=== PATIENT | female | born 1945 | race Caucasian/White ===

== ENCOUNTER 2023-02-14 09:31 | Emergency (ER) | payer MEDICARE, SELFPAY ==
[2023-02-14] VITALS (7 sets, daily range): BP systolic 123–165; BP diastolic 72–79; PULSE 49–69; RESP 14–20; TEMP 36.8; O2SAT 98–99; BMI 27.3
--- NOTE | 2023-02-14 09:53 | ECG_ITS ---
The [facility] Test Date: 2023-02-14 Pat Name: ELLIE BISHOP Department: Room: - Gender: Female Electrophysiology Scientist: : 1945 Requested By: [id number] Order Number: [id number] Reading MD: LOLIS HUGHES Measurements Intervals [place] Rate: 49 P: 0 OK: 154 QRS: -32 QRSD: 86 T: -13 QT: 402 QTc: 372 Interpretive Statements 1130 Sinus bradycardia 7200 Abnormal left axis deviation 8003 Consistent with pulmonary disease 8102 Low QRS voltage in chest leads ST changes, can't exclude inferior ischemia 9150 abnormal ECG No previous ECG available for comparison Electronically Signed On 02-15-2023 10:52:58 EST by LOLIS HUGHES
--- NOTE | 2023-02-14 09:53 | XR_ITS ---
The [address] [address] Patient Name: ELLIE BISHOP MRN: [id number] date: 1945 Sex: F Assigned Patient Location: ER Current Patient Location: ER Accession/Order Number: [id number] Exam Date: 02/14/2023 10:18 Report Date: 02/14/2023 10:57 At the request of: JERMAN REED Procedure: XR chest 1V EXAM: XR chest 1V HISTORY: dizziness COMPARISON: Chest radiograph report only from 09/15/2008 images are unavailable for review TECHNIQUE: AP radiograph of the chest. FINDINGS: Atherosclerotic vascular calcification of aorta. The cardiac size is normal. The lungs are without focal consolidation, pneumothorax, or pleural effusion. No acute osseous abnormality. Postsurgical changes at the epigastric region. XR/XR chest 1V IMPRESSION: 1. No acute pulmonary abnormality. Electronically authenticated by: YEE LUU Date: 02/14/2023 10:57
--- NOTE | 2023-02-14 09:53 | ED_ITS ---
HPI - Dizziness General Chief Complaint: Syncope Stated Complaint: SYNCOPE Time Seen by Provider: 02/14/23 09:40 Source: patient Mode of arrival: walk-in Limitations: no limitations History of Present Illness HPI Narrative: 77-year-old female presents for episodes of dizziness. This has been happening for about the past two months and she had a heart attack and had two stents placed and was put on Plavix. She has these episodes nearly every day and it happens about three times a day. She feels like she's fading away and might pass out but never does. She talked to her fence gate assembler about it who told her that he didn't think there were any medication issues. Related Data Home Medications Medication Instructions Recorded Confirmed alprazolam 1 mg tablet 2.5 mg PO BEDTIME 02/14/23 02/14/23 aspirin 81 mg tablet,delayed 81 mg PO DAILY 02/14/23 02/14/23 release atorvastatin 80 mg tablet 80 mg PO DAILY 02/14/23 02/14/23 clopidogrel 75 mg tablet 75 mg PO DAILY 02/14/23 02/14/23 levothyroxine 100 mcg tablet 100 mcg PO DAILY 02/14/23 02/14/23 losartan 100 1 tab PO DAILY 02/14/23 02/14/23 mg-hydrochlorothiazide 25 mg tablet metoprolol tartrate 25 mg tablet 25 mg PO BID 02/14/23 02/14/23 omeprazole 20 mg capsule,delayed 20 mg PO BID 02/14/23 02/14/23 release Allergies Allergy/AdvReac Type Severity Reaction Status Date / Time No Known Drug Allergies Allergy Verified 02/14/23 09:40 Review of Systems ROS0 Narrative A ten point review of systems is negative except as noted above. PFSH PFSH Social History Smoking status: Never smoker Exam Narrative Exam Narrative: Nurses note and vital signs reviewed and patient is not hypoxic. General: The patient appears well and in no apparent distress. Patient is resting comfortably on cart. Skin: Warm, dry, no pallor noted. There is no rash noted. Head: Normocephalic, atraumatic Eye: Normal conjunctiva, no drainage Ears, Nose, Mouth, and Throat: oral mucosa is moist. Nares patent. Cardiovascular: Regular Rate and Rhythm Respiratory: Patient is in no distress, no accessory muscle use, lungs are clear to auscultation, no wheezing, rales or rhonchi Back: non-tender GI: soft and nontender Musculoskeletal: The patient has no evidence of calf tenderness, no pitting edema, symmetrical pulses noted bilaterally Neurological: A&O, normal speech Psychiatric: Cooperative Constitutional Vital Signs, click to edit/add: Last Vital Signs Temp 98.2 F 02/14/23 09:35 Pulse 50 L 02/14/23 10:30 Resp 14 02/14/23 10:30 BP 123/72 02/14/23 10:47 Pulse Ox 98 02/14/23 10:30 O2 Del Method Room Air 02/14/23 09:35 Course Vital Signs Vital signs: Vital Signs Temperature 98.2 F 02/14/23 09:35 Pulse Rate 60 02/14/23 09:35 Respiratory Rate 20 02/14/23 09:35 Blood Pressure 165/79 H 02/14/23 09:35 Pulse Oximetry 99 02/14/23 09:35 Oxygen Delivery Method Room Air 02/14/23 09:35 Temperature 98.2 F 02/14/23 09:35 Pulse Rate 50 L 02/14/23 10:30 Respiratory Rate 14 02/14/23 10:30 Blood Pressure 123/72 02/14/23 10:47 Pulse Oximetry 98 02/14/23 10:30 Oxygen Delivery Method Room Air 02/14/23 09:35 MDM - Dizziness MDM Narrative Medical decision making narrative: her workup including two troponins is negative. She's had no dysrhythmias here. Vital signs are appropriate. Heart rate is in the low 50s. She'll be discharged home and follow-up with her fence gate assembler and family doctor. Treatment diagnosis and follow-up were discussed with the patient. Differential Diagnosis Differential diagnosis: Likely adverse reaction to drug, orthostatic hypotension and other (dehydration) Lab Data Attestation: I reviewed the patient's lab results. Labs: Lab Results 02/14/23 02/14/23 Range/Units 09:53 10:51 WBC 6.9 (4.0-11.0) 10^3/uL RBC 3.78 L (4.20-5.40) 10^6/uL Hgb 11.8 L (12.0-16.0) g/dL Hct 37.4 (36.0-48.0) % MCV 98.9 (81.0-99.0) fL MCH 31.2 (26.7-34.0) pg MCHC 31.6 (29.9-35.2) g/dL RDW 11.2 (11.0-15.0) % Plt Count 183 (150-450) 10^3/uL MPV 10.4 (9.5-13.5) fL Neut % (Auto) 65.7 (43.0-75.0) % Lymph % (Auto) 23.8 (20.5-60.0) % [place] % (Auto) 7.6 (1.7-12.0) % Eos % (Auto) 1.9 (0.9-7.0) % Baso % (Auto) 0.7 (0.2-2.0) % Neut # (Auto) 4.6 (1.4-6.5) 10^3/uL Lymph # (Auto) 1.7 (1.2-3.8) 10^3/uL [place] # (Auto) 0.5 (0.3-0.8) 10^3/uL Eos # (Auto) 0.1 (0.0-0.7) 10^3/uL Baso # (Auto) 0.1 (0.0-0.1) 10^3/uL Abs Immat Gran (auto) 0.02 (0.00-0.03) 10^3/uL Imm/Tot Granulo (auto) 0.3 (0.0-0.5) % Sodium 141 (136-145) mmol/L Potassium 3.5 (3.5-5.1) mmol/L Chloride 104 (98-107) mmol/L Carbon Dioxide 26.5 (21.0-32.0) mmol/L Anion Gap 14.0 BUN 31.0 H (7.0-18.0) mg/dL Creatinine 0.91 (0.55-1.02) mg/dL Est GFR ( Amer) >60 (>=60) Est GFR (Non-Af Amer) >60 (>=60) BUN/Creatinine Ratio 34.1 Glucose 169 H (74-106) mg/dL Calcium 9.7 (8.5-10.1) mg/dL Troponin I High Sens 49.4 46.6 (4.0-51.3) pg/mL Imaging Data Chest x-ray: Radiologist's impression: Procedure: XR chest 1V EXAM: XR chest 1V HISTORY: dizziness COMPARISON: Chest radiograph report only from 09/15/2008 images are unavailable for review TECHNIQUE: AP radiograph of the chest. FINDINGS: Atherosclerotic vascular calcification of aorta. The cardiac size is normal. The lungs are without focal consolidation, pneumothorax, or pleural effusion. No acute osseous abnormality. Postsurgical changes at the epigastric region. IMPRESSION: 1. No acute pulmonary abnormality. Electronically authenticated by: YEE LUU Date: 02/14/2023 10:57 ECG Data Attestation: I personally reviewed and interpreted this ECG as follows: (EKG on my interpretation shows normal sinus rhythm with a rate of 49.) Discharge Plan Discharge Chief Complaint: Syncope Clinical Impression: Dizziness Patient Disposition: Home, Self-Care Time of Disposition Decision: 11:35 Condition: Good Mode of Transportation: Private Vehicle Prescriptions / Home Meds: No Action alprazolam 1 mg tablet 2.5 mg PO BEDTIME aspirin 81 mg tablet,delayed release (DR/EC) 81 mg PO DAILY atorvastatin 80 mg tablet 80 mg PO DAILY clopidogrel 75 mg tablet 75 mg PO DAILY levothyroxine 100 mcg tablet 100 mcg PO DAILY losartan-hydrochlorothiazide 100-25 mg tablet 1 tab PO DAILY metoprolol tartrate 25 mg tablet 25 mg PO BID omeprazole 20 mg capsule,delayed release(DR/EC) 20 mg PO BID Instructions: Near Syncope (ED), Dizziness (ED) Stand Alone Forms: Portal Instructions Referrals: Physician,Non-Staff, MD [Physician] - 1 week
[2023-02-14 10:04] LABS: Basophils Absolute Auto 0.1 10^3/uL (0.0-0.1); Basophils Percent Auto 0.7 % (0.2-2.0); Eosinophils Absolute Auto 0.1 10^3/uL (0.0-0.7); Eosinophils Percent Auto 1.9 % (0.9-7.0); Hematocrit 37.4 % (36.0-48.0); Hemoglobin 11.8 g/dL (12.0-16.0); Immature Granulocytes Abs Auto 0.02 10^3/uL (0.00-0.03); Immature Granulocytes Pct Auto 0.3 % (0.0-0.5); Lymphocytes Absolute Auto 1.7 10^3/uL (1.2-3.8); Lymphocytes Percent Auto 23.8 % (20.5-60.0); Mean Corpuscular HGB Conc 31.6 g/dL (29.9-35.2); Mean Corpuscular Hemoglobin 31.2 pg (26.7-34.0); Mean Corpuscular Volume 98.9 fL (81.0-99.0); Mean Platelet Volume 10.4 fL (9.5-13.5); Monocytes Absolute Auto 0.5 10^3/uL (0.3-0.8); Monocytes Percent Auto 7.6 % (1.7-12.0); Neutrophils Absolute Auto 4.6 10^3/uL (1.4-6.5); Neutrophils Percent Auto 65.7 % (43.0-75.0); Platelet Count 183 10^3/uL (150-450); Red Blood Count 3.78 10^6/uL (4.20-5.40); Red Cell Distribution Width 11.2 % (11.0-15.0); White Blood Count 6.9 10^3/uL (4.0-11.0)
[2023-02-14 10:26] LABS: BUN Creatinine Ratio 34.1; Calcium 9.7 mg/dL (8.5-10.1); Carbon Dioxide 26.5 mmol/L (21.0-32.0); Chloride 104 mmol/L (98-107); Estimated GFR (African America >60 (>=60); Estimated GFR (Non-African Ame >60 (>=60); Glucose 169 mg/dL (74-106); Potassium 3.5 mmol/L (3.5-5.1); Sodium 141 mmol/L (136-145); Troponin I High Sensitivity 49.4 pg/mL (4.0-51.3)
[2023-02-14 11:12] LABS: Troponin I High Sensitivity 46.6 pg/mL (4.0-51.3)
== END 2023-02-14 11:44 | disposition home or self-care (01) ==
PROVIDERS: Emergency Provider Emergency Medicine; PCP Family Medicine
DX: R42 Dizziness and giddiness (principal); I25.2 Old myocardial infarction; Z95.5 Presence of coronary angioplasty implant and graft; Z79.02 Long term (current) use of antithrombotics/antiplatelets; Z79.82 Long term (current) use of aspirin; Z79.899 Other long term (current) drug therapy; Z79.890 Hormone replacement therapy
CPT/HCPCS: 36415; 71045; 80048; 84484; 85025; 93005; 99285

== ENCOUNTER 2024-09-23 08:11 | Outpatient (OUT) | payer MEDICARE, SELFPAY ==
--- OUTSIDE RECORDS SUMMARY | 2024-09-23 08:14 | XMS_ITS | Encounter Summary ---
Author Organization [facility] Address [id number] [address] [place] [address] Care Team Providers Care Aquatic Facility Manager Name Role Phone Andry Allan MD Primary Care Provider [phone] Reason for Visit * Reason Onset Date Comments Med Refill 09/05/2021 Encounter Details Date Type Department Care Team (Late st Contact Info) Description 09/05/2021 Refill [facility] [address] [place] [id number] Liza Salinas CMA Anxiety Social History Tobacco Use Types Packs/Day Years Used Date Smoking Tobacco: Never Smokeless Tobacco: Never Alcohol Use Standard Drinks/Week Comments Not Currently 0 (1 standard drink = 0.6 oz pur e alcohol) rarely AUDIT-C Answer Date Recorded Frequency of Alcohol Consumption Monthly or less 12/30/2017 Average Number of Drinks 1 or 2 018 Frequency of Binge Drinking Never 08/2017 PHQ-2 Answer Date Recorded Total Score 0 08/12/2021 Childcare Answer Date Recorded Childcare Unknown 08/04/2018 Employment Answer Date Recorded Employment Unknown 08/04/2018 Purpose - Life Answer Date Recorded Purpose and direction in life Unknown Comments No Sex and Gender Information Value Date Recorded Sex Assigned at Female 09/09/2018 11:41 AM EDT Legal Sex Female 1:37 PM EST Gender Identity Female 09/09/2018 11:41 AM EDT Sexual Orientation Don't know 09/09/2018 11 :41 AM EDT COVID-19 Exposure Response Date Recorded In the last month, have you been in contact with someone who was confirmed or suspected to have Coronavirus / COVID-19? No / Unsure 08/12/2021 9:04 AM EDT documented as of this encounter Miscellaneous Notes * Telephone Encounter - Liza Salinas CMA - 09/05/2021 10:08 AM EDT Patient requesting refill of [facility]anax [facility] Appointments and contract UTD documented in this encounter Plan of Treatment Upcoming Encounters Date Type Department Care Team (Late st Contact Info) Description 12/05/2024 1:30 PM EDT Office Visit [facility] [address] [place] [address] ED 1 [place] [address] Nilson Ibrahim MD [address] [facility], [address] [place] [address] documented as of this encounter Visit Diagnoses Diagnosis Anxiety Anxiety state, unspecified documented in this encounter Additional Health Concerns Infection Onset Date Last Indicated Resolved Time COVID-19 Positive 09/18/2023 09/18/2023 10/09/2023 11:12 PM EDT Assessment Noted Time PHQ-9 Depression Total Score: 0 08/13/19 9:00 AM EDT A Body Mass Index follow-up plan has been documented for the patient 11/08/2019 5:23 PM EDT documented as of this encounter Care Teams Aquatic Facility Manager Relationship Specialty Start Date End Date Andry Allan MD [facility] [place], [place] [id number] PCP - General Internal Medicine 06/09/24 documented as of this encounter
--- OUTSIDE RECORDS SUMMARY | 2024-09-23 08:14 | XMS_ITS | Encounter Summary ---
Author Organization [facility] Address [id number] [address] [place] [address] Care Team Providers Care Studio Model Name Role Phone Andry Allan MD Primary Care Provider [phone] Reason for Visit * Reason Onset Date Comments Med Refill 08/06/2021 Encounter Details Date Type Department Care Team (Late st Contact Info) Description 08/06/2021 Refill [facility] [address] [place] [phone] Chantel Simeon LPN Anxiety Social History Tobacco Use Types Packs/Day [...] PHQ-2 Answer Date Recorded Total Score 0 02/04/2021 Childcare Answer Date Recorded Childcare Unknown 08/04/2018 [...] Don't know 09/09/2018 11 :41 AM EDT documented as of this encounter Miscellaneous Notes * Telephone Encounter - Chantel Simeon LPN - 08/06/2021 1:42 PM EDT Patient requesting refill of Alprazolam to [facility] documented in this encounter Plan of Treatment Upcoming Encounters Date Type Department Care Team (Late st Contact Info) Description 12/05/2024 1:30 PM EDT Office Visit [facility] [address] [facility] [address] [place] [address] Nilson Ibrahim MD [address] [facility], [address] [place] [address] documented as of this encounter Visit Diagnoses Diagnosis Anxiety Anxiety state, unspecified documented in this encounter Additional Health Concerns Infection Onset Date Last Indicated Resolved Time COVID-19 Positive 09/18/2023 09/18/2023 10/09/2023 11:12 PM EDT Assessment Noted Time PHQ-9 Depression Total Score: 0 02/05/20 21 2:00 PM EST A Body Mass Index follow-up plan has been documented for the patient 11/08/2019 5:23 PM EDT documented as of this encounter Care Teams Studio Model Relationship Specialty Start Date End Date Andry Allan MD [facility] [place] [address] PCP - General Internal Medicine 06/09/24 documented as of this encounter
--- OUTSIDE RECORDS SUMMARY | 2024-09-23 08:14 | XMS_ITS | Encounter Summary ---
Author Organization [employer] Address [id number] [address] [place] [address] Care Team Providers Care Rn Manager Name Role Phone Andry Allan MD Primary Care Provider [phone] Encounter Details Date Type Department Care Team (Late st Contact Info) Description 08/13/2021 Orders Only [facility] [address] [facility] [place] [phone] External, Scanning Provider Social History Tobacco Use Types Packs/Day Years [...] AM EDT documented as of this encounter Plan of Treatment Upcoming Encounters Date Type Department Care Team (Late st Contact Info) Description 12/05/2024 1:30 PM EDT Office Visit [facility] [address] [place] [address] ED 1 [place] [phone] Nilson Ibrahim MD [address] [place] [address], [address] [place] [address] documented as of this encounter Procedures Procedure Name Priority Date/Time Associated Diagnosis Comments MULTIPLE LABS Routine 07/09/2021 HEMOGLOBIN A1C Routine 07/09/2021 LIPID PROFILE Routine 07/09/2021 documented in this encounter Results * (ABNORMAL) Hemoglobin A1c (07/09/2021) External Hemoglobin A1C 6.9(A) 4.5 - 6.2 % MANUALLY TRANSCRIBED RESULTS 07/09/2021 us Scanning Provider External LAB BLOOD ORDERABLES Final Result Performing Organization Address [facility] de Phone Number MANUALLY TRANSCRIBED RESULTS * Lipid profile (07/09/2021) External Cholesterol 154 <=200 MANUALLY TRANSCRIBED RESULTS External Hdl Cholesterol 47 40 - 60 MANUALLY TRANSCRIBED RESULTS External Ldl (Calc) 88.0 <=100 MANUALLY TRANSCRIBED RESULTS External Triglycerides 95 <=150 MANUALLY TRANSCRIBED RESULTS External Very Low Lipoprotein 19.0 MANUALLY TRANSCRIBED RESULTS 07/09/2021 us Scanning Provider External LAB BLOOD ORDERABLES Final Result Performing Organization Address [facility] Co de Phone Number MANUALLY TRANSCRIBED RESULTS * Multiple labs (07/09/2021) 07/09/2021 us Scanning Provider External DE IMAGING Final Result MANUALLY TRANSCRIBED RESULTS documented in this encounter Visit Diagnoses Not on filedocumented in this encounter Additional Health Concerns Infection Onset Date Last Indicated Resolved Time COVID-19 Positive 09/18/2023 09/18/2023 10/09/2023 11:12 PM EDT Assessment Noted Time PHQ-9 Depression Total Score: 0 08/13/19 9:00 AM EDT A Body Mass Index follow-up plan has been documented for the patient 11/08/2019 5:23 PM EDT documented as of this encounter Care Teams Rn Manager Relationship Specialty Start Date End Date Andry Allan MD [address] [place] [address] PCP - General Internal Medicine 06/09/24 documented as of this encounter
--- OUTSIDE RECORDS SUMMARY | 2024-09-23 08:14 | XMS_ITS | Encounter Summary ---
Author Organization [facility] Address [id number] [address] [place] [address] Care Team Providers Care Leasing Director Name Role Phone Andry Allan MD Primary Care Provider [phone] Reason for Visit * Reason Onset Date Comments Med Refill 10/07/2021 Encounter Details Date Type Department Care Team (Late st Contact Info) Description 10/07/2021 Refill [facility] [address] [place] [phone] Chantel Simeon LPN Anxiety Social History Tobacco [...] Telephone Encounter - Chantel Simeon LPN - 10/07/2021 9:02 AM EDT Patient requesting refill of Alprazolam to [facility] documented in this encounter Plan of Treatment Upcoming Encounters Date Type Department Care Team (Late st Contact Info) Description 12/05/2024 1:30 PM EDT Office Visit [facility] [address] [facility] [address] [place] [address] Nilson Ibrahim MD [address] [facility], [address] [place] [address] documented as of this encounter Visit Diagnoses Diagnosis Anxiety Anxiety state, unspecified documented in this encounter Additional Health Concerns Infection Onset Date Last Indicated Resolved Time COVID-19 Positive 09/18/2023 09/18/2023 10/09/2023 11:12 PM EDT Assessment Noted Time PHQ-9 Depression Total Score: 0 08/13/19 22 9:00 AM EDT A Body Mass Index follow-up plan has been documented for the patient 11/08/2019 5:23 PM EDT documented as of this encounter Care Teams Leasing Director Relationship Specialty Start Date End Date Andry Allan MD [address] [place] [address] PCP - General Internal Medicine 06/09/24 documented as of this encounter
--- OUTSIDE RECORDS SUMMARY | 2024-09-23 08:15 | XMS_ITS | Encounter Summary ---
Author Organization [facility] Address [address] [place] [address] Phone Care Team Providers Care Wet Cotton Feeder Name Role Phone Nilson Ibrahim MD Primary Care Provider + Reason for Visit * Reason Onset Date Comments Med Refill 09/09/2024 Encounter Details Date Type Department Care Team (Late st Contact Info) Description 09/09/2024 Refill [facility] [address] [facility] [address] [place] [address] Corie Zamudio LPN Inferior MO (Multi) Social History Tobacco Use Types Packs/Day Years Used Date Smoking Tobacco: Never Smokeless Tobacco: Never Alcohol Use Standard Drinks/Week Comments Never 0 (1 standard drink = 0.6 oz pur e alcohol) Comments Unknown Sex and Gender Information Value Date Recorded Sex Assigned at Female 09/22/2024 1:34 PM EDT Legal Sex Female 9:36 PM EDT Gender Identity Female 09/22/2024 1:34 PM EDT Sexual Orientation Straight 09/22/2024 1: 34 PM EDT documented as of this encounter Plan of Treatment Upcoming Encounters Date Type Department Care Team (Late st Contact Info) Description 06/27/2025 10:20 AM EDT Office Visit [facility] [address] [facility] [address] [place] [address] Boom Jacobson DO [address] [facility], [address] [place], [place] [phone] documented as of this encounter Visit Diagnoses Diagnosis Inferior MO (Multi) Acute myocardial infarction of other inferior wall, episode of care unspecified documented in this encounter Additional Health Concerns Assessment Noted Time A fall risk assessment has been complete d for the patient 08/30/2024 10:21 AM EDT documented as of this encounter Care Teams Wet Cotton Feeder Relationship Specialty Start Date End Date Nilson Ibrahim MD [address] [place] [address], [address] [place] [address] PCP - General Internal Medicine 08/30/24 documented as of this encounter
--- OUTSIDE RECORDS SUMMARY | 2024-09-23 08:15 | XMS_ITS | Encounter Summary ---
Author Organization [facility] Address [facility] [id number] [address] [place] [address] Care Team Providers Care Service Learning Coordinator Name Role Phone Andry Allan MD Primary Care Provider [phone] Reason for Visit * Reason Onset Date Comments Med Refill 07/05/2021 Encounter Details Date Type Department Care Team (Late st Contact Info) Description 07/05/2021 Refill [facility] [address] [place] [address] Chantel Simeon LPN Anxiety Social History Tobacco [...] Telephone Encounter - Chantel Simeon LPN - 07/05/2021 8:32 AM EDT Patient requesting refill of Alprazolam to [facility] documented in this encounter Plan of Treatment Upcoming Encounters Date Type Department Care Team (Late st Contact Info) Description 12/05/2024 1:30 PM EDT Office Visit [facility] [address] [facility] [address] [place] [address] Nilson Ibrahim MD [address] [facility], [address] [place] [address] documented as of this encounter [...] documented as of this encounter Care Teams Service Learning Coordinator Relationship Specialty Start Date End Date Andry Allan MD [address] [place] [address] PCP - General Internal Medicine 06/09/24 documented as of this encounter
--- OUTSIDE RECORDS SUMMARY | 2024-09-23 08:15 | XMS_ITS | Encounter Summary ---
Author Organization [facility] Address [facility] [id number] [address] [place] [address] Care Team Providers Care Molder Operator Name Role Phone Andry Allan MD Primary Care Provider [phone] Reason for Visit * Reason Onset Date Comments Med Refill 04/07/2022 Encounter Details Date Type Department Care Team (Late st Contact Info) Description 04/07/2022 Refill [facility] [address] [place] [phone] Chantel Simeon LPN Anxiety Social History Tobacco [...] PHQ-2 Answer Date Recorded Total Score 0 02/07/2022 Childcare Answer Date Recorded Childcare Unknown 08/04/2018 [...] Telephone Encounter - Chantel Simeon LPN - 04/07/2022 10:43 AM EST Patient requesting refill of Alprazolam to [facility] documented in this encounter Plan of Treatment Upcoming Encounters Date Type Department Care Team (Late st Contact Info) Description 12/05/2024 1:30 PM EDT Office Visit [facility] [address] [facility] [address] [place] [address] Nilson Ibrahim MD [address] [facility], [address] [place] [address] documented as of this encounter Visit Diagnoses Diagnosis Anxiety Anxiety state, unspecified documented in this encounter Additional Health Concerns Infection Onset Date Last Indicated Resolved Time COVID-19 Positive 09/18/2023 09/18/2023 10/09/2023 11:12 PM EDT Assessment Noted Time PHQ-9 Depression Total Score: 0 02/08/20 7:00 AM EST A Body Mass Index follow-up plan has been documented for the patient 11/08/2019 5:23 PM EDT documented as of this encounter Care Teams Molder Operator Relationship Specialty Start Date End Date Andry Allan MD [address] [place] [address] PCP - General Internal Medicine 06/09/24 documented as of this encounter
--- OUTSIDE RECORDS SUMMARY | 2024-09-23 08:15 | XMS_ITS | Encounter Summary ---
Author Organization [facility] Address [id number] [address] [place] [address] Care Team Providers Care Electric Organ Assembler And Checker Name Role Phone Andry Allan MD Primary Care Provider [phone] Reason for Visit * Reason Onset Date Comments Med Refill 12/06/2021 Encounter Details Date Type Department Care Team (Late st Contact Info) Description 12/06/2021 Refill [facility] [address] [place] [address] Chantel Simeon LPN Anxiety Social History Tobacco [...] Telephone Encounter - Chantel Simeon LPN - 12/06/2021 8:33 AM EDT Patient requesting refill of Alprazolam to [facility] documented in this encounter Plan of Treatment Upcoming Encounters Date Type Department Care Team (Late st Contact Info) Description 12/05/2024 1:30 PM EDT Office Visit [facility] [address] [facility] [address] [place] [address] Nilson Ibrahim MD [address] [facility], [address] [place] [address] documented as of this encounter [...] documented as of this encounter Care Teams Electric Organ Assembler And Checker Relationship Specialty Start Date End Date Andry Allan MD [address] [place] [address] PCP - General Internal Medicine 06/09/24 documented as of this encounter
--- OUTSIDE RECORDS SUMMARY | 2024-09-23 08:15 | XMS_ITS | Encounter Summary ---
Author Organization [facility] [employer] [facility] Address [id number] [address] [place] [address] Care Team Providers Care Feather Duster Winder Name Role Phone Andry Allan MD Primary Care Provider [phone] Reason for Visit * Reason Onset Date Comments Med Refill 06/11/2018 Encounter Details Date Type Department Care Team (Late st Contact Info) Description 06/11/2018 Refill [facility] [address] [place] [address] Chantel Simeon LPN Social History Tobacco Use Types Packs/Day Years Used Date Smoking Tobacco: Never Smokeless Tobacco: Never Alcohol Use Standard Drinks/Week Comments Yes 0 (1 standard drink = 0.6 oz pur e alcohol) rarely AUDIT-C Answer Date Recorded Frequency of Alcohol Consumption Monthly or less 12/30/2017 Average Number of Drinks 1 or 2 018 Frequency of Binge Drinking Never 08/2017 PHQ-2 Answer Date Recorded PHQ-2 Score 7 03/06/2018 Childcare Answer Date Recorded Childcare Unknown 05/14/2018 Employment Answer Date Recorded Employment Unknown 05/14/2018 Comments No Sex and Gender Information Value [...] Visit [facility] [address] [facility] [address] [place] [address] Nilson Ibrahim MD [address] [facility], [address] [place], [place] [address] documented as of this encounter Visit Diagnoses Not on filedocumented in this encounter Additional Health Concerns Infection Onset Date Last Indicated Resolved Time COVID-19 Rule-Out 08/26/2019 08/26/2019 08/27/2019 11:25 AM EDT COVID-19 Rule-Out 01/12/2020 01/06/2020 01/12/2020 9:58 AM EST COVID-19 Positive 09/18/2023 09/18/2023 10/09/2023 11:12 PM EDT Assessment Noted Time PHQ-9 Depression Total Score: 7 06/25/19 18 10:00 AM EDT A Body Mass Index follow-up plan has been documented for the patient 12/10/2016 11:50 AM EDT documented as of this encounter Care Teams Feather Duster Winder Relationship Specialty Start Date End Date Andry Allan MD [address] [place] [address] PCP - General Internal Medicine 06/09/24 documented as of this encounter
--- OUTSIDE RECORDS SUMMARY | 2024-09-23 08:15 | XMS_ITS | Encounter Summary ---
Author Organization [facility] Address [id number] [address] [place] [address] Care Team Providers Care Family Service Center Director Name Role Phone Andry Allan MD Primary Care Provider [phone] Reason for Visit * Reason Onset Date Comments Med Refill 06/07/2021 Encounter Details Date Type Department Care Team (Late st Contact Info) Description 06/07/2021 Refill [facility] [address] [place] [address] Chantel Simeon LPN Anxiety Social History Tobacco [...] Telephone Encounter - Chantel Simeon LPN - 06/07/2021 8:48 AM EDT Patient requesting refill of Alprazolam to [facility] documented in this encounter Plan of Treatment Upcoming Encounters Date Type Department Care Team (Late st Contact Info) Description 12/05/2024 1:30 PM EDT Office Visit [facility] [address] [facility] [address] [place] [address] Nilson Ibrahim MD [address] [facility], [address] [place] [address] documented as of this encounter [...] documented as of this encounter Care Teams Family Service Center Director Relationship Specialty Start Date End Date Andry Allan MD [address] [place] [address] PCP - General Internal Medicine 06/09/24 documented as of this encounter
--- OUTSIDE RECORDS SUMMARY | 2024-09-23 08:16 | XMS_ITS | Encounter Summary ---
Author Organization [facility] Address [address] [place] [address] Phone Care Team Providers Care Local Company Tanker Driver Name Role Phone Noe Moran MD Primary Care Provider Linda Reilly RN Unavailable Unavailable Noe Moran MD Primary Care Provider Nilson Ibrahim MD Primary Care Provider + Encounter Details Date Type Department Care Team (Late st Contact Info) Description 12/03/2022 Scanned Document [facility] [address] [place] [phone] Scanning, Generic Provider Social History Tobacco Use Types Packs/Day Years Used Date Smoking Tobacco: Never Assessed Comments Unknown Sex and Gender Information Value [...] Description 06/27/2025 10:20 AM EDT Office Visit [facility] [address] [facility] [address] [place] [address] Boom Jacobson DO [address] [place] [address] documented as of this encounter Visit Diagnoses Not on filedocumented in this encounter Care Teams Local Company Tanker Driver Relationship Specialty Start Date End Date Noe Moran MD PCP - General Family Medicine 02/23/99 11/30/23 Noe Moran MD [address] [place] [address] PCP - General Family Medicine 12/01/23 08/29/24 Nilson Ibrahim MD [address] [place] [address], [address] [place] [address] PCP - General Internal Medicine 08/30/24 Linda Reilly, marine geologistPolice Radio Dispatcher 12/04/22 03/04/23 documented as of this encounter
--- OUTSIDE RECORDS SUMMARY | 2024-09-23 08:16 | XMS_ITS | Encounter Summary ---
Author Organization [employer] Sys [employer] Address [id number] [address] [place] [address] Care Team Providers Care Slitter Scorer Name Role Phone Andry Allan MD Primary Care Provider [phone] Reason for Visit * Reason Comments Med Refill Encounter Details Date Type Department Care Team (Late st Contact Info) Description 08/04/2023 Refill [facility] [address] [place] [address] Noe Moran MD [address]. Provider retired 05/24/24 [place], [place] [phone] Anxiety Social History Tobacco Use Types Packs/Day [...] PHQ-2 Answer Date Recorded Total Score 0 05/29/2023 Childcare Answer Date Recorded Childcare Unknown 08/04/2018 Employment Answer Date Recorded Employment Unknown 08/04/2018 Hunger Screening Answer Date Recorded Within the past 12 months we worried whether our food would run out before we got money to buy more. Never True 05/29/2023 Within the past 12 months th e food we bought just didn't last and we didn't have money to get more. Never True 05/29/2023 Purpose - Life Answer Date Recorded Purpose [...] Telephone Encounter - Chantel Simeon LPN - 08/04/2023 5:15 PM EDT [facility] requesting refill of Alprazolam documented in this encounter Plan of Treatment Upcoming Encounters Date Type Department Care Team (Late st Contact Info) Description 12/05/2024 1:30 PM EDT Office Visit [facility] [address] [place] [address] [address] [place] [address] Nilson Ibrahim MD [address] [facility], [address] [place], [place] [address] documented as of this encounter Visit Diagnoses Diagnosis Anxiety Anxiety state, unspecified documented in this encounter Additional Health Concerns Infection Onset Date Last Indicated Resolved Time COVID-19 Positive 09/18/2023 09/18/2023 10/09/2023 11:12 PM EDT Assessment Noted Time PHQ-9 Depression Total Score: 0 05/29/19 24 7:00 AM EDT A Body Mass Index follow-up plan has been documented for the patient 11/08/2019 5:23 PM EDT documented as of this encounter Care Teams Slitter Scorer Relationship Specialty Start Date End Date Andry Allan MD [facility] [place] [address] PCP - General Internal Medicine 06/09/24 documented as of this encounter
--- OUTSIDE RECORDS SUMMARY | 2024-09-23 08:16 | XMS_ITS | Encounter Summary ---
Author Organization [employer] Address [facility] [place]-[id number] [address] [place] [address] Care Team Providers Care Provider Relations Specialist Name Role Phone Andry Allan MD Primary Care Provider [phone] Reason for Visit * Reason Comments Med Refill Encounter Details Date Type Department Care Team (Late st Contact Info) Description 04/09/2023 Refill [facility] [address] [address] oNe Moran MD [address]. Provider retired 05/24/24 [place], [place] [phone] Anxiety Social History Tobacco Use Types Packs/Day [...] 08/2017 PHQ-2 Answer Date Recorded Total Score 1 10/10/2022 Childcare Answer Date Recorded Childcare Unknown 08/04/2018 Employment Answer Date Recorded Employment Unknown 08/04/2018 Hunger Screening Answer Date Recorded Within the past 12 months we worried whether our food would run out before we got money to buy more. Never True 10/10/2022 Within the past 12 months th e food we bought just didn't last and we didn't have money to get more. Never True 10/10/2022 Purpose - Life Answer Date Recorded Purpose [...] Telephone Encounter - Chantel Simeon LPN - 04/09/2023 10:13 AM EST [facility] requesting refill of Alprazolam documented in this encounter Plan of Treatment Upcoming Encounters Date Type Department Care Team (Late st Contact Info) Description 12/05/2024 1:30 PM EDT Office Visit [facility] [address] [place] [address] [address] [place] [address] Nilson Ibrahim MD [facility], [address] [place], [place] [address] documented as of this encounter Visit Diagnoses Diagnosis Anxiety Anxiety state, unspecified documented in this encounter Additional Health Concerns Infection Onset Date Last Indicated Resolved Time COVID-19 Positive 09/18/2023 09/18/2023 10/09/2023 11:12 PM EDT Assessment Noted Time PHQ-9 Depression Total Score: 1 10/11/19 23 11:00 AM EDT A Body Mass Index follow-up plan has been documented for the patient 11/08/2019 5:23 PM EDT documented as of this encounter Care Teams Provider Relations Specialist Relationship Specialty Start Date End Date Andry Allan MD [facility] [place] [address] PCP - General Internal Medicine 06/09/24 documented as of this encounter
--- OUTSIDE RECORDS SUMMARY | 2024-09-23 08:16 | XMS_ITS | Encounter Summary ---
Author Organization [facility] Address [address] [place] [address] Phone Care Team Providers Care Quality Systems Technician Name Role Phone Noe Moran MD Primary Care Provider Linda Reilly RN Unavailable Unavailable Noe Moran MD Primary Care Provider Nilson Ibrahim MD Primary Care Provider + Encounter Details Date Type Department Care Team (Late st Contact Info) Description 12/01/2022 Scanned Document [facility] [address] [place] [address] Scanning, Generic Provider Social History Tobacco Use [...] Description 06/27/2025 10:20 AM EDT Office Visit [facility] [address] [facility] [address] [place] [address] Boom Jacobson DO [address] [place] [address] documented as of this encounter Procedures Procedure Name Priority Date/Time Associated Diagnosis Comments ECHOCARDIOGRAM 12/01/2022 documented in this encounter Results * ECHOCARDIOGRAM (12/01/2022) Narrative 12/01/2022 Ordered by an unspecified provider. us Generic Provider Scanning CV ECHO PROCEDURES Fin al Result documented in this encounter Visit Diagnoses Not on filedocumented in this encounter Care Teams Quality Systems Technician Relationship Specialty Start Date End Date Noe Moran MD PCP - General Family Medicine 02/23/99 11/30/23 Noe Moran MD [address] [place] [address]. [place] [id number] PCP - General Family Medicine 12/01/23 08/29/24 Nilson Ibrahim MD [address] [place] [address], [address] [place] [id number] PCP - General Internal Medicine 08/30/24 Linda Reilly, baker apprenticeRehab Department Manager 12/04/22 03/04/23 documented as of this encounter
--- OUTSIDE RECORDS SUMMARY | 2024-09-23 08:16 | XMS_ITS | Encounter Summary ---
Author Organization [employer] Sys [employer] Address [facility] [id number] [address] [place] [address] Care Team Providers Care Oil Pipeline Dispatcher Name Role Phone Andry Allan MD Primary Care Provider [phone] Encounter Details Date Type Department Care Team (Late st Contact Info) Description 02/18/2023 Orders Only [facility] [address] [place] [address] Noe Moran MD [address]. Provider retired 05/24/24 [place] [address] Social History Tobacco Use Types Packs/Day Years [...] Office Visit [facility] [address] [facility] [address] [place] [address] Nilson Ibrahim MD [facility]5 [facility], [address] [place] [address] documented as of this encounter [...] documented as of this encounter Care Teams Oil Pipeline Dispatcher Relationship Specialty Start Date End Date Andry Allan MD [address] [place] [address] PCP - General Internal Medicine 06/09/24 documented as of this encounter
--- OUTSIDE RECORDS SUMMARY | 2024-09-23 08:16 | XMS_ITS | Encounter Summary ---
Author Organization [facility] Address [facility] [id number] [address] [place] [address] Care Team Providers Care Emergency Response Technician Name Role Phone Andry Allan MD Primary Care Provider [phone] Reason for Visit * Reason Onset Date Comments Med Refill 01/07/2021 Encounter Details Date Type Department Care Team (Late st Contact Info) Description 01/07/2021 Refill [facility] [address] [place] [address] Francisco Alas CNA Anxiety Social History Tobacco Use Types Packs/Day [...] PHQ-2 Answer Date Recorded Total Score 1 08/08/2020 Childcare Answer Date Recorded Childcare Unknown 08/04/2018 [...] encounter Miscellaneous Notes * Telephone Encounter - Francisco Alas CMA - 01/07/2021 4:10 PM EST Patient requesting refill of alprazolam to RA garcia documented in this encounter Plan of Treatment Upcoming Encounters Date Type Department Care Team (Late st Contact Info) Description 12/05/2024 1:30 PM EDT Office Visit [facility] [address] [place] [address] [address] [place] [address] Nilson Ibrahim MD [facility], [address] [place] [address] documented as of this encounter Visit Diagnoses Diagnosis Anxiety Anxiety state, unspecified documented in this encounter Additional Health Concerns Infection Onset Date Last Indicated Resolved Time COVID-19 Positive 09/18/2023 09/18/2023 10/09/2023 11:12 PM EDT Assessment Noted Time PHQ-9 Depression Total Score: 1 08/09/19 21 9:00 AM EDT A Body Mass Index follow-up plan has been documented for the patient 11/08/2019 5:23 PM EDT documented as of this encounter Care Teams Emergency Response Technician Relationship Specialty Start Date End Date Andry Allan MD [facility]5 [place], [place] [phone] PCP - General Internal Medicine 06/09/24 documented as of this encounter
--- OUTSIDE RECORDS SUMMARY | 2024-09-23 08:16 | XMS_ITS | Encounter Summary ---
Author Organization [employer] Sys [employer] Address [facility]-[id number] [address] [place] [address] Care Team Providers Care Guide Cruise Name Role Phone Andry Allan MD Primary Care Provider [phone] Reason for Visit * Reason Comments Med Refill Encounter Details Date Type Department Care Team (Late st Contact Info) Description 07/06/2023 Refill [facility] [address] [facility] [address] Noe Moran MD [address]. Provider retired 05/24/24 [place], [place] [address] Anxiety Social History Tobacco Use Types Packs/Day [...] Telephone Encounter - Chantel Simeon LPN - 07/06/2023 9:42 AM EDT [facility] requesting refill of Alprazolam documented in this encounter Plan of Treatment Upcoming Encounters Date Type Department Care Team (Late st Contact Info) Description 12/05/2024 1:30 PM EDT Office Visit [facility] [address] [place] [address] ED 1 [place] [address] Nilson Ibrahim MD [address] [facility], [address] [place], [place] [address] documented as of this encounter Visit Diagnoses [...] documented as of this encounter Care Teams Guide Cruise Relationship Specialty Start Date End Date Andry Allan MD [facility]5 [place] [address] PCP - General Internal Medicine 06/09/24 documented as of this encounter
--- OUTSIDE RECORDS SUMMARY | 2024-09-23 08:16 | XMS_ITS | Encounter Summary ---
Author Organization [facility] Address [facility][id number] [address] [place] [address] Care Team Providers Care Hydraulic Plumber Helper Name Role Phone Andry Allan MD Primary Care Provider [phone] Reason for Visit * Reason Onset Date Comments Med Refill 12/06/2020 Encounter Details Date Type Department Care Team (Late st Contact Info) Description 12/06/2020 Refill [facility] [address] [place] [address] Chantel Simeon LPN Anxiety Social History Tobacco [...] Telephone Encounter - Chantel Simeon LPN - 12/06/2020 4:21 PM EDT Requesting refill of Alprazolam to Jose [facility] documented in this encounter Plan of Treatment Upcoming Encounters Date Type Department Care Team (Late st Contact Info) Description 12/05/2024 1:30 PM EDT Office Visit [facility] [address] [facility] ED 1 [place] [address] Nilson Ibrahim MD [address] [facility], [address] [place] [address] documented as of this encounter [...] documented as of this encounter Care Teams Hydraulic Plumber Helper Relationship Specialty Start Date End Date Andry Allan MD [address] [place] [address] PCP - General Internal Medicine 06/09/24 documented as of this encounter
--- OUTSIDE RECORDS SUMMARY | 2024-09-23 08:16 | XMS_ITS | Encounter Summary ---
Author Organization [employer] Address [facility]-[id number] [address] [place] [address] Care Team Providers Care Cabin Outfitter Name Role Phone Andry Allan MD Primary Care Provider [phone] Reason for Visit * Reason Onset Date Comments Med Refill 11/06/2023 Encounter Details Date Type Department Care Team (Late st Contact Info) Description 11/06/2023 Refill [facility] [address] [place] [address] Liza Salinas CMA Anxiety Social History Tobacco [...] EDT Office Visit [facility] [address] [place] [address] ED 1 [place] [address] Nilson Ibrahim MD [facility]5 [facility], [address] [place], [place] [address] documented as of this encounter Visit Diagnoses Diagnosis Anxiety Anxiety state, unspecified documented in this encounter Additional Health Concerns Assessment Noted Time PHQ-9 Depression Total Score: 0 05/29/19 24 7:00 AM EDT A Body Mass Index follow-up plan has been documented for the patient 11/08/2019 5:23 PM EDT documented as of this encounter Care Teams Cabin Outfitter Relationship Specialty Start Date End Date Andry Allan MD [facility]5 [place] [address] PCP - General Internal Medicine 06/09/24 documented as of this encounter
--- OUTSIDE RECORDS SUMMARY | 2024-09-23 08:16 | XMS_ITS | Encounter Summary ---
Author Organization [employer] Sys tem Address [id number] [address] [place] [address] Care Team Providers Care Back Joiner Name Role Phone Andry Allan MD Primary Care Provider [phone] Encounter Details Date Type Department Care Team (Late st Contact Info) Description 09/18/2023 Orders Only [facility] [address] [facility] [place] [address] External, Scanning Provider Social History Tobacco Use [...] EDT Office Visit [facility] [address] [place] [address] ED 1 [place] [address] Nilson Ibrahim MD [address]75 [facility], [address] [place], [place] [phone] documented as of this encounter Procedures Procedure Name Priority Date/Time Associated Diagnosis Comments SARS COV 2 (COVID-19) STAT 09/18/2023 11:52 AM EDT documented in this encounter Results * (ABNORMAL) SARS COV 2 (COVID-19) (09/18/2023 11:52 AM EDT) EXTERNAL SARS COV 2 Positive( A) Negative MANUALLY TRANSCRIBED RESULTS Nasopharyngeal structure / Unknown us Scanning Provider External MICROBIOLOGY - GENERA L ORDERABLES Edited Result - Final MANUALLY TRANSCRIBED RESULTS documented in this encounter [...] documented as of this encounter Care Teams Back Joiner Relationship Specialty Start Date End Date Andry Allan MD [address] [place], [place] [phone] PCP - General Internal Medicine 06/09/24 documented as of this encounter
--- OUTSIDE RECORDS SUMMARY | 2024-09-23 08:16 | XMS_ITS | Encounter Summary ---
Author Organization [employer] Sys tem Address [facility]-[id number] [address] [place] [address] Care Team Providers Care Cream Gatherer Name Role Phone Andry Allan MD Primary Care Provider [phone] Encounter Details Date Type Department Care Team (Late st Contact Info) Description 03/08/2021 Refill [facility] [address] [facility] [address] Francisco Alas CNA Anxiety Social History Tobacco [...] Telephone Encounter - Francisco Alas CMA - 03/08/2021 4:07 PM EST Patient requesting refill of xanax to RA garcia documented in this encounter Plan of Treatment Upcoming Encounters Date Type Department Care Team (Late st Contact Info) Description 12/05/2024 1:30 PM EDT Office Visit [facility] [address] [place] [address] ED 1 [place] [address] Nilson Ibrahim MD [address] [facility], [address] [place] [address] documented as of this encounter [...] documented as of this encounter Care Teams Cream Gatherer Relationship Specialty Start Date End Date Andry Allan MD [facility]5 [place] [address] PCP - General Internal Medicine 06/09/24 documented as of this encounter
--- OUTSIDE RECORDS SUMMARY | 2024-09-23 08:16 | XMS_ITS | Encounter Summary ---
Author Organization [employer] Address [facility][id number] [address] [place] [address] Care Team Providers Care Personnel Administrator Name Role Phone Andry Allan MD Primary Care Provider [phone] Encounter Details Date Type Department Care Team (Late st Contact Info) Description 08/09/2019 Telephone [facility] [address] [facility] [place] [address] Noe Moran MD [address]. Provider retired 05/24/24 [place], [place] [phone] Social History Tobacco Use Types Packs/Day Years [...] 08/2017 PHQ-2 Answer Date Recorded PHQ-2 Score 0 11/10/2018 Childcare Answer Date Recorded Childcare Unknown 08/04/2018 Employment Answer Date Recorded Employment Unknown 08/04/2018 Comments No Sex and Gender Information Value [...] have Coronavirus / COVID-19? No / Unsure 08/08/2019 4:14 PM EDT documented as of this encounter Plan of Treatment Upcoming Encounters Date Type Department Care Team (Late st Contact Info) Description 12/05/2024 1:30 PM EDT Office Visit [facility] [address] [place] [address] ED 1 [place] [address] Nilson Ibrahim MD 2575 [facility], [address] [place], [place] [address] documented as of this encounter Visit Diagnoses Not on filedocumented in this encounter Additional Health Concerns Infection Onset Date Last Indicated Resolved Time COVID-19 Rule-Out 08/26/2019 08/26/2019 08/27/2019 11:25 AM EDT COVID-19 Rule-Out 01/12/2020 01/06/2020 01/12/2020 9:58 AM EST COVID-19 Positive 09/18/2023 09/18/2023 10/09/2023 11:12 PM EDT Assessment Noted Time PHQ-9 Depression Total Score: 0 08/02/19 20 7:52 PM EDT A Body Mass Index follow-up plan has been documented for the patient 12/10/2016 11:50 AM EDT documented as of this encounter Care Teams Personnel Administrator Relationship Specialty Start Date End Date Andry Allan MD [address] [place] [id number] PCP - General Internal Medicine 06/09/24 documented as of this encounter
--- OUTSIDE RECORDS SUMMARY | 2024-09-23 08:16 | XMS_ITS | Encounter Summary ---
Author Organization [employer] Sys tem Address [facility]-[id number] [address] [place] [address] Care Team Providers Care Pipe Caulker Name Role Phone Andry Allan MD Primary Care Provider [phone] Reason for Visit * Reason Comments Med Refill Encounter Details Date Type Department Care Team (Late st Contact Info) Description 05/08/2023 Refill [facility] [address] [place] [address] Noe Moran MD [address]. Provider retired 05/24/24 [place], [place] [phone] Anxiety Social History Tobacco Use Types Packs/Day [...] Telephone Encounter - Chantel Simeon LPN - 05/08/2023 9:59 AM EDT Jose Manning [facility] requesting refill of Alprazolam documented in this encounter Plan of Treatment Upcoming Encounters Date Type Department Care Team (Late st Contact Info) Description 12/05/2024 1:30 PM EDT Office Visit [facility] [address] [place] [address] ED 1 [place] [address] Nilson Ibrahim MD 2575 [facility], [address] [place], [place] [address] documented as of this encounter Visit Diagnoses [...] documented as of this encounter Care Teams Pipe Caulker Relationship Specialty Start Date End Date Andry Allan MD [facility]5 [place] [address] PCP - General Internal Medicine 06/09/24 documented as of this encounter
--- OUTSIDE RECORDS SUMMARY | 2024-09-23 08:16 | XMS_ITS | Encounter Summary ---
Author Organization [employer] s tem Address [facility][id number] [address] [place] [address] Care Team Providers Care Textile Colorist Dyer Name Role Phone Andry Allan MD Primary Care Provider [phone] Encounter Details Date Type Department Care Team (Late st Contact Info) Description 02/04/2021 [facility] [address] [place] [address] Chantel Simeon LPN Social History Tobacco Use [...] have Coronavirus / COVID-19? No / Unsure 02/04/2021 1:39 PM EST documented as of this encounter Plan of Treatment Upcoming Encounters Date Type Department Care Team (Late st Contact Info) Description 12/05/2024 1:30 PM EDT Office Visit [facility] [address] [place] [address] ED 1 [place] [address] Nilson Ibrahim MD 2575 [facility], [address] [place], [place] [address] documented as of this encounter Visit Diagnoses [...] documented as of this encounter Care Teams Textile Colorist Dyer Relationship Specialty Start Date End Date Andry Allan MD [address] [place] [address] PCP - General Internal Medicine 06/09/24 documented as of this encounter
--- OUTSIDE RECORDS SUMMARY | 2024-09-23 08:17 | XMS_ITS | Encounter Summary ---
Author Organization [facility] Address [id number] [address] [place] [address] Care Team Providers Care Machine Design Checker Name Role Phone Andry Allan MD Primary Care Provider [phone] Reason for Visit * Reason Onset Date Comments Med Refill 08/06/2022 Encounter Details Date Type Department Care Team (Late st Contact Info) Description 08/06/2022 Refill [facility] [address] [place] [address] Chantel Simeon LPN Anxiety Social History Tobacco [...] Telephone Encounter - Chantel Simeon LPN - 08/06/2022 12:22 PM EDT Patient requesting refill of Alprazolam to [facility] documented in this encounter Plan of Treatment Upcoming Encounters Date Type Department Care Team (Late st Contact Info) Description 12/05/2024 1:30 PM EDT Office Visit [facility] [address] [facility] ED [address] [place] [address] Nilson Ibrahim MD [address] [facility], [address] [place] [address] documented as of this encounter Visit Diagnoses Diagnosis Anxiety Anxiety state, unspecified documented in this encounter Additional Health Concerns Infection Onset Date Last Indicated Resolved Time COVID-19 Positive 09/18/2023 09/18/2023 10/09/2023 11:12 PM EDT Assessment Noted Time PHQ-9 Depression Total Score: 0 02/08/20 22 7:00 AM EST A Body Mass Index follow-up plan has been documented for the patient 11/08/2019 5:23 PM EDT documented as of this encounter Care Teams Machine Design Checker Relationship Specialty Start Date End Date Andry Allan MD [address] [place] [address] PCP - General Internal Medicine 06/09/24 documented as of this encounter
--- OUTSIDE RECORDS SUMMARY | 2024-09-23 08:17 | XMS_ITS | Encounter Summary ---
Author Organization [facility] [employer] Sys tem Address [facility]-[id number] [address] [place] [address] Care Team Providers Care Sprinkler Fitter Apprentice Name Role Phone Andry Allan MD Primary Care Provider [phone] Reason for Visit * Reason Onset Date Comments Med Refill 01/14/2019 Encounter Details Date Type Department Care Team (Late st Contact Info) Description 01/14/2019 Refill [facility] [address] [place] [address] Jimenez Balderas LPN Anxiety Social History Tobacco Use Types [...] Office Visit [facility] [address] [facility] ED 1 [place] [address] Nilson Ibrahim MD 2575 [facility], [address] [place] [address] documented as of this encounter Visit Diagnoses Diagnosis Anxiety Anxiety state, unspecified documented in this encounter Additional Health Concerns Infection Onset Date Last Indicated Resolved Time COVID-19 Rule-Out 08/26/2019 08/26/2019 08/27/2019 11:25 AM EDT COVID-19 Rule-Out 01/12/2020 01/06/2020 01/12/2020 9:58 AM EST COVID-19 Positive 09/18/2023 09/18/2023 10/09/2023 11:12 PM EDT Assessment Noted Time PHQ-9 Depression Total Score: 0 11/11/19 10:00 AM EDT A Body Mass Index follow-up plan has been documented for the patient 12/10/2016 11:50 AM EDT documented as of this encounter Care Teams Sprinkler Fitter Apprentice Relationship Specialty Start Date End Date Andry Allan MD [address] [place], [place] [address] PCP - General Internal Medicine 06/09/24 documented as of this encounter
--- OUTSIDE RECORDS SUMMARY | 2024-09-23 08:17 | XMS_ITS | Encounter Summary ---
Author Organization [facility] Address [address] [place] [address] Phone Care Team Providers Care Public Welfare Worker Name Role Phone Noe Moran MD Primary Care Provider Linda Reilly RN Unavailable Unavailable Noe Moran MD Primary Care Provider Nilson Ibrahim MD Primary Care Provider + Encounter Details Date Type Department Care Team (Late st Contact Info) Description 11/30/2022 Scanned Document [facility] [address] [place] [phone] Scanning, Generic Provider Social History Tobacco Use [...] Description 06/27/2025 10:20 AM EDT Office Visit [facility] [address] [facility] [address] [place] [address] Boom Jacobson DO [address] [place] [address] documented as of this encounter Procedures Procedure Name Priority Date/Time Associated Diagnosis Comments OUTSIDE CARDIOLOGY SCAN 11/30/2022 OUTSIDE CARDIOLOGY SCAN 11/30/2022 OUTSIDE IMAGING SCAN 11/30/2022 ADULT CATH 11/30/2022 documented in this encounter Results * OUTSIDE CARDIOLOGY SCAN (11/30/2022) Narrative 11/30/2022 Ordered by an unspecified provider. us Generic Provider Scanning OUTSIDE SCAN Final Result * OUTSIDE CARDIOLOGY SCAN (11/30/2022) Narrative 11/30/2022 Ordered by an unspecified provider. us Generic Provider Scanning OUTSIDE SCAN Final Result * ADULT CATH (11/30/2022) Narrative 11/30/2022 Ordered by an unspecified provider. us Generic Provider Scanning CV CARDIAC CATH PROCED URES Final Result * OUTSIDE IMAGING SCAN (11/30/2022) Anatomical Region Laterality Modality Other Narrative 11/30/2022 Ordered by an unspecified provider. us Generic Provider Scanning OUTSIDE SCAN Final Result documented in this encounter Visit Diagnoses Not on filedocumented in this encounter Care Teams Public Welfare Worker Relationship Specialty Start Date End Date Noe Moran MD PCP - General Family Medicine 02/23/99 11/30/23 Noe Moran MD [address] [place] [address] PCP - General Family Medicine 12/01/23 08/29/24 Nilson Ibrahim MD [address] [place] [address], [address] [place], [place] [address] PCP - General Internal Medicine 08/30/24 Linda Reilly, reed or wind instrument repairerDivision Sergeant 12/04/22 03/04/23 documented as of this encounter
--- OUTSIDE RECORDS SUMMARY | 2024-09-23 08:18 | XMS_ITS | Encounter Summary ---
Author Organization [employer] Address [id number] [address] [place] [address] Care Team Providers Care Steel Barrel Reamer Name Role Phone Andry Allan MD Primary Care Provider [phone] Encounter Details Date Type Department Care Team (Late st Contact Info) Description 07/04/2022 Refill [facility] [address] [facility] [place] [address] Tone Flores, SABINA Anxiety Social History Tobacco Use Types Packs/Day [...] Office Visit [facility] [address] [facility] ED 1 [place] [address] Nilson Ibrahim MD 2575 [facility], [address] [place] [address] documented as of this encounter [...] documented as of this encounter Care Teams Steel Barrel Reamer Relationship Specialty Start Date End Date Andry Allan MD [address] [place] [address] PCP - General Internal Medicine 06/09/24 documented as of this encounter
--- OUTSIDE RECORDS SUMMARY | 2024-09-23 08:18 | XMS_ITS | Encounter Summary ---
Author Organization [facility] Address [facility]-[id number] [address] [place] [address] Care Team Providers Care Corporate Sales Manager Name Role Phone Andry Allan MD Primary Care Provider [phone] Reason for Visit * Reason Onset Date Comments Med Refill 09/04/2022 Encounter Details Date Type Department Care Team (Late st Contact Info) Description 09/04/2022 Refill [facility] [address] [place] [address] Chantel Simeon LPN Anxiety Social History Tobacco [...] Telephone Encounter - Chantel Simeon LPN - 09/04/2022 9:03 AM EDT Patient requesting refill of Alprazolam to [facility] [place] documented in this encounter Plan of Treatment Upcoming Encounters Date Type Department Care Team (Late st Contact Info) Description 12/05/2024 1:30 PM EDT Office Visit [facility] [address] [facility] ED [address] [place] [address] Nilson Ibrahim MD 2575 [facility], [address] [place] [address] documented as of this encounter [...] documented as of this encounter Care Teams Corporate Sales Manager Relationship Specialty Start Date End Date Andry Allan MD [address] [place] [address] PCP - General Internal Medicine 06/09/24 documented as of this encounter
--- OUTSIDE RECORDS SUMMARY | 2024-09-23 08:18 | XMS_ITS | Encounter Summary ---
Author Organization [employer] Sys [employer] Address [facility]-[id number] [address] [place] [address] Care Team Providers Care Aviation Ordnance Officer Name Role Phone Andry Allan MD Primary Care Provider [phone] Encounter Details Date Type Department Care Team (Late st Contact Info) Description 08/29/2022 Orders Only [facility] [address] [facility] [address] External, Scanning Provider Social History Tobacco Use [...] EDT Office Visit [facility]5 [facility] ED 1 [place] [address] Nilson Ibrahim MD 2575 [facility], [address] [place], [place] [address] documented as of this encounter Procedures Procedure Name Priority Date/Time Associated Diagnosis Comments HEMOGLOBIN A1C Routine 08/27/2022 GLUCOSE RANDOM OR FASTING Routine 08/27/2022 documented in this encounter Results * Glucose random or fasting (08/27/2022) External Glucose Fasting Or Random (Fbs) 143 MANUALLY TRANSCRIBED RESULTS 08/27/2022 us Scanning Provider External LAB BLOOD ORDERABLES Final Result Performing Organization Address City/[facility] Co de Phone Number MANUALLY TRANSCRIBED RESULTS * (ABNORMAL) Hemoglobin A1c (08/27/2022) External Hemoglobin A1C 6.6(A) 4.5 - 6.2 % MANUALLY TRANSCRIBED RESULTS 08/27/2022 us Scanning Provider External LAB BLOOD ORDERABLES Final Result Performing Organization Address [facility] Co de Phone Number MANUALLY TRANSCRIBED RESULTS documented in this encounter [...] documented as of this encounter Care Teams Aviation Ordnance Officer Relationship Specialty Start Date End Date Andry Allan MD [address] [place] [address] PCP - General Internal Medicine 06/09/24 documented as of this encounter
--- OUTSIDE RECORDS SUMMARY | 2024-09-23 08:18 | XMS_ITS | Encounter Summary ---
Author Organization [employer] Sys tem Address [facility]-[id number] [address] [place] [address] Care Team Providers Care Superintendent Seed Mill Name Role Phone Andry Allan MD Primary Care Provider [phone] Encounter Details Date Type Department Care Team (Late st Contact Info) Description 02/17/2023 Orders Only [facility] [address] [place] [address] External, Scanning Provider Social History Tobacco Use [...] EDT Office Visit [facility] [address] [place] [address] ED 1 [place] [address] Nilson Ibrahim MD [address] [facility], [address] [place], [place] [id number] documented as of this encounter Procedures Procedure Name Priority Date/Time Associated Diagnosis Comments XR CHEST 1 VW Routine 02/14/2023 documented in this encounter Results * X-ray chest 1 view (02/14/2023) Anatomical Region Laterality Modality Body, Chest N/A Computed Radiogr aphy Narrative 02/14/2023 Ordering Provider: [facility] Dr. Froylan Oseguera us Scanning Provider External IMG DIAGNOSTIC IMAGIN G ORDERABLES Final Result documented in this encounter Visit Diagnoses Not on filedocumented in this encounter Additional Health Concerns Infection Onset Date Last Indicated Resolved Time COVID-19 Positive 09/18/2023 09/18/2023 10/09/2023 11:12 PM EDT Assessment Noted Time PHQ-9 Depression Total Score: 1 10/11/19 11:00 AM EDT A Body Mass Index follow-up plan has been documented for the patient 11/08/2019 5:23 PM EDT documented as of this encounter Care Teams Superintendent Seed Mill Relationship Specialty Start Date End Date Andry Allan MD [address] [place] [address] PCP - General Internal Medicine 06/09/24 documented as of this encounter
--- OUTSIDE RECORDS SUMMARY | 2024-09-23 08:18 | XMS_ITS | Clinical Summary ---
Author Organization [facility] Address [address] [place] [address] Phone Care Team Providers Care Assembler Wire Group Name Role Phone Nilson Ibrahim MD Primary Care Provider + Allergies No known active allergies Medications aspirin 81 mg EC tablet Take 1 tablet (81 mg) by mouth once daily. Active omeprazole (PriLOSEC) [address] capsule Take 1 capsule (20 mg) by mouth 2 times a day. 2 Active losartan-hydroc hlorothiazide (Hyzaar) 100-25 mg tablet Take 1 tablet by mouth once daily in the morning. Take before meals. 3 Active levothyroxine (Synthroid, Levoxyl) 100 mcg tablet Take 1 tablet (100 mcg) by mouth once daily in the morning. Take before meals. 3 Active ALPRAZolam (Xanax) 1 mg tablet take 2 & 1/2 tablets by mouth at bedtime 3 Active metFORMIN (Glucophage) 1,000 mg tablet Take 1 tablet (1,000 mg) by mouth 2 times daily (morning and late afternoon). 5 Active atorvastatin (Lipitor) 80 mg tabletIndicatio ns:Coronary artery disease involving samish coronary artery of samish heart without angina pectoris,Mixed hyperlipidemia, 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 (Multi) Take 1 tablet (80 mg) by mouth once daily. 90 tablet 3 5 09/01/19 26 Active metoprolol tartrate (Lopressor) 25 mg tabletIndicatio ns:Inferior OR (Multi) Take 1 tablet (25 mg) by mouth 2 times a day. 180 tablet 3 09/13/2024 10:15 AM EDT 5 Active clopidogrel (Plavix) 75 mg tabletIndicatio ns:Inferior OR (Multi),S/P right coronary artery (RCA) stent placement Take 1 tablet (75 mg) by mouth once daily. 90 tablet 1 4 08/31/19 25 Discontinu ed(Therapy completed) metoprolol tartrate (Lopressor) 25 mg tabletIndicatio ns:Inferior OR (Multi) Take 1 tablet (25 mg) by mouth 2 times a day. 180 tablet 3 4 09/10/19 25 Discontinu ed(Reorder ) atorvastatin (Lipitor) 80 mg tabletIndicatio ns:Coronary artery disease involving samish coronary artery of samish heart without angina pectoris,Mixed hyperlipidemia, 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 (Multi) Take 1 tablet (80 mg) by mouth once daily. 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 S/P right coronary artery (RCA) stent placement 12/11/2022 Encounters Date Type Department Care Team Description 09/09/2024 Refill [facility] [address] [place] [address] Corie Zamudio LPN Inferior OR (Multi) 08/30/2024 10:20 AM EDT Office Visit [facility] [address] [place] [address] Boom Jacobson DO Coronary artery disease involving samish coronary artery of samish heart without angina pectoris; Presence of bare metal stent in LAD coronary artery; Anemia, unspecified type; Inferior OR (Multi); BMI 27.0-27.9,adult; Never smoked tobacco 08/30/2024 Refill [facility] [address] [place] [address] Sejal Stephenson LPN Coronary artery disease involving samish coronary artery of samish heart without angina pectoris; Mixed hyperlipidemia; 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 (Multi) 08/30/2024 Travel 08/02/2024 Refill [facility] [address] [place] [address] Nita Vogt RN Coronary artery disease involving samish coronary artery of samish heart without angina pectoris; Mixed hyperlipidemia; 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 (Multi) from Last 3 Months Immunizations Immunization Administration Dates Next Due Flu vaccine (IIV4), preservative free *Check age /dose* 10/28/2019 Flu vaccine, quadrivalent, h igh-dose, preservative free, age 65y+ (FLUZONE) 12/05/2021 Flu vaccine, trivalent, pres ervative free, HIGH-DOSE, age 65y+ (Fluzone) 12/26/2015 Influenza Whole 12/16/2010,12/11/2008 Influenza, Seasonal, Quadrivalent, Adjuvanted ,11/29/2020 Influenza, seasonal, injectable 11/07/2014 Influenza, trivalent, adjuvanted 11/24/2018 Novel [id number], preservative-free 04/02 Pfizer COVID-19 vaccine, 12 years and older, (30mcg/0.3mL) (Comirnaty) 12/08/2022 Pfizer COVID-19 vaccine, biv alent, age 12 years and older (30 mcg/0.3 mL) 08/01/2022,11/07/2021 Pfizer Collins Cap SARS-CoV-2 05/23/2021 Pneumococcal polysaccharide vaccine, 23-valent, age 2 years and older (PNEUMOVAX 23) 10/28/2019 RSV, 60 Years And Older (AREXVY) 11/07/2022 Zoster vaccine, recombinant, adult (SHINGRIX) ,02/01/2019 Family History Medical History Relation Name Comments Peripheral vascular disease Brother degenerative heart Father Breast cancer Sister Relation Name Status Comments Brother Father Sister Social History Tobacco Use Types Packs/Day Years Used Date Smoking Tobacco: Never Smokeless Tobacco: Never Tobacco Cessation:Counseling Given: Not Answered Alcohol Use Standard Drinks/Week Comments Never 0 (1 standard drink = 0.6 oz pur e alcohol) Comments Unknown Sex and Gender Information Value Date Recorded Sex Assigned at Female 09/22/2024 1:34 PM EDT Legal Sex Female 9:36 PM EDT Gender Identity Female 09/22/2024 1:34 PM EDT Sexual Orientation Straight 09/22/2024 1: 34 PM EDT Last Filed Vital Signs Vital Sign Reading Time Taken Comments Blood Pressure 110/72 08/30/2024 10:25 AM EDT Pulse 62 08/30/2024 10:25 AM EDT Temperature - - Respiratory Rate - - Oxygen Saturation - - Inhaled Oxygen Concentration - - Weight 63.5 kg (140 lb) 08/30/2024 10:25 AM EDT Height 152.4 cm (5') 08/30/2024 10:25 AM EDT Body Mass Index 27.34 08/30/2024 10:25 AM EDT Plan of Treatment Upcoming Encounters Date Type Department Care Team (Late st Contact Info) Description 06/27/2025 10:20 AM EDT Office Visit [facility] [address] [phone] Boom Jacobson DO 703 [facility] 2, [address] [address] Health Maintenance Due Date Last Done Comments Lipid Panel 1945 Medicare Annual Wellness Visit (AWV) 1945 TSH Level 1945 Diabetes Screening 11/04/1965 Hepatitis C Screening 11/04/1965 DTaP/Tdap/Td Vaccines (1 - Tdap) 11/04/1969 Bone Density Scan 11/04/2012 COVID-19 Vaccine ( season) 2023 12/08/2022, 08/01/2022, 11/07/2021, Additional history exists Influenza Vaccine (#1) 2024 , 12/08/2022, 12/05/2021, Additional history exists Zoster Vaccines Completed 04/07/2019, 02/01/2019 Pneumococcal Vaccine Completed 10/28/2019, 12/10/19 17 RSV High Risk: (Elderly (60+) or Population) Completed 08/20/2023, 11/07/2022 HIB Vaccines Aged Out No longer eligi ble based on patient's age to complete this topic HPV Vaccines Aged Out No longer eligi ble based on patient's age to complete this topic Hepatitis A Vaccines Aged Out No long er eligible based on patient's age to complete this topic Hepatitis B Vaccines Aged Out No long er eligible based on patient's age to complete this topic IPV Vaccines Aged Out No longer eligi ble based on patient's age to complete this topic Meningococcal Vaccine Aged Out No [place] eligible based on patient's age to complete this topic Rotavirus Vaccines Aged Out No longer eligible based on patient's age to complete this topic Insurance MEDICARE PART A AND B AETNA SENIOR SUPPLEMENT MEDICARE PART A AND B AETNA SENIOR SUPPLEMENT Care Teams Assembler Wire Group Relationship Specialty Start Date End Date Nilson Ibrahim MD [address] [place] [address], [address] [place] [address] PCP - General Internal Medicine 08/30/24
--- OUTSIDE RECORDS SUMMARY | 2024-09-23 08:18 | XMS_ITS | Encounter Summary ---
Author Organization [facility] Address [id number] [address] [place] [address] Care Team Providers Care Wholesale And Retail Merchant Name Role Phone Andry Allan MD Primary Care Provider [phone] Reason for Visit * Reason Onset Date Comments Med Refill 06/06/2022 Encounter Details Date Type Department Care Team (Late st Contact Info) Description 06/06/2022 Refill [facility] [address] [place] [phone] Chantel Simeon LPN Anxiety Social History Tobacco [...] Telephone Encounter - Chantel Simeon LPN - 06/06/2022 8:08 AM EDT Patient requesting refill of Alprazolam to [facility] documented in this encounter Plan of Treatment Upcoming Encounters Date Type Department Care Team (Late st Contact Info) Description 12/05/2024 1:30 PM EDT Office Visit [facility] [address] [facility] ED 1 [place] [address] Nilson Ibrahim MD [address] [facility], [address] [place] [address] documented as of this encounter [...] documented as of this encounter Care Teams Wholesale And Retail Merchant Relationship Specialty Start Date End Date Andry Allan MD [address] [place] [address] PCP - General Internal Medicine 06/09/24 documented as of this encounter
--- OUTSIDE RECORDS SUMMARY | 2024-09-23 08:19 | XMS_ITS | Encounter Summary ---
Author Organization [employer] Address [facility]-[id number] [address] [place] [address] Care Team Providers Care Commercial Relief Driver Name Role Phone Andry Allan MD Primary Care Provider [phone] Reason for Visit * Reason Onset Date Comments Med Refill 11/07/2022 Encounter Details Date Type Department Care Team (Late st Contact Info) Description 11/07/2022 Refill [facility] [address] [place] [address] Liza Salinas CMA Anxiety Social History Tobacco [...] Telephone Encounter - Liza Salinas CMA - 11/07/2022 8:36 AM EDT Appt/ contract UTD documented in this encounter Plan of Treatment Upcoming Encounters Date Type Department Care Team (Late st Contact Info) Description 12/05/2024 1:30 PM EDT Office Visit [facility] ED [address] [place] [address] Nilson Ibrahim MD [address] [facility], [address] [place], [place] [address] documented as of this encounter Visit Diagnoses [...] documented as of this encounter Care Teams Commercial Relief Driver Relationship Specialty Start Date End Date Andry Allan MD [address] [place], [place] [phone] PCP - General Internal Medicine 06/09/24 documented as of this encounter
--- OUTSIDE RECORDS SUMMARY | 2024-09-23 08:19 | XMS_ITS | Encounter Summary ---
Author Organization [employer] Address [facility]-[id number] [address] [place] [address] Care Team Providers Care Toy Assembler Wood Name Role Phone Andry Allan MD Primary Care Provider [phone] Reason for Visit * Reason Comments Med Refill Encounter Details Date Type Department Care Team (Late st Contact Info) Description 12/22/2022 Refill [facility] [address] [place] [address] Noe Moran MD [address]. Provider retired 05/24/24 [place], [place] [phone] Anxiety Social History Tobacco Use Types Packs/Day [...] EDT Office Visit [facility] [address] [place] [address] ED 1 [place] [address] Nilson Ibrahim MD [address]75 [facility], [address] [place], [place] [address] documented as of this encounter Visit Diagnoses [...] documented as of this encounter Care Teams Toy Assembler Wood Relationship Specialty Start Date End Date Andry Allan MD [address] [place], [place] [phone] PCP - General Internal Medicine 06/09/24 documented as of this encounter
--- OUTSIDE RECORDS SUMMARY | 2024-09-23 08:19 | XMS_ITS | Encounter Summary ---
Author Organization [employer] Address [facility]-[id number] [address] [place] [address] Care Team Providers Care House Sitter Name Role Phone Andry Allan MD Primary Care Provider [phone] Reason for Visit * Reason Onset Date Comments Med Refill 05/08/2019 Encounter Details Date Type Department Care Team (Late st Contact Info) Description 05/08/2019 Refill [facility] [address] [place] [address] Noe Moran MD [address]. Provider retired 05/24/24 [place], [place] [address] Anxiety Social History Tobacco Use Types Packs/Day [...] EDT Office Visit [facility] [address] [place] [address] ED 1 [place] [address] Nilson Ibrahim MD [address] [facility], [address] [place] [address] documented as of this encounter [...] documented as of this encounter Care Teams House Sitter Relationship Specialty Start Date End Date Andry Allan MD [address] [place], [place] [phone] PCP - General Internal Medicine 06/09/24 documented as of this encounter
--- OUTSIDE RECORDS SUMMARY | 2024-09-23 08:19 | XMS_ITS | Encounter Summary ---
Author Organization [employer] Sys tem Address [facility]-[id number] [address] [place] [address] Care Team Providers Care Pheresis Nurse Name Role Phone Andry Allan MD Primary Care Provider [phone] Reason for Visit * Reason Comments Med Refill Encounter Details Date Type Department Care Team (Late st Contact Info) Description 01/01/2023 Refill [facility] [address] [place] [address] Noe Moran MD [address]. Provider retired 05/24/24 [place], [place] [id number] Anxiety Social History Tobacco Use Types Packs/Day [...] Telephone Encounter - Chantel Simeon LPN - 01/01/2023 10:05 AM EST [facility] requesting refill of Alprazolam documented in this encounter Plan of Treatment Upcoming Encounters Date Type Department Care Team (Late st Contact Info) Description 12/05/2024 1:30 PM EDT Office Visit [facility] [address] [place] [address] ED 1 [place] [address] Nilson Ibrahim MD [facility]5 [facility], [address] [place], [place] [address] documented as of this encounter Visit Diagnoses [...] documented as of this encounter Care Teams Pheresis Nurse Relationship Specialty Start Date End Date Andry Allan MD [facility]5 [place] [address] PCP - General Internal Medicine 06/09/24 documented as of this encounter
--- OUTSIDE RECORDS SUMMARY | 2024-09-23 08:19 | XMS_ITS | Encounter Summary ---
Author Organization [employer] Address [id number] [address] [place] [address] Care Team Providers Care Specialized Developer Name Role Phone Andry Allan MD Primary Care Provider [phone] Encounter Details Date Type Department Care Team (Late st Contact Info) Description 10/14/2022 Orders Only [facility] [address] [place] [address] External, Scanning Provider Social History Tobacco Use [...] EDT Office Visit [facility] [address] [place] [address] 1 [place] [address] Nilson Ibrahim MD 2575 [facility], [address] [place], [place] [phone] documented as of this encounter Procedures Procedure Name Priority Date/Time Associated Diagnosis Comments MULTIPLE LABS Routine 10/14/2022 11:17 AM EDT documented in this encounter Results * Multiple labs (10/14/2022 11:17 AM EDT) us Scanning Provider External SD IMAGING Final Result MANUALLY TRANSCRIBED RESULTS documented [...] documented as of this encounter Care Teams Specialized Developer Relationship Specialty Start Date End Date Andry Allan MD [address] [place] [id number] PCP - General Internal Medicine 06/09/24 documented as of this encounter
--- OUTSIDE RECORDS SUMMARY | 2024-09-23 08:19 | XMS_ITS | Encounter Summary ---
Author Organization [employer] Sys [employer] Address [facility][id number] [address] [place] [address] Care Team Providers Care Bottle Washing Machine Operator Name Role Phone Andry Allan MD Primary Care Provider [phone] Reason for Visit * Reason Comments Med Refill Encounter Details Date Type Department Care Team (Late st Contact Info) Description 01/29/2023 Refill [facility] [address] [facility] [address] Noe Moran MD [address]. Provider retired 05/24/24 [place], [place] [id number] Anxiety Social History Tobacco Use Types Packs/Day [...] Telephone Encounter - Chantel Simeon LPN - 01/29/2023 11:27 AM EST [facility] requesting refill of Alprazolam documented in this encounter Plan of Treatment Upcoming Encounters Date Type Department Care Team (Late st Contact Info) Description 12/05/2024 1:30 PM EDT Office Visit [facility] [address] [place] [address] ED 1 [place] [address] Nilson Ibrahim MD [facility]5 [facility], [address] [place], [place] [address] documented as of this encounter Visit Diagnoses [...] documented as of this encounter Care Teams Bottle Washing Machine Operator Relationship Specialty Start Date End Date Andry Allan MD [facility]5 [place] [address] PCP - General Internal Medicine 06/09/24 documented as of this encounter
--- OUTSIDE RECORDS SUMMARY | 2024-09-23 08:19 | XMS_ITS | Encounter Summary ---
Author Organization [facility] [employer] Sys [employer] Address [facility]-[id number] [address] [place] [address] Care Team Providers Care Quality Assurance Analyst Name Role Phone Andry Allan MD Primary Care Provider [phone] Reason for Visit * Reason Onset Date Comments Med Refill 01/10/2020 Encounter Details Date Type Department Care Team (Late st Contact Info) Description 01/10/2020 Refill [facility] [address] [place] [address] Chantel Simeon LPN Anxiety Social History Tobacco [...] PHQ-2 Answer Date Recorded Total Score 0 11/04/2019 Childcare Answer Date Recorded Childcare Unknown 08/04/2018 [...] Telephone Encounter - Chantel Simeon LPN - 01/10/2020 8:13 AM EST Requesting refill of Alprazolam to [facility] Chantel Simeon LPN 01/10/20 0814 documented in this encounter Plan of Treatment Upcoming Encounters Date Type Department Care Team (Late st Contact Info) Description 12/05/2024 1:30 PM EDT Office Visit [facility] [address] [place] [address] ED 1 [place] [address] Nilson Ibrahim MD 25[address] [facility], [address] [place], [place] [phone] documented as of this encounter Visit Diagnoses Diagnosis Anxiety Anxiety state, unspecified documented in this encounter Additional Health Concerns Infection Onset Date Last Indicated Resolved Time COVID-19 Rule-Out 01/12/2020 01/06/2020 01/12/2020 9:58 AM EST COVID-19 Positive 09/18/2023 09/18/2023 10/09/2023 11:12 PM EDT Assessment Noted Time PHQ-9 Depression Total Score: 0 11/04/19 20 1:00 PM EDT A Body Mass Index follow-up plan has been documented for the patient 11/08/2019 5:23 PM EDT documented as of this encounter Care Teams Quality Assurance Analyst Relationship Specialty Start Date End Date Andry Allan MD [address] [place], [place] [phone] PCP - General Internal Medicine 06/09/24 documented as of this encounter
--- OUTSIDE RECORDS SUMMARY | 2024-09-23 08:19 | XMS_ITS | Encounter Summary ---
Author Organization [employer] Address [facility]-[id number] [address] [place] [address] Care Team Providers Care Engineer Exhauster Name Role Phone Andry Allan MD Primary Care Provider [phone] Reason for Visit * Reason Onset Date Comments Med Refill 05/08/2019 Encounter Details Date Type Department Care Team (Late st Contact Info) Description 05/08/2019 Refill [facility] [address] [place] [address] Noe Moran MD [address]. Provider retired 05/24/24 [place], [place] [id number] Social History Tobacco Use Types Packs/Day Years [...] Office Visit [facility] [address] [place] [address] ED 1 [place] [address] Nilson Ibrahim MD [facility]5 [facility], [address] [place] [address] documented as of this encounter Visit Diagnoses Not on filedocumented in this encounter Additional Health Concerns Infection Onset Date Last Indicated Resolved Time COVID-19 Rule-Out 08/26/2019 08/26/2019 08/27/2019 11:25 AM EDT COVID-19 Rule-Out 01/12/2020 01/06/2020 01/12/2020 9:58 AM EST COVID-19 Positive 09/18/2023 09/18/2023 10/09/2023 11:12 PM EDT Assessment Noted Time PHQ-9 Depression Total Score: 0 11/11/19 19 10:00 AM EDT A Body Mass Index follow-up plan has been documented for the patient 12/10/2016 11:50 AM EDT documented as of this encounter Care Teams Engineer Exhauster Relationship Specialty Start Date End Date Andry Allan MD [address] [place] [address] PCP - General Internal Medicine 06/09/24 documented as of this encounter
--- OUTSIDE RECORDS SUMMARY | 2024-09-23 08:19 | XMS_ITS | Encounter Summary ---
Author Organization [facility] tem Address [facility] [id number] [address] [place] [address] Care Team Providers Care Flying Shear Operator Name Role Phone Andry Allan MD Primary Care Provider [phone] Encounter Details Date Type Department Care Team (Late st Contact Info) Description 01/12/2020 Orders Only [facility] [address] [place] [address] Chantel Simeon LPN Close exposure to COVID-19 virus Social History Tobacco Use Types Packs/Day Years [...] EDT Office Visit [facility] [address] [facility] ED 1 [place] [address] Nilson Ibrahim MD [address] [facility], [address] [place], [place] [id number] documented as of this encounter Procedures Procedure Name Priority Date/Time Associated Diagnosis Comments SARS COV 2 (COVID-19) Routine 01/06/2020 Close exposure to COVID-19 virus documented in this encounter Results * SARS COV 2 (COVID-19)[Lab Collect] (01/06/2020) EXTERNAL SARS COV 2 Negative Negative SUNQUEST 01/06/2020 Noe Moran MD MICROBIOLOGY - GENERAL ORDER ABBIE Final Result SUNQUEST documented in this encounter Visit Diagnoses Diagnosis Close exposure to COVID-19 virus documented in this encounter Additional Health Concerns [...] documented as of this encounter Care Teams Flying Shear Operator Relationship Specialty Start Date End Date Andry Allan MD [address] [place] [address] PCP - General Internal Medicine 06/09/24 documented as of this encounter
--- OUTSIDE RECORDS SUMMARY | 2024-09-23 08:19 | XMS_ITS | Encounter Summary ---
Author Organization [employer] [facility] tem Address [facility] [id number] [address] [place] [address] Care Team Providers Care Chief Program Officer Name Role Phone Andry Allan MD Primary Care Provider [phone] Reason for Visit * Reason Onset Date Comments Med Refill 12/05/2022 Encounter Details Date Type Department Care Team (Late st Contact Info) Description 12/05/2022 Refill [facility] [address] [facility] [place] [address] Chantel Simeon LPN Anxiety Social History Tobacco [...] Telephone Encounter - Chantel Simeon LPN - 12/05/2022 1:37 PM EDT Patient requesting refill of Alprazolam to Jose Mckeon documented in this encounter Plan of Treatment Upcoming Encounters Date Type Department Care Team (Late st Contact Info) Description 12/05/2024 1:30 PM EDT Office Visit [facility] [address] [place] [address] ED 1 [place] [address] Nilson Ibrahim MD [address] [facility], [address]1 [place], [place] [phone] documented as of this encounter Visit Diagnoses [...] documented as of this encounter Care Teams Chief Program Officer Relationship Specialty Start Date End Date Andry Allan MD [facility] [place], [place] [phone] PCP - General Internal Medicine 06/09/24 documented as of this encounter
--- OUTSIDE RECORDS SUMMARY | 2024-09-23 08:20 | XMS_ITS | Encounter Summary ---
Author Organization [facility] Address [facility] [place][id number] [address] [place] [address] Care Team Providers Care Hair Dryer Name Role Phone Andry Allan MD Primary Care Provider [phone] Reason for Visit * Reason Onset Date Comments Med Refill 03/09/2020 Encounter Details Date Type Department Care Team (Late st Contact Info) Description 03/09/2020 Refill [facility] [address] [place] [address] Chantel Simeon LPN Anxiety Social History Tobacco [...] Telephone Encounter - Chantel Simeon LPN - 03/09/2020 9:28 AM EST Requesting refill of Alprazolam to [facility] Chantel Simeon LPN 03/09/20 0930 documented in this encounter Plan of Treatment Upcoming Encounters Date Type Department Care Team (Late st Contact Info) Description 12/05/2024 1:30 PM EDT Office Visit [facility] [address] [facility] ED 1 [place] [address] Nilson Ibrahim MD [address] [facility], [address] [place] [address] documented as of this encounter [...] documented as of this encounter Care Teams Hair Dryer Relationship Specialty Start Date End Date Andry Allan MD [address] [place] [address] PCP - General Internal Medicine 06/09/24 documented as of this encounter
--- OUTSIDE RECORDS SUMMARY | 2024-09-23 08:20 | XMS_ITS | Encounter Summary ---
Author Organization [facility] Address [facility] [place] [place]-[id number] [address] [place] [address] Care Team Providers Care Naval Aircrewman Tactical Helicopter Name Role Phone Andry Allan MD Primary Care Provider [phone] Reason for Visit * Reason Onset Date Comments Med Refill 05/08/2020 Encounter Details Date Type Department Care Team (Late st Contact Info) Description 05/08/2020 Refill [facility] [address] [place] [phone] Francisco Alas CNA Anxiety Social History Tobacco [...] Telephone Encounter - Francisco Alas CMA - 05/08/2020 4:23 PM EDT Patient requesting refill of xanax to Nigel Alas CMA 05/08/20 1624 * Telephone Encounter - Francisco Alas CMA - 05/08/2020 4:23 PM EDT Patient informed documented in this encounter Plan of Treatment Upcoming Encounters Date Type Department Care Team (Late st Contact Info) Description 12/05/2024 1:30 PM EDT Office Visit [facility] [address] [place] [address] ED 1 [place] [phone] Nilson Ibrahim MD [address] [facility], [address] [place], [place] [phone] documented as of this encounter Visit Diagnoses [...] documented as of this encounter Care Teams Naval Aircrewman Tactical Helicopter Relationship Specialty Start Date End Date Andry Allan MD [address] [place] [address] PCP - General Internal Medicine 06/09/24 documented as of this encounter
--- OUTSIDE RECORDS SUMMARY | 2024-09-23 08:20 | XMS_ITS | Encounter Summary ---
Author Organization [facility] tem Address [facility] [place]-[id number] [address] [place] [address] Care Team Providers Care Credit Intern Name Role Phone Andry Allan MD Primary Care Provider [phone] Reason for Visit * Reason Onset Date Comments Med Refill 12/12/2019 Encounter Details Date Type Department Care Team (Late st Contact Info) Description 12/12/2019 Refill [facility] [address] [address] Chantel Simeon LPN Anxiety Social History Tobacco [...] Telephone Encounter - Chantel Simeon LPN - 12/12/2019 11:43 AM EDT Requesting refill of Xanax to Jose Manning Linda Simeon LPN 12/12/19 1144 documented in this encounter Plan of Treatment Upcoming Encounters Date Type Department Care Team (Late st Contact Info) Description 12/05/2024 1:30 PM EDT Office Visit [facility] [address] [place] [address] ED 1 [place] [address] Nilson Ibrahim MD [address] [facility], [address] [place] [address] documented as of this encounter [...] documented as of this encounter Care Teams Credit Intern Relationship Specialty Start Date End Date Andry Allan MD [address] [place], [place] [phone] PCP - General Internal Medicine 06/09/24 documented as of this encounter
--- OUTSIDE RECORDS SUMMARY | 2024-09-23 08:20 | XMS_ITS | Encounter Summary ---
Author Organization [employer] tem Address [facility] [id number] [address] [place] [address] Care Team Providers Care Hand Candy Dipper Name Role Phone Andry Allan MD Primary Care Provider [phone] Encounter Details Date Type Department Care Team (Late st Contact Info) Description 11/09/2019 Refill [facility] [address] [facility] [place] [address] Chantel Simeon LPN Anxiety (Primary Dx) Social History Tobacco Use Types Packs/Day Years [...] have Coronavirus / COVID-19? No / Unsure 11/08/2019 3:56 PM EDT documented as of this encounter Miscellaneous Notes * Telephone Encounter - Chantel Simeon LPN - 11/09/2019 2:58 PM EDT Patient wants you to send the Xanax XR to [facility] Chantel Simeon LPN 11/09/19 7019 * Telephone Encounter - Noe Moran MD - 11/09/2019 2:58 PM EDT This not covered by insurance, what pharm? * Telephone Encounter - Chantel Simeon LPN - 11/09/2019 2:58 PM EDT She would like you to call in the plain one to [facility] Chantel Simeon LPN 11/09/19 1630 * Telephone Encounter - Noe Moran MD - 11/09/2019 2:58 PM EDT done documented in this encounter Plan of Treatment Upcoming Encounters Date Type Department Care Team (Late st Contact Info) Description 12/05/2024 1:30 PM EDT Office Visit [facility] [address] [place] [address] Nilson Ibrahim MD [address] [place] [address], [address] [place] [phone] documented as of this encounter Visit Diagnoses Diagnosis Anxiety- Primary Anxiety state, unspecified documented in this encounter Additional Health Concerns Infection Onset Date Last Indicated Resolved Time COVID-19 Rule-Out 01/12/2020 01/06/2020 01/12/2020 9:58 AM EST COVID-19 Positive 09/18/2023 09/18/202310/0810/09/2023 11:12 PM EDT Assessment Noted Time PHQ-9 Depression Total Score: 0 11/04/19 20 1:00 PM EDT A Body Mass Index follow-up plan has been documented for the patient 11/08/2019 5:23 PM EDT documented as of this encounter Care Teams Hand Candy Dipper Relationship Specialty Start Date End Date Andry Allan MD [address] [place] [address] PCP - General Internal Medicine 06/09/24 documented as of this encounter
--- OUTSIDE RECORDS SUMMARY | 2024-09-23 08:20 | XMS_ITS | Encounter Summary ---
Author Organization [facility] Address [facility] [place][id number] [address] [place] [address] Care Team Providers Care Robot Operator Name Role Phone Andry Allan MD Primary Care Provider [phone] Reason for Visit * Reason Onset Date Comments Med Refill 04/09/2020 Encounter Details Date Type Department Care Team (Late st Contact Info) Description 04/09/2020 Refill [facility] [address] [place] [phone] Jennifer Puente CMA Anxiety Social History Tobacco Use Types [...] encounter Miscellaneous Notes * Telephone Encounter - Jennifer Puente CMA - 04/09/2020 8:57 AM EST Requesting refill of xanax to RA Jennifer Puente CMA 04/09/20 0857 documented in this encounter Plan of Treatment Upcoming Encounters Date Type Department Care Team (Late st Contact Info) Description 12/05/2024 1:30 PM EDT Office Visit [facility] [address] [facility] ED [address] [place] [address] Nilson Ibrahim MD [address] [facility], [address] [place] [address] documented as of this encounter [...] documented as of this encounter Care Teams Robot Operator Relationship Specialty Start Date End Date Andry Allan MD [address] [place] [address] PCP - General Internal Medicine 06/09/24 documented as of this encounter
--- OUTSIDE RECORDS SUMMARY | 2024-09-23 08:21 | XMS_ITS | Encounter Summary ---
Author Organization [facility] [employer] [facility] tem Address [facility] [place]-[id number] [address] [place] [address] Care Team Providers Care Asset Protection Detective Name Role Phone Andry Allan MD Primary Care Provider [phone] Reason for Visit * Reason Onset Date Comments Med Refill 01/06/2024 Encounter Details Date Type Department Care Team (Late st Contact Info) Description 01/06/2024 Refill [facility] [address] [place] [address] Chantel Simeon LPN Anxiety Social History Tobacco [...] PHQ-2 Answer Date Recorded Total Score 0 12/04/2023 Childcare Answer Date Recorded Childcare Unknown 08/04/2018 Employment Answer Date Recorded Employment Unknown 08/04/2018 Hunger Screening Answer Date Recorded Within the past 12 months we worried whether our food would run out before we got money to buy more. Never True 12/04/2023 Within the past 12 months th e food we bought just didn't last and we didn't have money to get more. Never True 12/04/2023 Purpose - Life Answer Date Recorded Purpose [...] Telephone Encounter - Chantel Simeon LPN - 01/06/2024 9:46 AM EST Patient requesting refill of Alprazolam to [facility] documented in this encounter Plan of Treatment Upcoming Encounters Date Type Department Care Team (Late st Contact Info) Description 12/05/2024 1:30 PM EDT Office Visit [facility] [address] [place] [address] 1 [place] [address] Nilson Ibrahim MD [address] [place] [address], [address] [place], [place] [phone] documented as of this encounter Visit Diagnoses Diagnosis Anxiety Anxiety state, unspecified documented in this encounter Additional Health Concerns Assessment Noted Time PHQ-9 Depression Total Score: 0 12/04/19 24 2:00 PM EDT A Body Mass Index follow-up plan has been documented for the patient 11/08/2019 5:23 PM EDT documented as of this encounter Care Teams Asset Protection Detective Relationship Specialty Start Date End Date Andry Allan MD [address] [place] [id number] PCP - General Internal Medicine 06/09/24 documented as of this encounter
--- OUTSIDE RECORDS SUMMARY | 2024-09-23 08:21 | XMS_ITS | Encounter Summary ---
Author Organization [employer] [facility] tem Address [facility] [place][id number] [address] [place] [address] Care Team Providers Care Supercharge Repair Supervisor Name Role Phone Andry Allan MD Primary Care Provider [phone] Reason for Visit * Reason Onset Date Comments Med Refill 04/18/2024 Encounter Details Date Type Department Care Team (Late st Contact Info) Description 04/18/2024 Refill [facility] [address] [place] [phone] Liza [place] CMA Anxiety Social History Tobacco [...] EDT Office Visit [facility] [address] [place] [address] ED 1 [place] [address] Nilson Ibrahim MD [address] [place] [address], [address] [place], [place] [phone] documented as of this encounter Visit Diagnoses Diagnosis Anxiety Anxiety state, unspecified documented in this encounter Additional Health Concerns Assessment Noted Time PHQ-9 Depression Total Score: 0 12/04/19 24 2:00 PM EDT A Body Mass Index follow-up plan has been documented for the patient 11/08/2019 5:23 PM EDT documented as of this encounter Care Teams Supercharge Repair Supervisor Relationship Specialty Start Date End Date Andry Allan MD [facility] [place] [address] PCP - General Internal Medicine 06/09/24 documented as of this encounter
--- OUTSIDE RECORDS SUMMARY | 2024-09-23 08:21 | XMS_ITS | Encounter Summary ---
Author Organization [employer] Sys tem Address [facility][id number] [address] [place] [address] Care Team Providers Care Plastic Roller Name Role Phone Andry Allan MD Primary Care Provider [phone] Encounter Details Date Type Department Care Team (Late st Contact Info) Description 06/07/2020 Refill [facility] [address] [place] [phone] Jennifre Puente CMA Anxiety Social History Tobacco Use [...] Telephone Encounter - Jennifer Puente CMA - 06/07/2020 8:51 AM EDT Requesting refill of xanax documented in this encounter Plan of Treatment Upcoming Encounters Date Type Department Care Team (Late st Contact Info) Description 12/05/2024 1:30 PM EDT Office Visit [facility] [address] [place] [address] ED 1 [place] [phone] Nilson Ibrahim MD [address] [facility], [address] [place] [address] documented as of this encounter [...] documented as of this encounter Care Teams Plastic Roller Relationship Specialty Start Date End Date Andry Allan MD [facility] [place] [address] PCP - General Internal Medicine 06/09/24 documented as of this encounter
--- OUTSIDE RECORDS SUMMARY | 2024-09-23 08:21 | XMS_ITS | Clinical Summary ---
Author Organization [employer] tem Address [facility] [place][id number] [address] [place] [address] Care Team Providers Care Head Of Digital Name Role Phone Andry Allan MD Primary Care Provider [phone] Allergies No known active allergies Medications metoprolol tartrate (LOPRESSOR) 25 mg tablet Take 1 tablet (25 mg total) by mouth in the morning and 1 tablet (25 mg total) before bedtime. Active clopidogreL (PLAVIX) 75 mg tablet Take 1 tablet (75 mg total) by mouth in the morning. Active aspirin 81 mg Take 1 tablet (81 mg total) by mouth in the morning. Active losartan-hydro CHLOROthiazide (HYZAAR) 100-25 mg per tablet Take 1 tablet by mouth in the morning. 90 tablet 1 5 Active omeprazole (PriLOSEC) 20 mg capsule Take 2 capsules (40 mg total) by mouth in the morning. 180 capsule 3 5 Active levothyroxine (SYNTHROID, LEVOTHROID) 100 MCG tablet Take 1 tablet (100 mcg total) by mouth in the morning. 90 tablet 1 5 Active metFORMIN (GLUCOPHAGE) 1000 mg tablet Take 1 tablet (1,000 mg total) by mouth in the morning and 1 tablet (1,000 mg total) in the evening. Take with meals. 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 4 025 Discontinued Active Problems Problem Noted Date Diagnosed Date Anxiety 12/30/2017 GERD (gastroesophageal reflux disease) 8 Acquired hypothyroidism 12/10/2016 Essential hypertension, benign 12/10/2016 Resolved Problems Problem Noted Date Diagnosed Date Resolved Date Severe obesity (BMI 35.0-39. 9) with comorbidity 02/02/2019 08/08/2019 SBO (small bowel obstruction) 07/22/2016 06/24/2017 Encounters Date Type Department Care Team Description 08/31/2024 Refill [facility] [address] [place] [address] Noe Moran MD Mixed hyperlipidemia; Atherosclerotic heart disease of [place] coronary artery without angina pectoris from Last 3 Months Immunizations Immunization Administration Dates Next Due COVID-19, mRNA, LNP-S, PF, 3 0mcg/0.3mL Dose 11/07/2021,04/11/2020,03/19/2020 Covid-19, Mrna, Lnp-s, Bival ent, Pf, 30mcg/0.3 ml 08/01/2022,11/07/2021 Covid-19, Mrna, Lnp-s, Pf, 3 0 Mcg/0.3 Ml Dose, Oswald-sucrose 05/23/2021 H1N1 All Forms 04/02/2009 H1N1 Inj Preservative Free 04/02/2009 Influenza High Dose Preserva tive Free IM 12/02/2023,12/07/2017,12/26/2015 Influenza Vaccine, Quadrival ent, Adjuvanted 12/08/2022,11/29/2020,10/28/2019 Influenza Whole 12/16/2010,12/11/2008 Influenza, High-dose, Quadrivalent 12/05/2021 Influenza, Im Trivalent Preservative 11/07/2014 Influenza, Injectable, quadr ivalent (PF) 10/28/2019 Influenza, Trivalent, Adjuvanted 11/24/2018 Influenza, Unspecified 11/29/2020,2019,12/09/2016,11/07 Pneumococcal Conjugate 13-Valent 12/09/2016 Pneumococcal Polysaccharide 10/28/2019 RSV, recombinant, protein colon bunit RSVpreF, adjuvant reconstituted, 0.5 mL, PF 08/20/2023,11/07/2022 SARS-COV-2 (COVID-19) Vaccin e, Unspecified 05/23/2021 Zoster Vaccine Recombinant 04/07/2019,02/01/2019 Family History Medical History Relation Name Comments Heart disease Father Boom Hypertension Father Boom Breast cancer Sister Vangie Relation Name Status Comments Daughter Alive Father Boom (Age 60) Maternal Grandfather Maternal Grandmother Mother (Age 82) Sister Vangie (Age 62) Social History Tobacco Use Types Packs/Day Years Used Date Smoking Tobacco: Never Smokeless Tobacco: Never Tobacco Cessation:Counseling Given: Not Answered Alcohol Use Standard Drinks/Week Comments Not Currently 0 (1 standard drink = 0.6 oz pur e alcohol) rarely AUDIT-C Answer Date Recorded Frequency of Alcohol Consumption Monthly or less 12/30/2017 Average Number of Drinks 1 or 2 018 Frequency of Binge Drinking Never 08/2017 PHQ-2 Answer Date Recorded Total Score 0 06/09/2024 Childcare Answer Date Recorded Childcare Unknown 08/04/2018 Employment Answer Date Recorded Employment Unknown 08/04/2018 Hunger Screening Answer Date Recorded Within the past 12 months we worried whether our food would run out before we got money to buy more. Never True 06/09/2024 Within the past 12 months th e food we bought just didn't last and we didn't have money to get more. Never True 06/09/2024 Purpose - Life Answer Date Recorded Purpose and direction in life Unknown Comments No Sex and Gender Information Value Date Recorded Sex Assigned at Female 09/09/2018 11:41 AM EDT Legal Sex Female 1:37 PM EST Gender Identity Female 09/09/2018 11:41 AM EDT Sexual Orientation Don't know 09/09/2018 11 :41 AM EDT Last Filed Vital Signs Vital Sign Reading Time Taken Comments Blood Pressure 142/70 06/09/2024 9:56 AM EDT Pulse 73 06/09/2024 9:56 AM EDT Temperature 36.2 C (97.1 F) 12/04/2023 2:28 PM EDT Respiratory Rate 16 06/09/2024 9:56 AM EDT Oxygen Saturation 97% 06/09/2024 9:56 AM EDT Inhaled Oxygen Concentration - - Weight 64.9 kg (143 lb) 06/09/2024 9:56 AM EDT Height 152.4 cm (5') 12/04/2023 2:28 PM EDT Body Mass Index 27.93 12/04/2023 2:28 PM EDT Plan of Treatment Upcoming Encounters Date Type Department Care Team (Late st Contact Info) Description 12/05/2024 1:30 PM EDT Office Visit [facility]Pediatrics [address] [place] [address] 1 [place] [phone] Nilson Ibrahim MD [address] [place] [address], [address] [place] [address] Health Maintenance Due Date Last Done Comments DTaP,Tdap and Td Vaccines (1 - Tdap) 11/04/1964 COVID-19 Vaccine (2023- season) 2024 12/28/2023, 12/08/2022, 08/01/2022, Additional history exists Influenza Vaccine 10/24/2024 12/02/2023, , 12/05/2021, Additional history exists Fall Risk Screening 12/03/2024 12/04/2023 Medicare Annual Wellness Visit 12/03/2024 1 , 10/10/2022, 08/12/2021, Additional history exists Depression Screening 06/09/2025 06/09/2024 Tobacco Screening 06/09/2025 06/09/2024 Zoster (Shingles) Vaccine Completed 04/07/2019, 11/2018 Medical Devices Implanted Type Area Weight Count Operator Device Identifier Shelf Expiration Date Model / Serial / Lot Nicko Iol 0 D +16.5 D +1.5 Cyl - [id number] - [id number] Implanted:Qty: 1 on 08/30/2019 by Marilu Badillo MD at [facility] Lens Left: Eye [employer] 01/23/2024 [id number] 16.5 / [id number] / NA Lens Iol Ultrasert 16.0d - [id number] - [id number] Implanted:Qty: 1 on 09/13/2019 by Marilu Badillo MD at [facility] Lens Right: Eye [employer] 02/22/2021 [id number] 16.0 / [id number] / [place] [address] MEDICARE AET[employer] Advance Directives Documents on File Type Date Recorded 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
--- OUTSIDE RECORDS SUMMARY | 2024-09-23 08:21 | XMS_ITS | Encounter Summary ---
Author Organization [employer] Sys tem Address [facility]-[id number] [address] [place] [address] Care Team Providers Care Underbaster Name Role Phone Andry Allan MD Primary Care Provider [phone] Reason for Visit * Reason Onset Date Comments Med Refill 03/07/2024 Encounter Details Date Type Department Care Team (Late st Contact Info) Description 03/07/2024 Refill [facility] [address] [place] [phone] Mana Meza CMA Anxiety Social History Tobacco Use Types [...] encounter Miscellaneous Notes * Telephone Encounter - Mana Meza CMA - 03/07/2024 12:17 PM EST Patient requesting refill. Appt/contract up to date. DDM documented in this encounter Plan of Treatment Upcoming Encounters Date Type Department Care Team (Late st Contact Info) Description 12/05/2024 1:30 PM EDT Office Visit [facility] [address] [place] [address] 1 [place] [address] Nilson Ibrahim MD [address] [place] [address], [address] [place], [place] [phone] documented as of this encounter Visit Diagnoses Diagnosis Anxiety Anxiety state, unspecified documented in this encounter Additional Health Concerns Assessment Noted Time PHQ-9 Depression Total Score: 0 12/04/19 24 2:00 PM EDT A Body Mass Index follow-up plan has been documented for the patient 11/08/2019 5:23 PM EDT documented as of this encounter Care Teams Underbaster Relationship Specialty Start Date End Date Andry Allan MD [address] [place] [id number] PCP - General Internal Medicine 06/09/24 documented as of this encounter
--- OUTSIDE RECORDS SUMMARY | 2024-09-23 08:21 | XMS_ITS | Encounter Summary ---
Author Organization [employer] Sys tem Address [facility]-[id number] [address] [place] [address] Care Team Providers Care Musical Engineer Name Role Phone Andry Allan MD Primary Care Provider [phone] Encounter Details Date Type Department Care Team (Late st Contact Info) Description 06/10/2024 Telephone [facility] [address] [place] [address] Ree Arambula, VICE PRESIDENT OF HUMAN RESOURCES-CLOTH SHRINKING TESTER [address] [place], [place] [phone] Social History Tobacco Use Types Packs/Day Years [...] encounter Miscellaneous Notes * Telephone Encounter - Inna Bianchi - 06/10/2024 11:04 AM EDT Patient's called. He has a couple of questions about the appointment with Lor yesterday. He said that you gave them a lot of good information at the appointment yesterday and they had a couple of questions and would like for you to call them back at [phone] * Telephone Encounter - ANA Temple - 06/10/2024 11:04 AM EDT Called and went over questions documented in this encounter Plan of Treatment Upcoming Encounters Date Type Department Care Team (Late st Contact Info) Description 12/05/2024 1:30 PM EDT Office Visit [facility] [address] [place] [address] ED 1 [place] [address] Nilson Ibrahim MD [address] [place] [address], [address] [place] [address] documented as of this encounter Visit Diagnoses Not on filedocumented in this encounter Additional Health Concerns Assessment Noted Time PHQ-9 Depression Total Score: 0 06/10/19 25 9:53 AM EDT A Body Mass Index follow-up plan has been documented for the patient 06/09/2024 10:31 AM EDT documented as of this encounter Care Teams Musical Engineer Relationship Specialty Start Date End Date Andry Allan MD [address] [place] [address] PCP - General Internal Medicine 06/09/24 documented as of this encounter
--- OUTSIDE RECORDS SUMMARY | 2024-09-23 08:21 | XMS_ITS | Encounter Summary ---
Author Organization [facility] Address [facility]-[id number] [address] [place] [address] Care Team Providers Care Labor Relations Supervisor Name Role Phone Andry Allan MD Primary Care Provider [phone] Reason for Visit * Reason Onset Date Comments Med Refill 07/06/2020 Encounter Details Date Type Department Care Team (Late st Contact Info) Description 07/06/2020 Refill [facility] [address] [place] [phone] Francisco Alas CNA Anxiety Social History Tobacco [...] Telephone Encounter - Francisco Alas CMA - 07/06/2020 8:59 AM EDT Patient requesting refill of xanax to babak garcia documented in this encounter Plan of Treatment Upcoming Encounters Date Type Department Care Team (Late st Contact Info) Description 12/05/2024 1:30 PM EDT Office Visit [facility] [address] [facility] ED [address] [place] [address] Nilson Ibrahim MD [address] [facility], [address] [place] [address] documented as of this encounter [...] documented as of this encounter Care Teams Labor Relations Supervisor Relationship Specialty Start Date End Date Andry Allan MD [address] [place] [address] PCP - General Internal Medicine 06/09/24 documented as of this encounter
--- OUTSIDE RECORDS SUMMARY | 2024-09-23 08:21 | XMS_ITS | Encounter Summary ---
Author Organization [facility] Sys tem Address [facility]-[id number] [address] [place] [address] Care Team Providers Care Elementary School Librarian Name Role Phone Andry Allan MD Primary Care Provider [phone] Reason for Visit * Reason Comments Med Refill Encounter Details Date Type Department Care Team (Late st Contact Info) Description 04/09/2024 Refill [facility] [address] [place] [address] Ree Arambula, [facility] [address] [place], [place] [phone] Anxiety Social History Tobacco Use Types Packs/Day [...] Office Visit [facility] [address] [place] [address] 1 [place] [address] Nilson Ibrahim MD [facility]5 [facility], [address] [place], [place] [phone] documented as of this encounter Visit Diagnoses Diagnosis Anxiety Anxiety state, unspecified documented in this encounter Additional Health Concerns Assessment Noted Time PHQ-9 Depression Total Score: 0 12/04/19 24 2:00 PM EDT A Body Mass Index follow-up plan has been documented for the patient 11/08/2019 5:23 PM EDT documented as of this encounter Care Teams Elementary School Librarian Relationship Specialty Start Date End Date Andry Allan MD [address] [place] [address] PCP - General Internal Medicine 06/09/24 documented as of this encounter
--- OUTSIDE RECORDS SUMMARY | 2024-09-23 08:21 | XMS_ITS | Encounter Summary ---
Author Organization [employer] Sys [employer] Address [facility]-[id number] [address] [place] [address] Care Team Providers Care Back Padder Name Role Phone Andry Allan MD Primary Care Provider [phone] Reason for Visit * Reason Onset Date Comments Med Refill 05/18/2024 Encounter Details Date Type Department Care Team (Late st Contact Info) Description 05/18/2024 Refill [facility] [address] [facility] [place] [phone] Azalia Coles LPN Anxiety Social History Tobacco Use Types [...] EDT Office Visit [facility] [address] [place] [address] ED 1 [place] [address] Nilson Ibrahim MD [address] [place] [address], [address] [place], [place] [phone] documented as of this encounter Visit Diagnoses Diagnosis Anxiety Anxiety state, unspecified documented in this encounter Additional Health Concerns Assessment Noted Time PHQ-9 Depression Total Score: 0 12/04/19 24 2:00 PM EDT A Body Mass Index follow-up plan has been documented for the patient 11/08/2019 5:23 PM EDT documented as of this encounter Care Teams Back Padder Relationship Specialty Start Date End Date Andry Allan MD [facility]5 [place] [address] PCP - General Internal Medicine 06/09/24 documented as of this encounter
--- OUTSIDE RECORDS SUMMARY | 2024-09-23 08:21 | XMS_ITS | Encounter Summary ---
Author Organization [employer] Sys tem Address [facility]-[id number] [address] [place] [address] Care Team Providers Care Inclined Railway Operator Name Role Phone Andry Allan MD Primary Care Provider Encounter Details Date Type Department Care Team (Late st Contact Info) Description 02/01/2024 Orders Only [facility] [address] [facility] [place] [address] External, Scanning Provider Social History Tobacco Use [...] Office Visit [facility] [address] [facility] ED [address] [place] [address] Nilson Ibrahim MD [address] [facility], [address] [place], [place] [phone] documented as of this encounter Procedures Procedure Name Priority Date/Time Associated Diagnosis Comments HEMOGLOBIN A1C Routine 01/26/2024 documented in this encounter Results * (ABNORMAL) Hemoglobin A1c (01/26/2024) External Hemoglobin A1C 8.1(A) 4.5 - 6.2 % MANUALLY TRANSCRIBED RESULTS 01/26/2024 us Scanning Provider External LAB BLOOD ORDERABLES Final Result MANUALLY TRANSCRIBED RESULTS documented in this encounter Visit Diagnoses Not on filedocumented in this encounter Additional Health Concerns Assessment Noted Time PHQ-9 Depression Total Score: 0 12/04/19 24 2:00 PM EDT A Body Mass Index follow-up plan has been documented for the patient 11/08/2019 5:23 PM EDT documented as of this encounter Care Teams Inclined Railway Operator Relationship Specialty Start Date End Date Andry Allan MD [address] [place], [place] [phone] PCP - General Internal Medicine 06/09/24 documented as of this encounter
--- OUTSIDE RECORDS SUMMARY | 2024-09-23 08:21 | XMS_ITS | Encounter Summary ---
Author Organization [employer] Sys [employer] Address [facility]-[id number] [address] [place] [address] Care Team Providers Care Stenciler Name Role Phone Andry Allan MD Primary Care Provider [phone] Encounter Details Date Type Department Care Team (Late st Contact Info) Description 06/10/2024 Orders Only [facility] [address] [place] [address] Azalia Coles LPN Diabetes mellitus without complication ([facility]) Social History Tobacco Use Types Packs/Day Years [...] EDT Office Visit [facility] [address] [place] [address] 1 [place] [address] Nilson Ibrahim MD [address] [place] [address], [address] [place] [address] documented as of this encounter Procedures Procedure Name Priority Date/Time Associated Diagnosis Comments CBC WITH AUTO DIFFERENTIAL Routine 05/23/2024 Diabetes mellitus without complication ([facility]) HEMOGLOBIN A1C Routine 05/23/2024 Diabetes mellitus without complication ([facility]) LIPID PROFILE Routine 05/23/2024 Diabetes mellitus without complication ([facility]) COMPREHENSIVE METABOLIC PANEL Routine 05/23/2024 Diabetes mellitus without complication ([facility]) LIPID PROFILE Routine 04/20/2023 documented in this encounter Results * CBC auto differential (05/23/2024) 05/23/2024 Noe Moran MD LAB BLOOD ORDERABLES Final R esult [facility] * (ABNORMAL) Lipid profile (05/23/2024) External Cholesterol 111(A) >=200 [facility] External Cholesterol:Hdl 2.4(A) 3.3 - 11.0 [facility] External Hdl Cholesterol 46 40 - 60 [facility] External Ldl (Calc) 48.6 [facility] External Triglycerides 82(A) >=150 [facility] External Very Low Lipoprotein 16.4 [facility] 05/23/2024 Noe Moran MD LAB BLOOD ORDERABLES Final R esult Performing Organization Address [facility] de Phone Number [facility] * Comprehensive metabolic panel (05/23/2024) 05/23/2024 Noe Moran MD LAB BLOOD ORDERABLES Final R esult Performing Organization Address [facility] de Phone Number [facility] * (ABNORMAL) Hemoglobin A1c (05/23/2024) External Hemoglobin A1C 7.3(A) 4.0 - 7.0 % [facility] 05/23/2024 Noe Moran MD LAB BLOOD ORDERABLES Final R esult Performing Organization Address [facility] de Phone Number [facility] * (ABNORMAL) Lipid profile (04/20/2023) External Cholesterol 126(A) >=200 MANUALLY TRANSCRIBED RESULTS External Cholesterol:Hdl 2.4(A) 3.3 - 11.0 MANUALLY TRANSCRIBED RESULTS External Hdl Cholesterol 52 40 - 60 MANUALLY TRANSCRIBED RESULTS External Ldl (Calc) 58.0(A) 100 - 190 MANUALLY TRANSCRIBED RESULTS External Triglycerides 80(A) >=150 MANUALLY TRANSCRIBED RESULTS External Very Low Lipoprotein 16.0 MANUALLY TRANSCRIBED RESULTS 04/20/2023 us Scanning Provider External LAB BLOOD ORDERABLES Final Result Performing Organization Address [facility] de Phone Number MANUALLY TRANSCRIBED RESULTS documented in this encounter Visit Diagnoses Diagnosis Diabetes mellitus without complication ([facility]) Type II or unspecified type diabetes mellitus without mention of complication, not stated as uncontrolled documented in this encounter Additional Health Concerns Assessment Noted Time PHQ-9 Depression Total Score: 0 06/10/19 9:53 AM EDT A Body Mass Index follow-up plan has been documented for the patient 06/09/2024 10:31 AM EDT documented as of this encounter Care Teams Stenciler Relationship Specialty Start Date End Date Andry Allan MD [address] [place] [address] PCP - General Internal Medicine 06/09/24 documented as of this encounter
--- OUTSIDE RECORDS SUMMARY | 2024-09-23 08:21 | XMS_ITS | Encounter Summary ---
Author Organization [employer] Sys [employer] Address [id number] [address] [place] [address] Care Team Providers Care Carpet Inspector Name Role Phone Andry Allan MD Primary Care Provider [phone] Reason for Visit * Reason Comments Med Refill Encounter Details Date Type Department Care Team (Late st Contact Info) Description 06/07/2024 Refill [facility] [address] [place] [address] Noe Moran MD [address]. Provider retired 05/24/24 [place], [place] [phone] Social History Tobacco Use Types Packs/Day Years [...] Office Visit [facility] [address] [place] [address] ED 1 [place] [phone] Nilson Ibrahim MD [facility]5 [facility], [address] [place] [address] documented as of this encounter Visit Diagnoses Not on filedocumented in this encounter Additional Health Concerns Assessment Noted Time PHQ-9 Depression Total Score: 0 12/04/19 24 2:00 PM EDT A Body Mass Index follow-up plan has been documented for the patient 11/08/2019 5:23 PM EDT documented as of this encounter Care Teams Carpet Inspector Relationship Specialty Start Date End Date Andry Allan MD [facility]5 [place] [address] PCP - General Internal Medicine 06/09/24 documented as of this encounter
--- OUTSIDE RECORDS SUMMARY | 2024-09-23 08:21 | XMS_ITS | Encounter Summary ---
Author Organization [facility] Address [facility]-[id number] [address] [place] [address] Care Team Providers Care Evp Marketing Name Role Phone Andry Allan MD Primary Care Provider [phone] Reason for Visit * Reason Onset Date Comments Med Refill 10/10/2019 Encounter Details Date Type Department Care Team (Late st Contact Info) Description 10/10/2019 Refill [facility] [address] [place] [address] Chantel Simeon LPN Anxiety Social History Tobacco [...] have Coronavirus / COVID-19? No / Unsure 09/13/2019 10:43 AM EDT documented as of this encounter Miscellaneous Notes * Telephone Encounter - Chantel Simeon LPN - 10/10/2019 12:47 PM EDT Requesting refill of Alprazolam to Jose Simeon LPN 10/10/19 1249 documented in this encounter Plan of Treatment Upcoming Encounters Date Type Department Care Team (Late st Contact Info) Description 12/05/2024 1:30 PM EDT Office Visit [facility] [address] [place] [address] ED 1 [place] [address] Nilson Ibrahim MD [address] [facility], [address] [place], [place] [address] documented as of this encounter Visit Diagnoses [...] documented as of this encounter Care Teams Evp Marketing Relationship Specialty Start Date End Date Andry Allan MD [facility]5 [place], [place] [phone] PCP - General Internal Medicine 06/09/24 documented as of this encounter
--- OUTSIDE RECORDS SUMMARY | 2024-09-23 08:22 | XMS_ITS | Clinical Summary ---
Author Organization [facility] Address [address] [place], [place] [phone] Care Team Providers Care Supervisor Inspection Department Name Role Phone Unavailable Primary Care Provider Unavailabl e Social History Tobacco Use Types Packs/Day Years Used Date Smoking Tobacco: Never Assessed Comments Unknown Sex and Gender Information Value Date Recorded Sex Assigned at Not on file Legal Sex Female 9:48 AM EST Gender Identity Not on file Sexual Orientation Not on file Plan of Treatment Not on file Insurance [employer] PPO [employer] PLUS
--- OUTSIDE RECORDS SUMMARY | 2024-09-23 08:22 | XMS_ITS | CCD ---
Author Organization [facility] Care Team Providers Care Cryptographic Clerk Name Role Phone Laura Mcmullen Unavailable REQUEST, NONE LISTED Admitting Unavaila ble REQUEST, NONE LISTED Primary Care Unavaila ble REQUEST, NONE LISTED Consulting Unavaila ble REQUEST, NONE LISTED Attending Unavaila ble REQUEST, NONE LISTED Admitting Unavaila ble REQUEST, NONE LISTED Primary Care Unavaila ble REQUEST, NONE LISTED Attending Unavaila ble REQUEST, NONE LISTED Attending Unavaila ble REQUEST, NONE LISTED Admitting Unavaila ble REQUEST, NONE LISTED Primary Care Unavaila ble REQUEST, NONE LISTED Consulting Unavaila ble REQUEST, NONE LISTED Attending Unavaila ble REQUEST, NONE LISTED Admitting Unavaila ble REQUEST, NONE LISTED Primary Care Unavaila ble REQUEST, NONE LISTED Attending Unavaila ble REQUEST, NONE LISTED Consulting Unavaila ble REQUEST, NONE LISTED Admitting Unavaila ble REQUEST, NONE LISTED Primary Care Unavaila ble REQUEST, NONE LISTED Attending Unavaila ble REQUEST, NONE LISTED Consulting Unavaila ble DEFRANCE, DR MCKEON Primary Care Unavailable REQUEST, NONE LISTED Admitting Unavaila ble REQUEST, NONE LISTED Consulting Unavaila ble DEFRANCE, DR MCKEON Primary Care Unavailable REQUEST, NONE LISTED Attending Unavaila ble REQUEST, NONE LISTED Admitting Unavaila ble DO Tone Barba Emergency Provider DO Sam Logan Admit Provider DO Sam Logan Attending Provider MD Mike Moran Primary Care Provider [phone] Sam Logan Admitting Unavailable Sam Logan Attending Unavailable Mike Moran Primary Care Unavailable Clive, Marie Consulting Unavailable Chaban, Kamal Consulting Unavailable GeraldoDavi Consulting Unavaila ble Phani Dai Consulting Unavailable Oswaldo Jay Consulting Unavailabl e Mindi Noyola Consulting Unavailable Jc Dumont Consulting Unavailable Gen Ricardo Consulting Unavailable Geronimo Reilly Consulting Unavailable Shereen Dale Unavailable Mike Moran MD Primary Care Provider Mike Moran MD Primary Care Provider Mike Moran MD Primary Care Provider Andry Dubon MD Primary Care Provider MIKE MORAN Attending Unavailable MIKE MORAN Referring Unavailable MIKE MORAN Primary Care Unavailable PETROS ARAMBULA Attending Unavailable MIKE MORAN Referring Unavailable ANDRY DUBON Primary Care Unavailable Jc Jo MD Primary Care Provider BOOM LOGAN Attending Unavailable BOOM LOGAN Referring Unavailable MIKE MORAN Primary Care Unavailab BOOM Henderson Attending Unavailable BOOM LOGAN Referring Unavailable JC JO Primary Care Unavailabl e Medications Current Medications Medication Drug Class(es) Dates Sig (Normalized) Sig (Original) ALPRAZolam 1 mg oral tablet (11 sources) Benzodiazepine Start: 05-18-2024 End: 06-09-2024 ALPRAZolam (XANAX) 1 mg tablet Indications: Anxiety take 2 AND 1/2 tablets by mouth at bedtime 75 tablet 06/09/2024 Active Start: 04-07-2024 ALPRAZolam (XA NAX) 1 mg tablet Indications: Anxiety take 2 AND 1/2 tablets by mouth at bedtime 25 tablet 04/07/2024 Active Start: 11-30-2022 take 1.5 mg by mouth at bedtim e Alprazolam (Xanax) 1 mg Tablet Active 1.5 MG PO Bedtime November 30, 2022 12:00am Start: 11-30-2022 Alprazolam (Xa nax) 1 mg Tablet Active MG TABLET November 30, 2022 12:00am Start: 10-07-2022 End: 04-07-2024 ALPRAZolam (XANAX) 1 mg tabl et Indications: Anxiety take 2 AND 1/2 tablets by mouth at bedtime 75 tablet 03/07/2024 04/07/2024 Discontinued (Reorder) aspirin 81 mg delayed release oral tablet (8 sources) Platelet Aggregation Inhibitor, Nonsteroidal Anti-inflammatory Drug Start: 12-03-2022 take 81 mg by mouth once daily Aspirin Active 81 MG PO Daily 90 90 December 03, 2022 12:00am atorvastatin 80 mg oral tablet (10 sources) HMG-CoA Reductase Inhibitor Start: 08-02-2024 take 1 tablet by mouth once daily atorvastatin (Lipitor) 80 mg tablet Indications: Coronary artery disease involving [place] coronary artery of [place] heart without angina pectoris , Mixed hyperlipidemia , 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 (Multi) Take 1 tablet (80 mg) by mouth once daily. 30 tablet 08/02/2024 Active Start: 12-01-2023 take 1 tablet by cynthia th once daily atorvastatin (Lipitor) 80 mg tablet Indications: Coronary artery disease involving [place] coronary artery of [place] heart without angina pectoris , Mixed hyperlipidemia , 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 (Multi) Take 1 tablet (80 mg) by mouth once daily. 90 tablet 3 12/01/2023 Active Start: 12-03-2022 End: 12-01-2023 take 1 tablet by mouth in the morning atorvastatin (LIPITOR) 80 mg tablet Take 1 tablet (80 mg total) by mouth in the morning. 09/20/2023 Active clindamycin 150 mg oral capsule (1 source) Lincosamide Antibacterial Start: 01-23-2023 take 3 capsules by mouth every eight hours Clindamycin HCl 150 MG 3 capsules Orally every 8 hrs for 7 day(s) Jan, Active clopidogrel 75 mg oral tablet (8 sources) P2Y12 Platelet Inhibitor Start: 01-05-2023 End: 11-30-2024 take 1 tablet by mouth once daily clopidogrel (Plavix) 75 mg tablet Indications: Inferior AL (Multi) , S/P right coronary artery (RCA) stent placement Take 1 tablet (75 mg) by mouth once daily. 90 tablet 1 12/01/2023 08/30/2024 Discontinued (Therapy completed) hydroCHLOROthiazide 25 mg / losartan potassium 100 mg oral tablet (8 sources) Thiazide Diuretic, Angiotensin 2 Receptor Lorri Start: 06-09-2024 take 1 tablet by mouth once in the morning losartan-hydroCH LOROthiazide (HYZAAR) 100-25 mg per tablet Take 1 tablet by mouth in the morning. 90 tablet 1 06/09/2024 Active Start: 10-10-2022 End: 06-09-2024 take 1 tablet by mouth once daily before mealtime losartan-hydrochlorothiazide (Hyzaar) 100-25 mg tablet Take 1 tablet by mouth once daily in the morning. Take before meals. 10/10/2022 Active levothyroxine sodium 0.1 mg oral tablet (10 sources) l-Thyroxine Start: 11-30-2022 Levothyroxine (Synthroid) 75 mcg Tablet Active 100 MCG PO Daily November 30, 2022 12:00am Start: 11-30-2022 Levothyroxine (Synthroid) 75 mcg Tablet Active MCG TABLET November 30, 2022 12:00am Start: 10-10-2022 End: 06-09-2024 take 1 tablet by mouth in the morning levothyroxine (SYNTHROID, LEVOTHROID) 100 MCG tablet Take 1 tablet (100 mcg total) by mouth in the morning. 90 tablet 1 06/09/2024 Active losartan potassium 50 mg oral tablet (2 sources) Angiotensin 2 Receptor Lorri Start: 11-30-2022 take 50 mg by mouth once daily Losartan Active 50 MG PO Daily November 30, 2022 12:00am Start: 11-30-2022 Losartan Activ e MG TABLET November 30, 2022 12:00am metFORMIN hydrochloride 1000 mg oral tablet (6 sources) Biguanide Start: 01-28-2024 End: 06-09-2024 take 1 tablet by mouth twice daily metFORMIN (Glucophage) 1,000 mg tablet Take 1 tablet (1,000 mg) by mouth 2 times daily (morning and late afternoon). 06/09/2024 Active metoprolol tartrate 25 mg oral tablet (9 sources) beta-Adrenergic Lorri Start: 12-01-2023 take 1 tablet by mouth twice daily metoprolol tartrate (Lopressor) 25 mg tablet Indications: Inferior AL (Multi) Take 1 tablet (25 mg) by mouth 2 times a day. 180 tablet 3 12/01/2023 Active Start: 12-03-2022 End: 12-01-2023 take 1 tablet by mouth twice daily metoprolol tartrate (Lopressor) 25 mg tablet Indications: Inferior AL (Multi) Take 1 tablet (25 mg) by mouth 2 times a day. 180 tablet 3 06/22/2023 12/01/2023 Discontinued (Reorder) omeprazole 20 mg delayed release oral capsule (10 sources) Proton Pump Inhibitor Start: 12-04-2023 End: 06-09-2024 take 2 capsules by mouth in the morning omeprazole (PriLOSEC) 20 mg capsule Take 2 capsules (40 mg total) by mouth in the morning. 180 capsule 3 06/09/2024 Active Start: 11-30-2022 take 20 mg by mouth twice bonnie y Omeprazole Active 20 MG PO 2 times daily November 30, 2022 12:00am Start: 11-30-2022 Omeprazole Act gustavo MG November 30, 2022 12:00am Start: 02-08-2022 take 1 capsule by mo uth twice daily omeprazole (PriLOSEC) [address] capsule Take 1 capsule (20 mg) by mouth 2 times a day. 02/08/2022 Active potassium chloride 20 meq extended release oral tablet (5 sources) Start: 04-29-2022 End: 06-09-2024 take 1 tablet by mouth in the morning potassium chloride 20 mEq tablet extended release Take 20 mEq by mouth in the morning. 90 tablet 3 04/29/2022 06/09/2024 Discontinued ticagrelor 90 mg oral tablet (1 source) Start: 12-03-2022 take 1 tablet by mouth twice daily Ticagrelor (Brilinta) 90 mg Tablet Active 90 MG PO Twice daily 180 90 December 03, 2022 12:00am Completed/Discontinued Medications Medication Drug Class(es) Dates Sig (Normalized) Sig (Original) fluticasone propionate 0.05 mg/actuat metered dose nasal spray (2 sources) Corticosteroid Start: 04-08-2021 take 1 spray(s) nasal route once daily Fluticasone Propionate 50 MCG/ACT 1 spray in each nostril Nasally Once a day for 30 day(s) Mar, Not-Taking Problems Active Problems Problem Classification Problem Date Documented Date Episodic/Chronic Acute myocardial infarction (17 sources) Acute myocardial infarction of inferolateral wall; Translations: [ST elevation (STEMI) myocardial infarction involving other coronary artery of inferior wall] Onset: 11-30-2022 11-30-2022 Chronic Anxiety disorders (7 sources) Anxiety; Translations: [Anxiety disorder, unspecified] Onset: 12-30-2017 12-30-2017 Chronic Chronic kidney disease (2 sources) Chronic kidney disease; Translations: [Chronic kidney disease, unspecified] Onset: 06-09-2024 06-09-2024 Chronic Coronary atherosclerosis and other heart disease (11 sources) Coronary arteriosclerosis; Translations: [Atherosclerotic heart disease of [place] coronary artery without angina pectoris] Onset: 06-16-2023 06-16-2023 Chronic Coronary atherosclerosis and other heart disease (5 sources) Presence of coronary angioplasty implant and graft; Translations: [Bare metal stent in anterior descending branch of left coronary artery] Onset: 12-04-2023 08-30-2024 Episodic Deficiency and other anemia (2 sources) Anemia; Translations: [Anemia, unspecified] Onset: 08-30-2024 08-30-2024 Episodic Deficiency and other anemia (2 sources) Anemia, unspecified; Translations: [Anemia, unspecified] Onset: 08-30-2024 Episodic Diabetes mellitus without complication (3 sources) Diabetes mellitus; Translations: [Type 2 diabetes mellitus without complications] Onset: 12-04-2023 06-09-2024 Chronic Disorders of lipid metabolism (6 sources) Mixed hyperlipidemia; Translations: [Mixed hyperlipidemia] Onset: 12-01-2023 06-16-2023 Chronic Disorders of teeth and jaw (1 source) Aggressive periodontitis, localized, unspecified severity Episodic Esophageal disorders (6 sources) Gastroesophageal reflux disease; Translations: [Gastro-esophageal reflux disease without esophagitis] Onset: 06-24-2017 06-24-2017 Chronic Essential hypertension (12 sources) Essential hypertension; Translations: [Essential (primary) hypertension] Onset: 12-10-2016 12-01-2023 Chronic Other circulatory disease (1 source) Carotid bruit; Translations: [Other specified symptoms and signs involving the circulatory and respiratory systems] 06-16-2023 Episodic Other nutritional; endocrine; and metabolic disorders (6 sources) Overweight in adulthood with body mass index of 25 or more but less than 30; Translations: [Body mass index (BMI) 28.0-28.9, adult] Onset: 06-16-2023 06-16-2023 Episodic Other nutritional; endocrine; and metabolic disorders (2 sources) Body mass index (BMI) 27.0-27.9, adult; Translations: [Body mass index (BMI) 27.0-27.9, adult] Onset: 08-30-2024 Episodic Residual codes; unclassified (2 sources) Never smoked tobacco; Translations: [Other specified health status] Onset: 08-30-2024 08-30-2024 Episodic Residual codes; unclassified (2 sources) Other specified health status; Translations: [Other specified health status] Onset: 08-30-2024 Episodic Thyroid disorders (6 sources) Acquired hypothyroidism; Translations: [Hypothyroidism, unspecified] Onset: 12-10-2016 12-10-2016 Chronic Unclassified (1 source) REVIEW LABS Onset: 06-09-2024 Unclassified (1 source) Annual Exam Onset: 12-04-2023 Past or Other Problems Problem Classification Problem Date Documented Date Episodic/Chronic Cardiac dysrhythmias (7 sources) Bradycardia; Translations: [Bradycardia, unspecified] Onset: 06-16-2023 06-16-2023 Episodic Intestinal obstruction without hernia (4 sources) Small bowel obstruction; Translations: [Unspecified intestinal obstruction, unspecified as to partial versus complete obstruction] Onset: 07-22-2016 Resolved: 06-24-2017 06-24-2017 Episodic Mood disorders (4 sources) Mood disorders Onset: 12-04-2023 Resolved: 06-09-2024 12-04-2023 Other ear and sense organ disorders (1 source) Impacted cerumen, right ear Onset: 04-08-2021 Resolved: 04-08-2021 Episodic Other nutritional; endocrine; and metabolic disorders (4 sources) Severe obesity; Translations: [Morbid (severe) obesity due to excess calories] Onset: 02-02-2019 Resolved: 08-08-2019 08-08-2019 Chronic Other nutritional; endocrine; and metabolic disorders (2 sources) Body mass index (BMI) 28.0-28.9, adult; Translations: [Body mass index (BMI) 28.0-28.9, adult] Onset: 06-16-2023 Episodic Otitis media and related conditions (1 source) Other acute nonsuppurative otitis media, bilateral Onset: 04-08-2021 Resolved: 04-08-2021 Episodic Unclassified (7 sources) Onset: 06-16-2023 Resolved: 08-30-2024 06-16-2023 Results Test Name Value Interpretation Reference Range Facility Basic Metabolic Panelon -1 1-2023 Anion gap [Moles/Vol] 8.9 mmol/L Normal 6.0-15.0 [facility] Comment on above: Performed By: #### H S TROP #### [facility] [address] Calcium [Mass/Vol] 9.0 mg/dL Normal 8.6-10.3 [facility] Comment on above: Performed By: #### H S TROP #### [facility] [address] [place] [address] [place] Chloride [Moles/Vol] 105 mmol/L Normal 98-107 [facility] Comment on above: Performed By: #### H S TROP #### [facility] [address] [place] [address] [place] CO2 [Moles/Vol] 27.5 mmol/L Normal 21.0-31.0 [facility] Comment on above: Performed By: #### H S TROP #### [facility] [address] [place] [address] [place] Creatinine [Mass/Vol] 0.72 mg/dL Normal 0.60-1.20 [facility] Comment on above: Performed By: #### H S TROP #### [facility] [address] [place] [address] [place] Creatinine Clr Calc Pharmacy 52.01 [facility] Comment on above: Result Comment: PERF ORMED BY: [place] [address] PATHOLOGIST SWEEPER [employer] MACHINE NICOLE RAMIREZ M.D. Performed By: #### H S TROP #### [place] [address] [place] GFR/1.73 sq M.predicted MDRD (S/P/Bld) [Vol rate/Area] mL/min/{1.73_m2} [facility] Comment on above: Performed By: #### H S TROP #### [place] [address] [place] Glucose [Mass/Vol] 143 mg/dL High 70-100 [facility] Comment on above: Result Comment: [place] Glucose Reference Range is dependent on time and content of last meal. Glucose of more than 200 mg/dL in a nonstressed, ambulatory subject supports the diagnosis of Diabetes Mellitus. ADA recommended reference range Performed By: #### H S TROP #### [facility] [address] Potassium [Moles/Vol] 3.4 mmol/L Low 3.5-5.1 [facility] Comment on above: Performed By: #### H S TROP #### [facility] [address] Sodium [Moles/Vol] 138 mmol/L Normal 136-145 [facility] Comment on above: Performed By: #### H S TROP #### [facility] [address] Urea nitrogen [Mass/Vol] 16 mg/dL Normal 7-25 [facility] Comment on above: Performed By: #### H S TROP #### [facility] [address] Basophils Auto (Bld) [#/Vol] Ordered By: Sam Logan on 12-03-2022 Basophils (Bld) [#/Vol] 0.1 10*3/uL 0.0-0.2 [facility] Basophils/100 WBC Auto (Bld) Ordered By: Sam Logan on 12-03-2022 Basophils/100 WBC (Bld) 0.8 % . [facility] Calcium [Mass/volume] in Ser um or PlasmaOrdered By: Sam Logan on 12-03-2022 Calcium [Mass/Vol] 9.0 mg/dL 8.6-10.3 [facility] Carbon dioxide, total [Moles /volume] in Serum or PlasmaOrdered By: Sam Logan on 12-03-2022 CO2 [Moles/Vol] 27.5 mmol/L 21.0-31.0 [facility] Chloride [Moles/volume] in S violeta or PlasmaOrdered By: Sam Loagn on 12-03-2022 Chloride [Moles/Vol] 105 mmol/L 98-107 [facility] Complete Blood Count Auto Di ffon 12-03-2022 Basophils (Bld) [#/Vol] 0.1 10*3/uL Normal 0.0-0.2 [facility] Comment on above: Result Comment: PERF ORMED BY: [place] [address] PATHOLOGIST [employer]ACHINE NICOLE RAMIREZ M.D. Performed By: #### H S TROP #### [address] Basophils/100 WBC (Bld) 0.8 % Normal . [facility] Comment on above: Performed By: #### H S TROP #### [address] Eosinophils (Bld) [#/Vol] 0.1 10*3/uL Normal 0.0-0.45 [facility] Comment on above: Performed By: #### H S TROP #### [address] Eosinophils/100 WBC (Bld) 0.9 % Normal . [facility] Comment on above: Performed By: #### H S TROP #### [address] Erythrocyte distribution width (RBC) [Ratio] 12.1 % Normal 11.9-15.3 [facility] Comment on above: Performed By: #### H S TROP #### [address] Hematocrit (Bld) [Volume fraction] 30.1 % Low 34.0-46.4 [facility] Comment on above: Performed By: #### H S TROP #### [place] [address] [place] Hemoglobin (Bld) [Mass/Vol] 10.4 g/dL Low 11.8-15.4 [facility] Comment on above: Performed By: #### H S TROP #### [address] Lymphocytes (Bld) [#/Vol] 1.7 10*3/uL Normal 1.00-4.8 [facility] Comment on above: Performed By: #### H S TROP #### [facility] [address] [place] [address] [place] Lymphocytes/100 WBC (Bld) 18.9 % Normal . [facility] Comment on above: Performed By: #### H S TROP #### [facility] [address] MCH (RBC) [Entitic mass] 32.4 pg Normal 24.7-34.3 [facility] Comment on above: Performed By: #### H S TROP #### [facility] [address] MCV (RBC) [Entitic vol] 93.4 fL Normal 80-100 [facility] Comment on above: Performed By: #### H S TROP #### [address] Mean Corpuscular HGB Conc 34.7 g/dL Normal 32.0-35.0 [facility] Comment on above: Performed By: #### H S TROP #### [place] [address] [place] Monocytes (Bld) [#/Vol] 0.9 10*3/uL High 0.0-0.8 [facility] Comment on above: Performed By: #### H S TROP #### [place] [address] [place] Monocytes/100 WBC (Bld) 10.0 % Normal . [facility] Comment on above: Performed By: #### H S TROP #### [place] [address] [place] Neutrophils (Bld) [#/Vol] 6.3 10*3/uL Normal 1.8-7.7 [facility] Comment on above: Performed By: #### H S TROP #### [place] [address] [place] Neutrophils/100 WBC (Bld) 69.4 % Normal . [facility] Comment on above: Performed By: #### H S TROP #### [facility] [address] [place] [address] NRBC% 0.1 /100{WBC} Normal 0-0.5 [facility] Comment on above: Performed By: #### H S TROP #### [address] Platelet mean volume (Bld) [Entitic vol] 8.5 fL Normal 6.3-10.7 [facility] Comment on above: Performed By: #### H S TROP #### [address] Platelets (Bld) [#/Vol] 120 10*3/uL Low 150-450 [facility] Comment on above: Performed By: #### H S TROP #### [address] RBC (Bld) [#/Vol] 3.22 10*6/uL Low 3.60-5.00 [facility] Comment on above: Performed By: #### H S TROP #### [address] WBC (Bld) [#/Vol] 9.0 10*3/uL Normal 3.8-11.6 [facility] Comment on above: Performed By: #### H S TROP #### [address] Creatinine [Mass/volume] in Serum or PlasmaOrdered By: Sam Logan on 12-03-2022 Creatinine [Mass/Vol] 0.72 mg/dL 0.60-1.20 [facility] ECG 12 lead ECGon 12-03-2022 ECG 12 lead ECG [facility] [place] [address] [place] [address] Electrocardiograph Report Signed Patient: Giana Menchaca MR#: [id number] : 1945 Acct:[id number] Age/Sex: 77 / F ADM Date: 11/30/22 Loc: Room: [address] [place] [address] Type: DIS IN Attending Dr: Sam Logan DO Ordering Provider: Sam Logan DO Date of Service: 12/03/2201/15/500 ECG/ECG 12 lead ECG: Inferolateral STEMI Copies to: Test Reason : Blood Pressure : / mmHG Vent. Rate : 086 BPM Atrial Rate : 086 BPM P-R Int : 166 ms QRS Dur : 086 ms QT Int : 364 ms P-R-T Axes : 036 -71 -47 degrees QTc Int : 435 ms Normal sinus rhythm Left axis deviation Low voltage QRS Inferior infarct (cited on or before 30-NOV-2022) Anterolateral infarct (cited on or before 01-DEC-2022) ACUTE AL Consider right ventricular involvement in acute inferior infarct Abnormal ECG When compared with ECG of 02-DEC-2022 07:38, Inverted T waves have replaced nonspecific T wave abnormality in Lateral leads Confirmed by DAVID HERNÁNDEZ DO ([id number]) on 12/03/2022 2:18:28 PM Referred By: Electronically Signed By:DAVID HERNÁNDEZ DO Transcribed By: MUS Signed By David Hernández DO 12/03 1418 Normal [facility] Eosinophils Auto (Bld) [#/Vo l]Ordered By: Sam Logan on 12-03-2022 Eosinophils (Bld) [#/Vol] 0.1 10*3/uL 0.0-0.45 [facility] Eosinophils/100 WBC Auto (Bl d)Ordered By: Sam Logan on 12-03-2022 Eosinophils/100 WBC (Bld) 0.9 % . [facility] Erythrocyte distribution wid th Auto (RBC) [Ratio]Ordered By: Sam Logan on 12-03-2022 Erythrocyte distribution width (RBC) [Ratio] 12.1 % 11.9-15.3 [facility] Glucose [Mass/volume] in Ser um or PlasmaOrdered By: Sam Logan on 12-03-2022 Glucose [Mass/Vol] 143 mg/dL 70-100 [facility] Comment on above: ADA recommended refe rence rangeRandom Glucose Reference Range is dependent on time and content of last meal. Glucose of more than 200 mg/dL in a nonstressed, ambulatory subject supports the diagnosis of Diabetes Mellitus. Hematocrit Auto (Bld) [Volum e fraction]Ordered By: Sam Logan on 12-03-2022 Hematocrit (Bld) [Volume fraction] 30.1 % 34.0-46.4 [facility] Hemoglobin [Mass/volume] in BloodOrdered By: Sam Logan on 12-03-2022 Hemoglobin (Bld) [Mass/Vol] 10.4 g/dL 11.8-15.4 [facility] Leukocytes [#/volume] correc mey for nucleated erythrocytes in Blood by Automated counOrdered By: Sam Logan on 12-03-2022 WBC corrected for nucl RBC Auto (Bld) [#/Vol] 9.0 10*3/uL 3.8-11.6 [facility] Lymphocytes Auto (Bld) [#/Vo l]Ordered By: Sam Logan on 12-03-2022 Lymphocytes (Bld) [#/Vol] 1.7 10*3/uL 1.00-4.8 [facility] Lymphocytes/100 WBC Auto (Bl d)Ordered By: Sam Logan on 12-03-2022 Lymphocytes/100 WBC (Bld) 18.9 % . [facility] MCH Auto (RBC) [Entitic mass ]Ordered By: Sam Logan on 12-03-2022 MCH (RBC) [Entitic mass] 32.4 pg 24.7-34.3 [facility] MCHC Auto (RBC) [Mass/Vol]Or dered By: Sam Logan on 12-03-2022 MCHC (RBC) [Mass/Vol] 34.7 g/dL 32.0-35.0 [facility] MCV Auto (RBC) [Entitic vol] Ordered By: Sam Logan on 12-03-2022 MCV (RBC) [Entitic vol] 93.4 fL 80-100 [facility] Monocytes Auto (Bld) [#/Vol] Ordered By: Sam Logan on 12-03-2022 Monocytes (Bld) [#/Vol] 0.9 10*3/uL 0.0-0.8 [facility] Monocytes/100 WBC Auto (Bld) Ordered By: Sam Logan on 12-03-2022 Monocytes/100 WBC (Bld) 10.0 % . [facility] Neutrophils Auto (Bld) [#/Vo l]Ordered By: Sam Logan on 12-03-2022 Neutrophils (Bld) [#/Vol] 6.3 10*3/uL 1.8-7.7 [facility] Neutrophils/100 WBC Auto (Bl d)Ordered By: Sam Logan on 12-03-2022 Neutrophils/100 WBC (Bld) 69.4 % . [facility] No Panel InformationOrdered By: Sam Logan on 12-03-2022 Estimated GFR (CKD-EPI) > 60.0 mL/Min [facility] [facility] Creatinine Clearance (Chem 52.01 [facility] Nucleated erythrocytes [Pres ence] in Blood by Automated countOrdered By: Sam Logan on 12-03-2022 Nucleated RBC Auto Ql (Bld) 0.1 /100{WBC} 0-0.5 [facility] Platelet mean volume Auto (B ld) [Entitic vol]Ordered By: Sam Logan on 12-03-2022 Platelet mean volume (Bld) [Entitic vol] 8.5 fL 6.3-10.7 [facility] Platelets Auto (Bld) [#/Vol] Ordered By: Sam Logan on 12-03-2022 Platelets (Bld) [#/Vol] 120 10*3/uL 150-450 [facility] Potassium [Moles/volume] in Serum or PlasmaOrdered By: Sam Logan on 12-03-2022 Potassium [Moles/Vol] 3.4 mmol/L 3.5-5.1 [facility] RBC Auto (Bld) [#/Vol]Ordere d By: Sam Logan on 12-03-2022 RBC (Bld) [#/Vol] 3.22 10*6/uL 3.60-5.00 [facility] Serum or plasma anion gap de terminationOrdered By: Sam Logan on 12-03-2022 Anion gap [Moles/Vol] 8.9 mmol/L 6.0-15.0 [facility] Sodium [Moles/volume] in Ser um or PlasmaOrdered By: Sam Logan on 12-03-2022 Sodium [Moles/Vol] 138 mmol/L 136-145 [facility] Urea nitrogen [Mass/volume] in Serum or PlasmaOrdered By: Sam Logan on 12-03-2022 Urea nitrogen [Mass/Vol] 16 mg/dL 7-25 [facility] WBC Auto (Bld) [#/Vol]Ordere d By: Sam Logan on 12-03-2022 WBC (Bld) [#/Vol] 9.0 10*3/uL 3.8-11.6 [facility] Basic Metabolic Panelon 11-23 Anion gap [Moles/Vol] 7.0 mmol/L Normal 6.0-15.0 [facility] Comment on above: Performed By: #### C BC, BMP #### [facility] [address] Calcium [Mass/Vol] 8.9 mg/dL Normal 8.6-10.3 [facility] Comment on above: Performed By: #### C BC, BMP #### [facility] [address] [place] [address] [place] Chloride [Moles/Vol] 108 mmol/L High 98-107 [facility] Comment on above: Performed By: #### C BC, BMP #### [facility] [address] [place] [address] [place] CO2 [Moles/Vol] 28.2 mmol/L Normal 21.0-31.0 [facility] Comment on above: Performed By: #### C BC, BMP #### [facility] [address] [place] [address] [place] Creatinine [Mass/Vol] 0.65 mg/dL Normal 0.60-1.20 [facility] Comment on above: Performed By: #### C BC, BMP #### [facility] [address] [place] [address] [place] Creatinine Clr Calc Pharmacy 52.66 Normal [facility] Comment on above: Result Comment: PERF ORMED BY: [place] [address] PATHOLOGIST [employer] NICOLE RAMIREZ M.D. Performed By: #### C BC, BMP #### [facility] [address] [place] [address] GFR/1.73 sq M.predicted MDRD (S/P/Bld) [Vol rate/Area] mL/min/{1.73_m2} Normal [facility] Comment on above: Performed By: #### C BC, BMP #### [address] Glucose [Mass/Vol] 130 mg/dL High 70-100 [facility] Comment on above: Result Comment: [facility] Glucose Reference Range is dependent on time and content of last meal. Glucose of more than 200 mg/dL in a nonstressed, ambulatory subject supports the diagnosis of Diabetes Mellitus. ADA recommended reference range Performed By: #### C BC, BMP #### [address] Potassium [Moles/Vol] 3.2 mmol/L Low 3.5-5.1 [facility] Comment on above: Performed By: #### C BC, BMP #### [address] Sodium [Moles/Vol] 140 mmol/L Normal 136-145 [facility] Comment on above: Performed By: #### C BC, BMP #### [address] Urea nitrogen [Mass/Vol] 14 mg/dL Normal 7-25 [facility] Comment on above: Performed By: #### C BC, BMP #### [address] Complete Blood Count Auto Di ffon 12-02-2022 Basophils (Bld) [#/Vol] 0.0 10*3/uL Normal 0.0-0.2 [facility] Comment on above: Result Comment: PERF ORMED BY: [place] [address] PATHOLOGIST [employer] NICOLE RAMIREZ M.D. Performed By: #### C BC, BMP #### [place] [address] [place] Basophils/100 WBC (Bld) 0.2 % Normal . [facility] Comment on above: Performed By: #### C BC, BMP #### [facility] [address] [place] [address] [place] Eosinophils (Bld) [#/Vol] 0.0 10*3/uL Normal 0.0-0.45 [facility] Comment on above: Performed By: #### C BC, BMP #### [facility] [address] [place] [address] [place] Eosinophils/100 WBC (Bld) 0.5 % Normal . [facility] Comment on above: Performed By: #### C BC, BMP #### [facility] [address] Erythrocyte distribution width (RBC) [Ratio] 12.1 % Normal 11.9-15.3 [facility] Comment on above: Performed By: #### C BC, BMP #### [facility] [address] Hematocrit (Bld) [Volume fraction] 30.9 % Low 34.0-46.4 [facility] Comment on above: Performed By: #### C BC, BMP #### [facility] [address] Hemoglobin (Bld) [Mass/Vol] 10.7 g/dL Low 11.8-15.4 [facility] Comment on above: Performed By: #### C BC, BMP #### [facility] [address] [place] [address] [place] Lymphocytes (Bld) [#/Vol] 1.7 10*3/uL Normal 1.00-4.8 [facility] Comment on above: Performed By: #### C BC, BMP #### [facility] [address] [place] [address] [place] Lymphocytes/100 WBC (Bld) 19.7 % Normal . [facility] Comment on above: Performed By: #### C BC, BMP #### [facility] [address] MCH (RBC) [Entitic mass] 32.3 pg Normal 24.7-34.3 [facility] Comment on above: Performed By: #### C BC, BMP #### [facility] [address] MCV (RBC) [Entitic vol] 93.5 fL Normal 80-100 [facility] Comment on above: Performed By: #### C BC, BMP #### [facility] [address] Mean Corpuscular HGB Conc 34.6 g/dL Normal 32.0-35.0 [facility] Comment on above: Performed By: #### C BC, BMP #### [facility] [address] [place] [address] [place] Monocytes (Bld) [#/Vol] 0.7 10*3/uL Normal 0.0-0.8 [facility] Comment on above: Performed By: #### C BC, BMP #### [facility] [address] [place] [address] [place] Monocytes/100 WBC (Bld) 8.6 % Normal . [facility] Comment on above: Performed By: #### C BC, BMP #### [facility] [address] [place] [address] [place] Neutrophils (Bld) [#/Vol] 6.0 10*3/uL Normal 1.8-7.7 [facility] Comment on above: Performed By: #### C BC, BMP #### [facility] [address] [place] [address] [place] Neutrophils/100 WBC (Bld) 71.0 % Normal . [facility] Comment on above: Performed By: #### C BC, BMP #### [facility] [address] [place] [address] [place] NRBC% 0.1 /100{WBC} Normal 0-0.5 [facility] Comment on above: Performed By: #### C BC, BMP #### [facility] [address] Platelet mean volume (Bld) [Entitic vol] 8.4 fL Normal 6.3-10.7 [facility] Comment on above: Performed By: #### C BC, BMP #### [facility] [address] [place] [address] [place] Platelets (Bld) [#/Vol] 116 10*3/uL Signific ant change down 150-450 [facility] Comment on above: Performed By: #### C JACOB, BMP #### [facility] [address] RBC (Bld) [#/Vol] 3.31 10*6/uL Low 3.60-5.00 [facility] Comment on above: Performed By: #### C JACOB, BMP #### [facility] [address] [place] [id number] [facility] WBC (Bld) [#/Vol] 8.5 10*3/uL Normal 3.8-11.6 [facility] Comment on above: Performed By: #### C JACOB, BMP #### [facility] [address] ECG 12 lead ECGon 12-02-2022 ECG 12 lead ECG [facility] Main [place] [address] [place] [address] Electrocardiograph Report Signed Patient: Giana Menchaca MR#: [id number] : 1945 Acct:[id number] Age/Sex: 77 / F ADM Date: 11/30/22 Loc: Room: [address] [place] [address] Type: ADM IN Attending Dr: Sam Logan DO Ordering Provider: Sam Logan DO Date of Service: 12/02/2212/15/499 ECG/ECG 12 lead ECG: Inferolateral STEMI Copies to: Test Reason : Blood Pressure : / mmHG Vent. Rate : 102 BPM Atrial Rate : 102 BPM P-R Int : 166 ms QRS Dur : 088 ms QT Int : 342 ms P-R-T Axes : 062 -70 -17 degrees QTc Int : 445 ms Sinus tachycardia Low voltage QRS Left anterior fascicular block Inferior infarct (cited on or before 30-NOV-2022) Anterolateral infarct (cited on or before 30-NOV-2022) ACUTE AL Consider right ventricular involvement in acute inferior infarct Abnormal ECG When compared with ECG of 01-DEC-2022 05:02, Left anterior fascicular block is now present Serial changes of evolving Anterior infarct present Serial changes of evolving Anterolateral infarct present Serial changes of Inferior infarct present Confirmed by DAVID HERNÁNDEZ DO ([id number]) on 12/02/2022 4:55:40 PM Referred By: Electronically Signed By:DAVID HERNÁNDEZ DO Transcribed By: MUS Signed By David Hernández DO 12/02 2775 Normal [facility] Activated partial thrombopla stin time (aPTT) in platelet poor plasma by coagulation aOrdered By: Sam Logan on 12-01-2022 aPTT Coag (PPP) [Time] 58.4 s 25.1-36.5 [facility] Comment on above: A hematocrit value g reater than 55% may lead to inaccurate results in coagulation testing. Patients having hematocrit values >55% require a special collection tube for coagulation studies. Please contact the laboratory at [phone] for redraw instructions. Basic Metabolic Panelon Anion gap [Moles/Vol] 10.5 mmol/L Normal 6.0-15.0 [facility] Comment on above: Performed By: #### H S TROP, LIPID, CBC, BMP #### [facility] [address] Calcium [Mass/Vol] 8.7 mg/dL Normal 8.6-10.3 [facility] Comment on above: Performed By: #### H S TROP, LIPID, CBC, BMP #### [facility] [address] [place] [address] [place] Chloride [Moles/Vol] 107 mmol/L Normal 98-107 [facility] Comment on above: Performed By: #### H S TROP, LIPID, CBC, BMP #### [facility] [address] [place] [address] [place] CO2 [Moles/Vol] 25.2 mmol/L Normal 21.0-31.0 [facility] Comment on above: Performed By: #### H S TROP, LIPID, CBC, BMP #### [facility] [address] [place] [address] [place] Creatinine [Mass/Vol] 0.79 mg/dL Normal 0.60-1.20 [facility] Comment on above: Performed By: #### H S TROP, LIPID, CBC, BMP #### [facility] [address] [place] [address] [place] Creatinine Clr Calc Pharmacy 52.93 [facility] Comment on above: Performed By: #### H S TROP, LIPID, CBC, BMP #### [facility] [address] [place] [address] [place] GFR/1.73 sq M.predicted MDRD (S/P/Bld) [Vol rate/Area] mL/min/{1.73_m2} [facility] Comment on above: Performed By: #### H S TROP, LIPID, CBC, BMP #### [place] [address] [place] Glucose [Mass/Vol] 206 mg/dL High 70-100 [facility] Comment on above: Result Comment: [facility] Glucose Reference Range is dependent on time and content of last meal. Glucose of more than 200 mg/dL in a nonstressed, ambulatory subject supports the diagnosis of Diabetes Mellitus. ADA recommended reference range Performed By: #### H S TROP, LIPID, CBC, BMP #### [place] [address] [place] Potassium [Moles/Vol] 3.7 mmol/L Normal 3.5-5.1 [facility] Comment on above: Performed By: #### H S TROP, LIPID, CBC, BMP #### [place] [address] [place] Sodium [Moles/Vol] 139 mmol/L Normal 136-145 [facility] Comment on above: Performed By: #### H S TROP, LIPID, CBC, BMP #### [facility] [address] [place] [address] [place] Urea nitrogen [Mass/Vol] 17 mg/dL Normal 7-25 [facility] Comment on above: Performed By: #### H S TROP, LIPID, CBC, BMP #### [facility] [address] Cholesterol [Mass/volume] in Serum or PlasmaOrdered By: Sam Logan on 12-01-2022 Cholesterol [Mass/Vol] 120 mg/dL 140-200 [facility] Comment on above: Chol less than 200 m g/dl low riskChol 201-239 mg/dl borderline riskChol 240 mg/dl and greater high risk Cholesterol in LDL Calc [Mas s/Vol]Ordered By: Sam Logan on 12-01-2022 Cholesterol in LDL [Mass/Vol] 65 mg/dL 0-100 [facility] Comment on above: LDL ATP III CLASSIFI CATIONLDL less than 100 mg/dL OptimalLDL 100-129 mg/dL Near or above optimalLDL 130-159 mg/dL Borderline highLDL 160-189 mg/dL HighLDL greater than 189 mg/dL Very high Cholesterol in VLDL Calc [Ma ss/Vol]Ordered By: Sam Logan on 12-01-2022 Cholesterol in VLDL [Mass/Vol] 13 mg/dL [facility] Complete Blood Count Auto Di ffon 12-01-2022 Basophils (Bld) [#/Vol] 0.0 10*3/uL Normal 0.0-0.2 [facility] Comment on above: Result Comment: PERF ORMED BY: [place] [address] PATHOLOGIST [employer] NICOLE RAMIREZ M.D. Performed By: #### H S TROP, LIPID, CBC, BMP #### [facility] [address] [place] [address] [place] Basophils/100 WBC (Bld) 0.2 % Normal . [facility] Comment on above: Performed By: #### H S TROP, LIPID, CBC, BMP #### [facility] [address] [place] [address] [place] Eosinophils (Bld) [#/Vol] 0.0 10*3/uL Normal 0.0-0.45 [facility] Comment on above: Performed By: #### H S TROP, LIPID, CBC, BMP #### [facility] [address] [place] [address] [place] Eosinophils/100 WBC (Bld) 0.0 % Normal . [facility] Comment on above: Performed By: #### H S TROP, LIPID, CBC, BMP #### [address] Erythrocyte distribution width (RBC) [Ratio] 11.7 % Low 11.9-15.3 [facility] Comment on above: Performed By: #### H S TROP, LIPID, CBC, BMP #### [address] Hematocrit (Bld) [Volume fraction] 34.4 % Normal 34.0-46.4 [facility] Comment on above: Performed By: #### H S TROP, LIPID, CBC, BMP #### [address] Hemoglobin (Bld) [Mass/Vol] 12.0 g/dL Normal 11.8-15.4 [facility] Comment on above: Performed By: #### H S TROP, LIPID, CBC, BMP #### [address] Lymphocytes (Bld) [#/Vol] 0.7 10*3/uL Low 1.00-4.8 [facility] Comment on above: Performed By: #### H S TROP, LIPID, CBC, BMP #### [address] Lymphocytes/100 WBC (Bld) 8.4 % Normal . [facility] Comment on above: Performed By: #### H S TROP, LIPID, CBC, BMP #### [address] MCH (RBC) [Entitic mass] 32.7 pg Normal 24.7-34.3 [facility] Comment on above: Performed By: #### H S TROP, LIPID, CBC, BMP #### [address] MCV (RBC) [Entitic vol] 94.3 fL Normal 80-100 [facility] Comment on above: Performed By: #### H S TROP, LIPID, CBC, BMP #### [facility] [address] Mean Corpuscular HGB Conc 34.7 g/dL Normal 32.0-35.0 [facility] Comment on above: Performed By: #### H S TROP, LIPID, CBC, BMP #### [facility] [address] Monocytes (Bld) [#/Vol] 0.8 10*3/uL Normal 0.0-0.8 [facility] Comment on above: Performed By: #### H S TROP, LIPID, CBC, BMP #### [address] Monocytes/100 WBC (Bld) 9.7 % Normal . [facility] Comment on above: Performed By: #### H S TROP, LIPID, CBC, BMP #### [address] Neutrophils (Bld) [#/Vol] 6.7 10*3/uL Normal 1.8-7.7 [facility] Comment on above: Performed By: #### H S TROP, LIPID, CBC, BMP #### [address] Neutrophils/100 WBC (Bld) 81.7 % Normal . [facility] Comment on above: Performed By: #### H S TROP, LIPID, CBC, BMP #### [facility] [address] [place] [address] [place] NRBC% 0.1 /100{WBC} Normal 0-0.5 [facility] Comment on above: Performed By: #### H S TROP, LIPID, CBC, BMP #### [facility] [address] Platelet mean volume (Bld) [Entitic vol] 8.6 fL Normal 6.3-10.7 [facility] Comment on above: Performed By: #### H S TROP, LIPID, CBC, BMP #### [facility] [address] [place] [address] [place] Platelets (Bld) [#/Vol] 153 10*3/uL Normal 150-450 [facility] Comment on above: Performed By: #### H S TROP, LIPID, CBC, BMP #### [facility] [address] RBC (Bld) [#/Vol] 3.65 10*6/uL Normal 3.60-5.00 [facility] Comment on above: Performed By: #### H S TROP, LIPID, CBC, BMP #### [facility] [address] WBC (Bld) [#/Vol] 8.2 10*3/uL Normal 3.8-11.6 [facility] Comment on above: Performed By: #### H S TROP, LIPID, CBC, BMP #### [facility] [address] ECG 12 lead ECGon 12-01-2022 ECG 12 lead ECG [facility] Main [place] [address] [place] [address] Electrocardiograph Report Signed Patient: Giana Menchaca MR#: [id number] : 1945 Acct:[id number] Age/Sex: 77 / F ADM Date: 11/30/22 Loc: Room: [address] [place] [address] Type: ADM IN Attending Dr: Sam Logan DO Ordering Provider: Sam Logan DO Date of Service: 12/01/2211/15/499 ECG/ECG 12 lead ECG: Inferolateral STEMI Copies to: Test Reason : Blood Pressure : / mmHG Vent. Rate : 094 BPM Atrial Rate : 094 BPM P-R Int : 166 ms QRS Dur : 088 ms QT Int : 344 ms P-R-T Axes : 043 -68 064 degrees QTc Int : 430 ms Normal sinus rhythm Left axis deviation Inferior infarct (cited on or before 30-NOV-2022) Anterolateral infarct , age undetermined ST elevation- consider acute injury pattern Abnormal ECG When compared with ECG of 30-NOV-2022 17:13, Significant changes have occurred Confirmed by DAVID HERNÁNDEZ DO ([id number]) on 12/01/2022 1:08:01 PM Referred By: Electronically Signed By:DAVID HERNÁNDEZ DO Transcribed By: MUS Signed By David Hernández DO 12/01 1308 Normal [facility] echo transthoracicon [facility] echo transthoracic [facility] Main [place] [address] [place] [id number] Echocardiogram Signed Patient: Giana Menchaca MR#: [id number] : 1945 Acct:[id number] Age/Sex: 77 / F ADM Date: 11/30/22 Loc: Room: 4B3306-1 Type: ADM IN Attending Dr: Sam Logan DO Ordering Provider: Sam Logan DO Date of Service: 12/01/2211/15/499 [facility] echo transthoracic: Inferolateral STEMI Copies to: DO Boom Teran MD Height: 60 in Weight: 152 lb Performed By: TIFFANIE Benoit BSA: 1.7 m2 BP: 136/71 mmHg HR: 91 Reason For Study: Inferolateral STEMI History: GERD. HTN. Interpretation Summary The left ventricular size, thickness and function are normal Ejection Fraction = 60-65%. A variety of Doppler measurements indicate normal left ventricular diastolic function. Procedure/Quality: A two-dimensional transthoracic echocardiogram with color flow, Doppler and injection of contrast agent Definity was performed. The study was technically fair in quality. Left Ventricle: The left ventricular size, thickness and function are normal. Ejection Fraction = 60-65%. A variety of Doppler measurements indicate normal left ventricular diastolic function. No left ventricular thrombus or mass is seen. Left Atrium: The left atrium appears normal in size. The atrial septum appears normal. Right Atrium: The right atrium appears normal in size. Right Ventricle: The right ventricular size, thickness and function are normal. Aortic Valve: The aortic valve is normal in structure and function. Mitral Valve: The mitral valve is normal. Tricuspid Valve: The tricuspid valve is normal in structure and function. Pulmonic Valve: The pulmonic valve is not well visualized. Arteries: The aortic root is normal size. The aortic arch was visualized and no abnormalities were seen. Pericardium/Pleura: No pericardial effusion seen. There is no pleural effusion. IVC/Hepatic Viens: The inferior vena cava is normal in size, with a normal collapsibility index. Measurements with Normals IVSd: 1.1 cm (0.7-1.1 cm)LVIDd: 3.7 cm (3.7-5.4 cm) LVPWd: 1.1 cm (0.7-1.1 cm)LVIDs: 2.8 cm (2.3-3.6 cm) LA dimension: 3.3 cm(2.3-4.0 cm)Ao root diam: 2.7 cm(2.0-3.6 cm) Doppler with Normals MV E max benitez: 105.0 cm/sec(0.8-1.3m/s) MV A max benitez: 140.2 cm/sec(0.0-0.0m/s) MV E/A: 0.75 (<1.5) MMode/2D Measurements Calculations RVDd: 2.6 cm FS: 24.2 % Ao root area: LVLd ap4: 7.2 cm TAPSE: 1.9 cm EDV(Teich): 5.9 cm2 EDV(MOD-sp4): RV S Benitez: 17.6 cm/sec 56.9 ml 95.4 ml ESV(Teich): LVLs ap4: 5.8 cm 29.0 ml ESV(MOD-sp4): EF(Teich): 49.0 % 37.5 ml EF(MOD-sp4): 60.7 % __ SV(MOD-sp4): 57.9 ml LAV(MOD-sp4): LA A2 area: 13.2 cm2 RA Volume: 28.7 ml 17.3 ml LAV(MOD-sp2): LA A4 area: 13.4 cm2 28.8 ml LA length (vol): 5.1 cm LA vol: 29.7 ml LA vol index: 17.9 ml/m2 __ RA Volume Index: 10.4 ml/m2 Doppler Measurements Calculations E/E' lat: 9.7 MV P1/2t max benitez: 153.8 cm/sec RAP systole: 3.0 mmHg E/E' med: 13.2 MV P1/2t: 59.9 msec MVA(P1/2t): 3.7 cm2 MV dec slope: 752.5 cm/sec2 Transcribed By: SCV Performed At: 12/01/2237 Signed By: Boom Ricci MD 12/01/22 1053 Normal [facility] Lipid Panelon 12-01-2022 Cholesterol [Mass/Vol] 120 mg/dL Low 140-200 [facility] Comment on above: Result Comment: Chol less than 200 mg/dl low risk Chol 201-239 mg/dl borderline risk Chol 240 mg/dl and greater high risk Performed By: #### H S TROP, LIPID, CBC, BMP #### [facility] [address] [place] [address] [place] Cholesterol in HDL [Mass/Vol] 41 mg/dL Normal 23-92 [facility] Comment on above: Result Comment: HDL CHOL ATP-III CLASSIFICATION Cardiovascular Risk HDL > or equal to 60 mg/dL LOW HDL < 40 mg/dL HIGH Performed By: #### H S TROP, LIPID, CBC, BMP #### [facility] [address] Cholesterol.total/Tatiana sterol in HDL [Mass ratio] 2.9 {ratio} Normal <5.0 [facility] Comment on above: Result Comment: PERF ORMED BY: [facility] [address] [place] [address] PATHOLOGIST [employer] NICOLE RAMIREZ M.D. Performed By: #### H S TROP, LIPID, CBC, BMP #### [facility] [address] [place] [id number] [place] LDL Cholesterol,Calculated 65 mg/dL Normal 0-100 [facility] Comment on above: Result Comment: LDL ATP III CLASSIFICATION LDL less than 100 mg/dL Optimal LDL 100-129 mg/dL Near or above optimal LDL 130-159 mg/dL Borderline high LDL 160-189 mg/dL High LDL greater than 189 mg/dL Very high Performed By: #### H S TROP, LIPID, CBC, BMP #### [facility] [address] Triglyceride w/Reflex 69 mg/dL Normal 0-149 [facility] Comment on above: Result Comment: TRIG ATP III CLASSIFICATION TRIG less than 150 mg/dL Normal TRIG 150-199 mg/dL Borderline high TRIG 200-500 mg/dL High TRIG greater than 500 mg/dL Very high Standard traceable to the Center for Disease Conrtrol and Prevention (CDC) test method. Performed By: #### H S TROP, LIPID, CBC, BMP #### [facility] [address] VLDL CHOLESTEROL 13 mg/dL Normal [facility] Comment on above: Performed By: #### H S TROP, LIPID, CBC, BMP #### [facility] [address] [place] [address] [place] Partial Thromboplastin Timeo n 12-01-2022 aPTT Coag (Bld) [Time] 58.4 s High 25.1-36.5 [facility] Comment on above: Order Comment: List the anticoagulant: HEPARIN, UNFRACTIONATED Result Comment: A he matocrit value greater than 55% may lead to inaccurate results in coagulation testing. Patients having hematocrit values >55% require a special collection tube for coagulation studies. Please contact the laboratory at [phone] for redraw instructions. PERFORMED BY: [place] [address] PATHOLOGIST [employer] NICOLE RAMIREZ M.D. Performed By: #### P TT #### [address] aPTT Coag (Bld) [Time] 95.6 s Off scale high 25.1-36.5 [facility] Comment on above: Order Comment: List the anticoagulant: HEPARIN, UNFRACTIONATED Result Comment: Crit ical value result called at 0258 on 12/01/22 --- 12/01/22 0259 --- PTT previously reported as: 95.6 *H Seconds A hematocrit value greater than 55% may lead to inaccurate results in coagulation testing. Patients having hematocrit values >55% require a special collection tube for coagulation studies. Please contact the laboratory at [phone] for redraw instructions. PERFORMED BY: [place] [address] PATHOLOGIST [employer] NICOLE RAMIREZ M.D. Performed By: #### P TT #### [facility] [address] [place] [address] Serum or plasma high density lipoprotein (HDL) cholesterol measurementOrdered By: Sam Logan on 12-01-2022 Cholesterol in HDL [Mass/Vol] 41 mg/dL 23-92 [facility] Comment on above: HDL CHOL ATP-III CLA SSIFICATION Cardiovascular RiskHDL > or equal to 60 mg/dL LOWHDL < 40 mg/dL HIGH Serum or plasma total choles terol/high density lipoprotein (HDL) cholesterol mass ratOrdered By: Sam Logan on 12-01-2022 Cholesterol.total/Tatiana sterol in HDL [Mass ratio] 2.9 {ratio} <5.0 [facility] Triglyceride [Mass/volume] i n Serum or PlasmaOrdered By: Sam Logan on 12-01-2022 Triglyceride [Mass/Vol] 69 mg/dL 0-149 [facility] Comment on above: TRIG ATP III CLASSIF ICATIONTRIG less than 150 mg/dL NormalTRIG 150-199 mg/dL Borderline highTRIG 200-500 mg/dL High TRIG greater than 500 mg/dL Very highStandard traceable to the Center for Disease Conrtrol and Prevention (CDC) test method. Troponin I High Sensitivityo n 12-01-2022 Troponin I High Sensitivity 61663.3 pg/mL Off scale high 0.0-15.0 [facility] Comment on above: Result Comment: Crit ical Result : Called to and read back by: MICHAEL PAN at: 12/01/2022 05:40:25 by:[id number] PERFORMED BY: [address] [address] PATHOLOGIST [employer] NICOLE RAMIREZ M.D. Performed By: #### H S TROP, LIPID, CBC, BMP #### [facility] [address] [place] [address] Troponin I High Sensitivity 6769.2 pg/mL Off scale high 0.0-15.0 [facility] Comment on above: Result Comment: Crit ical Result : Called to and read back by: FERNANDO PAN at: 12/01/2022 03:00:30 by:[id number] PERFORMED BY: [place] [address] PATHOLOGIST [employer] NICOLE RAMIREZ M.D. Performed By: #### H S TROP #### [address] Troponin I High Sensitivity 1936.0 pg/mL Off scale high 0.0-15.0 [facility] Comment on above: Result Comment: Crit ical Result : Called to and read back by: FERNANDO PAN at: 12/01/2022 01:01:37 by:[id number] PERFORMED BY: [place] [address] PATHOLOGIST [employer] NICOLE RAMIREZ M.D. Performed By: #### H S TROP #### [address] Troponin I.cardiac [Mass/vol ume] in Serum or Plasma by Detection limit <= 0.01 ng/Ordered By: Sam Logan on 12-01-2022 Troponin I.cardiac DL <= 0.01 ng/mL [Mass/Vol] 39790.3 pg/mL 0.0-15.0 [facility] Comment on above: Critical Result : Ca lled to and read back by: MICHAEL PAN at: 12/01/2022 05:40:25 by:[id number] B-Type Natriuretic Peptideon 11-30-2022 Natriuretic peptide B (Bld) [Mass/Vol] 31.0 pg/mL Normal 5-100 [facility] Comment on above: Result Comment: PERF ORMED BY: [place] [address] PATHOLOGIST [employer] NICOLE RAMIREZ M.D. Performed By: #### C BC, BMP #### [facility] [address] Basic Metabolic Panelon 10-0 Anion gap [Moles/Vol] 13.5 mmol/L Normal 6.0-15.0 [facility] Comment on above: Performed By: #### C BC, BMP #### [facility] [address] Calcium [Mass/Vol] 9.2 mg/dL Normal 8.6-10.3 [facility] Comment on above: Performed By: #### C BC, BMP #### [facility] [address] Chloride [Moles/Vol] 107 mmol/L Normal 98-107 [facility] Comment on above: Performed By: #### C BC, BMP #### [address] CO2 [Moles/Vol] 22.9 mmol/L Normal 21.0-31.0 [facility] Comment on above: Performed By: #### C BC, BMP #### [place] [address] [place] Creatinine [Mass/Vol] 0.89 mg/dL Normal 0.60-1.20 [facility] Comment on above: Performed By: #### C BC, BMP #### [address] Creatinine Clr Calc Pharmacy 48.16 [facility] Comment on above: Result Comment: PERF ORMED BY: [place] [address] PATHOLOGIST [employer] NICOLE RAMIREZ M.D. Performed By: #### C BC, BMP #### [place] [address] [place] GFR/1.73 sq M.predicted MDRD (S/P/Bld) [Vol rate/Area] mL/min/{1.73_m2} [facility] Comment on above: Performed By: #### C BC, BMP #### [address] [place] [address] [place] Glucose [Mass/Vol] 203 mg/dL High 70-100 [facility] Comment on above: Result Comment: [facility] Glucose Reference Range is dependent on time and content of last meal. Glucose of more than 200 mg/dL in a nonstressed, ambulatory subject supports the diagnosis of Diabetes Mellitus. ADA recommended reference range Performed By: #### C BC, BMP #### [facility] [address] Potassium [Moles/Vol] 3.4 mmol/L Low 3.5-5.1 [facility] Comment on above: Result Comment: Hemo lysis is present at a level that could interfere with the result. Performed By: #### C BC, BMP #### [facility] [address] Sodium [Moles/Vol] 140 mmol/L Normal 136-145 [facility] Comment on above: Performed By: #### C BC, BMP #### [facility] [address] Urea nitrogen [Mass/Vol] 22 mg/dL Normal 7-25 [facility] Comment on above: Performed By: #### C BC, BMP #### [address] Basophils Auto (Bld) [#/Vol] Ordered By: Tone Barba on 11-30-2022 Basophils (Bld) [#/Vol] 0.1 10*3/uL 0.0-0.2 [facility] Basophils/100 WBC Auto (Bld) Ordered By: Tone Barba on 11-30-2022 Basophils/100 WBC (Bld) 0.9 % . [facility] Calcium [Mass/volume] in Ser um or PlasmaOrdered By: Tone Barba on 11-30-2022 Calcium [Mass/Vol] 9.2 mg/dL 8.6-10.3 [facility] Carbon dioxide, total [Moles /volume] in Serum or PlasmaOrdered By: Tone Barba on 11-30-2022 CO2 [Moles/Vol] 22.9 mmol/L 21.0-31.0 [facility] Chloride [Moles/volume] in S violeta or PlasmaOrdered By: Tone Barba on 11-30-2022 Chloride [Moles/Vol] 107 mmol/L 98-107 [facility] Complete Blood Count Auto Di ffon 11-30-2022 Basophils (Bld) [#/Vol] 0.1 10*3/uL Normal 0.0-0.2 [facility] Comment on above: Result Comment: PERF ORMED BY: [place] [address] PATHOLOGIST [employer] NICOLE RAMIREZ M.D. Performed By: #### C BC, BMP #### [address] Basophils/100 WBC (Bld) 0.9 % Normal . [facility] Comment on above: Performed By: #### C BC, BMP #### [address] Eosinophils (Bld) [#/Vol] 0.2 10*3/uL Normal 0.0-0.45 [facility] Comment on above: Performed By: #### C BC, BMP #### [address] Eosinophils/100 WBC (Bld) 1.9 % Normal . [facility] Comment on above: Performed By: #### C BC, BMP #### [address] Erythrocyte distribution width (RBC) [Ratio] 11.7 % Low 11.9-15.3 [facility] Comment on above: Performed By: #### C BC, BMP #### [address] Hematocrit (Bld) [Volume fraction] 38.4 % Normal 34.0-46.4 [facility] Comment on above: Performed By: #### C BC, BMP #### [address] Hemoglobin (Bld) [Mass/Vol] 13.1 g/dL Normal 11.8-15.4 [facility] Comment on above: Performed By: #### C BC, BMP #### [facility] [address] [place] [address] [place] Lymphocytes (Bld) [#/Vol] 3.4 10*3/uL Normal 1.00-4.8 [facility] Comment on above: Performed By: #### C BC, BMP #### [facility] [address] Lymphocytes/100 WBC (Bld) 37.5 % Normal . [facility] Comment on above: Performed By: #### C BC, BMP #### [facility] [address] MCH (RBC) [Entitic mass] 32.5 pg Normal 24.7-34.3 [facility] Comment on above: Performed By: #### C BC, BMP #### [facility] [address] MCV (RBC) [Entitic vol] 95.1 fL Normal 80-100 [facility] Comment on above: Performed By: #### C BC, BMP #### [facility] [address] Mean Corpuscular HGB Conc 34.2 g/dL Normal 32.0-35.0 [facility] Comment on above: Performed By: #### C BC, BMP #### [facility] [address] [place] [address] [place] Monocytes (Bld) [#/Vol] 0.6 10*3/uL Normal 0.0-0.8 [facility] Comment on above: Performed By: #### C BC, BMP #### [facility] [address] [place] [address] [place] Monocytes/100 WBC (Bld) 17.58 % Normal 0.00-20.00 [facility] Comment on above: Performed By: #### C BC, BMP #### [facility] [address] [place] [address] [place] Monocytes/100 WBC (Bld) 6.9 % Normal . [facility] Comment on above: Performed By: #### C BC, BMP #### [facility] [address] [place] [address] [place] Neutrophils (Bld) [#/Vol] 4.8 10*3/uL Normal 1.8-7.7 [facility] Comment on above: Performed By: #### C BC, BMP #### [facility] [address] [place] [id number] [place] Neutrophils/100 WBC (Bld) 52.8 % Normal . [facility] Comment on above: Performed By: #### C BC, BMP #### [facility] [address] NRBC% 0.1 /100{WBC} Normal 0-0.5 [facility] Comment on above: Performed By: #### C BC, BMP #### [facility] [address] [place] [address] [place] Platelet mean volume (Bld) [Entitic vol] 8.7 fL Normal 6.3-10.7 [facility] Comment on above: Performed By: #### C BC, BMP #### [facility] [address] [place] [address] [place] Platelets (Bld) [#/Vol] 190 10*3/uL Normal 150-450 [facility] Comment on above: Performed By: #### C BC, BMP #### [facility] [address] [place] [address] [place] RBC (Bld) [#/Vol] 4.04 10*6/uL Normal 3.60-5.00 [facility] Comment on above: Performed By: #### C BC, BMP #### [facility] [address] [place] [id number] [place] WBC (Bld) [#/Vol] 9.0 10*3/uL Normal 3.8-11.6 [facility] Comment on above: Performed By: #### C BC, BMP #### [facility] [address] [place] [id number] [place] Creatine Kinaseon 11-30-2022 CK [Catalytic activity/Vol] 74 U/L Normal [facility] Comment on above: Performed By: #### C BC, BMP #### [facility] [address] [place] [address] Creatine kinase [Enzymatic a ctivity/volume] in Serum or PlasmaOrdered By: Tone Barba on 11-30-2022 CK [Catalytic activity/Vol] 74 U/L [facility] Creatinine [Mass/volume] in Serum or PlasmaOrdered By: Tone Barba on 11-30-2022 Creatinine [Mass/Vol] 0.89 mg/dL 0.60-1.20 [facility] ECG 12 lead ECGon 11-30-2022 ECG 12 lead ECG [facility] [place] [address] [place] [address] Electrocardiograph Report Signed Patient: Giana Menchaca MR#: [id number] : 1945 Acct:[id number] Age/Sex: 77 / F ADM Date: 11/30/22 Loc: Room: [address] [place] [address] Type: ADM IN Attending Dr: Sam Logan DO Ordering Provider: Tone Barba DO Date of Service: 11/30/2210/15/1904 ECG/ECG 12 lead ECG: , Copies to: Test Reason : Blood Pressure : / mmHG Vent. Rate : 063 BPM Atrial Rate : 063 BPM P-R Int : 206 ms QRS Dur : 080 ms QT Int : 416 ms P-R-T Axes : 050 022 100 degrees QTc Int : 425 ms Sinus rhythm with premature atrial complexes Low voltage QRS Inferior infarct , possibly acute Anterolateral injury pattern ACUTE AL / STEMI Consider right ventricular involvement in acute inferior infarct Abnormal ECG No previous ECGs available Confirmed by TONE BARBA DO ([id number]) on 12/01/2022 2:04:10 AM Referred By: Electronically Signed By:TONE BARBA DO Transcribed By: MUS Signed By Tone Barba DO 12/01 0204 [facility] Eosinophils Auto (Bld) [#/Vo l]Ordered By: Tone Barba on 11-30-2022 Eosinophils (Bld) [#/Vol] 0.2 10*3/uL 0.0-0.45 [facility] Eosinophils/100 WBC Auto (Bl d)Ordered By: Tone Barba on 11-30-2022 Eosinophils/100 WBC (Bld) 1.9 % . [facility] Erythrocyte distribution wid th Auto (RBC) [Ratio]Ordered By: Tone Barba on 11-30-2022 Erythrocyte distribution width (RBC) [Ratio] 11.7 % 11.9-15.3 [facility] Glucose [Mass/volume] in Ser um or PlasmaOrdered By: Tone Barba on 11-30-2022 Glucose [Mass/Vol] 203 mg/dL 70-100 [facility] Comment on above: ADA recommended refe rence rangeRandom Glucose Reference Range is dependent on time and content of last meal. Glucose of more than 200 mg/dL in a nonstressed, ambulatory subject supports the diagnosis of Diabetes Mellitus. Hematocrit Auto (Bld) [Volum e fraction]Ordered By: Tone Barba on 11-30-2022 Hematocrit (Bld) [Volume fraction] 38.4 % 34.0-46.4 [facility] Hemoglobin [Mass/volume] in BloodOrdered By: Tone Barba on 11-30-2022 Hemoglobin (Bld) [Mass/Vol] 13.1 g/dL 11.8-15.4 [facility] Leukocytes [#/volume] correc mey for nucleated erythrocytes in Blood by Automated counOrdered By: Tone Barba on 11-30-2022 WBC corrected for nucl RBC Auto (Bld) [#/Vol] 9.0 10*3/uL 3.8-11.6 [facility] Lymphocytes Auto (Bld) [#/Vo l]Ordered By: Tone Barba on 11-30-2022 Lymphocytes (Bld) [#/Vol] 3.4 10*3/uL 1.00-4.8 [facility] Lymphocytes/100 WBC Auto (Bl d)Ordered By: Tone Barba on 11-30-2022 Lymphocytes/100 WBC (Bld) 37.5 % . [facility] MCH Auto (RBC) [Entitic mass ]Ordered By: Tone Barba on 11-30-2022 MCH (RBC) [Entitic mass] 32.5 pg 24.7-34.3 [facility] MCHC Auto (RBC) [Mass/Vol]Or dered By: Tone Barba on 11-30-2022 MCHC (RBC) [Mass/Vol] 34.2 g/dL 32.0-35.0 [facility] MCV Auto (RBC) [Entitic vol] Ordered By: Tone Barba on 11-30-2022 MCV (RBC) [Entitic vol] 95.1 fL 80-100 [facility] Monocyte distribution width [Entitic volume] in Blood by AutomatedOrdered By: Tone Barba on 11-30-2022 Monocyte distribution width Auto (Bld) [Entitic vol] 17.58 % 0.00-20.00 [facility] Monocytes Auto (Bld) [#/Vol] Ordered By: Tone Barba on 11-30-2022 Monocytes (Bld) [#/Vol] 0.6 10*3/uL 0.0-0.8 [facility] Monocytes/100 WBC Auto (Bld) Ordered By: Tone Barba on 11-30-2022 Monocytes/100 WBC (Bld) 6.9 % . [facility] Natriuretic peptide B [Mass/ Vol]Ordered By: Tone Barba on 11-30-2022 Natriuretic peptide B (Bld) [Mass/Vol] 31.0 pg/mL 5-100 [facility] Neutrophils Auto (Bld) [#/Vo l]Ordered By: Tone Barba on 11-30-2022 Neutrophils (Bld) [#/Vol] 4.8 10*3/uL 1.8-7.7 [facility] Neutrophils/100 WBC Auto (Bl d)Ordered By: Tone Barba on 11-30-2022 Neutrophils/100 WBC (Bld) 52.8 % . [facility] No Panel InformationOrdered By: Tone Barba on 11-30-2022 Estimated GFR (CKD-EPI) > 60.0 mL/Min [facility] Creatinine Clearance (Chem 48.16 [facility] Nucleated erythrocytes [Pres ence] in Blood by Automated countOrdered By: Tone Barba on 11-30-2022 Nucleated RBC Auto Ql (Bld) 0.1 /100{WBC} 0-0.5 [facility] Platelet mean volume Auto (B ld) [Entitic vol]Ordered By: Tone Barba on 11-30-2022 Platelet mean volume (Bld) [Entitic vol] 8.7 fL 6.3-10.7 [facility] Platelets Auto (Bld) [#/Vol] Ordered By: Tone Barba on 11-30-2022 Platelets (Bld) [#/Vol] 190 10*3/uL 150-450 [facility] Potassium [Moles/volume] in Serum or PlasmaOrdered By: Tone Barba on 11-30-2022 Potassium [Moles/Vol] 3.4 mmol/L 3.5-5.1 [facility] Comment on above: Hemolysis is present at a level that could interfere with the result. RBC Auto (Bld) [#/Vol]Ordere d By: Tone Barba on 11-30-2022 RBC (Bld) [#/Vol] 4.04 10*6/uL 3.60-5.00 [facility] Serum or plasma anion gap de terminationOrdered By: Tone Barba on 11-30-2022 Anion gap [Moles/Vol] 13.5 mmol/L 6.0-15.0 [facility] Sodium [Moles/volume] in Ser um or PlasmaOrdered By: Tone Barba on 11-30-2022 Sodium [Moles/Vol] 140 mmol/L 136-145 [facility] Troponin I High Sensitivityo n 11-30-2022 Troponin I High Sensitivity 289.7 pg/mL Off scale high 0.0-15.0 [facility] Comment on above: Result Comment: Crit ical Result : Called to and read back by: Fan PAN at: 11/30/2022 22:01:41 by:LFM QNS FOR A REPEAT LFM --- 11/30/222200 --- Trop HS previously reported as: 289.7 *H pg/mL Critical Result : Called to and read back by: Fan PAN at: 11/30/2022 22:01:41 by:LFM PERFORMED BY: [facility] [place] [address] PATHOLOGIST [employer] NICOLE RAMIREZ M.D. Performed By: #### C BC, BMP #### [facility] [address] [place], [place] [id number] [facility] Troponin I High Sensitivity 8.7 pg/mL Normal 0.0-15.0 [facility] Comment on above: Result Comment: PERF ORMED BY: [place] [address] PATHOLOGIST [employer] NICOLE RAMIREZ M.D. Performed By: #### H S TROP #### [facility] [address] [place] [address] Troponin I.cardiac [Mass/vol ume] in Serum or Plasma by Detection limit <= 0.01 ng/Ordered By: Tone Barba on 11-30-2022 Troponin I.cardiac DL <= 0.01 ng/mL [Mass/Vol] 8.7 pg/mL 0.0-15.0 [facility] Urea nitrogen [Mass/volume] in Serum or PlasmaOrdered By: Tone Barba on 11-30-2022 Urea nitrogen [Mass/Vol] 22 mg/dL 09-16 [facility] WBC Auto (Bld) [#/Vol]Ordere d By: Tone Barba on 11-30-2022 WBC (Bld) [#/Vol] 9.0 10*3/uL 3.8-11.6 [facility] XR chest 1V portableon 11-30 XR chest 1V portable [facility] [place] [address] [place], [place] [id number] XRay Report Signed Patient: Giana Menchaca MR#: [id number] : 1945 Acct:[id number] Age/Sex: 77 / F ADM Date: 11/30/22 Loc: Room: Type: [facility] Attending Dr: Sam Logan DO Copies to: DO Sam [place] DO Ordering Provider: Tone Barba DO Date of Service: 11/30/22 XR/XR chest 1V portable: STEMI PORTABLE AP SEMIERECT CHEST 1724 hours CLINICAL HISTORY: Chest pain. STEMI. COMPARISON: None Large defibrillator pads overlie the left base. The heart is within normal limits. There is no vascular congestion. No focal consolidation is noted. There is no effusion or pneumothorax. The osseous structures are intact. End plate spurring is seen. XR/XR chest 1V portable IMPRESSION: NO ACUTE FINDINGS Impression dictated by: Tish Pearce M.D.11/30/2022 6:47 PM Dictation Location: [place] [address] Transcribed By: [facility] 11/30/221846 Dictated By: Tish Pearce MD 11/30/221845 Signed By: 11/30/221846 [facility] CBC AUTO DIFFon 06-25-2022 BASO # 0.1 103/ul Normal 0.0-0.1 [facility] Comment on above: Performed By: #### D ATCBC #### [facility] [address] [place] [address] Dr. Leah Dixon Basophils/100 WBC (Bld) 1.1 % Normal 0.2-2.0 [facility] Comment on above: Performed By: #### D ATCBC #### [facility] [address] [place] [address] Dr. Leah Dixon EO # 0.1 103/ul Normal 0.0-0.7 [facility] Comment on above: Performed By: #### D ATCBC #### [facility] [address] [place] [address] Dr. Leah Dixon Eosinophils/100 WBC (Bld) 2.7 % Normal 0.9-7.0 [facility] Comment on above: Performed By: #### D ATCBC #### [facility] [address] [place] [address] Dr. Leah Dixon Erythrocyte distribution width (RBC) [Ratio] 11.5 % Normal 11.0-15.0 [facility] Comment on above: Performed By: #### D ATCBC #### [facility] [address] [place] [address] Dr. Leah Dixon Hematocrit (Bld) [Volume fraction] 40.9 % Normal 36.0-48.0 [facility] Comment on above: Performed By: #### D ATCBC #### [facility] [address] [place] [address] [address] Leah Dixon Hemoglobin (Bld) [Mass/Vol] 13.8 g/dL Normal 12.0-16.0 [facility] Comment on above: Performed By: #### D ATCBC #### [facility] [address] [place] [address] [address] Leah Dixon IG # 0.01 10e3/ul Normal 0.00-0.03 [facility] Comment on above: Performed By: #### D ATCBC #### [facility] [address] [place] [address] [address] Leah Dixon IG % 0.2 % Normal 0.0-0.5 [facility] Comment on above: Performed By: #### D ATCBC #### [facility] [address] [place] [address] [address] Leah Dixon LYMPH # 1.6 103/ul Normal 1.2-3.8 [facility] Comment on above: Performed By: #### D ATCBC #### [facility] [address] [place] [address] [address] Leah Dixon Lymphocytes/100 WBC (Bld) 34.5 % Normal 20.5-60.0 [facility] Comment on above: Performed By: #### D ATCBC #### [facility] [address] [place] [address] [address] Leah Dixon MCH (RBC) [Entitic mass] 31.5 pg Normal 26.7-34.0 [facility] Comment on above: Performed By: #### D ATCBC #### [facility] [address] [place] [address] [address] Leah Dixon MCHC (RBC) [Mass/Vol] 33.7 g/dL Normal 29.9-35.2 [facility] Comment on above: Performed By: #### D ATCBC #### [facility] [address] [place] [address] [address] Leah Dixon MCV (RBC) [Entitic vol] 93.4 fL Normal 81.0-99.0 [facility] Comment on above: Performed By: #### D ATCBC #### [facility] [address] [place] [address] Dr. Leah Dixon MONO # 0.3 103/ul Normal 0.3-0.8 [facility] Comment on above: Performed By: #### D ATCBC #### [facility] [address] [place] [address] Dr. Leah Dixon Monocytes/100 WBC (Bld) 6.1 % Normal 1.7-12.0 [facility] Comment on above: Performed By: #### D ATCBC #### [facility] [address] [place] [address] Dr. Leah Dixon NEUT # 2.6 103/ul Normal 1.4-6.5 [facility] Comment on above: Performed By: #### D ATCBC #### [facility] [address] [place] [address] Dr. Leah Dixon Neutrophils/100 WBC (Bld) 55.4 % Normal 43.0-75.0 [facility] Comment on above: Performed By: #### D ATCBC #### [facility] [address] [place] [address] Dr. Leah Dixon Platelet mean volume (Bld) [Entitic vol] 10.6 fL Normal 9.5-13.5 [facility] Comment on above: Performed By: #### D ATCBC #### [facility] [address] [place] [address] Dr. Leah Dixon PLT 182 103/ul Normal 150-450 [facility] Comment on above: Performed By: #### D ATCBC #### [facility] [address] [place] [address] Dr. Leah Dixon RBC 4.38 106/ul Normal 4.20-5.40 [facility] Comment on above: Performed By: #### D ATCBC #### [facility] [address] [place] [address] Dr. Leah Dixon WBC 4.8 103/ul Normal 4.0-11.0 [facility] Comment on above: Performed By: #### D ATCBC #### [facility] [address] [address] [address] Leah Dixon JENNIFER- BMP WITH LIPIDon 2022 Anion gap [Moles/Vol] 12.2 mmol/L Normal [facility] Comment on above: Performed By: #### D ATBMP #### [facility] [address] [address] [address] Leah Dixon Calcium [Mass/Vol] 9.8 mg/dL Normal 8.5-10.1 [facility] Comment on above: Performed By: #### D ATBMP #### [facility] [address] [address] [address] Leah Dixon Chloride [Moles/Vol] 103 mmol/L Normal 98-107 [facility] Comment on above: Performed By: #### D ATBMP #### [facility] [address] [address] [address] Leah Dixon Cholesterol [Mass/Vol] 157 mg/dL Normal <=200 [facility] Comment on above: Performed By: #### D ATBMP #### [facility] [address] [address] [address] Leah Dixon Cholesterol in HDL [Mass/Vol] 44 mg/dL Normal 40-60 [facility] Comment on above: Performed By: #### D ATBMP #### [facility] [address] [address] [address] Leah Dixon Cholesterol in LDL [Mass/Vol] 94.4 mg/dL Normal [facility] Comment on above: Performed By: #### D ATBMP #### [facility] [address] [address] [address] Leah Dixon CO2 [Moles/Vol] 29.0 mmol/L Normal 21.0-32.0 [facility] Comment on above: Performed By: #### D ATBMP #### [facility] [address] [address] [address] Leah Dixon Creatinine [Mass/Vol] 0.84 mg/dL Normal 0.55-1.02 [facility] Comment on above: Performed By: #### D ATBMP #### [facility] [address] [address] [address] Leah Dixon EGFR-AF TAJIK >60 Normal >=60 [facility] Comment on above: Performed By: #### D ATBMP #### [facility] [address] [address] [address] Leah Dixon EGFR-NON AF TAJIK >60 Normal >=60 [facility] Comment on above: Performed By: #### D ATBMP #### [facility] [address] [address] [address] Leah Dixon Glucose [Mass/Vol] 140 mg/dL Critically high 74-106 [facility] Comment on above: Performed By: #### D ATBMP #### [facility] [address] [address] [address] Leah Dixon HDL NORMAL > or = 60 mg/dl - LO W CARDIOVASCULAR RISK <40 mg/dl - HIGH CARDIOVASCULAR RISK Normal [facility] Comment on above: Performed By: #### D ATBMP #### [facility] [address] [address] [address] Leah Dixon LDL CALC NORMAL SEE BELOW Normal [facility] Comment on above: Result Comment: <100 mg/dl OPTIMAL 100 - 129 mg/dl NEAR OR ABOVE OPTIMAL 130 - 159 mg/dl BORDERLINE HIGH 160 - 189 mg/dl HIGH >190 mg/dl VERY HIGH Performed By: #### D ATBMP #### [facility] [address] [address] [address] Leah Dixon Potassium [Moles/Vol] 3.2 mmol/L Critically low 3.5-5.1 [facility] Comment on above: Performed By: #### D ATBMP #### [facility] [address] [address] [address] Leah Dixon Sodium [Moles/Vol] 141 mmol/L Normal 136-145 [facility] Comment on above: Performed By: #### D ATBMP #### [facility] [address] [address] [address] Leah Dixon Triglyceride [Mass/Vol] 93 mg/dL Normal <=150 [facility] Comment on above: Performed By: #### D ATBMP #### [facility] [address] [address] [address] Leah Dixon Urea nitrogen [Mass/Vol] 20.0 mg/dL Critically high 7.0-18.0 [facility] Comment on above: Performed By: #### D ATBMP #### [facility] [address] [address] [address] Leah Dixon Urea nitrogen/Creatinine [Mass ratio] 23.8 mg/mg Normal [facility] Comment on above: Performed By: #### D ATBMP #### [facility] [address] [address] [address] Leah Dixon VLDL CALC 18.6 mg/dL Normal [facility] Comment on above: Performed By: #### D ATBMP #### [facility] [address] [address] [address] Leah Dixon GLYCOHEMOGLOBIN A1Con 2022 ADA RECOMMENDATION SEE BELOW Normal [facility] Comment on above: Result Comment: ADA RECOMMENDED LIMIT 4.0 - 6.0 ADA THERAPEUTIC TARGET < 7.0 ACTION SUGGESTED > 7.0 Performed By: #### D ATA1C #### [facility] [address] [place] [address] Dr. Leah Dixon Glucose [Mass/Vol] 148 mg/dL Normal [facility] Comment on above: Performed By: #### D ATA1C #### [facility] [address] [address] [address] Leah Dixon HbA1c (Bld) [Mass fraction] 6.8 % Critically high 4.5-6.2 [facility] Comment on above: Performed By: #### D ATA1C #### [facility] [address] [address] [address] Leah Dixon GLYCOHEMOGLOBIN A1Con 2022 ADA RECOMMENDATION SEE BELOW Normal [facility] Comment on above: Result Comment: ADA RECOMMENDED LIMIT 4.0 - 6.0 ADA THERAPEUTIC TARGET < 7.0 ACTION SUGGESTED > 7.0 Performed By: #### D ATA1C #### [facility] [address] [address] [address] Leah Dixon Glucose [Mass/Vol] 143 mg/dL Normal [facility] Comment on above: Performed By: #### D ATA1C #### [facility] [address] [address] [address] Leah Dixon HbA1c (Bld) [Mass fraction] 6.6 % Critically high 4.5-6.2 [facility] Comment on above: Performed By: #### D ATA1C #### [facility] [address] [address] [address] Leah Dixon GLYCOHEMOGLOBIN A1Con 2022 ADA RECOMMENDATION SEE BELOW Normal [facility] Comment on above: Result Comment: ADA RECOMMENDED LIMIT 4.0 - 6.0 ADA THERAPEUTIC TARGET < 7.0 ACTION SUGGESTED > 7.0 Performed By: #### D ATA1C #### [facility] [address] [place] [address] Dr. Leah Dixon Glucose [Mass/Vol] 140 mg/dL Normal [facility] Comment on above: Performed By: #### D ATA1C #### [facility] [address] [place] [address] Dr. Leah Dixon HbA1c (Bld) [Mass fraction] 6.5 % Critically high 4.5-6.2 [facility] Comment on above: Performed By: #### D ATA1C #### [facility] [address] [address] [address] Leah Dixon GLYCOHEMOGLOBIN A1Con 2022 ADA RECOMMENDATION SEE BELOW Normal [facility] Comment on above: Result Comment: ADA RECOMMENDED LIMIT 4.0 - 6.0 ADA THERAPEUTIC TARGET < 7.0 ACTION SUGGESTED > 7.0 Performed By: #### D ATA1C #### [facility] [address] [place] [address] Dr. Leah Dixon Glucose [Mass/Vol] 143 mg/dL Normal [facility] Comment on above: Performed By: #### D ATA1C #### [facility] [address] [place] [address] Dr. Leah Dixon HbA1c (Bld) [Mass fraction] 6.6 % Critically high 4.5-6.2 [facility] Comment on above: Performed By: #### D ATA1C #### [facility] [address] [place] [address] Dr. Leah Dixon GLYCOHEMOGLOBIN A1Con 2022 ADA RECOMMENDATION SEE BELOW Normal [facility] Comment on above: Result Comment: ADA RECOMMENDED LIMIT 4.0 - 6.0 ADA THERAPEUTIC TARGET < 7.0 ACTION SUGGESTED > 7.0 Performed By: #### D ATA1C #### [facility] [address] [place] [address] Dr. Leah Dixon Glucose [Mass/Vol] 151 mg/dL Normal [facility] Comment on above: Performed By: #### D ATA1C #### [facility] [address] [place] [address] Dr. Leah Dixon HbA1c (Bld) [Mass fraction] 6.9 % Critically high 4.5-6.2 [facility] Comment on above: Performed By: #### D ATA1C #### [facility] [address] [place] [address] Dr. Leah Dixon CBC AUTO DIFFon 07-09-2021 BASO # 0.0 103/ul Normal 0.0-0.1 [facility] Comment on above: Performed By: #### D ATCBC #### [facility] [address] [place] [address] Dr. Leah Dixon Basophils/100 WBC (Bld) 0.7 % Normal 0.2-2.0 [facility] Comment on above: Performed By: #### D ATCBC #### [facility] [address] [place] [address] Dr. Leah Dixon EO # 0.1 103/ul Normal 0.0-0.7 [facility] Comment on above: Performed By: #### D ATCBC #### [facility] [address] [place] [address] Dr. Leah Dixon Eosinophils/100 WBC (Bld) 2.5 % Normal 0.9-7.0 [facility] Comment on above: Performed By: #### D ATCBC #### [facility] [address] [place] [address] Dr. Leah Dixon Erythrocyte distribution width (RBC) [Ratio] 11.6 % Normal 11.0-15.0 [facility] Comment on above: Performed By: #### D ATCBC #### [facility] [address] [place] [address] Dr. Leah Dixon Hematocrit (Bld) [Volume fraction] 39.5 % Normal 36.0-48.0 [facility] Comment on above: Performed By: #### D ATCBC #### [facility] [address] [place] [address] Dr. Leah Dixon Hemoglobin (Bld) [Mass/Vol] 13.0 g/dL Normal 12.0-16.0 [facility] Comment on above: Performed By: #### D ATCBC #### [facility] [address] [place] [address] Dr. Leah Dixon IG # 0.01 10e3/ul Normal 0.00-0.03 [facility] Comment on above: Performed By: #### D ATCBC #### [facility] [address] [place] [address] Dr. Leah Dixon IG % 0.2 % Normal 0.0-0.5 [facility] Comment on above: Performed By: #### D ATCBC #### [facility] [address] [place] [address] Dr. Leah Dixon LYMPH # 1.8 103/ul Normal 1.2-3.8 [facility] Comment on above: Performed By: #### D ATCBC #### [facility] [address] [place] [address] Dr. Leah Dixon Lymphocytes/100 WBC (Bld) 40.1 % Normal 20.5-60.0 [facility] Comment on above: Performed By: #### D ATCBC #### [facility] [address] [place] [address] Dr. Leah Dixon MCH (RBC) [Entitic mass] 30.6 pg Normal 26.7-34.0 [facility] Comment on above: Performed By: #### D ATCBC #### [facility] [address] [place] [address] Dr. Leah Dixon MCHC (RBC) [Mass/Vol] 32.9 g/dL Normal 29.9-35.2 [facility] Comment on above: Performed By: #### D ATCBC #### [facility] [address] [place] [address] Dr. Leah Dixon MCV (RBC) [Entitic vol] 92.9 fL Normal 81.0-99.0 [facility] Comment on above: Performed By: #### D ATCBC #### [facility] [address] [place] [address] Dr. Leah Dixon MONO # 0.3 103/ul Normal 0.3-0.8 [facility] Comment on above: Performed By: #### D ATCBC #### [facility] [address] [place] [address] Dr. Leah Dixon Monocytes/100 WBC (Bld) 7.7 % Normal 1.7-12.0 [facility] Comment on above: Performed By: #### D ATCBC #### [facility] [address] [place] [address] Dr. Leah Dixon NEUT # 2.2 103/ul Normal 1.4-6.5 [facility] Comment on above: Performed By: #### D ATCBC #### [facility] [address] [place] [address] Dr. Leah Dixon Neutrophils/100 WBC (Bld) 48.8 % Normal 43.0-75.0 [facility] Comment on above: Performed By: #### D ATCBC #### [facility] [address] [place] [address] Dr. Leah Dixon Platelet mean volume (Bld) [Entitic vol] 9.8 fL Normal 9.5-13.5 [facility] Comment on above: Performed By: #### D ATCBC #### [facility] [address] [address] [address] Leah Dixon PLT 174 103/ul Normal 150-450 [facility] Comment on above: Performed By: #### D ATCBC #### [facility] [address] [address] [address] Leah Dixon RBC 4.25 106/ul Normal 4.20-5.40 [facility] Comment on above: Performed By: #### D ATCBC #### [facility] [address] [address] [address] Leah Dixon WBC 4.4 103/ul Normal 4.0-11.0 [facility] Comment on above: Performed By: #### D ATCBC #### [facility] [address] [place] [address] Dr. Leah Dixon JENNIFER- BMP WITH LIPIDon 2021 Anion gap [Moles/Vol] 11.0 mmol/L Normal [facility] Comment on above: Performed By: #### D ATBMP #### [facility] [address] [place] [address] Dr. Leah Dixon Calcium [Mass/Vol] 9.4 mg/dL Normal 8.5-10.1 [facility] Comment on above: Performed By: #### D ATBMP #### [facility] [address] [place] [address] Dr. Leah Dixon Chloride [Moles/Vol] 101 mmol/L Normal 98-107 [facility] Comment on above: Performed By: #### D ATBMP #### [facility] [address] [place] [address] Dr. Leah Dixon Cholesterol [Mass/Vol] 154 mg/dL Normal <=200 [facility] Comment on above: Performed By: #### D ATBMP #### [facility] [address] [place] [address] Dr. Leah Dixon Cholesterol in HDL [Mass/Vol] 47 mg/dL Normal 40-60 [facility] Comment on above: Performed By: #### D ATBMP #### [facility] [address] [place] [address] Dr. Leah Dixon Cholesterol in LDL [Mass/Vol] 88.0 mg/dL Normal [facility] Comment on above: Performed By: #### D ATBMP #### [facility] [address] [address] [address] Leah Dixon CO2 [Moles/Vol] 29.8 mmol/L Normal 21.0-32.0 [facility] Comment on above: Performed By: #### D ATBMP #### [facility] [address] [address] [address] Leah Dixon Creatinine [Mass/Vol] 1.02 mg/dL Normal 0.55-1.02 [facility] Comment on above: Performed By: #### D ATBMP #### [facility] [address] [address] [address] Leah Dixon EGFR-AF TAJIK >60 Normal >=60 [facility] Comment on above: Performed By: #### D ATBMP #### [facility] [address] [address] [address] Leah Dixon EGFR-NON AF TAJIK 53 mL/min/1.73m2 Critically low >=60 [facility] Comment on above: Performed By: #### D ATBMP #### [facility] [address] [address] [address] Leah Dixon Glucose [Mass/Vol] 143 mg/dL Critically high 74-106 [facility] Comment on above: Performed By: #### D ATBMP #### [facility] [address] [address] [address] Leah Dixon HDL NORMAL > or = 60 mg/dl - LO W CARDIOVASCULAR RISK <40 mg/dl - HIGH CARDIOVASCULAR RISK Normal [facility] Comment on above: Performed By: #### D ATBMP #### [facility] [address] [address] [address] Leah Dixon LDL CALC NORMAL SEE BELOW Normal [facility] Comment on above: Result Comment: <100 mg/dl OPTIMAL 100 - 129 mg/dl NEAR OR ABOVE OPTIMAL 130 - 159 mg/dl BORDERLINE HIGH 160 - 189 mg/dl HIGH >190 mg/dl VERY HIGH Performed By: #### D ATBMP #### [facility] [address] [address] [address] Leah Dixon Potassium [Moles/Vol] 3.8 mmol/L Normal 3.5-5.1 [facility] Comment on above: Performed By: #### D ATBMP #### [facility] [address] [address] [address] Leah Dixon Sodium [Moles/Vol] 138 mmol/L Normal 136-145 [facility] Comment on above: Performed By: #### D ATBMP #### [facility] [address] [address] [address] Leah Dixon Triglyceride [Mass/Vol] 95 mg/dL Normal <=150 [facility] Comment on above: Performed By: #### D ATBMP #### [facility] [address] [address] [address] Leah Dixon Urea nitrogen [Mass/Vol] 18.0 mg/dL Normal 7.0-18.0 [facility] Comment on above: Performed By: #### D ATBMP #### [facility] [address] [address] [address] Leah Dixon Urea nitrogen/Creatinine [Mass ratio] 17.6 mg/mg Normal [facility] Comment on above: Performed By: #### D ATBMP #### [facility] [address] [address] [address] Leah Dixon VLDL CALC 19.0 mg/dL Normal [facility] Comment on above: Performed By: #### D ATBMP #### [facility] [address] [address] [address] Leah Dixon GLYCOHEMOGLOBIN A1Con 2021 ADA RECOMMENDATION SEE BELOW Normal [facility] Comment on above: Result Comment: ADA RECOMMENDED LIMIT 4.0 - 6.0 ADA THERAPEUTIC TARGET < 7.0 ACTION SUGGESTED > 7.0 Performed By: #### D ATA1C #### [facility] [address] [address] [address] Leah Dixon Glucose [Mass/Vol] 151 mg/dL Normal [facility] Comment on above: Performed By: #### D ATA1C #### [facility] [address], [place] [address] Dr. Leah Dixon HbA1c (Bld) [Mass fraction] 6.9 % Critically high 4.5-6.2 [facility] Comment on above: Performed By: #### D ATA1C #### [facility] [address], [place] [address] Dr. Leah Dixon Vital Signs Date Time Vital Sign Value Performing Clinician Facility 08-30-2024 10:25-0400 Body height 152.4 cm Boom Logan DO Work Phone: [facility] 08-30-2024 10:25-0400 Body mass index (BMI) [Ratio] 27.34 kg/m2 Boom Logan DO Work Phone: [facility] 08-30-2024 10:25-0400 Body weight 63.5 kg Boom Logan DO Work Phone: [facility] 08-30-2024 10:25-0400 Diastolic blood pressure 72 mm[Hg] Boom Logan DO Work Phone: [facility] 08-30-2024 10:25-0400 Heart rate 62 /min Boom Logan DO Work Phone: [facility] 08-30-2024 10:25-0400 Systolic blood pressure 110 mm[Hg] Boom Logan DO Work Phone: [facility] 06-09-2024 09:56-0400 Body mass index (BMI) [Ratio] 27.93 kg/m2 Petros Arambula [employer]ERK[employer] Work Phone: [facility] 06-09-2024 09:56-0400 Body weight 64.86 kg Petros Arambula [employer]ARD CLERK[employer] Work Phone: [facility] 06-09-2024 09:56-0400 Diastolic blood pressure 70 mm[Hg] Petros Arambula WARD CLERK[employer] Work Phone: [employer] 06-09-2024 09:56-0400 Heart rate 73 /min Petros Arambula WARD CLERK[employer] [facility] 06-09-2024 09:56-0400 Respiratory rate 16 /min Petros Arambula WARD CLERK[employer] [facility] 06-09-2024 09:56-0400 SaO2% (BldA) [Mass fraction] 97 % Petros Arambula [employer] Work Phone: [employer] 06-09-2024 09:56-0400 Systolic blood pressure 142 mm[Hg] Petros Arambula APRN-BEEF [employer] MANAGER [facility] Phone[facility] 12-01-2023 09:38-0400 Body height 152.4 cm Boom Logan DO Work Phone: [facility] 12-01-2023 09:38-0400 Body mass index (BMI) [Ratio] 28.12 kg/m2 Boom Logan DO Work Phone: [facility] 12-01-2023 09:38-0400 Body weight 65.32 kg Boom Logan DO Work Phone: [facility] 12-01-2023 09:38-0400 Diastolic blood pressure 64 mm[Hg] Boom Logan DO Work Phone: [facility] 12-01-2023 09:38-0400 Heart rate 54 /min Boom Logan DO Work Phone: [facility] 12-01-2023 09:38-0400 Systolic blood pressure 118 mm[Hg] Boom Logan DO Work Phone: [facility] 06-16-2023 09:45-0400 Body height 152.4 cm Boom Logan DO Work Phone: [facility] 06-16-2023 09:45-0400 Body mass index (BMI) [Ratio] 28.51 kg/m2 Boom Logan DO Work Phone: [facility] 06-16-2023 09:45-0400 Body weight 66.22 kg Boom Logan DO Work Phone: [facility] 06-16-2023 09:45-0400 Diastolic blood pressure 72 mm[Hg] Boom Logan DO Work Phone: [facility] 06-16-2023 09:45-0400 Heart rate 56 /min Boom Logan DO Work Phone: [facility] 06-16-2023 09:45-0400 Systolic blood pressure 124 mm[Hg] Boom Logan DO Work Phone: [facility] 01-23-2023 12:00-0500 Body height 152.4 cm Shereen Dale Other [employer] Other 01-23-2023 12:00-0500 Body mass index (BMI) [Ratio] 27.34 kg/m2 Shereen Dale Other [employer] Other 01-23-2023 12:00-0500 Body temperature 98.3 [degF] Shereen Dale Other [employer] Other 01-23-2023 12:00-0500 Body weight 63.5 kg Shereen Dale Other [employer] Other 01-23-2023 12:00-0500 Diastolic blood pressure 86 mm[Hg] Shereen Dale Other [employer] Other 01-23-2023 12:00-0500 Respiratory rate 18 /min Shereen Dale Other [employer] Other 01-23-2023 12:00-0500 SaO2% (BldA) [Mass fraction] 96 % Shereen Dale Other [facility] [employer] Other 01-23-2023 12:00-0500 Systolic blood pressure 162 mm[Hg] Shereen Dale Other [facility] [employer] Other 12-03-2022 12:50-0400 Body temperature 98.4 [degF] DO Tone Barba Work Phone: [facility] 12-03-2022 12:50-0400 Diastolic blood pressure 76 mm[Hg] DO Tone Barba Work Phone: [facility] 12-03-2022 12:50-0400 Heart rate 88 /min DO Tone Barba Work Phone: [facility] 12-03-2022 12:50-0400 Respiratory rate 18 /min DO Tone Barba Work Phone: [facility] 12-03-2022 12:50-0400 SaO2% (BldA) [Mass fraction] 97 % DO Tone Barba Work Phone: [facility] 12-03-2022 12:50-0400 Systolic blood pressure 136 mm[Hg] DO Tone Barba Work Phone: [facility] 12-03-2022 06:00-0400 Body weight 67.3 kg DO Tone Barba Work Phone: [facility] 12-01-2022 15:30-0400 Inhaled oxygen flow rate 1 L/min DO Tone Barba Work Phone: [facility] 12-01-2022 14:45-0400 Body height 152.4 cm DO Tone Barba Work Phone: [facility] 11-30-2022 19:43-0400 Body height 152.4 cm DO Tone Barba Work Phone: [facility] 11-30-2022 19:43-0400 Body temperature 95.8 [degF] DO Tone Barba Work Phone: [facility] 11-30-2022 19:43-0400 Body weight 69.7 kg DO Tone Barba Work Phone: [facility] 11-30-2022 19:43-0400 Diastolic blood pressure 89 mm[Hg] DO Tone Barba Work Phone: [facility] 11-30-2022 19:43-0400 Heart rate 72 /min DO Tone Barba Work Phone: [facility] 11-30-2022 19:43-0400 Inhaled oxygen flow rate 3 L/min DO Tone Barba Work Phone: [facility] 11-30-2022 19:43-0400 Respiratory rate 16 /min DO Tone Barba Work Phone: [facility] 11-30-2022 19:43-0400 SaO2% (BldA) [Mass fraction] 94 % DO Tone Barba Work Phone: [facility] [facility] 11-30-2022 19:43-0400 Systolic blood pressure 142 mm[Hg] DO Tone Barba Work Phone: [facility] 04-08-2021 10:35-0500 Body temperature 96.6 [degF] Laura Benedict Other [facility] Other 04-08-2021 10:35-0500 Body weight 63.5 kg Laura Benedict Other [facility] Other Encounters Encounter Date Encounter Type Care Provider Facility Start: 08-30-2024 End: 08-30-2024 Office outpatient visit 25 minutes Boom Logan DO Work Phone: [facility] Comment on above: Coronary artery dise ase involving [place] coronary artery of [place] heart without angina pectoris; Presence of bare metal stent in LAD coronary artery; Anemia, unspecified type; Inferior AL (Multi); BMI 27.0-27.9,adult; Never smoked tobacco Start: 08-30-2024 End: 08-30-2024 ambulatory [facility] Start: 06-10-2024 End: 06-10-2024 Telephone encounter Annmarie Franco MA [facility] Medication Management Start: 06-09-2024 End: 06-09-2024 Office outpatient visit 25 minutes [facility] WARD CLERK-BEEF [employer]ATTLE FARM MANAGER Work Phone: [facility] Comment on above: Acquired hypothyroid ism (Primary Dx); Essential hypertension, benign; Diabetes mellitus without complication ([facility]); Coronary artery disease involving [place] coronary artery of [place] heart without angina pectoris; Gastroesophageal reflux disease without esophagitis; Chronic kidney disease, unspecified CKD stage; Anxiety Start: 06-09-2024 End: 06-09-2024 ambulatory [facility] Start: 04-07-2024 End: 04-07-2024 Orders Only Petros Arambula WARD CLERK-Bozuko Work Phone: [facility] Comment on above: Anxiety Start: 12-04-2023 End: 12-04-2023 ambulatory [facility] Start: 12-04-2023 Encounter for genera l adult medical examination without abnormal findings [facility] Start: 12-01-2023 End: 12-01-2023 [facility] Comment on above: Coronary artery dise ase involving [place] coronary artery of [place] heart without angina pectoris; Inferior AL (Multi); S/P right coronary artery (RCA) stent placement; Bradycardia; Essential hypertension; Mixed hyperlipidemia; BMI 28.0-28.9,adult; 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 (Multi) Start: 12-01-2023 End: 12-01-2023 ambulatory [facility] Start: 06-16-2023 End: 06-16-2023 Office [facility] visit [facility] Comment on above: Coronary artery dise ase involving [place] coronary artery of [place] heart without angina pectoris; 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 (Multi); Inferior AL (Multi); S/P right coronary artery (RCA) stent placement; Mixed hyperlipidemia; Bradycardia; BMI 28.0-28.9,adult; Carotid bruit, unspecified laterality Start: 01-23-2023 End: 01-23-2023 ambulatory Shereen Dale Other [employer] Other Start: 01-23-2023 Office outpatient vi sit 15 minutes Shereen Dale [facility] Start: 11-30-2022 End: 12-03-2022 Evaluation and management of inpatient W Gonzalez Logan Facility:[facility] Start: 11-30-2022 End: 12-03-2022 Evaluation and management of inpatient DO Tone Barba Work Phone: [facility] Work Phone: Start: 06-25-2022 End: 06-26-[address] NONE LISTED REQUEST Facility: Start: 05-28-2022 End: 05-29-[address] NONE LISTED REQUEST Facility: Start: 04-23-2022 End: 04-24-[address] NONE LISTED REQUEST Facility: Start: 03-26-2022 End: 03-27-[address] NONE LISTED REQUEST Facility: Start: 02-26-2022 End: 02-27-[address] NONE LISTED REQUEST Facility: Start: 07-09-2021 End: 07-10-[address] NONE LISTED REQUEST Facility: Start: 04-08-2021 End: 04-08-2021 ambulatory Laura Mcmullen Other [employer] Other Start: 04-08-2021 Office outpatient ne w 30 minutes Laura Mcmullen [facility] Procedures Date Procedure Procedure Detail Performing Clinician Start: 06-09-2024 Adult depression screening assessment Petros Arambula WARD CLERK-BEEF [employer]ARM MANAGER Work Phone: Start: 12-04-2023 Adult depression screening assessment Petros Arambula WARD CLERK-BEEF [employer]ATTLE FARM MANAGER Work Phone: Start: 12-11-2022 History of placement of stent for coronary artery disease S/P right coronary artery (RCA) stent placement Boom Logan DO Work Phone: Start: 11-30-2022 CL Coronary Thrombectomy DO Tone Barba Work Phone: Start: 11-30-2022 CL Coronary Thrombol ysis IC DO Tone Barba Work Phone: Start: 11-30-2022 CL Coronary Thrombol ysis IV DO Tone Barba Work Phone: Start: 11-30-2022 CL CPR/Defib DO Tone Ro arcelia Work Phone: Start: 11-30-2022 CL Insert IABP DO Tone Barba Work Phone: Start: 11-30-2022 CL Ivus Initial Vessel DO Tone Barba Work Phone: Start: 11-30-2022 CL LHC & COR Angio DO E igor Jameson Work Phone: Start: 11-30-2022 CL PCI AMI 1st Vesse l RCA DEBBIE DO Tonefilipe Barba Work Phone: Start: 11-30-2022 CL Stent Ea Add RCA DEBBIE DO Tone Barba Work Phone: Start: 11-30-2022 DO Tone Ro berhaneon Work Phone: Start: 11-30-2022 Plain chest X-ray DO Er filipe Barba Work Phone: History of placement of stent for coronary artery disease S/P right coronary artery (RCA) stent placement Boom Logan DO Work Phone: History of placement of stent for coronary artery disease S/P right coronary artery (RCA) stent placement Boom Logan DO Work Phone: Plan of Treatment Date Care Activity Detail Author Start: 06-27-2025 End: 06-27-2025 Patient encounter procedure 06/27/2025 10:20 AM EDT Office Visit [place] [id number] [phone] Boom Logan, DO [address] [place] [address] [facility] Start: 06-09-2025 Depression Screening Depression Scre ening [facility] Start: 06-09-2025 Tobacco Screening Tobacco Screening [facility] Start: 12-03-2024 Depression Screening Depression Scre ening [facility] Start: 12-03-2024 Fall Risk Screening Fall Risk Screen ing [facility] Start: 12-03-2024 Medicare Annual Well ness Visit Medicare Annual Wellness Visit [facility] Start: 12-03-2024 Tobacco Screening Tobacco Screening [facility] Start: 10-24-2024 Influenza vaccination P [facility] Start: 08-30-2024 End: 08-30-2025 Basic metabolic 2000 panel - Serum or Plasma Basic Metabolic Panel Lab Routine Coronary artery disease involving [place] coronary artery of [place] heart without angina pectoris Anemia, unspecified type Expected: 08/30/2024, Expires: 08/30/2025 [facility] Service Area Work Phone: Comment on above: Expected: 08/30/2024 , Expires: 08/30/2025 Start: 08-30-2024 End: 08-30-2025 CBC panel - Blood by Automated count CBC Lab Routine Coronary artery disease involving [place] coronary artery of [place] heart without angina pectoris Anemia, unspecified type Expected: 08/30/2024, Expires: 08/30/2025 [facility] Work Phone: Comment on above: Expected: 08/30/2024 , Expires: 08/30/2025 Start: 08-03-2024 End: 08-03-2024 Patient encounter procedure 08/03/2024 2:30 PM EDT Office Visit [facility] [address] [place] [phone] Andry Dubon MD [address] [place] [address] [facility] Start: 06-27-2024 End: 06-27-2024 Patient encounter procedure 06/27/2024 10:30 AM EDT Office Visit [facility] [address] [place] [phone] Andry Dubon MD [address] [place] [address] [facility] Start: 06-26-2024 COVID-19 Vaccine ( season) COVID-19 Vaccine () [facility] Start: 12-16-2023 End: 06-15-2025 US.doppler Carotid arteries - bilateral Vascular US Carotid Artery Duplex Bilateral Vascular Ultrasound Routine Carotid bruit, unspecified laterality Expected: 12/16/2023, Expires: 06/15/2025 [facility] Service Area Work Phone: Comment on above: Expected: 12/16/2023 , Expires: 06/15/2025 Start: 12-01-2023 End: 12-01-2023 Patient encounter procedure 12/01/2023 2:40 PM EDT Office Visit [facility] [address] [place] [address] Boom Logan DO [address] [place], [place] [id number] [facility] Start: 11-17-2023 End: 11-17-2023 Patient encounter procedure 11/17/2023 1:30 PM EDT Appointment [facility] [address] [facility] [address] [place] [address] [facility] Start: 10-25-2023 COVID-19 Vaccine ( season) COVID-19 Vaccine () [facility] Start: 10-25-2023 COVID-19 Vaccine () COVID-19 Vaccine () [facility] Start: 10-25-2023 COVID-19 Vaccine ( season) COVID-19 Vaccine ( season) [facility] Start: 10-25-2023 Influenza vaccination Influenza Vacc ine (#1) [facility] Start: 12-05-2022 Blood chemistry [facility] Start: 12-05-2022 [facility] Start: 12-04-2022 Blood chemistry [facility] Start: 12-04-2022 [facility] Start: 12-03-2022 Blood chemistry [facility] Start: 12-03-2022 End: 12-03-2022 [facility] Start: 12-02-2022 Blood chemistry [facility] Start: 12-02-2022 [facility] Start: 12-01-2022 Blood chemistry [facility] Start: 12-01-2022 Lipid panel [facility] Start: 12-01-2022 End: 12-01-2022 [facility] Start: 11-30-2022 End: 11-30-2022 [facility] Start: 11-30-2022 Consultation [facility] Start: 11-30-2022 Hospital admission [facility] Start: 11-30-2022 Referral to cardiac rehabilitation program [facility] Start: 11-30-2022 [facility] Start: 2007 RSV patient s and/or patients aged 60+ years (1 - 1-dose 60+ series) RSV patients and/or patients aged 60+ years (1 - 1-dose 60+ series) [facility] Start: 11-04-1969 DTaP/Tdap/Td Vaccine s (1 - Tdap) DTaP/Tdap/Td Vaccines (1 - Tdap) [facility] Start: 11-04-1966 DTaP,Tdap and Td Vac cines (1 - Tdap) DTaP,Tdap and Td Vaccines (1 - Tdap) [facility] Start: 11-04-1965 Diabetes mellitus screening Diabetes Screening [facility] Start: 11-04-1965 Hepatitis C screening Hepatitis C Sc reening [facility] Start: 1945 Lipid panel Lipid Panel [facility] Start: 1945 Medicare Annual Well ness Visit Medicare Annual Wellness Visit (AWV) [facility] Start: 1945 Screening for malign ant neoplasm of colon [facility] Start: 1945 Screening for osteoporosis Bone Density Scan [facility] Start: 1945 Thyroid stimulating hormone measurement TSH Level [facility] aPTT in Platelet poo r plasma by Coagulation assay [facility] INR in Platelet poor plasma by Coagulation assay [facility] Patient Education Coronary Angio plasty (DC) Coronary Stenting (DC) Angina (DC) Chest Pain (DC) Drug Eluting Stents [facility] Work Phone: Patient referral [facility] Work Phone: Prothrombin time (PT) [facility] Immunizations Immunization Date Immunization Notes Care Provider Fa cili 12-02-2023 influenza, high dose seasonal, preservative-free Petros Arambula WARD CLERK-BEEF CATTLE FARM MANAGER Work Phone: [facility] 12-02-2023 influenza virus vaccine, unspecified formulation Petros Arambula WARD CLERK-BEEF CATTLE FARM MANAGER Work Phone: [facility] 08-20-2023 RSV, recombinant, protein subunit RSVpreF, adjuvant reconstituted, 0.5 mL, PF Petros Arambula WARD CLERK-BEEF CATTLE FARM MANAGER Work Phone: [facility] 12-08-2022 Influenza, Seasonal, Quadrivalent, Adjuvanted Boom Logan DO Work Phone: [facility] 12-08-2022 Pfizer COVID-19 vaccine, Fall 2022, 12 years and older, (30mcg/0.3mL) Boom Logan DO Work Phone: [facility] 12-08-2022 influenza virus vaccine, unspecified formulation Boom Logan DO Work Phone: [facility] Work Phone: 11-07-2022 RSV, 60 Years And Ol hali (AREXVY) Boom Logan DO Work Phone: [facility] 08-01-2022 Pfizer COVID-19 vaccine, bivalent, age 12 years and older (30 mcg/0.3 mL) Boom Logan DO Work Phone: [facility] 12-05-2021 Flu vaccine, quadrivalent, high-dose, preservative free, age 65y+ (FLUZONE) Boom Logan DO Work Phone: [facility] 11-07-2021 COVID-19, mRNA, LNP- S, PF, 30mcg/0.3mL Dose Petros Schlachter WARD CLERK-BEEF CATTLE FARM MANAGER Work Phone: [facility] 11-07-2021 Pfizer COVID-19 vaccine, bivalent, age 12 years and older (30 mcg/0.3 mL) Boom Logan DO Work Phone: [facility] 05-23-2021 Pfizer Collins Cap SARS-CoV-2 Boom Logan DO Work Phone: [facility] 05-23-2021 SARS-COV-2 (COVID-19 ) Vaccine, Unspecified Petros Schlachter WARD CLERK-BEEF CATTLE FARM MANAGER Work Phone: [facility] 11-29-2020 influenza virus vaccine, unspecified formulation Petros Schlachter WARD CLERK-BEEF CATTLE FARM MANAGER Work Phone: [facility] 11-29-2020 Influenza, Seasonal, Quadrivalent, Adjuvanted Boom Logan DO Work Phone: [facility] 04-11-2020 COVID-19, mRNA, LNP- S, PF, 30mcg/0.3mL Dose Petros Schlachter WARD CLERK-BEEF CATTLE FARM MANAGER Work Phone: [facility] 03-19-2020 COVID-19, mRNA, LNP- S, PF, 30mcg/0.3mL Dose Petros Schlachter WARD CLERK-BEEF CATTLE FARM MANAGER Work Phone: [facility] 11-04-2019 influenza virus vaccine, unspecified formulation Petros Schlachter WARD CLERK-BEEF CATTLE FARM MANAGER Work Phone: [facility] 10-28-2019 Influenza Vaccine, Quadrivalent, Adjuvanted Petros Truchter WARD CLERK-BEEF CATTLE FARM MANAGER Work Phone: [facility] 10-28-2019 influenza, injectabl e, quadrivalent, preservative free Boom Logan DO Work Phone: [facility] 10-28-2019 pneumococcal polysaccharide vaccine, 23 valent Boom Logan DO Work Phone: [facility] 04-07-2019 zoster vaccine recombinant Boom Logan DO Work Phone: [facility] Work Phone: 02-01-2019 zoster vaccine recombinant Boom Logan DO Work Phone: [facility] Work Phone: 11-24-2018 Seasonal trivalent influenza vaccine, adjuvanted, preservative free Boom Logan DO Work Phone: [facility] Work Phone: 12-07-2017 influenza, high dose seasonal, preservative-free Petros Schlachter WARD CLERK-BEEF CATTLE FARM MANAGER Work Phone: [facility] 12-09-2016 influenza virus vaccine, unspecified formulation Petros Ricardolachter WARD CLERK-BEEF CATTLE FARM MANAGER Work Phone: [facility] 12-09-2016 pneumococcal conjuga te vaccine, 13 valent Petros Schlachter WARD CLERK-BEEF CATTLE FARM MANAGER Work Phone: [facility] 12-26-2015 influenza, high dose seasonal, preservative-free Boom Logan DO Work Phone: [facility] Work Phone: 11-07-2014 influenza virus vaccine, unspecified formulation Petros Schlachter WARD CLERK-BEEF CATTLE FARM MANAGER Work Phone: [facility] 11-07-2014 influenza, seasonal, injectable Boom Logan DO Work Phone: [facility] Work Phone: 12-16-2010 influenza virus vaccine, whole virus Boom Logan DO Work Phone: [facility] Work Phone: 04-02-2009 novel [id number], all formulations Petros Arambula WARD CLERK-BEEF CATTLE FARM MANAGER Work Phone: [facility] 04-02-2009 novel [id number], preservative-free, injectable Boom Logna DO Work Phone: [facility] Work Phone: 12-11-2008 influenza virus vaccine, whole virus Boom Logan DO Work Phone: [facility] Work Phone: Payers Date Payer Category Payer Commercial Managed C are - POS [employer] [id number] 2022 Medicare supplementa l policy (as second payer) [employer] SENIOR SUPPLEMENT [id number] 2022 Private Health Insurance AETHARDEEP S UPPLEMENTAL [employer]ET[employer] SENIOR SUPPLEMENT [id number] 2022-Present [address] [place] [address] [id number] 2022 Private Health Insurance [facility] [id number] 2012 Medicare [id number] 2012 Medicare [id number] 1959 Self-pay 1945 Unknown [id number] [id number] 1947 Unknown [id number]. [id number] 1947 Unknown [id number] [id number] 1947 Unknown [id number]. [id number] Medicare [id number] Medicare Medicare Nonpatient [id number] Unknown [id number] Unknown [id number] [id number] Unknown [id number] [id number] Unknown [id number]. [id number] Unknown [id number]. [id number] Unknown [id number] [id number] Unknown [id number] [id number] Unknown Insurance No Card [id number] Unknown [id number] Social History Date Type Detail Facility Start: 06-16-2023 End: 08-30-2024 Sex Assigned At [facility] Other Start: 11-30-2022 End: 12-11-2022 Tobacco smoking status NHIS Never smoked tobacco (finding) [facility] Start: 1945 Sex Assigned At Female [facility] Start: 02-07-2022 End: 12-11-2022 Tobacco use and exposure Smokeless tobacco non-user [facility] Work Phone: Start: 06-16-2023 End: 08-30-2024 Alcoholic beverage intake Lifetime non-drinker (finding) [facility] Work Phone: Start: 06-16-2023 End: 08-30-2024 History of Social function [facility] Work Phone: Start: 1945 Sex assigned at Not on file [facility] Work Phone: Start: 06-06-2023 End: 12-01-2023 Exposure to SARS-CoV-2 (event) Not sure [facility] Start: 12-04-2023 End: 06-09-2024 Alcoholic beverage intake Ex-drinker (finding) [facility] Frequency of Alcohol Consumption Monthly or less [facility] Start: 12-10-2016 Alcohol Comment rarely [facility] Start: 04-15-2016 Sex Female (finding) [facility] Start: 09-09-2018 Gender identity Identifies as female gender (finding) [facility] Medical Equipment Procedure Code Equipment Code Equipment Origin al Text Equipment Identifier Dates CL STENT STEVEN FRONTIER 3.0 X 22 FDA Start: 11-30-2022 CL STENT STEVEN FRONTIER 3.5 X 38 FDA Start: 11-30-2022 Nicko Iol 0 D +16. 5 D +1.5 Cyl - [id number] - [id number] Start: 08-30-2019 Lens Iol Ultrase rt 16.0d - [id number] - [id number] Start: 09-13-2019 Goals Date Patient Goal Desired Activity /State Functional Status Date Assessment Result Facility 11-30-2022 Functional status Patient at Baseline [facility] Work Phone: Mental Status Date Assessment Result Facility 11-30-2022 Cognitive function Cognitive Sta tus Patient at Baseline [facility] Work Phone: Clinical Notes 04-08-2021 to 08-30-2024 Boom Logan, - 08/30/2024 10:20 AM EDTPatient InstructionsAttachmentsTelephone Encounter - Annmarie Franco MA - 06/10/2024 9:05 AM EDTPetros Arambula APRN-GRACY - 06/09/2024 10:00 AM EDT Note Date & Type Note Facility 08-30-2024 History of Present illness Narrative Chief Complaint Patient presents with Follow-up 8 month Follow up for Coronary Artery Disease Subjective Giana Menchaca is a 78 y.o. female 78-year-old female returns for 8-month cardiovascular follow-up and is doing well. She denies any cardiovascular events, complaints or nitrate usage or hospitalizations. November 2022 she sustained inferior STEMI 1 year ago, with prolonged no reflow phenomenon and successful intervention x 4 drug-eluting stents. She has moderate residual LAD disease that is asymptomatic, with preserved LV function. Most recent labs reveal hemoglobin of 9.0, LDL of 38. Labs performed July 24; discontinue Plavix July 23, she denies any melena, hematochezia or overt GI bleeding. Recommendations: Continue current therapies, (she is off her DAPT at this time and on single agent aspirin only). I suspect her hemogram will improve nicely over the next 3 months off of DAPT, will remeasure CBC on October 24 otherwise follow-up in 9 months Review of Systems All other systems reviewed and are negative. Vitals: 08/30/24 1025 BP: 110/72 BP Location: Right arm Patient Position: Sitting Pulse: 62 Weight: 63.5 kg (140 lb) Height: (!) 1.524 m (5') Objective Physical Exam Constitutional: Appearance: Normal appearance. HENT: Nose: Nose normal. Neck: Vascular: No carotid bruit. Cardiovascular: Rate and Rhythm: Normal rate. Pulses: Normal pulses. Heart sounds: Normal heart sounds. Pulmonary: Effort: Pulmonary effort is normal. Abdominal: General: Bowel sounds are normal. Palpations: Abdomen is soft. Musculoskeletal: General: Normal range of motion. Cervical back: Normal range of motion. Right lower leg: No edema. Left lower leg: No edema. Skin: General: Skin is warm and dry. Neurological: General: No focal deficit present. Mental Status: She is alert. Psychiatric: Mood and Affect: Mood normal. Behavior: Behavior normal. Thought Content: Thought content normal. Judgment: Judgment normal. Allergies Patient has no known allergies. Current Medications Current Outpatient Medications Medication Instructions ALPRAZolam (Xanax) 1 mg tablet take 2 & 1/2 tablets by mouth at bedtime aspirin 81 mg, Daily atorvastatin (LIPITOR) 80 mg, oral, Daily levothyroxine (SYNTHROID, LEVOXYL) 100 mcg, Daily before breakfast losartan-hydrochlorothiazide (Hyzaar) 100-25 mg tablet 1 tablet, Daily before breakfast metFORMIN (GLUCOPHAGE) 1,000 mg, 2 times daily (morning and late afternoon) metoprolol tartrate (LOPRESSOR) 25 mg, oral, 2 times daily omeprazole (PriLOSEC) [address] capsule Take 1 capsule (20 mg) by mouth 2 times a day. Assessment/Plan 1. Coronary artery disease involving [place] coronary artery of [place] heart without angina pectoris Follow Up In Cardiology 2. Presence of bare metal stent in LAD coronary artery 3. Anemia, unspecified type 4. Inferior AL (Multi) 5. BMI 27.0-27.9,adult 6. Never smoked tobacco Scribe Attestation By signing my name below, Carlita Bradley LPN , Scribe attest that this documentation has been prepared under the direction and in the presence of Boom Logan DO. Provider Attestation - Scribe documentation All medical record entries made by the Scribe were at my direction and personally dictated by me. I have reviewed the chart and agree that the record accurately reflects my personal performance of the history, physical exam, discussion and plan. documented in this encounter [facility] Work Phone: 08-30-2024 Instructions Carlita Tripp LPN - 08/30/2024 10:20 AM EDT Please bring all medicines, vitamins, and herbal supplements with you when you come to the office. Prescriptions will not be filled unless you are compliant with your follow up appointments or have a follow up appointment scheduled as per instruction of your physician. Refills should be requested at the time of your visit. BMI was above normal measurement. Current weight: 63.5 kg (140 lb) Weight change since last visit (-) denotes wt loss -4 lbs Weight loss needed to achieve BMI 25: 12.3 Lbs Weight loss needed to achieve BMI 30: -13.3 Lbs Provided instructions on dietary changes. The following attachments cannot be sent through Care Everywhere.Heart Healthy Diet (Samoan)documented in this encounter [facility] Work Phone: 06-10-2024 Miscellaneous Notes [facility] - PH[facility]AC[facility] MEDICATION MANAGEMENT [address] [place] [address] New referral received by [facility] for diabetes and hypertension. Patient was contacted to schedule appointment at [facility] [place] ([facility]). This was my first attempt to reach the patient and a message was left on their voicemail requesting a call back. Patient will be asked to bring [employer] MTM Additional Info: Medication List, Blood Glucose Meter, Blood Sugar Log, Blood Pressure Cuff, and Blood Pressure Log. Referring provider: ANA Temple documented in this encounter [facility] 06-10-2024 Telephone encounter Note [facility] - PHARMAC[facility] MEDICATION MANAGEMENT [address] [facility] [address] New referral received by [facility] for diabetes and hypertension. Patient was contacted to schedule appointment at [facility] [place] ([facility]). This was my first attempt to reach the patient and a message was left on their voicemail requesting a call back. Patient will be asked to bring [facility] Additional Info: Medication List, Blood Glucose Meter, Blood Sugar Log, Blood Pressure Cuff, and Blood Pressure Log. Referring provider: ANA Temple [facility] 06-09-2024 History of Present illness Narrative Images from the original note were not included. [address] [facility] [id number] SUBJECTIVE: Patient ID: Giana Menchaca is a 78 y.o. female. Patient presents to the office to discuss lab work she had done recently. She does have some CKD, almost dehydrated from HCTZ. We went over labs are decreased but not at a severe level. She recently had a heart attack. A1c was not at goal at above 7. She is only taking metformin- suggested diabetes management would benefit from jardiance or farxiga. She does not want to change HCTZ at this time-does not drink any water during the day. She is going to start hydrating. 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 She has an appointment with our office in July-we will discuss titrating off and starting new medications. She understood reasoning and is willing to discuss this at next appointment. The following portions of the patient's history were reviewed and updated as appropriate: allergies, current medications, past family history, past medical history, past social history, past surgical history and problem list. REVIEW OF SYSTEMS: Review of Systems Constitutional: Negative for fatigue, fever and unexpected weight change. HENT: Negative for congestion, ear pain, sinus pressure, sinus pain and sore throat. Eyes: Negative for photophobia, pain, discharge and visual disturbance. Respiratory: Negative for cough and shortness of breath. Cardiovascular: Negative for chest pain, palpitations and leg swelling. Gastrointestinal: Negative for abdominal pain, diarrhea, nausea and vomiting. Endocrine: Negative for polydipsia, polyphagia and polyuria. Genitourinary: Negative for difficulty urinating, frequency, hematuria and urgency. Musculoskeletal: Negative for arthralgias, gait problem, joint swelling and neck pain. Skin: Negative for pallor and rash. Neurological: Negative for dizziness, weakness, light-headedness and numbness. Psychiatric/Behavioral: Negative for sleep disturbance. The patient is not nervous/anxious. PHYSICAL EXAMINATION: Vitals: 06/09/24 0956 BP: 142/70 Pulse: 73 Resp: 16 SpO2: 97% Weight: 64.9 kg (143 lb) Physical Exam Constitutional: Appearance: She is well-developed. HENT: Head: Normocephalic and atraumatic. Right Ear: External ear normal. Left Ear: External ear normal. Eyes: Conjunctiva/sclera: Conjunctivae normal. Pupils: Pupils are equal, round, and reactive to light. Cardiovascular: Rate and Rhythm: Normal rate and regular rhythm. Heart sounds: Normal heart sounds. Pulmonary: Effort: Pulmonary effort is normal. Breath sounds: Normal breath sounds. Musculoskeletal: Cervical back: Normal range of motion. Skin: General: Skin is warm and dry. Neurological: Mental Status: She is alert and oriented to person, place, and time. Psychiatric: Mood and Affect: Mood normal. ASSESSMENT/PLAN: Lor was seen today for review labs. Diagnoses and all orders for this visit: Acquired hypothyroidism Essential hypertension, benign - [facility] ([facility]) - [place], [place]; Future Diabetes mellitus without complication ([facility]) - [facility] ([facility]) - [place], [place]; Future Coronary artery disease involving [place] coronary artery of [place] heart without angina pectoris Gastroesophageal reflux disease without esophagitis Chronic kidney disease, unspecified CKD stage Anxiety - ALPRAZolam (XANAX) 1 mg tablet; take 2 AND 1/2 tablets by mouth at bedtime Other orders - losartan-hydroCHLOROthiazide (HYZAAR) 100-25 mg per tablet; Take 1 tablet by mouth in the morning. - omeprazole (PriLOSEC) 20 mg capsule; Take 2 capsules (40 mg total) by mouth in the morning. - levothyroxine (SYNTHROID, LEVOTHROID) 100 MCG tablet; Take 1 tablet (100 mcg total) by mouth in the morning. - metFORMIN (GLUCOPHAGE) 1000 mg tablet; Take 1 tablet (1,000 mg total) by mouth in the morning and 1 tablet (1,000 mg total) in the evening. Take with meals. Follow-up: Referral jobst Refilled medications Ada diet Keep appointments with specialist Did discuss weaning xanax Keep July appointment with our office Patient noted to have elevated BMI and the following intervention(s) were applied: encouragement to exercise. ANA Temple 06/09/24 1031 documented in this encounter [facility] 12-01-2023 History of Present illness Narrative Subjective Giana Menchaca is a 78 y.o. female Chief Complaint Follow-up 78-year-old healthy female returns for 6-month follow-up she is doing well she denies any cardiovascular events, complaints or nitrate usage or hospitalizations. She sustained inferior STEMI 1 year ago, with prolonged no reflow phenomenon and successful intervention x 4 drug-eluting stents. She has moderate residual LAD disease that is asymptomatic. She underwent life screening in the interim last year that revealed moderate carotid disease she decided not to follow-up with carotid imaging that we had originally requested. She remains on appropriate GDMT she is about to have of office visit with Dr. Chan her primary care physician who I suspect will be performing labs. Will continue current therapies follow-up in 8 months. She can discontinue her clopidogrel June 23 of next year (18 months from her original AL) Review of Systems All other systems reviewed and are negative. Vitals: 12/01/23 0938 BP: 118/64 BP Location: Left arm Patient Position: Sitting Pulse: 54 Weight: 65.3 kg (144 lb) Height: 1.524 m (5') Objective Physical Exam Constitutional: Appearance: Normal appearance. HENT: Nose: Nose normal. Neck: Vascular: No carotid bruit. Cardiovascular: Rate and Rhythm: Bradycardia present. Pulses: Normal pulses. Heart sounds: Normal heart sounds. Pulmonary: Effort: Pulmonary effort is normal. Abdominal: General: Bowel sounds are normal. Palpations: Abdomen is soft. Musculoskeletal: General: Normal range of motion. Cervical back: Normal range of motion. Right lower leg: No edema. Left lower leg: No edema. Skin: General: Skin is warm and dry. Neurological: General: No focal deficit present. Mental Status: She is alert. Psychiatric: Mood and Affect: Mood normal. Behavior: Behavior normal. Thought Content: Thought content normal. Judgment: Judgment normal. Allergies Patient has no known allergies. Current Medications Current Outpatient Medications: ALPRAZolam (Xanax) 1 mg tablet, take 2 & 1/2 tablets by mouth at bedtime, Disp: , Rfl: aspirin 81 mg EC tablet, Take 1 tablet (81 mg) by mouth once daily., Disp: , Rfl: atorvastatin (Lipitor) 80 mg tablet, Take 1 tablet (80 mg) by mouth once daily., Disp: 90 tablet, Rfl: 3 clopidogrel (Plavix) 75 mg tablet, Take 1 tablet (75 mg) by mouth once daily., Disp: 90 tablet, Rfl: 3 levothyroxine (Synthroid, Levoxyl) 100 mcg tablet, Take 1 tablet (100 mcg) by mouth once daily in the morning. Take before meals., Disp: , Rfl: losartan-hydrochlorothiazide (Hyzaar) 100-25 mg tablet, Take 1 tablet by mouth once daily in the morning. Take before meals., Disp: , Rfl: metoprolol tartrate (Lopressor) 25 mg tablet, Take 1 tablet (25 mg) by mouth 2 times a day., Disp: 180 tablet, Rfl: 3 omeprazole (PriLOSEC) [address] capsule, Take 1 capsule (20 mg) by mouth 2 times a day., Disp: , Rfl: Assessment/Plan 1. Coronary artery disease involving [place] coronary artery of [place] heart without angina pectoris Follow Up In Cardiology 2. Inferior AL (Multi) 3. S/P right coronary artery (RCA) stent placement 4. Bradycardia 5. Essential hypertension 6. Mixed hyperlipidemia 7. BMI 28.0-28.9,adult Scribe Attestation By signing my name below, I, Sherin Escalante LPN attest that this documentation has been prepared under the direction and in the presence of Boom Logan DO. Provider Attestation - Scribe documentation All medical record entries made by the Scribe were at my direction and personally dictated by me. I have reviewed the chart and agree that the record accurately reflects my personal performance of the history, physical exam, discussion and plan. documented in this encounter [facility] Work Phone: 12-01-2023 Instructions Corie Zamudio LPN - 12/01/2023 9:40 AM EDT Please bring all medicines, vitamins, and herbal supplements with you when you come to the office. Prescriptions will not be filled unless you are compliant with your follow up appointments or have a follow up appointment scheduled as per instruction of your physician. Refills should be requested at the time of your visit. BMI was above normal measurement. Current weight: 65.3 kg (144 lb) Weight change since last visit (-) denotes wt loss -2 lbs Weight loss needed to achieve BMI 25: 16.3 Lbs Weight loss needed to achieve BMI 30: -9.3 Lbs Provided instructions on dietary changes. May stop plavix june 2024 The following attachments cannot be sent through Care Everywhere.Heart Healthy Diet (Samoan)documented in this encounter [facility] Work Phone: 06-16-2023 History of Present illness Narrative Merari Menchaca is a 77 y.o. female Chief Complaint Follow-up 77-year-old female returns for 6-month follow-up following inferior STEMI with extensive revascularization of the proximal through distal RCA and PLV branch x 4 drug-eluting stents with no reflow phenomenon and fortunately preserved left ventricular function. She has residual moderate LAD disease it is asymptomatic. She completed cardiac rehab without complaints or problems. She currently denies any angina, nitrate usage or hospitalizations or recurrent cardiac events and remains compliant on current GDMT and DAPT. She did have [facility] screening interestingly that demonstrated mild carotid disease (no neurosymptoms) and she is very concerned about this. On exam she has no demonstrable bruits or neuro deficits. Recommendations: Follow-up again in 6 months, will proceed with elective dedicated carotid imaging to further elucidate anatomy and physiology of her carotid vascular disease. Review of Systems All other systems reviewed and are negative. Vitals: 06/16/23 0945 BP: 124/72 BP Location: Left arm Patient Position: Standing Pulse: 56 Weight: 66.2 kg (146 lb) Height: 1.524 m (5') Objective Physical Exam Constitutional: Appearance: Normal appearance. HENT: Nose: Nose normal. Neck: Vascular: No carotid bruit. Cardiovascular: Rate and Rhythm: Bradycardia present. Pulses: Normal pulses. Heart sounds: Normal heart sounds. Pulmonary: Effort: Pulmonary effort is normal. Abdominal: General: Bowel sounds are normal. Palpations: Abdomen is soft. Musculoskeletal: General: Normal range of motion. Cervical back: Normal range of motion. Right lower leg: No edema. Left lower leg: No edema. Skin: General: Skin is warm and dry. Neurological: General: No focal deficit present. Mental Status: She is alert. Psychiatric: Mood and Affect: Mood normal. Behavior: Behavior normal. Thought Content: Thought content normal. Judgment: Judgment normal. Allergies Patient has no known allergies. Current Medications Current Outpatient Medications: ALPRAZolam (Xanax) 1 mg tablet, take 2 & 1/2 tablets by mouth at bedtime, Disp: , Rfl: aspirin 81 mg EC tablet, Take 1 tablet (81 mg) by mouth once daily., Disp: , Rfl: atorvastatin (Lipitor) 80 mg tablet, Take 1 tablet (80 mg) by mouth once daily., Disp: , Rfl: clopidogrel (Plavix) 75 mg tablet, Take 1 tablet (75 mg) by mouth once daily., Disp: 90 tablet, Rfl: 3 levothyroxine (Synthroid, Levoxyl) 100 mcg tablet, Take 1 tablet (100 mcg) by mouth once daily in the morning. Take before meals., Disp: , Rfl: losartan-hydrochlorothiazide (Hyzaar) 100-25 mg tablet, Take 1 tablet by mouth once daily in the morning. Take before meals., Disp: , Rfl: metoprolol tartrate (Lopressor) 25 mg tablet, Take 1 tablet (25 mg) by mouth 2 times a day., Disp: , Rfl: omeprazole (PriLOSEC) [address] capsule, Take 1 capsule (20 mg) by mouth 2 times a day., Disp: , Rfl: No medication list or bottles at visit today. Updated verbally with patient. Assessment/Plan 1. Coronary artery disease involving [place] coronary artery of [place] heart without angina pectoris 2. 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 (Multi) Follow Up In Cardiology 3. Inferior AL (Multi) Follow Up In Cardiology 4. S/P right coronary artery (RCA) stent placement 5. Mixed hyperlipidemia 6. Bradycardia 7. BMI 28.0-28.9,adult 8. Carotid bruit, unspecified laterality Scribe Attestation By signing my name below, I, Sherin Escalante LPN attest that this documentation has been prepared under the direction and in the presence of Boom Logan DO. Provider Attestation - Scribe documentation All medical record entries made by the Scribe were at my direction and personally dictated by me. I have reviewed the chart and agree that the record accurately reflects my personal performance of the history, physical exam, discussion and plan. documented in this encounter [facility] Work Phone: 06-16-2023 Instructions Corie Zamudio LPN - 06/16/2023 10:00 AM EDT Please bring all medicines, vitamins, and herbal supplements with you when you come to the office. Prescriptions will not be filled unless you are compliant with your follow up appointments or have a follow up appointment scheduled as per instruction of your physician. Refills should be requested at the time of your visit. BMI was above normal measurement. Current weight: 66.2 kg (146 lb) Weight change since last visit (-) denotes wt loss 2 lbs Weight loss needed to achieve BMI 25: 18.3 Lbs Weight loss needed to achieve BMI 30: -7.3 Lbs Provided instructions on dietary changes Provided instructions on exercise Advised to Increase physical activity. 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 Warm salt water gargles. Ice to swelling and/or warm compresses prn for pain, ice for 10-20 minutes at a time, ensure thin cloth barrier between skin. Advised to call dentist today for follow up. Discussed S/S of worsening infection and instructed she should seek immediate evaluation in the ER if she develops any. Seek re-evaluation if no improvement after 48 hours on ATB. Patient verbalized understanding and agrees with treatment plan. Jan, Other Tooth abscess home care material was printed [employer] Other 10-10-2023 Progress note Author Sam Logan [facility] December 02, 2022 4:48pm Note Date/Time December 02, 2022 4 :49pm [facility] [address] [place] [address] Cardiology Progress Note Signed Patient: Giana Menchaca MR#: [id number] : 1945 Acct:[id number] Age/Sex: 77 / F Adm Date: 3 Loc: Room: [address] [place] [address] Type: ADM IN Attending Dr: Sam Logan DO Copies to: ~ Date of Service: 12/02/2022 Subjective Principal diagnosis: Inferolateral STEMI Interval history: Day 1 status post inferolateral STEMI with complex extensive thrombotic RCA and prolonged no reflow last evening with successful revascularization of the mid todistal RCA and PLV branch with intra-aortic balloon pump assistance. Patient's rhythm is returned to sinus rhythm, she is hemodynamically stable, alert and oriented, echocardiogram at bedside with Definity contrast reviewed reveals normal left ventricular function. Troponins up to 11,000 (impressively low for the prolonged no reflow event). Plan: Discontinue dopamine, start weaning balloon pump for removal later this afternoon, initiate GDMT for post AL therapies starting with beta-lorri and JENNIFER inhibitor tomorrow Interim evaluation 12/02/2022: Patient is doing well, asymptomatic without arrhythmia, heart failure or recurrent angina. Heart rate is now in the mid 90sand blood pressure 132/70. Echocardiogram report and imaging reviewed discussedwith patient, also the need for continued secondary preventive therapies. We will initiate metoprolol and lisinopril this evening, with tentative discharge tomorrow Exam Physical Exam Vital Signs: Temp Pulse Resp BP Pulse Ox O2 Del Method O2 Flow Rate 99.8 F H 95 H 16 132/69 96 Room Air 1 12/02/22 16:00 12/02/22 16:00 12/02/22 16:00 12/02/22 16:00 12/02/22 16:00 12/02/22 16:00 12/01/22 15:30 Const General: cooperative, healthy appearing, comfortable, no acute distress, well developed and in distress Nutritional Appearance: average body habitus Orientation: alert, awake and oriented x3 HEENT Head: normal to inspection Eyes General: appearance normal, both eyes and all related structures Neck Neck: normal visual inspection Chest Chest palpation & inspection: normal inspection of the chest Resp Effort & Inspection: normal respiratory effort Cardio Palpation: normal PMI Rhythm: regular rhythm Heart Sounds: S1 normal and S2 normal Pulses: radial pulses present and femoral pulses present GI Palpation: soft Skin General: no rashes or lesions noted Neuro General: patient alert, patient awake and patient oriented x3 Cognition: normal cognition Speech: speech normal Extrem General: no clubbing, cyanosis or edema Objective Labs 12/02/22 03:56 12/02/22 03:56 Labs: Laboratory Results - last 24 hr 12/02/22 12/02/22 03:56 03:56 Corrected WBC 8.5 Uncorrected WBC Count 8.5 RBC 3.31 L Hgb 10.7 L Hct 30.9 L MCV 93.5 MCH 32.3 MCHC 34.6 RDW 12.1 Plt Count 116 L D MPV 8.4 Neut % (Auto) 71.0 Lymph % (Auto) 19.7 [place] % (Auto) 8.6 Eos % (Auto) 0.5 Baso % (Auto) 0.2 Nucleat RBC Rel Count 0.1 Neut # (Auto) 6.0 Lymph # (Auto) 1.7 [place] # (Auto) 0.7 Eos # (Auto) 0.0 Baso # (Auto) 0.0 PHA Creatinine Clear 52.66 Sodium 140 Potassium 3.2 L Chloride 108 H Carbon Dioxide 28.2 Anion Gap 7.0 BUN 14 Creatinine 0.65 Est GFR (CKD-EPI) > 60.0 Glucose 130 H Calcium 8.9 A&P - Cardiology (1) ST elevation myocardial infarction (STEMI) of inferolateral wall: Code(s): I21.19 - ST elevation (STEMI) myocardial infarction involving other coronary artery of inferior wall Status: Acute Documented By: Sam Logan DO 12/02/221646 Signed By: <Electronically signed by Sam Logan DO> 12/02/221647 [facility] Work Phone: 1(659) 557-476910-09-2023 Progress note Author Davi Chow [facility] December 01, 2022 2:50pm Note Date/Time December 01, 2022 2: 50pm [facility] [address] [place] [address] Progress Note Signed Patient: Giana Menchaca MR#: [id number] : 1945 Acct:[id number] Age/Sex: 77 / F Adm Date: 3 Loc: Room: [address] [place] [address] Type: ADM IN Attending Dr: Sam Logan DO Copies to: ~ Date of Service: 12/01/2022 Progress Narrative Note PROGRESS NOTE Progress Note: Patient is seen at the request of cardiology for critical care management with patient undergoing anterior lateral ST segment elevation myocardial infarction with patient having drug-eluting stent placement to the RCA and the PLV branch with mechanical thrombectomy and suction thrombectomy of the PLV branch. Patient had intra-aortic balloon pump placed which was at 1-2 at the time of my evaluation with plan for conversion to 1-3 later in the day and eventual withdrawal of balloon pump. Patient has no chest pain and no respiratory complaints. She is on minimal oxygen. We will be available as needed but will not formally consult on the patient. Documented By: Davi Chow MD 3 [id number] Signed By: <Electronically signed by MD Davi Chow> 12/01/22 1450 [facility] Work Phone: 1(431) 207-388410-09-2023 Progress note Author Sam Logan [facility] December 01, 2022 11:11am Note Date/Time December 01, 2022 11 :11am [facility] [address] [place] [address] Cardiology Progress Note Signed Patient: Giana Menchaca MR#: [id number] : 1945 Acct:[id number] Age/Sex: 77 / F Adm Date: 3 Loc: Room: [address] [place] [address] Type: ADM IN Attending Dr: Sam Logan DO Copies to: ~ Date of Service: 12/01/2022 Subjective Principal diagnosis: Inferolateral STEMI Interval history: Day 1 status post inferolateral STEMI with complex extensive thrombotic RCA and prolonged no reflow last evening with successful revascularization of the mid todistal RCA and PLV branch with intra-aortic balloon pump assistance. Patient's rhythm is returned to sinus rhythm, she is hemodynamically stable, alert and oriented, echocardiogram at bedside with Definity contrast reviewed reveals normal left ventricular function. Troponins up to 11,000 (impressively low for the prolonged no reflow event). Plan: Discontinue dopamine, start weaning balloon pump for removal later this afternoon, initiate GDMT for post AL therapies starting with beta-lorri and JENNIFER inhibitor tomorrow Exam Physical Exam Vital Signs: Temp Pulse Resp BP Pulse Ox O2 Del Method O2 Flow Rate 98.5 F 81 14 136/71 97 Nasal Cannula 1 12/01/22 08:00 12/01/22 10:20 12/01/22 10:00 12/01/22 10:20 12/01/22 10:00 12/01/22 10:00 12/01/22 10:00 Const General: cooperative, healthy appearing, comfortable, no acute distress and welldeveloped Nutritional Appearance: average body habitus Orientation: alert, awake and oriented x3 HEENT Head: normal to inspection Eyes General: appearance normal, both eyes and all related structures Neck Neck: normal visual inspection Chest Chest palpation & inspection: normal inspection of the chest Resp Effort & Inspection: normal respiratory effort Cardio Palpation: normal PMI Rhythm: regular rhythm Heart Sounds: S1 normal and S2 normal Pulses: radial pulses present and femoral pulses present GI Palpation: soft Skin General: no rashes or lesions noted Neuro General: patient alert, patient awake and patient oriented x3 Cognition: normal cognition Speech: speech normal Extrem General: no clubbing, cyanosis or edema Objective Labs 12/01/22 04:23 12/01/22 04:23 Labs: Laboratory Results - last 24 hr 11/30/22 11/30/22 11/30/22 17:21 17:21 17:21 Corrected WBC 9.0 Uncorrected WBC Count 9.0 RBC 4.04 Hgb 13.1 Hct 38.4 MCV 95.1 MCH 32.5 MCHC 34.2 RDW 11.7 L Plt Count 190 MPV 8.7 Neut % (Auto) 52.8 Lymph % (Auto) 37.5 [place] % (Auto) 6.9 Eos % (Auto) 1.9 Baso % (Auto) 0.9 Nucleat RBC Rel Count 0.1 Neut # (Auto) 4.8 Lymph # (Auto) 3.4 [place] # (Auto) 0.6 Eos # (Auto) 0.2 Baso # (Auto) 0.1 Monocyte Dist Width 17.58 APTT PHA Creatinine Clear 48.16 Sodium 140 Potassium 3.4 L Chloride 107 Carbon Dioxide 22.9 Anion Gap 13.5 BUN 22 Creatinine 0.89 Est GFR (CKD-EPI) > 60.0 Glucose 203 H Calcium 9.2 Total Creatine Kinase 74 Troponin I High Sens 8.7 B-Natriuretic Peptide Triglycerides Cholesterol LDL Cholesterol, Calc VLDL Cholesterol HDL Cholesterol Cholesterol/HDL Ratio 11/30/22 11/30/22 11/30/22 17:21 21:09 23:53 Corrected WBC Uncorrected WBC Count RBC Hgb Hct MCV MCH MCHC RDW Plt Count MPV Neut % (Auto) Lymph % (Auto) [place] % (Auto) Eos % (Auto) Baso % (Auto) Nucleat RBC Rel Count Neut # (Auto) Lymph # (Auto) [place] # (Auto) Eos # (Auto) Baso # (Auto) Monocyte Dist Width APTT PHA Creatinine Clear Sodium Potassium Chloride Carbon Dioxide Anion Gap BUN Creatinine Est GFR (CKD-EPI) Glucose Calcium Total Creatine Kinase Troponin I High Sens 289.7 H* 1936.0 H* B-Natriuretic Peptide 31.0 Triglycerides Cholesterol LDL Cholesterol, Calc VLDL Cholesterol HDL Cholesterol Cholesterol/HDL Ratio 12/01/22 12/01/22 12/01/22 02:06 02:06 04:23 Corrected WBC 8.2 Uncorrected WBC Count 8.2 RBC 3.65 Hgb 12.0 Hct 34.4 MCV 94.3 MCH 32.7 MCHC 34.7 RDW 11.7 L Plt Count 153 MPV 8.6 Neut % (Auto) 81.7 Lymph % (Auto) 8.4 [place] % (Auto) 9.7 Eos % (Auto) 0.0 Baso % (Auto) 0.2 Nucleat RBC Rel Count 0.1 Neut # (Auto) 6.7 Lymph # (Auto) 0.7 L [place] # (Auto) 0.8 Eos # (Auto) 0.0 Baso # (Auto) 0.0 Monocyte Dist Width APTT 95.6 H* PHA Creatinine Clear Sodium Potassium Chloride Carbon Dioxide Anion Gap BUN Creatinine Est GFR (CKD-EPI) Glucose Calcium Total Creatine Kinase Troponin I High Sens 6769.2 H* B-Natriuretic Peptide Triglycerides Cholesterol LDL Cholesterol, Calc VLDL Cholesterol HDL Cholesterol Cholesterol/HDL Ratio 12/01/22 12/01/22 12/01/22 04:23 04:23 04:23 Corrected WBC Uncorrected WBC Count RBC Hgb Hct MCV MCH MCHC RDW Plt Count MPV Neut % (Auto) Lymph % (Auto) [place] % (Auto) Eos % (Auto) Baso % (Auto) Nucleat RBC Rel Count Neut # (Auto) Lymph # (Auto) [place] # (Auto) Eos # (Auto) Baso # (Auto) Monocyte Dist Width APTT 58.4 H PHA Creatinine Clear 52.93 Sodium 139 Potassium 3.7 Chloride 107 Carbon Dioxide 25.2 Anion Gap 10.5 BUN 17 Creatinine 0.79 Est GFR (CKD-EPI) > 60.0 Glucose 206 H Calcium 8.7 Total Creatine Kinase Troponin I High Sens 89113.3 H* B-Natriuretic Peptide Triglycerides 69 Cholesterol 120 L LDL Cholesterol, Calc 65 VLDL Cholesterol 13 HDL Cholesterol 41 Cholesterol/HDL Ratio 2.9 A&P - Cardiology (1) ST elevation myocardial infarction (STEMI) of inferolateral wall: Code(s): I21.19 - ST elevation (STEMI) myocardial infarction involving other coronary artery of inferior wall Status: Acute Time spent with patient Time Spent With Patient (min): 30 Documented By: Sam Logan DO 12/01/22 1107 Signed By: <Electronically signed by Sam Logan DO> 12/01/22 1111 [facility] Work Phone: 1(868) 834-243110-08-2023 History and physical note Author Sam Logan [facility] November 30, 2022 7:25pm Note Date/Time November 30, 2022 5: 32pm [facility] [address] [place] [address] Cardiology H&P Signed Patient: Giana Menchaca MR#: [id number] : 1945 Acct:[id number] Age/Sex: 77 / F Adm Date: 3 Loc: Room: Type: [facility] Attending Dr: Sam Logan DO Copies to: MD Sam Del Rio DO~ Date of Service: 11/30/2022 Cardiology HPI History of Present Illness Chief complaint: Acute inferolateral STEMI HPI: Ms. Menchaca is a 77 year old female admitted in transfer from [facility] via [facility], through our emergency room with acute inferolateral STEMI. Initial ECG from [facility] at 1628 reviewed, patient arrived at 1707 to the ER was administered appropriate upstream antiplatelet and Antithrombin therapies along with chest x- ray, Finish [employer] team is already been called on ahead of time upon review of initial outside ECG; arrived in [employer] at 1726; PCI of infarct vessel performed 1741; door to device time 34 minutes. Additionally, patient had severe prolonged no reflow in the entire RCA for approximately 60 minutes requiring multiple aspiration and mechanical thrombectomies, infusion of intracoronary vasodilator therapies, and infusion ofintracoronary antiplatelet therapy in the form of Integrilin in addition to ongoing antiplatelet and Antithrombin therapies; followed by placement of aorticballoon pump. Patient did have complete heart block during the procedure but istolerating this well, with heart rates at the end of the procedure after reestablishment of coronary flow anywhere between 36-54 beats a minute Patient arrives in moderate distress, sinus rhythm with no evidence of cardiogenic shock or heart failure, alert and oriented Past medical history is noted for GERD, essential hypertension, hypothyroidism There is no reported history of prior myocardial infarction, revascularization, stroke, thromboembolic or bleeding disorder A total of 60 minutes nonprocedural critical care time were devoted to the ER staff, reviewed electronic transmitted media, Finish Photographer staff, nursing staff, patient and family both pre and post procedurally. Review of Systems Constitutional Constitutional: Reports as per HPI Cardiovascular Cardiovascular: Reports as per HPI and Reports chest pain at rest [facility] Medical History (Updated 11/30/22 @ 17:32 by Sam Logan DO) GERD (gastroesophageal reflux disease) Hypertension Hypothyroid Meds Medications and Allergies Allergies No Known Allergies Allergy (Verified 11/30/22 17:11) Home Medications alprazolam 1 mg tablet (Xanax) mg 11/30/22 [History] levothyroxine 75 mcg tablet (Synthroid) mcg 11/30/22 [History] losartan 50 mg tablet mg 11/30/22 [History] omeprazole 40 mg capsule,delayed release mg 11/30/22 [History] potassium chloride 20 mEq tablet,extended release meq PO 11/30/22 [History] Exam Physical Exam Vital Signs: Pulse Resp BP Pulse Ox O2 Del Method 63 18 129/65 97 Room Air 11/30/22 17:18 11/30/22 17:15 11/30/22 17:11 11/30/22 17:15 11/30/22 17:15 Const General: cooperative, well developed and in distress Nutritional Appearance: average body habitus Orientation: alert, awake and oriented x3 HEENT Head: normal to inspection Eyes General: appearance normal, both eyes and all related structures Neck Neck: normal visual inspection Chest Chest palpation & inspection: normal inspection of the chest Resp Effort & Inspection: normal respiratory effort Cardio Palpation: normal PMI Rhythm: regular rhythm Heart Sounds: S1 normal and S2 normal Pulses: radial pulses present and femoral pulses present GI Palpation: soft Skin General: no rashes or lesions noted Neuro General: patient alert, patient awake and patient oriented x3 Cognition: normal cognition Speech: speech normal Extrem General: no clubbing, cyanosis or edema Results Labs 11/30/22 17:21 11/30/22 17:21 Lab results: Intake and Output 11/30/22 11/30/22 11/30/22 07:59 15:59 23:59 Other: Weight 71.4 kg Patient Weight 11/30/22 23:59 Weight 71.4 kg EKG Interpretations EKG EKG results cardiology: sinus rhythm AL, pacemaker, normal Myocardial infarction: inferior AL (acute or recent) and lateral AL (acute or recent) A&P - Cardiology (1) ST elevation myocardial infarction (STEMI) of inferolateral wall: Code(s): I21.19 - ST elevation (STEMI) myocardial infarction involving other coronary artery of inferior wall Documented By: Sam Logan DO 11/30/221726 Signed By: <Electronically signed by Sam Logan DO> 11/30/22 3197 [facility] Work Phone: 1(334) 456-548010-08-2023 [facility] Procedure note [facility]-08[facility] 11-30-2022 History and physical note Author Sam Logan [facility] November 30, 2022 7:25pm Note Date/Time November 30, 2022 5: 32pm [facility] [address] [place] [address] Cardiology H&P Signed Patient: Giana Menchaca MR#: [id number] : 1945 Acct:[id number] Age/Sex: 77 / F Adm Date: 3 Loc: Room: Type: [facility] Attending Dr: Sam Logan DO Copies to: MD Sam Del Rio DO~ Date of Service: 11/30/2022 Cardiology HPI History of Present Illness Chief complaint: Acute inferolateral STEMI HPI: Ms. Menchaca is a 77 year old female admitted in transfer from [facility] via [facility], through our emergency room with acute inferolateral STEMI. Initial ECG from [facility] at 1628 reviewed, patient arrived at 1707 to the ER was administered appropriate upstream antiplatelet and Antithrombin therapies along with chest x- ray, Finish [employer]ographer team is already been called on ahead of time upon review of initial outside ECG; arrived in Finish [employer] at 1726; PCI of infarct vessel performed 1741; door to device time 34 minutes. Additionally, patient had severe prolonged no reflow in the entire RCA for approximately 60 minutes requiring multiple aspiration and mechanical thrombectomies, infusion of intracoronary vasodilator therapies, and infusion ofintracoronary antiplatelet therapy in the form of Integrilin in addition to ongoing antiplatelet and Antithrombin therapies; followed by placement of aorticballoon pump. Patient did have complete heart block during the procedure but istolerating this well, with heart rates at the end of the procedure after reestablishment of coronary flow anywhere between 36-54 beats a minute Patient arrives in moderate distress, sinus rhythm with no evidence of cardiogenic shock or heart failure, alert and oriented Past medical history is noted for GERD, essential hypertension, hypothyroidism There is no reported history of prior myocardial infarction, revascularization, stroke, thromboembolic or bleeding disorder A total of 60 minutes nonprocedural critical care time were devoted to the ER staff, reviewed electronic transmitted media, Finish Photographer staff, nursing staff, patient and family both pre and post procedurally. Review of Systems Constitutional Constitutional: Reports as per HPI Cardiovascular Cardiovascular: Reports as per HPI and Reports chest pain at rest [facility] Medical History (Updated 11/30/22 @ 17:32 by Sam Logan DO) GERD (gastroesophageal reflux disease) Hypertension Hypothyroid Meds Medications and Allergies Allergies No Known Allergies Allergy (Verified 11/30/22 17:11) Home Medications alprazolam 1 mg tablet (Xanax) mg 11/30/22 [History] levothyroxine 75 mcg tablet (Synthroid) mcg 11/30/22 [History] losartan 50 mg tablet mg 11/30/22 [History] omeprazole 40 mg capsule,delayed release mg 11/30/22 [History] potassium chloride 20 mEq tablet,extended release meq PO 11/30/22 [History] Exam Physical Exam Vital Signs: Pulse Resp BP Pulse Ox O2 Del Method 63 18 129/65 97 Room Air 11/30/22 17:18 11/30/22 17:15 11/30/22 17:11 11/30/22 17:15 11/30/22 17:15 Const General: cooperative, well developed and in distress Nutritional Appearance: average body habitus Orientation: alert, awake and oriented x3 HEENT Head: normal to inspection Eyes General: appearance normal, both eyes and all related structures Neck Neck: normal visual inspection Chest Chest palpation & inspection: normal inspection of the chest Resp Effort & Inspection: normal respiratory effort Cardio Palpation: normal PMI Rhythm: regular rhythm Heart Sounds: S1 normal and S2 normal Pulses: radial pulses present and femoral pulses present GI Palpation: soft Skin General: no rashes or lesions noted Neuro General: patient alert, patient awake and patient oriented x3 Cognition: normal cognition Speech: speech normal Extrem General: no clubbing, cyanosis or edema Results Labs 11/30/22 17:21 11/30/22 17:21 Lab results: Intake and Output 11/30/22 11/30/22 11/30/22 07:59 15:59 23:59 Other: Weight 71.4 kg Patient Weight 11/30/22 23:59 Weight 71.4 kg EKG Interpretations EKG EKG results cardiology: sinus rhythm AL, pacemaker, normal Myocardial infarction: inferior AL (acute or recent) and lateral AL (acute or recent) A&P - Cardiology (1) ST elevation myocardial infarction (STEMI) of inferolateral wall: Code(s): I21.19 - ST elevation (STEMI) myocardial infarction involving other coronary artery of inferior wall Documented By: Sam Logan DO 11/30/22 1727 Signed By: <Electronically signed by Sam Logan DO> 11/30/22 192 [facility] Work Phone: 1(375) 901-174302-14-2022 Evaluation note* Encounter Date Diagnosis Assessment Notes Treatment Notes Treatment Clinical Notes Mar, Acute otitis media with effusion of both ears (ICD-10 - H65.193) Education printed. Mar, Cerumen debris on tympanic membrane of right ear (ICD-10 - H61.21) Ear wax removal completed in office today. Recommend Debrox ear drops as directed in box to prevent future impaction as well as refraining from using Q-tips or other objects to clear out ears. Follow up with PCP or ENT if no improvement of symptoms or symptom return Mar, Other Cerumen impacti on home care material was printed, Ear fluid (middle ear effusion) material was printed [employer] Other Evaluation note* Diagnosis Onset Date Resolution Status ST elevation myocardial infa rction (STEMI) of inferolateral wall acute [facility] Work Phone: Evaluation note* Diagnosis Coronary artery disease involving [place] coronary artery of [place] heart without angina pectoris 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 (Multi) Inferior AL (Multi) Acute myocardial infarction of other inferior wall, episode of care unspecified S/P right coronary artery (RCA) stent placement Mixed hyperlipidemia Bradycardia Other specified cardiac dysrhythmias BMI 28.0-28.9,adult Carotid bruit, unspecified laterality documented in this encounter [facility] Work Phone: Evaluation note* Diagnosis Coronary artery disease involving [place] coronary artery of [place] heart without angina pectoris Inferior AL (Multi) Acute myocardial infarction of other inferior wall, episode of care unspecified S/P right coronary artery (RCA) stent placement Bradycardia Other specified cardiac dysrhythmias Essential hypertension Unspecified essential hypertension Mixed hyperlipidemia BMI 28.0-28.9,adult 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 (Multi) documented in this encounter [facility] Work Phone: Evaluation note* Diagnosis Anxiety Anxiety state, unspecified documented [facility]* Diagnosis Acquired hypothyroidism- Primary Unspecified hypothyroidism Essential hypertension, benign Diabetes mellitus without complication ([facility]) Type II or unspecified type diabetes mellitus without mention of complication, not stated as uncontrolled Coronary artery disease involving [place] coronary artery of [place] heart without angina pectoris Gastroesophageal reflux disease without esophagitis Esophageal reflux Chronic kidney disease, unspecified CKD stage Anxiety Anxiety state, unspecified documented in this encounter [facility] [employer] SystemEvaluation note* Diagnosis Coronary artery disease involving [place] coronary artery of [place] heart without angina pectoris Presence of bare metal stent in LAD coronary artery Anemia, unspecified type Inferior AL (Multi) Acute myocardial infarction of other inferior wall, episode of care unspecified BMI 27.0-27.9,adult Never smoked tobacco documented in this encounter [facility] Work Phone: Hospital Discharge instructions Additional Instructions DISCHARGE INSTRUCTIONS FOR ANGIOPLASTY/CORONARY/PERIPHERAL/STENT IMPLANT FOR ADULT ANTICOAGULATION -Since the greatest risk of a blood clot forming with the stent occurs in the first 2-3 weeks after implantation, you will need to take anticoagulants for at least 12-18 months. ANTICOAGULATION MEDICATION Aspirin 81mg once a day, Ticagrelor (Brilinta) 90mg twice a day STATIN MEDICATION Atorvastatin (Lipitor) 80 mg Drug-Eluting Stent (DEBBIE) DO NOT discontinue Brilinta/Aspirin during the first few months regardless of what you are advised by your family doctor or pharmacist, without first calling the clinical systems educator who implanted the stent. If you require pain relief during this time, please take only ACETAMINOPHEN (TYLENOL)- NO additional aspirin or ibuprofen. DISCHARGE ACTIVITIES ARE FOLLOWS: First week after discharge: -Take it easy at home, no strenuous activity. -Do not lift or pull objects over 10-15 pounds, including children, and groceries for four weeks. If puncture site is at wrist do NOT lift more than three pounds for three days. - May walk up stairs. -May shower. -No excessive scrubbing of the affected site (groin). -May ride in car. -May resume sexual intercourse after 1-2 weeks. -No MRI for 12 days. -May drive in 4-7 days. -If puncture site is at the wrist do not manipulate the wrist for 24 hours, and no soaking wrist for three days. Second Week: -May take a bath -May start walking 3 times a week for 15-20 minutes at a leisurely pace. You should be able to carry on a conversation comfortably without feeling winded. -No strenuous activity as in jogging, running, weight lifting, stair steppers, etc. until the clinical systems educator approves these activities. Check with the clinical systems educator on your first follow-up visit. CALL YOUR PHYSICIAN at [phone]: -If bleeding should occur from the catheter insertion site- apply pressure to the site then immediately call us. -Report any fever, redness, drainage, increased swelling, or firmness at the catheter insertion site. Some bruising or slight swelling may be present at the time of discharge. -Should arm or leg become cold, numb, white, or blue, contact the clinical systems educator immediately. -IF you should experience episodes of angina, e.g. chest discomfort, heaviness, tightness, pressure burning with or without radiation to the neck, jaw, arms or back- use 1 Nitrostat tablet under your tongue every 5-10 minutes and up to three tablets. IF NO RELIEF, CALL 911 or GO TO THE NEAREST EMERGENCY ROOM. -Please notify our office if you have recurrent angina. -[Cardiac Rehab Education Provided. Participation in the Cardiopulmonary Rehabilitation program is recommended. Please call Central Scheduling at [phone] to schedule your appointment.] The attending clinical systems educator or [facility] nurse clinician should provide you with specific instructions regarding activity, diet, medications, and further follow up for you. Follow the medication instructions provided on your discharge. If the dosages and instructions on this sheet differ from the dosage and instructions on the bottle, follow the instructions on the bottle. [facility] is not responsible for incorrect prescription information provided by the patient during their visit. Do not stop your medications without consulting your health care provider. Please take the list with you to your next doctor's appointment.[facility] Work Phone: InstructionsNot on filedocumented in this encounter [facility] SystemInstructionsNot on filedocumented in this encounter [facility] System[facility]* Attachments The following attachments cannot be sent through Care Everywhere. * Coronary artery disease ([place]) [facility] System[facility] for referral (narrative)* Consultation (Routine) - Authorized Specialty Diagnoses / Procedures Referred By Contac t Referred To Contact Cardiology Diagnoses Coronary artery disease involving [place] coronary artery of [place] heart without angina pectoris Procedures Follow Up In Cardiology Boom Logan DO [address] [facility], [address] [address] Boom Logan DO [address] [facility], [facility] [address] [place] [address] Referral ID Status Reason Start Date Expiration Date V isits Requested Visits Authorized [id number] Authorized 12/01/2023 11/30/2024 1 1 [facility] Work Phone: Summary Purpose Family History No Family History Records Found Relationship Condition Age at Onset Recorded Date/T [place] father Malignant neoplasm Unknown sister Malignant neoplasm Unknown Advance Directives No Advanced Directives Records Found Advance Directive Response Recorded Date/ Time Advance Directives No November 30, 2022 5:27pm Documents on File Type Date Recorded Patient Separations Scientist Expl anation Living Will 08/08/2019 4:12 PM [place] Living will 08/01/19 Date Activated Date Inactivated Comments 07/22/2016 9:16 PM 07/23/2016 8:13 PM Documents on File Type Date Recorded Patient Separations Scientist Expl anatnickolas Living Will 08/08/2019 4:12 PM [place] Living will 08/01/19 Date Activated Date Inactivated Comments 07/22/2016 9:16 PM 07/23/2016 8:13 PM Chief Complaint and Reason for Visit Chief Complaint chest pain Reason for Visit ST elevation myocard ial infarction (STEMI) of inferolateral wall Reason for Referral Specialty Diagnoses / Procedures Referred By Contac t Referred To Contact Cardiology Diagnoses Carotid bruit, unspecified laterality Procedures Vascular US Carotid Artery Duplex Bilateral KavonBoom william, DO [address] [place] [address] Referral ID Status Reason Start Date Expiration Date Visits Requested Visits Authorized [id number] Pending Review Perform Procedure 06/16/2023 06/15/2024 1 1 Specialty Diagnoses / Procedures Referred By Contac t Referred To Contact Cardiology Diagnoses Coronary artery disease involving [place] coronary artery of [place] heart without angina pectoris Procedures Follow Up In Cardiology Kavno Boom Serge, DO [address] [place] [address] Kavon Boom Valentine, DO [address] [place] [address] Referral ID Status Reason Start Date Expiration Date V isits Requested Visits Authorized [id number] Authorized 06/16/2023 06/15/2024 1 1 Additional Source Comments REASON FOR VISIT (unrecogniz ed section and content) Reason Comments Follow-up 6 months Specialty Diagnoses / Procedures Referred By Contac t Referred To Contact Cardiology Diagnoses 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 (Multi) Inferior AL (Multi) Procedures Follow Up In Cardiology Boom Logan, [address] [place] [address] Kavon Boom Serge, DO [address] [place] [address] Referral ID Status Reason Start Date Expiration Date V isits Requested Visits Authorized [id number] Authorized 12/11/2022 12/11/2023 1 1 Reason Comments Follow-up 6 months Specialty Diagnoses / Procedures Referred By Contac t Referred To Contact Cardiology Diagnoses Coronary artery disease involving [place] coronary artery of [place] heart without angina pectoris Procedures Follow Up In Cardiology Boom Logan, DO [address] [place] [address] Boom Logan, DO [address] [place] [address] Referral ID Status Reason Start Date Expiration Date V isits Requested Visits Authorized [id number] Authorized 06/16/2023 06/15/2024 1 1 Reason Onset Date Comments Med Refill 04/07/2024 Reason Comments REVIEW LABS Reason Comments Follow-up 8 month Follow up fo r Coronary Artery Disease Specialty Diagnoses / Procedures Referred By Contac t Referred To Contact Cardiology Diagnoses Coronary artery disease involving [place] coronary artery of [place] heart without angina pectoris Procedures Follow Up In Cardiology Boom Logan, DO [address] [place] [address] Phone: tel: fax: Boom Logan, DO [address] [place] [address] Phone: tel: fax: Referral ID Status Reason Start Date Expiration Date V isits Requested Visits Authorized [id number] Authorized 12/01/2023 11/30/2024 1 1 INFORMATION SOURCE (unrecogn ized section and content) DATE CREATED AUTHOR 06/26/2022 [facility] DATE CREATED AUTHOR AUTHOR'S ORGANIZ ATION 12/04/2022 [facility] DATE CREATED AUTHOR AUTHOR'S ORGANIZ ATION 06/11/2024 [facility] DATE CREATED AUTHOR AUTHOR'S ORGANIZ ATION 09/03/2024 [facility] [employer] Teams (unrecognized sec tion and content) Team Status: Active Member Role Status Dates Mike Moran MD Primary Care Provider Active Team Status: Inactive Member Role Status Dates Tone Barba , Emergency Provider Active W Gonzalez Logan , DO Admit Provider, Attending Provide r Active Mike Moran MD Primary Care Provider Active Team Status: Active Member Role Status Dates Tone Barba , Emergency Provider Active W Gonzalez Logan , DO Admit Provider, Attending Provide r Active Mike Moran MD Primary Care Provider Active Cryptographic Clerk Relationship Specialty Start Date End Date Mike Moran MD [address] [place] [address] PCP - General Family Medicine 02/23/99 Cryptographic Clerk Relationship Specialty Start Date End Date Mike Moran MD [address] [place] [address] PCP - General Family Medicine 12/01/23 Cryptographic Clerk Relationship Specialty Start Date End Date Mike Moran MD [address] [place] [address] [place] [address] PCP - General Family Medicine 07/22/16 Cryptographic Clerk Relationship Specialty Start Date End Date Mike Moran MD [address] [place], [place] [address] [address] PCP - General Family Medicine 07/22/16 Cryptographic Clerk Relationship Specialty Start Date End Date Andry Dubon MD [address] [place] [address] PCP - General Internal Medicine 06/09/24 Cryptographic Clerk Relationship Specialty Start Date End Date Andry Dubon MD [address] [place] [address] PCP - General Internal Medicine 06/09/24 Cryptographic Clerk Relationship Specialty Start Date End Date Jc Jo MD [address] [place] [address], [address] [place] [address] PCP - General Internal Medicine 08/30/24 FOR RECORDS PERTAINING TO PATIENTS WHO ARE OR HAVE BEEN ENROLLED IN A CHEMICAL DEPENDENCY/SUBSTANCEABUSE PROGRAM, SOME INFORMATION MAY BE OMITTED. This clinical summary was aggregated from multiple sources. Caution should be exercised in using it in the provision of clinical care. This summary normalizes information from multiple sources, and as a consequence, information in this document may materially change the coding, format and clinical context of patient data. In addition, data may be omitted in some cases. CLINICAL DECISIONS SHOULD BE BASED ON THE PRIMARY CLINICAL RECORDS. [facility]. provides no warranty or guarantee of the accuracy or completeness of information in this document.
--- OUTSIDE RECORDS SUMMARY | 2024-09-23 08:22 | XMS_ITS | Encounter Summary ---
Author Organization [facility] Sys tem Address [id number] [address] [place] [address] Care Team Providers Care District Plant Engineer Name Role Phone Andry Allan MD Primary Care Provider [phone] Reason for Visit * Reason Onset Date Comments Med Refill 11/06/2020 Encounter Details Date Type Department Care Team (Late st Contact Info) Description 11/06/2020 Refill [facility] [address] [place] [address] Chantel Simeon LPN Anxiety Social History Tobacco [...] Telephone Encounter - Chantel Simeon LPN - 11/06/2020 9:24 AM EDT Requesting refill of Alprazolam to [facility] documented in this encounter Plan of Treatment Upcoming Encounters Date Type Department Care Team (Late st Contact Info) Description 12/05/2024 1:30 PM EDT Office Visit [facility] [address] [facility] [address] [place] [address] Nilson Ibrahim MD [address] [facility], [address] [place] [address] documented as of this encounter [...] documented as of this encounter Care Teams District Plant Engineer Relationship Specialty Start Date End Date Andry Allan MD [address] [place] [address] PCP - General Internal Medicine 06/09/24 documented as of this encounter
--- OUTSIDE RECORDS SUMMARY | 2024-09-23 08:22 | XMS_ITS | Encounter Summary ---
Author Organization [employer] Sys tem Address [id number] [address] [place] [address] Care Team Providers Care Molded Parts Inspector Name Role Phone Andry Allan MD Primary Care Provider [phone] Reason for Visit * Reason Onset Date Comments Med Refill 09/06/2020 Encounter Details Date Type Department Care Team (Late st Contact Info) Description 09/06/2020 Refill [facility] [address] [place] [address] Jennifer Puente CMA Anxiety Social History Tobacco [...] have Coronavirus / COVID-19? No / Unsure 08/08/2020 9:19 AM EDT documented as of this encounter Miscellaneous Notes * Telephone Encounter - Jennifer Puente CMA - 09/06/2020 1:03 PM EDT Requesting refill of xanax to RA documented in this encounter Plan of Treatment Upcoming Encounters Date Type Department Care Team (Late st Contact Info) Description 12/05/2024 1:30 PM EDT Office Visit [facility] [address] [place] [address] ED 1 [place] [address] Nilson Ibrahim MD [address] [facility], [address] [place], [place] [address] documented as of this encounter Visit Diagnoses [...] documented as of this encounter Care Teams Molded Parts Inspector Relationship Specialty Start Date End Date Andry Allan MD [facility]5 [place], [place] [phone] PCP - General Internal Medicine 06/09/24 documented as of this encounter
--- OUTSIDE RECORDS SUMMARY | 2024-09-23 08:22 | XMS_ITS | Encounter Summary ---
Author Organization [facility] tem Address [id number] [address] [place] [address] Care Team Providers Care Machinist Set Up Name Role Phone Andry Allan MD Primary Care Provider [phone] Reason for Visit * Reason Onset Date Comments Med Refill 10/08/2020 Encounter Details Date Type Department Care Team (Late st Contact Info) Description 10/08/2020 Refill [facility] [address] [place] [address] Francisco Alas CNA Anxiety Social History Tobacco [...] Telephone Encounter - Francisco Alas CMA - 10/08/2020 10:06 AM EDT Patient requesting refill of xanax to RA garcia documented in this encounter Plan of Treatment Upcoming Encounters Date Type Department Care Team (Late st Contact Info) Description 12/05/2024 1:30 PM EDT Office Visit [facility] [address] 1 [place] [address] Nilson Ibrahim MD [address] [facility], [address] [place] [address] documented as of this encounter [...] documented as of this encounter Care Teams Machinist Set Up Relationship Specialty Start Date End Date Andry Allan MD [facility]5 [place] [address] PCP - General Internal Medicine 06/09/24 documented as of this encounter
--- OUTSIDE RECORDS SUMMARY | 2024-09-23 08:22 | XMS_ITS | Encounter Summary ---
Author Organization [employer] Sys [employer] Address [id number] [address] [place] [address] Care Team Providers Care Sheet Sorter Name Role Phone Andry Allan MD Primary Care Provider [phone] Encounter Details Date Type Department Care Team (Late st Contact Info) Description 12/06/2020 Telephone [facility] [address] [place] [address] Noe Moran MD [address]. Provider retired 05/24/24 [place], [place] [phone] Social History Tobacco Use Types Packs/Day Years [...] encounter Miscellaneous Notes * Telephone Encounter - Noe Moran MD - 12/06/2020 1:14 PM EDT ----- Message from Chantel Simeon LPN sent at 12/06/2020 12:42 PM EDT ----- Regarding: Appointment Are you only seeing her every 6 months to refill her monthly Xanax. She said you told her she only had to be seen every 6 months * Telephone Encounter - Noe Moran MD - 12/06/2020 1:14 PM EDT In this case yes documented in this encounter Plan of Treatment Upcoming Encounters Date Type Department Care Team (Late st Contact Info) Description 12/05/2024 1:30 PM EDT Office Visit [facility] [address] [place] [address] ED 1 [place] [address] Nilson Ibrahim MD [address] [place] [address], [address] [place], [place] [phone] documented as of this encounter Visit Diagnoses [...] documented as of this encounter Care Teams Sheet Sorter Relationship Specialty Start Date End Date Andry Allan MD [facility]5 [place], [place] [address] PCP - General Internal Medicine 06/09/24 documented as of this encounter
[2024-09-23 08:46] LABS: Anion Gap 14.9; Blood Urea Nitrogen 16.0 mg/dL (7.0-18.0); Calcium 9.7 mg/dL (8.5-10.1); Carbon Dioxide 26.3 mmol/L (21.0-32.0); Chloride 106 mmol/L (98-107); Estimated GFR (African America >60 (>=60 mL/min/1.73m^2); Estimated GFR (Non-African Ame >60 (>=60 mL/min/1.73m^2); Glucose 132 mg/dL (74-106); Potassium 4.2 mmol/L (3.5-5.1); Sodium 143 mmol/L (136-145)
[2024-09-23 08:48] LABS: Hematocrit 30.0 % (36.0-48.0); Hemoglobin 8.8 g/dL (12.0-16.0); Immature Granulocytes Abs Auto 0.02 10^3/uL (0.00-0.03); Immature Granulocytes Pct Auto 0.3 % (0.0-0.5); Lymphocytes Absolute Auto 1.5 10^3/uL (1.2-3.8); Mean Corpuscular HGB Conc 29.3 g/dL (29.9-35.2); Mean Corpuscular Hemoglobin 25.7 pg (26.7-34.0); Mean Corpuscular Volume 87.5 fL (81.0-99.0); Platelet Count 233 10^3/uL (150-450); Red Blood Count 3.43 10^6/uL (4.20-5.40); White Blood Count 6.0 10^3/uL (4.0-11.0)
== END 2024-09-23 08:12 | disposition home or self-care (01) ==
LOC: LAB 08:11
PROVIDERS: PCP Internal Medicine; Visit Provider Internal Medicine Cardiovascular Disease
DX: I25.10 Atherosclerotic heart disease of native coronary artery without angina pectoris (principal); D64.9 Anemia, unspecified
CPT/HCPCS: 36415; 80048; 85025

== ENCOUNTER 2024-11-23 08:41 | Outpatient (OUT) | payer MEDICARE, SELFPAY ==
--- OUTSIDE RECORDS SUMMARY | 2024-08-30 10:04 | XMS_ITS ---
Author Name Auto Generated Organization [facility] Care Team Providers Care Credit Balance Specialist Name Role Phone ANAI LOGAN Attending Unavailable ANAI LOGAN Referring Unavailable MIKE JOHNSON Primary Care Unavailab ANAI Henderson Attending Unavailable ANAI LOGAN Referring Unavailable JC JO Primary Care Unavailabl e MIKE JOHNSON Attending Unavailable MIKE JOHNSON Referring Unavailable MIKE JOHNSON Primary Care Unavailable PETROS ROMAN Attending Unavailable DEFMIKE PAREKH Referring Unavailable MICKI DUBON Primary Care Unavailable PROBLEMS DATE TYPE CONDITION / CODE ATTENDING STATUS [facility] 08/30/2024 Admitting Diagnosis Presence of coronary angioplasty implant and graft / Z95.5(ICD-10) [facility] 08/30/2024 Admitting Diagnosis Anemia, unspecified / D64.9(ICD-10) [facility] 08/30/2024 Admitting Diagnosis Other specified health status / Z78.9(ICD-10) [facility] 08/30/2024 Admitting Diagnosis Body mass index (BMI) 27.0-27.9, adult / Z68.27(ICD-10) [facility] 06/24/2017 Unknown Gastro-esophagea l reflux disease without esophagitis / K21.9(ICD-10) PETROS ROMAN [facility] 06/09/2024 Unknown Chronic kidney disease, unspecified / N18.9(ICD-10) JESSIE [facility] 06/09/2024 Unknown REVIEW LABS / UNK(Unknown) SAYRAMIKI [facility] 12/30/2017 Unknown Anxiety disorder , unspecified / F41.9(ICD-10) [facility] 12/10/2016 Unknown Essential (prima ry) hypertension / I10(ICD-10) [facility], [facility] 12/10/2016 Unknown Hypothyroidism, unspecified / E03.9(ICD-10) [facility] 12/04/2023 Unknown Encounter for [facility] adult medical examination without abnormal findings / Z00.00(ICD-10) [facility], [facility] 12/04/2023 Unknown Type 2 diabetes mellitus without complications / E11.9(ICD-10) [facility] 12/04/2023 Unknown Presence of malik nary angioplasty implant and graft / Z95.5(ICD-10) [facility] [place] 12/04/2023 Unknown Atherosclerotic heart disease of [place] coronary artery without angina pectoris / I25.10(ICD-10) [facility] 12/04/2023 Unknown Annual Exam / FREETEXT(AOF) [facility], [facility] 12/01/2023 Admitting Diagnosis Essential (primary) hypertension / I10(ICD-10) [facility] 12/01/2023 Admitting Diagnosis Mixed hyperlipidemia / E78.2(ICD-10) [facility] 06/16/2023 Admitting Diagnosis Bradycardia, unspecified / R00.1(ICD-10) [facility] 06/16/2023 Admitting Diagnosis Body mass index (BMI) 28.0-28.9, adult / Z68.28(ICD-10) [facility] 06/16/2023 Admitting Diagnosis Atherosclerotic heart disease of [place] coronary artery without angina pectoris / I25.10(ICD-10) [facility] 12/11/[address] elevation (STEMI) myocardial infarction involving other coronary artery of inferior wall (Multi) / I21.19(ICD-10) [facility] 12/01/[address] elevation (STEMI) myocardial infarction involving right coronary artery (Multi) / I21.11(ICD-10) [facility] PROCEDURES No Procedure Records Found RESULTS ALLERGIES DATE TYPE / CODE NAME / CODE REACTION SEVERITY SOURCE Drug Class/999700520(SNO MED CT) NO KNOWN ALLERGIES [facility] SYSTEMIC/958312629( SNOMED CT) NO KNOWN ALLERGIES [facility] ENCOUNTERS ADMIT/DISCHARGE ACCOUNT NUMBER ADMITTING ENCOUNTER CLASS LOCATION SOURCE 08/30/2024/ 5 [id number] Ambulatory Building:[address] Ambulatory 06/09/2024/ [id number] Build[address] [facility] 12/04/2023/ [id number] Build[address] [facility] 12/01/2023/ 4 [id number] Ambulatory Building:[address] Ambulatory PAYERS ENCOUNTER GUARANTOR PAYER SUBSCRIBER SOURCE 08/30/2024 ELLIE ROJAS: [place], [place] [address]Dnx: () Primary Insurance:MEDICAREPolicy Number: [id number] Date:2015-07-25 ELLIE TRAMMELLB: [id number] [place], [place] [address]Aqb: () [facility] Amb[facility] 08/30/2024 Secondary Insura nce:AETNA SUPPLEMENTALPolicy Number: [id number] Date:2022-03-26 ELLIE TRAMMELLB: [id number] [place], [place] [address]Yyz: () [facility] 06/09/2024 ELLIE NASHARDIDOB: [place], [place] [address]Jdv: (HP) Primary Insurance:MEDICARE PART A & BPolicy Number: [id number] Date:2012-10-24 ELLIE Kate JPB: [id number] [place], [place] [address]Xbw: (HP) [facility] 06/09/2024 Secondary Insura nce:AETNA SENIOR SUPPLEMENTAL INSURANCEPolicy Number: [id number] Date:2022-03-26 ELLIE Kate JPB: [id number] [place], [place] [address]Bxe: (HP) [facility] 12/04/2023 ELLIE Kate JPB: [place] [address]Bas: (HP) Primary Insurance:MEDICARE PART A & BPolicy Number: [id number] Date:2012-10-24 ELLIE Kate JPB: [id number] [place], [place] [address]Omv: (HP) [facility] 12/04/2023 Secondary Insura nce:AETNA SENIOR SUPPLEMENTAL INSURANCEPolicy Number: [id number] Date:2022-03-26 ELLIE Kate EDNADOB: [id number] [place], [place] [address]Xoq: (HP) [facility] 12/01/2023 ELLIE JPB: [place] [address]Ctk: (HP) Primary Insurance:MEDICAREPolicy Number: [id number] Date:2015-07-25 ELLIE JPB: [id number] [place], [place] [address]Qww: () [facility] 12/01/2023 Secondary Insura nce:AETHARDEEP SUPPLEMENTALPolicy Number: [id number] Date:2022-03-26 ELLIE JPB: [id number] [place], [place] [address]Amd: () [facility]
--- OUTSIDE RECORDS SUMMARY | 2024-11-23 08:43 | XMS_ITS | Encounter Summary ---
Author Organization [facility] Address [facility]-[id number] [address] [place] [address] Care Team Providers Care Votator Machine Operator Name Role Phone Andry Allan MD Primary Care Provider [phone] Reason for Visit * Reason Onset Date Comments Med Refill 01/07/2021 Encounter Details Date Type Department Care Team (Late st Contact Info) Description 01/07/2021 Refill [facility] [address] [place] [address] Francisco Alas CNA Anxiety Social History Tobacco [...] EDT Office Visit [facility] [address] [place] [address] [address] 1 [place] [address] Nilson Ibrahim MD [facility]5 [facility], [address] [place] [address] documented as of this encounter [...] documented as of this encounter Care Teams Votator Machine Operator Relationship Specialty Start Date End Date Andry Allan MD [facility]5 [place], [place] [phone] PCP - General Internal Medicine 06/09/24 documented as of this encounter
--- OUTSIDE RECORDS SUMMARY | 2024-11-23 08:43 | XMS_ITS | Encounter Summary ---
Author Organization [employer] s tem Address [facility][id number] [address] [place] [address] Care Team Providers Care Insulation Cupola Operator Name Role Phone Andry Allan MD Primary Care Provider [phone] Encounter Details Date Type Department Care Team (Late st Contact Info) Description 02/04/2021 [facility]phone [facility] [address] [place] [address] Chantel Simeon LPN Social History [...] EDT Office Visit [facility] [address] [place] [address] [address] [place] [address] Nilson Ibrahim MD [address] [facility], [address] [place], [place] [address] documented as of this encounter Visit Diagnoses [...] documented as of this encounter Care Teams Insulation Cupola Operator Relationship Specialty Start Date End Date Andry Allan MD [address] [place] [address] PCP - General Internal Medicine 06/09/24 documented as of this encounter
--- OUTSIDE RECORDS SUMMARY | 2024-11-23 08:43 | XMS_ITS | Encounter Summary ---
Author Organization [employer] Sys tem Address [facility][id number] [address] [place] [address] Care Team Providers Care Geriatrician Name Role Phone Andry Allan MD Primary Care Provider [phone] Encounter Details Date Type Department Care Team (Late st Contact Info) Description 03/08/2021 Refill [facility] [address] [facility] [place] [address] Francisco Alas CNA Anxiety Social History Tobacco [...] Office Visit [facility] [address] [place] [address] [address] [place] [address] Nilson Ibrahim MD [address] [facility], [address] [place] [address] documented as of this encounter [...] documented as of this encounter Care Teams Geriatrician Relationship Specialty Start Date End Date Andry Allan MD [facility]5 [place] [address] PCP - General Internal Medicine 06/09/24 documented as of this encounter
--- OUTSIDE RECORDS SUMMARY | 2024-11-23 08:43 | XMS_ITS | Encounter Summary ---
Author Organization [facility] Hospital[facility] Sys tem Address [facility][id number] [address] [place] [address] Care Team Providers Care Trumpet Player Name Role Phone Andry Allan MD Primary Care Provider [phone] Reason for Visit * Reason Onset Date Comments Med Refill 06/07/2021 Encounter Details Date Type Department Care Team (Late st Contact Info) Description 06/07/2021 Refill [facility] [address] [place] [address] Chantel Simeon LPN Anxiety Social History Tobacco [...] Office Visit [facility] [address] [facility] ED 1 [place] [address] Nilson Ibrahim MD [address] [facility], [address] [place] [address] documented as of this encounter [...] documented as of this encounter Care Teams Trumpet Player Relationship Specialty Start Date End Date Andry Allan MD [address] [place] [address] PCP - General Internal Medicine 06/09/24 documented as of this encounter
--- OUTSIDE RECORDS SUMMARY | 2024-11-23 08:43 | XMS_ITS | Encounter Summary ---
Author Organization Pro[employer]palya Sys tem Address [id number] [address] [place] [address] Care Team Providers Care Addiction Professional Name Role Phone Andry Allan MD Primary Care Provider [phone] Reason for Visit * Reason Onset Date Comments Med Refill 06/11/2018 Encounter Details Date Type Department Care Team (Late st Contact Info) Description 06/11/2018 Refill [facility] [address] [place] [address] Chantel Simeon LPN Social History Tobacco Use [...] Office Visit [facility] [address] [facility] [address] [place] [address] Nilson Ibrahim MD [address]75 [facility], [address] [place], [place] [address] documented as of this encounter Visit Diagnoses [...] documented as of this encounter Care Teams Addiction Professional Relationship Specialty Start Date End Date Andry Allan MD [address] [place] [address] PCP - General Internal Medicine 06/09/24 documented as of this encounter
--- OUTSIDE RECORDS SUMMARY | 2024-11-23 08:43 | XMS_ITS | Encounter Summary ---
Author Organization [facility] Sys tem Address [id number] [address] [place] [address] Care Team Providers Care Industrial Insulator Name Role Phone Andry Allan MD Primary Care Provider [phone] Reason for Visit * Reason Onset Date Comments Med Refill 12/06/2020 Encounter Details Date Type Department Care Team (Late st Contact Info) Description 12/06/2020 Refill [facility] [address] [place] [address] Chantel Simeon LPN Anxiety Social History Tobacco [...] Office Visit [facility] [address] [facility] ED 1 [place] [address] Nilson Ibrahim MD 2575 [facility], [address] [place] [address] documented as of this encounter [...] documented as of this encounter Care Teams Industrial Insulator Relationship Specialty Start Date End Date Andry Allan MD [address] [place] [address] PCP - General Internal Medicine 06/09/24 documented as of this encounter
--- OUTSIDE RECORDS SUMMARY | 2024-11-23 08:43 | XMS_ITS | Encounter Summary ---
Author Organization [facility] CenterRezzie Sys tem Address [id number] [address] [place] [address] Care Team Providers Care Faculty Head Name Role Phone Andry Allan MD Primary Care Provider [phone] Reason for Visit * Reason Onset Date Comments Med Refill 04/07/2022 Encounter Details Date Type Department Care Team (Late st Contact Info) Description 04/07/2022 Refill [facility] [address] [place] [address] Chantel Simeon LPN Anxiety Social History Tobacco [...] Office Visit [facility] [address] [facility] [address] 1 [place] [address] Nilson Ibrahim MD 25[address] [facility], [address] [place] [address] documented as of this encounter [...] documented as of this encounter Care Teams Faculty Head Relationship Specialty Start Date End Date Andry Allan MD [address] [place] [address] PCP - General Internal Medicine 06/09/24 documented as of this encounter
--- OUTSIDE RECORDS SUMMARY | 2024-11-23 08:43 | XMS_ITS | Encounter Summary ---
Author Organization [facility] FoundationAl[facility] Semiconductor Sys tem Address [id number] [address] [place] [address] Care Team Providers Care Event Marketing Specialist Name Role Phone Andry Allan MD Primary Care Provider [phone] Reason for Visit * Reason Onset Date Comments Med Refill 10/07/2021 Encounter Details Date Type Department Care Team (Late st Contact Info) Description 10/07/2021 Refill [facility] [address] [place] [address] Chantel Simeon LPN Anxiety Social History Tobacco [...] Office Visit [facility] [address] [facility] ED 1 [place] [address] Nilson Ibrahim MD [address] [facility], [address] [place] [address] documented as of this encounter [...] documented as of this encounter Care Teams Event Marketing Specialist Relationship Specialty Start Date End Date Andry Allan MD [address] [place] [address] PCP - General Internal Medicine 06/09/24 documented as of this encounter
--- OUTSIDE RECORDS SUMMARY | 2024-11-23 08:43 | XMS_ITS | Encounter Summary ---
Author Organization [facility] Sys tem Address [id number] [address] [place] [address] Care Team Providers Care Broom Bundler Name Role Phone Andry Allan MD Primary Care Provider [phone] Reason for Visit * Reason Onset Date Comments Med Refill 07/05/2021 Encounter Details Date Type Department Care Team (Late st Contact Info) Description 07/05/2021 Refill [facility] [address] [place] [address] Chantel Simeon LPN Anxiety Social History Tobacco [...] Office Visit [facility] [address] [facility] ED 1 [place] [address] Nilson Ibrahim MD [address] [facility], [address] [place] [address] documented as [...] documented as of this encounter Care Teams Broom Bundler Relationship Specialty Start Date End Date Andry Allan MD [address] [place] [address] PCP - General Internal Medicine 06/09/24 documented as of this encounter
--- OUTSIDE RECORDS SUMMARY | 2024-11-23 08:43 | XMS_ITS | Encounter Summary ---
Author Organization [employer] Sys [employer] Address [facility]-[id number] [address] [place] [address] Care Team Providers Care Diamond Die Polisher Name Role Phone Andry Allan MD Primary Care Provider [phone] Encounter Details Date Type Department Care Team (Late st Contact Info) Description 08/13/2021 Orders Only [facility] [address] [facility] [address] External, Scanning Provider Social History Tobacco Use [...] EDT Office Visit [facility] [address] [place] [address] [address] [place] [address] Nilson Ibrahim MD [address] [place] [address], [address] [place] [address] documented as of this encounter Procedures Procedure Name Priority Date/Time Associated Diagnosis Comments MULTIPLE LABS Routine 07/09/2021 HEMOGLOBIN A1C Routine 07/09/2021 LIPID PROFILE Routine 07/09/2021 documented in this encounter Results * (ABNORMAL) Hemoglobin A1c (07/09/2021) External Hemoglobin A1C 6.9(A) 4.5 - 6.2 % MANUALLY TRANSCRIBED RESULTS 07/09/2021 us Scanning Provider External LAB BLOOD ORDERABLES Final Result Performing Organization Address [facility] de Phone Number MANUALLY TRANSCRIBED RESULTS * Lipid profile (07/09/2021) External Cholesterol 154 <=200 MANUALLY TRANSCRIBED RESULTS External Hdl Cholesterol 47 40 - 60 MANUALLY TRANSCRIBED RESULTS External Ldl (Calc) 88.0 <=100 MANUALLY TRANSCRIBED RESULTS External Triglycerides 95 <=150 MANUALLY TRANSCRIBED RESULTS External Very Low Lipoprotein 19.0 MANUALLY TRANSCRIBED RESULTS 07/09/2021 us Scanning Provider External LAB BLOOD ORDERABLES Final Result Performing Organization Address [facility] Co de Phone Number MANUALLY TRANSCRIBED RESULTS * Multiple labs (07/09/2021) 07/09/2021 us Scanning Provider External [place] [facility] Final Result MANUALLY TRANSCRIBED RESULTS documented [...] documented as of this encounter Care Teams Diamond Die Polisher Relationship Specialty Start Date End Date Andry Allan MD [address] [place] [address] PCP - General Internal Medicine 06/09/24 documented as of this encounter
--- OUTSIDE RECORDS SUMMARY | 2024-11-23 08:43 | XMS_ITS | Encounter Summary ---
Author Organization [facility] Sys tem Address [id number] [address] [place] [address] Care Team Providers Care Supervisor Of Operations Name Role Phone Andry Allan MD Primary Care Provider Reason for Visit * Reason Onset Date Comments Med Refill 08/06/2021 Encounter Details Date Type Department Care Team (Late st Contact Info) Description 08/06/2021 Refill [facility] [address] [place] [address] Chantel Simeon LPN Anxiety Social History Tobacco [...] Office Visit [facility] [address] [facility] ED 1 [place] [address] Nilson Ibrahim MD 2575 [facility], [address] [place] [address] documented as of this encounter [...] documented as of this encounter Care Teams Supervisor Of Operations Relationship Specialty Start Date End Date Andry Allan MD [facility]5 [place] [address] PCP - General Internal Medicine 06/09/24 documented as of this encounter
--- OUTSIDE RECORDS SUMMARY | 2024-11-23 08:43 | XMS_ITS | Encounter Summary ---
Author Organization [facility] NorthWorkspot Sys tem Address [facility] [place]-[id number] [address] [place] [address] Care Team Providers Care Brim Setter Name Role Phone Andry Allan MD Primary Care Provider [phone] Reason for Visit * Reason Onset Date Comments Med Refill 12/06/2021 Encounter Details Date Type Department Care Team (Late st Contact Info) Description 12/06/2021 Refill [facility] [address] [place] [address] Chantel Simeon LPN Anxiety Social History Tobacco [...] Office Visit [facility] [address] [facility] [address] [place] [address] Nilson Ibrahim MD 2575 [facility], [address] [place] [address] documented as of this encounter [...] documented as of this encounter Care Teams Brim Setter Relationship Specialty Start Date End Date Andry Allan MD [address] [place] [address] PCP - General Internal Medicine 06/09/24 documented as of this encounter
--- OUTSIDE RECORDS SUMMARY | 2024-11-23 08:44 | XMS_ITS | Clinical Summary ---
Author Organization [facility] Address [address] [place] [address] Phone Care Team Providers Care Miller Apprentice Name Role Phone Nilson Ibrahim MD Primary Care Provider + Allergies No known active allergies Medications aspirin 81 mg EC tablet Take 1 tablet (81 mg) by mouth once daily. Active omeprazole (PriLOSEC) [address] capsule Take 1 capsule (20 mg) by mouth 2 times a day. 2 Active levothyroxine (Synthroid, Levoxyl) 100 mcg tablet [...] afternoon). 5 Active atorvastatin (Lipitor) 80 mg tabletIndications :Coronary artery disease involving elim ira coronary artery of elim ira heart without angina pectoris,Mixed hyperlipidemia,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 (Multi) Take 1 tablet (80 mg) by mouth once daily. 90 tablet 3 5 09/01/19 26 Active metoprolol tartrate (Lopressor) 25 mg tabletIndications :Inferior RI (Multi) Take 1 tablet (25 mg) by mouth 2 times a day. 180 tablet 3 09/13/2024 10:15 AM EDT 5 Active losartan (Cozaar) 25 mg tabletIndications :Essential hypertension Take 1 tablet (25 mg) by mouth once daily. 90 tablet 3 11/11/2024 9:34 AM EDT 5 11/10/19 26 Active losartan-hydrochl orothiazide (Hyzaar) 100-25 mg tablet Take 1 tablet by mouth once daily in the morning. Take before meals. 3 11/10/19 25 Discontinu ed(Side effects) Active Problems Problem Noted Date Diagnosed Date Never smoked tobacco 08/30/2024 Anemia 08/30/2024 Presence of bare metal stent in LAD coronary art marci 08/30/2024 Mixed hyperlipidemia 12/01/2023 Essential hypertension 12/01/2023 Coronary artery disease invo lving elim ira coronary artery of elim ira heart without angina pectoris 06/16/2023 BMI 27.0-27.9,adult 06/16/2023 Bradycardia 06/16/2023 Inferior RI (Multi) 12/11/2022 S/P right coronary artery (RCA) stent placement 12/11/2022 Encounters Date Type Department Care Team Description 11/08/[address] [place] [address] Nita Rivera RN 10/06/2024 Telephone [place] [address] [place] [address] Chandrika Collado LPN 09/23/2024 Scanned Document [facility] [address] [place] [address] Scanning, Generic Provider 09/09/[address] [place] [address] Corie Zamudio LPN Inferior RI (Multi) 08/30/2024 10:20 AM EDT Office Visit [address] [place] [address] Boom Jacobson DO Coronary artery disease involving elim ira coronary artery of elim ira heart without angina pectoris; Presence of bare metal stent in LAD coronary artery; Anemia, unspecified type; Inferior RI (Multi); BMI 27.0-27.9,adult; Never smoked tobacco 08/30/2024 [facility] [address] [place] [address] Sejal Stephenson LPN Coronary artery disease involving elim ira coronary artery of elim ira heart without angina pectoris; Mixed hyperlipidemia; 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 (Multi) 08/30/2024 Travel from Last 3 Months Immunizations Immunization Administration Dates Next Due Flu vaccine (IIV4), preservative free *Check age /dose* 10/28/2019 Flu vaccine, quadrivalent, h igh-dose, preservative free, age 65y+ (FLUZONE) 12/05/2021 Flu vaccine, trivalent, pres ervative free, HIGH-DOSE, age 65y+ (Fluzone) 12/26/2015 Influenza Whole 12/16/2010,12/11/2008 Influenza, Seasonal, Quadrivalent, Adjuvanted ,11/29/2020 Influenza, seasonal, injectable 11/07/2014 Influenza, trivalent, adjuvanted 11/24/2018 Novel [id number], preservative-free 04/02 Pfizer COVID-19 vaccine, 12 years [...] Description 06/27/2025 10:20 AM EDT Office Visit [facility] [address] [facility] [address] [place] [address] Boom Jacobson DO [address]03 [facility] 2, [address] [place] [address] Health Maintenance Due Date Last Done Comments Lipid Panel 1945 Medicare Annual Wellness Visit (AWV) 1945 TSH Level 1945 Diabetes Screening 11/04/1965 Hepatitis C Screening 11/04/1965 DTaP/Tdap/Td Vaccines (1 - Tdap) 11/04/1969 Bone Density Scan 11/04/2012 COVID-19 Vaccine ( season) 2024 12/08/2022, 08/01/2022, 11/07/2021, Additional history exists Influenza [...] on patient's age to complete this topic Procedures Procedure Name Priority Date/Time Associated Diagnosis Comments OUTSIDE LAB SCAN 09/23/2024 from Last 3 Months Results * OUTSIDE LAB SCAN (09/23/2024) Narrative 09/23/2024 Ordered by an unspecified provider. Generic Provider Scanning OUTSIDE SCAN Final Result from Last 3 Months Insurance MEDICARE PART A AND B [employer] SENIOR SUPPLEMENT MEDICARE PART A AND B AET[employer] SENIOR SUPPLEMENT Care Teams Miller Apprentice Relationship Specialty Start Date End Date Nilson Ibrahim MD [address] [place] [address], [address] [place] [address] PCP - General Internal Medicine 08/30/24
--- OUTSIDE RECORDS SUMMARY | 2024-11-23 08:44 | XMS_ITS | Encounter Summary ---
Author Organization [employer] Address [facility][id number] [address] [place] [address] Care Team Providers Care City Planner Name Role Phone Andry Allan MD Primary Care Provider [phone] Reason for Visit * Reason Comments Med Refill Encounter Details Date Type Department Care Team (Late st Contact Info) Description 01/29/2023 Refill [facility] [address] [place] [address] Noe Moran MD [address]. Provider retired 05/24/24 [place], [place] [id number] Anxiety Social History Tobacco Use Types Packs/Day [...] Office Visit [facility] [address] [place] [address] ED 1 [place] [address] Nilson Ibrahim MD [facility]5 [facility], [address] [place], [place] [address] documented as of this encounter Visit Diagnoses [...] documented as of this encounter Care Teams City Planner Relationship Specialty Start Date End Date Andry Allan MD [facility]5 [place] [address] PCP - General Internal Medicine 06/09/24 documented as of this encounter
--- OUTSIDE RECORDS SUMMARY | 2024-11-23 08:44 | XMS_ITS | Encounter Summary ---
Author Organization [facility] [employer] Address [facility][id number] [address] [place] [address] Care Team Providers Care Bookkeeper Assistant Name Role Phone Andry Allan MD Primary Care Provider [phone] Reason for Visit * Reason Onset Date Comments Med Refill 06/06/2022 Encounter Details Date Type Department Care Team (Late st Contact Info) Description 06/06/2022 Refill [facility] [address] [place] [address] Chantel Simeon LPN Anxiety Social History Tobacco [...] Office Visit [facility] [address] [facility] ED [address] [place] [address] Nilson Ibrahim MD 2575 [facility], [address] [place] [address] documented as of this encounter [...] documented as of this encounter Care Teams Bookkeeper Assistant Relationship Specialty Start Date End Date Andry Allan MD [address] [place] [address] PCP - General Internal Medicine 06/09/24 documented as of this encounter
--- OUTSIDE RECORDS SUMMARY | 2024-11-23 08:44 | XMS_ITS | Encounter Summary ---
Author Organization [employer] Address [facility]-[id number] [address] [place] [address] Care Team Providers Care Support Specialist Name Role Phone Andry Allan MD Primary Care Provider [phone] Reason for Visit * Reason Comments Med Refill Encounter Details Date Type Department Care Team (Late st Contact Info) Description 12/22/2022 Refill [facility] [address] [place] [address] Noe Moran MD [address]. Provider retired 05/24/24 [place], [place] [id number] Anxiety Social History Tobacco Use Types Packs/Day [...] EDT Office Visit [facility] [address] [place] [address] ED 1 [place] [address] Nilson Ibrahim MD 2575 [facility], [address] [place], [place] [address] documented as of this encounter Visit Diagnoses [...] documented as of this encounter Care Teams Support Specialist Relationship Specialty Start Date End Date Andry Allan MD [address] [place], [place] [phone] PCP - General Internal Medicine 06/09/24 documented as of this encounter
--- OUTSIDE RECORDS SUMMARY | 2024-11-23 08:44 | XMS_ITS | Encounter Summary ---
Author Organization [facility] Address [facility]-[id number] [address] [place] [address] Care Team Providers Care Material Controller Name Role Phone Andry Allan MD Primary Care Provider [phone] Reason for Visit * Reason Onset Date Comments Med Refill 09/04/2022 Encounter Details Date Type Department Care Team (Late st Contact Info) Description 09/04/2022 Refill [facility] [address] [place] [address] Chantel Simeon LPN Anxiety Social History Tobacco [...] requesting refill of Alprazolam to [facility] documented in this encounter Plan of Treatment Upcoming Encounters Date Type Department Care Team (Late st Contact Info) Description 12/05/2024 1:30 PM EDT Office Visit [facility] [address] [facility] ED 1 [place] [address] Nilson Ibrahim MD 2575 [facility], [address] [place] [address] documented as of this encounter [...] documented as of this encounter Care Teams Material Controller Relationship Specialty Start Date End Date Andry Allan MD [address] [place] [address] PCP - General Internal Medicine 06/09/24 documented as of this encounter
--- OUTSIDE RECORDS SUMMARY | 2024-11-23 08:44 | XMS_ITS | Encounter Summary ---
Author Organization [employer] Address [facility] [place]-[id number] [address] [place] [address] Care Team Providers Care Plumbing Assembler Name Role Phone Andry Allan MD Primary Care Provider [phone] Encounter Details Date Type Department Care Team (Late st Contact Info) Description 08/29/2022 Orders Only [facility] [address] [place] [address] External, Scanning Provider Social History Tobacco Use [...] EDT Office Visit [facility]5 [facility] ED 1 [place] [address] Nilson Ibrahim MD 2575 [facility], [address] [place], [place] [address] documented as of this encounter Procedures Procedure Name Priority Date/Time Associated Diagnosis Comments HEMOGLOBIN A1C Routine 08/27/2022 GLUCOSE RANDOM OR FASTING Routine 08/27/2022 documented in this encounter Results * Glucose random or fasting (08/27/2022) External Glucose Fasting Or Random (Fbs) 143 MANUALLY TRANSCRIBED RESULTS 08/27/2022 us Scanning Provider External LAB BLOOD ORDERABLES Final Result Performing Organization Address City/[facility] Co de Phone Number MANUALLY TRANSCRIBED RESULTS * (ABNORMAL) Hemoglobin A1c (08/27/2022) External Hemoglobin A1C 6.6(A) 4.5 - 6.2 % MANUALLY TRANSCRIBED RESULTS 08/27/2022 us Scanning Provider External LAB BLOOD ORDERABLES Final Result Performing Organization Address City/[facility] Co de Phone Number MANUALLY TRANSCRIBED [...] documented as of this encounter Care Teams Plumbing Assembler Relationship Specialty Start Date End Date Andry Allan MD [address] [place] [address] PCP - General Internal Medicine 06/09/24 documented as of this encounter
--- OUTSIDE RECORDS SUMMARY | 2024-11-23 08:44 | XMS_ITS | Encounter Summary ---
Author Organization [facility] [facility] Sys tem Address [facility][id number] [address] [place] [address] Care Team Providers Care Complaint Coordinator Name Role Phone Andry Allan MD Primary Care Provider [phone] Reason for Visit * Reason Onset Date Comments Med Refill 01/10/2020 Encounter Details Date Type Department Care Team (Late st Contact Info) Description 01/10/2020 Refill [facility] [address] [place] [address] Chantel Simeon LPN Anxiety Social History Tobacco [...] Office Visit [facility] [address] [place] [address] ED [address] [place] [address] Nilson Ibrahim MD 2575 [facility], [address] [place], [place] [address] documented as of this encounter Visit Diagnoses [...] documented as of this encounter Care Teams Complaint Coordinator Relationship Specialty Start Date End Date Andry Allan MD [address] [place], [place] [address] PCP - General Internal Medicine 06/09/24 documented as of this encounter
--- OUTSIDE RECORDS SUMMARY | 2024-11-23 08:44 | XMS_ITS | Encounter Summary ---
Author Organization [employer] Address [facility] [place]-[id number] [address] [place] [address] Care Team Providers Care Fashion Journalist Name Role Phone Andry Allan MD Primary Care Provider [phone] Reason for Visit * Reason Onset Date Comments Med Refill 12/05/2022 Encounter Details Date Type Department Care Team (Late st Contact Info) Description 12/05/2022 Refill [facility] [address] [place] [address] Chantel Simeon LPN Anxiety Social History Tobacco [...] EDT Office Visit [facility] [address] [place] [address] ED 1 [place] [address] Nilson Ibrahim MD 2575 [facility], [address] [place], [place] [address] documented as of this encounter Visit Diagnoses [...] documented as of this encounter Care Teams Fashion Journalist Relationship Specialty Start Date End Date Andry Allan MD [facility]5 [place], [place] [phone] PCP - General Internal Medicine 06/09/24 documented as of this encounter
--- OUTSIDE RECORDS SUMMARY | 2024-11-23 08:44 | XMS_ITS | Encounter Summary ---
Author Organization [facility] tem Address [facility]-[id number] [address] [place] [address] Care Team Providers Care Tub Operator Name Role Phone Andry Allan MD Primary Care Provider [phone] Reason for Visit * Reason Onset Date Comments Med Refill 08/06/2022 Encounter Details Date Type Department Care Team (Late st Contact Info) Description 08/06/2022 Refill [facility] [address] [place] [address] Chantel Simeon LPN Anxiety Social History Tobacco [...] Office Visit [facility] [address] [facility] ED [address] [place] [address] Nilson Ibrahim MD 2575 [facility], [address] [place] [address] documented as of this encounter [...] documented as of this encounter Care Teams Tub Operator Relationship Specialty Start Date End Date Andry Allan MD [address] [place] [address] PCP - General Internal Medicine 06/09/24 documented as of this encounter
--- OUTSIDE RECORDS SUMMARY | 2024-11-23 08:44 | XMS_ITS | Encounter Summary ---
Author Organization [facility] Address [address] [place] [address] Phone Care Team Providers Care Quickbooks Bookkeeper Name Role Phone Noe Moran MD Primary Care Provider Unavailable Linda Reilly RN Unavailable Unavailable Noe Moran MD Primary Care Provider Unavailable Nilson Ibrahim MD Primary Care Provider + Encounter Details Date Type Department Care Team (Late st Contact Info) Description 12/03/2022 Scanned Document [facility] [address] [place] [address] Scanning, Generic Provider Social History Tobacco Use [...] Description 06/27/2025 10:20 AM EDT Office Visit [facility] [address] [facility] [address] [place] [address] Boom Jacobson DO [address] [facility] [address] [place] [address] documented as of this encounter Visit Diagnoses Not on filedocumented in this encounter Care Teams Quickbooks Bookkeeper Relationship Specialty Start Date End Date Noe Moran MD PCP - General Family Medicine 02/23/99 11/30/23 Noe Moran MD PCP - General Family Medicine 12/01/23 08/29/24 Nilson Ibrahim MD [address] [place] [address], [address] [place] [address] PCP - General Internal Medicine 08/30/24 Linda Reilly, flight communications officerManager Program 12/04/22 03/04/23 documented as of this encounter
--- OUTSIDE RECORDS SUMMARY | 2024-11-23 08:44 | XMS_ITS | Encounter Summary ---
Author Organization [employer] Address [facility] [place][id number] [address] [place] [address] Care Team Providers Care Hourly Team Members Name Role Phone Andry Allan MD Primary Care Provider [phone] Reason for Visit * Reason Onset Date Comments Med Refill 11/06/2023 Encounter Details Date Type Department Care Team (Late st Contact Info) Description 11/06/2023 Refill [facility] [address] [place] [address] Liza Salinas CMA Anxiety Social History Tobacco [...] EDT Office Visit [facility] [address] [place] [address] ED 1 [place] [address] Nilson Ibrahim MD [facility]5 [facility], [address] [place], [place] [address] documented as of this encounter Visit Diagnoses Diagnosis Anxiety Anxiety state, unspecified documented in this encounter Additional Health Concerns Assessment Noted Time PHQ-9 Depression Total Score: 0 05/29/19 24 7:00 AM EDT A Body Mass Index follow-up plan has been documented for the patient 11/08/2019 5:23 PM EDT documented as of this encounter Care Teams Hourly Team Members Relationship Specialty Start Date End Date Andry Allan MD [facility]5 [place] [address] PCP - General Internal Medicine 06/09/24 documented as of this encounter
--- OUTSIDE RECORDS SUMMARY | 2024-11-23 08:44 | XMS_ITS | Encounter Summary ---
Author Organization [employer] Address [id number] [address] [place] [address] Care Team Providers Care Value Analysis Coordinator Name Role Phone Andry Allan MD Primary Care Provider [phone] Encounter Details Date Type Department Care Team (Late st Contact Info) Description 02/18/2023 Orders Only [facility] [address] [place] [address] Noe Moran MD [address]. Provider retired 05/24/24 [place] [address] Social History Tobacco Use Types [...] Office Visit [facility] [address] [facility] ED 1 [place] [address] Nilson Ibrahim MD [facility]5 [facility], [address] [place] [address] documented as of this encounter [...] documented as of this encounter Care Teams Value Analysis Coordinator Relationship Specialty Start Date End Date Andry Allan MD [address] [place] [address] PCP - General Internal Medicine 06/09/24 documented as of this encounter
--- OUTSIDE RECORDS SUMMARY | 2024-11-23 08:44 | XMS_ITS | Encounter Summary ---
Author Organization [employer] Address [facility][id number] [address] [place] [address] Care Team Providers Care Email Production Specialist Name Role Phone Andry Allan MD Primary Care Provider [phone] Reason for Visit * Reason Comments Med Refill Encounter Details Date Type Department Care Team (Late st Contact Info) Description 05/08/2023 Refill [facility] [address] [place] [address] Noe Moran MD [address]. Provider retired 05/24/24 [place], [place] [phone] Anxiety Social History Tobacco Use Types Packs/Day [...] EDT Office Visit [facility] [address] [place] [address] ED 1 [place] [address] Nilson Ibrahim MD 2575 [facility], [address] [place], [place] [address] documented as of this encounter Visit Diagnoses [...] documented as of this encounter Care Teams Email Production Specialist Relationship Specialty Start Date End Date Andry Allan MD [facility]5 [place] [address] PCP - General Internal Medicine 06/09/24 documented as of this encounter
--- OUTSIDE RECORDS SUMMARY | 2024-11-23 08:44 | XMS_ITS | Encounter Summary ---
Author Organization [facility] Address [address] [place] [address] Phone Care Team Providers Care Discovery Guide Name Role Phone Noe Moran MD Primary Care Provider Unavailable Linda Reilly RN Unavailable Unavailable Noe Moran MD Primary Care Provider Unavailable Nilson Ibrahim MD Primary Care Provider + Encounter Details Date Type Department Care Team (Late st Contact Info) Description 12/01/2022 Scanned Document [facility] [address] [place] [address] Scanning, Generic Provider Social History Tobacco Use [...] Description 06/27/2025 10:20 AM EDT Office Visit [facility] [address] [place] [address] Boom Jacobson DO [address], [address] [place] [address] documented as of this encounter Procedures Procedure Name Priority Date/Time Associated Diagnosis Comments ECHOCARDIOGRAM 12/01/2022 documented in this encounter Results * ECHOCARDIOGRAM (12/01/2022) Narrative 12/01/2022 Ordered by an unspecified provider. us Generic Provider Scanning CV ECHO PROCEDURES Fin al Result documented in this encounter Visit Diagnoses Not on filedocumented in this encounter Care Teams Discovery Guide Relationship Specialty Start Date End Date Noe Moran MD PCP - General Family Medicine 02/23/99 11/30/23 Noe Moran MD PCP - General Family Medicine 12/01/23 08/29/24 Nilson Ibrahim MD [address] [place] [address], 1 [place] [address] PCP - General Internal Medicine 08/30/24 Linda Reilly, body recall instructorMaterial Damage Appraiser 12/04/22 03/04/23 documented as of this encounter
--- OUTSIDE RECORDS SUMMARY | 2024-11-23 08:44 | XMS_ITS | Encounter Summary ---
Author Organization [employer] Address [facility] [place]-[id number] [address] [place] [address] Care Team Providers Care Tube Draw Helper Name Role Phone Andry Allan MD Primary Care Provider [phone] Reason for Visit * Reason Onset Date Comments Med Refill 11/07/2022 Encounter Details Date Type Department Care Team (Late st Contact Info) Description 11/07/2022 Refill [facility] [address] [place] [address] Liza Salinas CMA Anxiety Social History Tobacco [...] EDT Office Visit [facility]5 [facility] ED [address] [place] [address] Nilson Ibrahim MD 2575 [facility], [address] [place], [place] [address] documented as of this encounter Visit Diagnoses [...] documented as of this encounter Care Teams Tube Draw Helper Relationship Specialty Start Date End Date Andry Allan MD [address] [place], [place] [phone] PCP - General Internal Medicine 06/09/24 documented as of this encounter
--- OUTSIDE RECORDS SUMMARY | 2024-11-23 08:44 | XMS_ITS | Encounter Summary ---
Author Organization [employer] Sys tem Address [facility]-[id number] [address] [place] [address] Care Team Providers Care Senior Associate Name Role Phone Andry Allan MD Primary Care Provider Encounter Details Date Type Department Care Team (Late st Contact Info) Description 10/14/2022 Orders Only [facility] [address] [facility] [place] [address] External, Scanning Provider Social History Tobacco Use [...] EDT Office Visit [facility] Internal [facility]/Pediatrics [address] [place] [address] 1 [place] [address] Nilson Ibrahim MD 2575 [facility], [address] [place], [place] [address] documented as of this encounter Procedures Procedure Name Priority Date/Time Associated Diagnosis Comments MULTIPLE LABS Routine 10/14/2022 11:17 AM EDT documented in this encounter Results * Multiple labs (10/14/2022 11:17 AM EDT) us Scanning Provider External [place] [facility] Final Result MANUALLY TRANSCRIBED RESULTS documented [...] documented as of this encounter Care Teams Senior Associate Relationship Specialty Start Date End Date Andry Allan MD [address] [place] [id number] PCP - General Internal Medicine 06/09/24 documented as of this encounter
--- OUTSIDE RECORDS SUMMARY | 2024-11-23 08:44 | XMS_ITS | Encounter Summary ---
Author Organization [employer] [facility] tem Address [facility] [place][id number] [address] [place] [address] Care Team Providers Care File Conversion Operator Name Role Phone Andry Allan MD Primary Care Provider [phone] Encounter Details Date Type Department Care Team (Late st Contact Info) Description 01/12/2020 Orders Only [facility] [address] [place] [address] Chantel Simeon LPN Close exposure to COVID-19 [...] EDT Office Visit [facility] [address] [facility] ED 1 [place] [address] Nilson Ibrahim MD 2575 [facility], [address] [place], [place] [phone] documented as of this encounter Procedures Procedure [...] documented as of this encounter Care Teams File Conversion Operator Relationship Specialty Start Date End Date Andry Allan MD [address] [place] [address] PCP - General Internal Medicine 06/09/24 documented as of this encounter
--- OUTSIDE RECORDS SUMMARY | 2024-11-23 08:44 | XMS_ITS | Encounter Summary ---
Author Organization [employer] Sys tem Address [facility][id number] [address] [place] [address] Care Team Providers Care Revenue Inspector Name Role Phone Andry Allan MD Primary Care Provider [phone] Encounter Details Date Type Department Care Team (Late st Contact Info) Description 11/09/2019 Refill [facility] [address] [facility] [place] [address] Chantel Simeon LPN Anxiety (Primary Dx) Social [...] to send the Xanax XR to [facility] Chantel Simeon LPN 11/09/19 9009 * Telephone Encounter - Noe Moran MD [...] EDT Office Visit [facility] [address] [place] [address] Nilson Ibrahim MD [address] [place] [address], [address] [place] [phone] documented as of this encounter Visit Diagnoses [...] documented as of this encounter Care Teams Revenue Inspector Relationship Specialty Start Date End Date Andry Allan MD [address] [place] [address] PCP - General Internal Medicine 06/09/24 documented as of this encounter
--- OUTSIDE RECORDS SUMMARY | 2024-11-23 08:44 | XMS_ITS | Encounter Summary ---
Author Organization [facility] [facility] tem Address [facility] [place]-[id number] [address] [place] [address] Care Team Providers Care Pocketed Spring Assembler Name Role Phone Andry Allan MD Primary Care Provider Reason for Visit * Reason Onset Date Comments Med Refill 05/08/2019 Encounter Details Date Type Department Care Team (Late st Contact Info) Description 05/08/2019 Refill [facility] [address] [place] [address] Noe Moran MD [address]. Provider retired 05/24/24 [place], [place] [phone] Anxiety Social History Tobacco Use Types Packs/Day [...] EDT Office Visit [facility] [address] [place] [address] ED 1 [place] [address] Nilson Ibrahim MD 2575 [facility], [address]1 [place] [address] documented as of this encounter [...] documented as of this encounter Care Teams Pocketed Spring Assembler Relationship Specialty Start Date End Date Andry Allan MD [address] [place], [place] [phone] PCP - General Internal Medicine 06/09/24 documented as of this encounter
--- OUTSIDE RECORDS SUMMARY | 2024-11-23 08:44 | XMS_ITS | Encounter Summary ---
Author Organization [facility] Address [facility] [place]-[id number] [address] [place] [address] Care Team Providers Care Electrical Systems Engineer Name Role Phone Andry Allan MD Primary Care Provider [phone] Reason for Visit * Reason Onset Date Comments Med Refill 04/09/2020 Encounter Details Date Type Department Care Team (Late st Contact Info) Description 04/09/2020 Refill [facility] [address] [place] [address] Jennifer Puente CMA Anxiety Social History Tobacco [...] Medicine/Pediatrics [address] [facility] ED 1 [place] [address] Nilson Ibrahim MD 2575 [facility], [address]1 [place] [address] documented as of this encounter [...] documented as of this encounter Care Teams Electrical Systems Engineer Relationship Specialty Start Date End Date Andry Allan MD [address] [place] [address] PCP - General Internal Medicine 06/09/24 documented as of this encounter
--- OUTSIDE RECORDS SUMMARY | 2024-11-23 08:44 | XMS_ITS | Encounter Summary ---
Author Organization [facility] Address [facility]-[id number] [address] [place] [address] Care Team Providers Care Hack Driver Name Role Phone Andry Allan MD Primary Care Provider Reason for Visit * Reason Onset Date Comments Med Refill 01/14/2019 Encounter Details Date Type Department Care Team (Late st Contact Info) Description 01/14/2019 Refill [facility] [address] [place] [address] Jimenez Balderas LPN Anxiety Social History Tobacco [...] Office Visit [facility] [address] [facility] ED 1 [place] [address] Nilson Ibrahim MD 2575 [facility], [address]1 [place] [address] documented as of this encounter Visit Diagnoses [...] documented as of this encounter Care Teams Hack Driver Relationship Specialty Start Date End Date Andry Allan MD [address] [place], [place] [address] PCP - General Internal Medicine 06/09/24 documented as of this encounter
--- OUTSIDE RECORDS SUMMARY | 2024-11-23 08:44 | XMS_ITS | Encounter Summary ---
Author Organization [facility] tem Address [facility] [place][id number] [address] [place] [address] Care Team Providers Care Court Recorder Name Role Phone Andry Allan MD Primary Care Provider [phone] Reason for Visit * Reason Onset Date Comments Med Refill 05/08/2020 Encounter Details Date Type Department Care Team (Late st Contact Info) Description 05/08/2020 Refill [facility] [address] [place] [address] Francisco Alas CNA Anxiety Social History Tobacco [...] Office Visit [facility]ediatric[facility] [address] [place] [address] ED 1 [place] [address] Nilson Ibrahim MD 2575 [facility], [address]1 [place], [place] [address] documented as of this encounter Visit Diagnoses [...] documented as of this encounter Care Teams Court Recorder Relationship Specialty Start Date End Date Andry Allan MD [address] [place] [address] PCP - General Internal Medicine 06/09/24 documented as of this encounter
--- OUTSIDE RECORDS SUMMARY | 2024-11-23 08:44 | XMS_ITS | Encounter Summary ---
Author Organization [facility] [employer] [facility] tem Address [facility] [place][id number] [address] [place] [address] Care Team Providers Care Hot Metal Crane Operator Name Role Phone Andry Allan MD Primary Care Provider [phone] Reason for Visit * Reason Onset Date Comments Med Refill 05/08/2019 Encounter Details Date Type Department Care Team (Late st Contact Info) Description 05/08/2019 Refill [facility] [address] [place] [address] Noe Moran MD [address]. Provider retired 05/24/24 [place], [place] [address] Social History Tobacco Use Types Packs/Day Years [...] Office Visit [facility] [address] [place] [address] ED 1 [place] [address] Nilson Ibrahim MD [facility]5 [facility], [address]1 [place] [address] documented as of this encounter [...] documented as of this encounter Care Teams Hot Metal Crane Operator Relationship Specialty Start Date End Date Andry Allan MD [address] [place] [address] PCP - General Internal Medicine 06/09/24 documented as of this encounter
--- OUTSIDE RECORDS SUMMARY | 2024-11-23 08:44 | XMS_ITS | Encounter Summary ---
Author Organization [employer] Sys tem Address [facility] [place]-[id number] [address] [place] [address] Care Team Providers Care Vocational Technical Education Director Name Role Phone Andry Allan MD Primary Care Provider [phone] Reason for Visit * Reason Comments Med Refill Encounter Details Date Type Department Care Team (Late st Contact Info) Description 08/04/2023 Refill [facility] [address] [facility] [place] [address] Noe Moran MD [address]. Provider retired 05/24/24 [place], [place] [phone] Anxiety Social History Tobacco Use Types Packs/Day [...] EDT Office Visit [facility]ediatric[facility] [address] [place] [address] ED 1 [place] [address] Nilson Ibrahim MD 2575 [facility], [address]1 [place], [place] [address] documented as of this encounter Visit Diagnoses [...] documented as of this encounter Care Teams Vocational Technical Education Director Relationship Specialty Start Date End Date Andry Allan MD [facility]5 [place] [address] PCP - General Internal Medicine 06/09/24 documented as of this encounter
--- OUTSIDE RECORDS SUMMARY | 2024-11-23 08:44 | XMS_ITS | Encounter Summary ---
Author Organization [facility] tem Address [facility] [place]-[id number] [address] [place] [address] Care Team Providers Care Director Of Clinical Education Name Role Phone Andry Allan MD Primary Care Provider [phone] Reason for Visit * Reason Onset Date Comments Med Refill 12/12/2019 Encounter Details Date Type Department Care Team (Late st Contact Info) Description 12/12/2019 Refill [facility] [address] [place] [address] Chantel Simeon LPN Anxiety Social History Tobacco [...] EDT Office Visit [facility]/Pediatrics [address] [place] [address] ED 1 [place] [address] Nilson Ibrahim MD 2575 [facility], [address] [place] [address] documented as of this encounter [...] documented as of this encounter Care Teams Director Of Clinical Education Relationship Specialty Start Date End Date Andry Allan MD [address] [place], [place] [address] PCP - General Internal Medicine 06/09/24 documented as of this encounter
--- OUTSIDE RECORDS SUMMARY | 2024-11-23 08:44 | XMS_ITS | Encounter Summary ---
Author Organization [facility] tem Address [facility] [place][id number] [address] [place] [address] Care Team Providers Care Forestry And Wildlife Manager Name Role Phone Andry Allan MD Primary Care Provider [phone] Reason for Visit * Reason Onset Date Comments Med Refill 03/09/2020 Encounter Details Date Type Department Care Team (Late st Contact Info) Description 03/09/2020 Refill [facility] [address] [place] [address] Chantel Simeon LPN Anxiety Social History Tobacco [...] Office Visit [facility] [address] [facility] ED 1 [place] [address] Nilson Ibrahim MD 2575 [facility], [address] [place] [address] documented as of this encounter [...] documented as of this encounter Care Teams Forestry And Wildlife Manager Relationship Specialty Start Date End Date Andry Allan MD [address] [place] [address] PCP - General Internal Medicine 06/09/24 documented as of this encounter
--- OUTSIDE RECORDS SUMMARY | 2024-11-23 08:44 | XMS_ITS | Encounter Summary ---
Author Organization [employer] Sys tem Address [facility]-[id number] [address] [place] [address] Care Team Providers Care Saloonkeeper Name Role Phone Andry Allan MD Primary Care Provider [phone] Encounter Details Date Type Department Care Team (Late st Contact Info) Description 02/17/2023 Orders Only [facility] [address] [facility]ON[facility] [place] [address] External, Scanning Provider Social History Tobacco Use [...] Office Visit [facility]/Pediatrics [address] [place] [address] ED 1 [place] [address] Nilson Ibrahim MD 2575 [facility], [address]1 [place], [place] [address] documented as of this encounter Procedures Procedure Name Priority Date/Time Associated Diagnosis Comments XR CHEST 1 VW Routine 02/14/2023 documented in this encounter Results * X-ray chest 1 view (02/14/2023) Anatomical Region Laterality Modality Body, Chest N/A Computed Radiogr aphy Narrative 02/14/2023 Ordering Provider: [facility] Dr. Froylan Oseguera us Scanning Provider [...] documented as of this encounter Care Teams Saloonkeeper Relationship Specialty Start Date End Date Andry Allan MD [address] [place] [address] PCP - General Internal Medicine 06/09/24 documented as of this encounter
--- OUTSIDE RECORDS SUMMARY | 2024-11-23 08:44 | XMS_ITS | Encounter Summary ---
Author Organization [employer] Address [facility] [place]-[id number] [address] [place] [address] Care Team Providers Care Retort Setter Name Role Phone Andry Allan MD Primary Care Provider [phone] Encounter Details Date Type Department Care Team (Late st Contact Info) Description 08/09/2019 Telephone [facility] [address] [facility] [place] [address] Noe Moran MD [address]. Provider retired 05/24/24 [place], [place] [id number] Social History Tobacco Use Types Packs/Day Years [...] EDT Office Visit [facility]Pediatrics [address] [place] [address] ED 1 [place] [address] Nilson Ibrahim MD 2575 [facility], [address]1 [place], [place] [address] documented as of this encounter Visit Diagnoses [...] documented as of this encounter Care Teams Retort Setter Relationship Specialty Start Date End Date Andry Allan MD [address] [place] [id number] PCP - General Internal Medicine 06/09/24 documented as of this encounter
--- OUTSIDE RECORDS SUMMARY | 2024-11-23 08:44 | XMS_ITS | Encounter Summary ---
Author Organization [employer] Sys tem Address [facility] [place]-[id number] [address] [place] [address] Care Team Providers Care Gastroenterology Nurse Practitioner Name Role Phone Andry Allan MD Primary Care Provider [phone] Reason for Visit * Reason Comments Med Refill Encounter Details Date Type Department Care Team (Late st Contact Info) Description 04/09/2023 Refill [facility] [address] [facility] [address] Noe Moran MD [address]. Provider retired 05/24/24 [place], [place] [id number] Anxiety Social History Tobacco Use Types Packs/Day [...] EDT Office Visit [facility]/Pediatrics [address] [place] [address] ED 1 [place] [address] Nilson Ibrahim MD [facility]5 [facility], [address]1 [place], [place] [address] documented as of this encounter Visit Diagnoses [...] documented as of this encounter Care Teams Gastroenterology Nurse Practitioner Relationship Specialty Start Date End Date Andry Allan MD [facility]5 [place] [address] PCP - General Internal Medicine 06/09/24 documented as of this encounter
--- OUTSIDE RECORDS SUMMARY | 2024-11-23 08:44 | XMS_ITS | Encounter Summary ---
Author Organization [facility] Address [address] [place] [address] Phone Care Team Providers Care Adon Name Role Phone Noe Moran MD Primary Care Provider Unavailable Linda Reilly RN Unavailable Unavailable Noe Moran MD Primary Care Provider Unavailable Nilson Ibrahim MD Primary Care Provider + Encounter Details Date Type Department Care Team (Late st Contact Info) Description 11/30/2022 Scanned Document [facility] [address] [place] [address] Scanning, Generic Provider Social History Tobacco Use [...] Description 06/27/2025 10:20 AM EDT Office Visit [facility] [address] [place] [address] Boom Jacobson DO [address] [place] [address] documented as of this encounter [...] on filedocumented in this encounter Care Teams Adon Relationship Specialty Start Date End Date Noe Moran MD PCP - General Family Medicine 02/23/99 11/30/23 Noe Moran MD PCP - General Family Medicine 12/01/23 08/29/24 Nilson Ibrahim MD [address] [place] [address], [address] [place] [address] PCP - General Internal Medicine 08/30/24 Linda Reilly RN Care Residential Lawn Specialist 12/04/22 03/04/23 documented as of this encounter
--- OUTSIDE RECORDS SUMMARY | 2024-11-23 08:44 | XMS_ITS | Encounter Summary ---
Author Organization [employer] tem Address [facility] [place]-[id number] [address] [place] [address] Care Team Providers Care Switch Engineer Name Role Phone Andry Allan MD Primary Care Provider Reason for Visit * Reason Comments Med Refill Encounter Details Date Type Department Care Team (Late st Contact Info) Description 07/06/2023 Refill [facility] [address] [facility] [address] Noe Moran MD [address]. Provider retired 05/24/24 [place], [place] [id number] Anxiety Social History Tobacco Use Types Packs/Day [...] EDT Office Visit [facility]Pediatric[facility] [address] [place] [address] ED 1 [place] [address] Nilson Ibrahim MD 2575 [facility], [address]1 [place], [place] [address] documented as of this encounter Visit Diagnoses [...] documented as of this encounter Care Teams Switch Engineer Relationship Specialty Start Date End Date Andry Allan MD [facility]5 [place] [address] PCP - General Internal Medicine 06/09/24 documented as of this encounter
--- OUTSIDE RECORDS SUMMARY | 2024-11-23 08:44 | XMS_ITS | Encounter Summary ---
Author Organization [employer] Sys tem Address [facility]-[id number] [address] [place] [address] Care Team Providers Care Sport Internship Name Role Phone Andry Allan MD Primary Care Provider [phone] Reason for Visit * Reason Comments Med Refill Encounter Details Date Type Department Care Team (Late st Contact Info) Description 01/01/2023 Refill [facility] [address] [place] [address] Noe Moran MD [address]. Provider retired 05/24/24 [place], [place] [address] Anxiety Social History Tobacco Use Types Packs/Day [...] EDT Office Visit [facility]/Pediatrics [address] [place] [address] ED 1 [place] [address] Nilson Ibrahim MD [facility]5 [facility], [address]1 [place], [place] [address] documented as of this encounter Visit Diagnoses [...] documented as of this encounter Care Teams Sport Internship Relationship Specialty Start Date End Date Andry Allan MD [facility]5 [place] [address] PCP - General Internal Medicine 06/09/24 documented as of this encounter
--- OUTSIDE RECORDS SUMMARY | 2024-11-23 08:44 | XMS_ITS | Encounter Summary ---
Author Organization [employer] Sys tem Address [facility] [place]-[id number] [address] [place] [address] Care Team Providers Care Advertising Copy Writer Name Role Phone Andry Allan MD Primary Care Provider [phone] Encounter Details Date Type Department Care Team (Late st Contact Info) Description 07/04/2022 Refill [facility] [address] [place] [address] Tone Flores, SABINA Anxiety Social History Tobacco [...] Medicine/Pediatrics [address] [facility] ED 1 [place] [address] Nilson Ibrahim MD 2575 [facility], [address] [place] [address] documented as of this encounter [...] documented as of this encounter Care Teams Advertising Copy Writer Relationship Specialty Start Date End Date Andry Allan MD [address] [place] [address] PCP - General Internal Medicine 06/09/24 documented as of this encounter
--- OUTSIDE RECORDS SUMMARY | 2024-11-23 08:44 | XMS_ITS | Encounter Summary ---
Author Organization [employer] Sys tem Address [facility] [place]-[id number] [address] [place] [address] Care Team Providers Care Wigs Salesperson Name Role Phone Andry Allan MD Primary Care Provider [phone] Encounter Details Date Type Department Care Team (Late st Contact Info) Description 09/18/2023 Orders Only [facility] [address] N[address]ONSSM [place] [place] [address] External, Scanning Provider Social History Tobacco Use [...] EDT Office Visit [facility]/Pediatrics [address] [place] [address] ED 1 [place] [address] Nilson Ibrahim MD 2575 [facility], [address]1 [place], [place] [address] documented as of this encounter Procedures Procedure [...] documented as of this encounter Care Teams Wigs Salesperson Relationship Specialty Start Date End Date Andry Allan MD [address] [place], [place] [phone] PCP - General Internal Medicine 06/09/24 documented as of this encounter
--- OUTSIDE RECORDS SUMMARY | 2024-11-23 08:45 | XMS_ITS | Encounter Summary ---
Author Organization [facility] Address [facility][id number] [address] [place] [address] Care Team Providers Care It Help Desk Analyst Name Role Phone Andry Allan MD Primary Care Provider [phone] Reason for Visit * Reason Onset Date Comments Med Refill 10/08/2020 Encounter Details Date Type Department Care Team (Late st Contact Info) Description 10/08/2020 Refill [facility] [address] [place] [address] Francisco Alas CNA Anxiety Social History Tobacco [...] EDT Office Visit [facility]Pediatrics [facility]5 [facility] ED 1 [place] [address] Nilson Ibrahim MD 2575 [facility], [address] [place] [address] documented as of this encounter [...] documented as of this encounter Care Teams It Help Desk Analyst Relationship Specialty Start Date End Date Andry Allan MD [facility]5 [place] [address] PCP - General Internal Medicine 06/09/24 documented as of this encounter
--- OUTSIDE RECORDS SUMMARY | 2024-11-23 08:45 | XMS_ITS | Encounter Summary ---
Author Organization [facility] Address [address] [place] [address] Phone Care Team Providers Care Informix Developer Name Role Phone Nilson Ibrahim MD Primary Care Provider + Encounter Details Date Type Department Care Team (Late st Contact Info) Description 09/23/2024 Scanned Document [facility] [address] [place] [phone] Scanning, Generic Provider Social History Tobacco Use [...] Description 06/27/2025 10:20 AM EDT Office Visit [facility] [address] [facility] [address] [place] [address] Boom Jacobson DO [address] [facility] 2, [address] [place] [address] documented as of this encounter Procedures Procedure Name Priority Date/Time Associated Diagnosis Comments OUTSIDE LAB SCAN 09/23/2024 documented in this encounter Results * OUTSIDE LAB SCAN (09/23/2024) Narrative 09/23/2024 Ordered by an unspecified provider. us Generic Provider Scanning OUTSIDE SCAN Final Result documented in this encounter Visit Diagnoses Not on filedocumented in this encounter Additional Health Concerns Assessment Noted Time A fall risk assessment has been complete d for the patient 08/30/2024 10:21 AM EDT documented as of this encounter Care Teams Informix Developer Relationship Specialty Start Date End Date Nilson Ibrahim MD [address] [place] [address], 1 [place] [address] PCP - General Internal Medicine 08/30/24 documented as of this encounter
--- OUTSIDE RECORDS SUMMARY | 2024-11-23 08:45 | XMS_ITS | Clinical Summary ---
Author Organization [employer] tem Address [id number] [address] [place] [address] Care Team Providers Care Earth Mover Name Role Phone Andry Allan MD Primary Care Provider [phone] Allergies No known active allergies Medications metoprolol [...] total) by mouth in the morning. Active losartan-hydroC HLOROthiazide (HYZAAR) 100-25 mg per tablet Take 1 tablet by mouth in the morning. 90 tablet 1 06/09/2024 Active omeprazole (PriLOSEC) 20 mg capsule Take 2 capsules (40 mg total) by mouth in the morning. 180 capsule 3 06/09/2024 Active levothyroxine (SYNTHROID, LEVOTHROID) 100 MCG tablet Take 1 tablet (100 mcg total) by mouth in the morning. 90 tablet 1 06/09/2024 Active metFORMIN (GLUCOPHAGE) 1000 mg tablet Take 1 tablet (1,000 mg total) by mouth in the morning and 1 tablet (1,000 mg total) in the evening. Take with meals. 180 tablet 1 06/09/2024 Active ALPRAZolam (XANAX) 1 mg tabletIndicatio ns:Anxiety take 2 AND 1/2 tablets by mouth at bedtime 75 tablet 06/09/2024 Active atorvastatin (LIPITOR) 80 mg tabletIndicatio ns:Mixed hyperlipidemia, Atherosclerotic heart disease of [place] coronary artery without angina pectoris TAKE 1 TABLET BY MOUTH DAILY 90 tablet 08/31/2024 Active Active Problems Problem Noted Date Diagnosed Date Anxiety 12/30/2017 GERD (gastroesophageal reflux disease) 8 Acquired hypothyroidism 12/10/2016 Essential hypertension, benign 12/10/2016 Resolved Problems Problem Noted Date Diagnosed Date Resolved Date Severe obesity (BMI 35.0-39. 9) with comorbidity 02/02/2019 08/08/2019 SBO (small bowel obstruction) 07/22/2016 06/24/2017 Encounters Date Type Department Care Team Description 10/07/2024 Telephone [facility] [place] [phone] Mana Meza [facility] 10/07/2024 Orders Only [facility] [address] [place], [place] [address] [address] External, Scanning Provider 10/06/2024 Orders Only [facility] [address] [place], [place] [address] [address] Andry Allan MD Microcytic hypochromic anemia (Primary Dx) 08/31/2024 Refill [facility] [address] [place], [place] [address] [address] Noe Moran MD Mixed hyperlipidemia; Atherosclerotic heart disease of [place] coronary artery without angina pectoris from Last [...] Office Visit [facility] [address] [place] [address] Nilson Ibrahim MD [address] [place] [address], [address] [place] [address] Health Maintenance Due Date Last [...] 04/07/2019, 11/2018 Medical Devices Implanted Type Area Music Theory Teacher Device Identifier Shelf Expiration Date Model / Serial / Lot Nicko Iol 0 D +16.5 D +1.5 Cyl - [id number] - [id number] Implanted:Qty: 1 on 08/30/2019 by Marilu Badillo MD at [facility] Lens Left: Eye [employer] 01/23/2024 [id number] 16.5 / [id number] / NA Lens Iol Ultrasert 16.0d - [id number] - [id number] Implanted:Qty: 1 on 09/13/2019 by Marilu Badillo MD at [facility] Lens Right: Eye [employer] 02/22/2021 [id number] 16.0 / [id number] / NA Procedures Procedure Name Priority Date/Time Associated Diagnosis Comments MULTIPLE LABS Routine 09/23/2024 from Last 3 Months Results * Multiple labs (09/23/2024) 09/23/2024 us Scanning Provider External DE IMAGING Final Result MANUALLY TRANSCRIBED RESULTS from Last [address] [place] [address] MEDICARE AETNA Advance Directives Documents on File Type Date Recorded Patient White Metal Caster Expl anation Living Will 08/08/2019 4:12 PM [place] Living will 08/01/19 * Full Code (Latest Code Status on File) Date Activated Date Inactivated Comments 07/22/2016 9:16 PM 07/23/2016 8:13 PM Care Teams Earth Mover Relationship Specialty Start Date End Date Andry Allan MD [address] [place], [place] [id number] PCP - General Internal Medicine 06/09/24
--- OUTSIDE RECORDS SUMMARY | 2024-11-23 08:45 | XMS_ITS | Encounter Summary ---
Author Organization [employer] Address [id number] [address] [place] [address] Care Team Providers Care Valve Lapper Name Role Phone Andry Allan MD Primary Care Provider [phone] Reason for Visit * Reason Comments Med Refill Encounter Details Date Type Department Care Team (Late st Contact Info) Description 06/07/2024 Refill [facility] [address] [place] [address] Noe Moran MD [address]. Provider retired 05/24/24 [place], [place] [phone] Social History Tobacco Use Types Packs/Day Years [...] EDT Office Visit [facility] [address] [place] [address] ED 1 [place] [phone] Nilson Ibrahim MD [facility], [address] [place] [address] documented as of this encounter Visit Diagnoses Not on filedocumented in this encounter Additional Health Concerns Assessment Noted Time PHQ-9 Depression Total Score: 0 12/04/19 24 2:00 PM EDT A Body Mass Index follow-up plan has been documented for the patient 11/08/2019 5:23 PM EDT documented as of this encounter Care Teams Valve Lapper Relationship Specialty Start Date End Date Andry Allan MD [facility]5 [place] [address] PCP - General Internal Medicine 06/09/24 documented as of this encounter
--- OUTSIDE RECORDS SUMMARY | 2024-11-23 08:45 | XMS_ITS | Encounter Summary ---
Author Organization [facility] Address [address] [address] Phone Care Team Providers Care Cloth Winder Name Role Phone Nilson Ibrahim MD Primary Care Provider + Encounter Details Date Type Department Care Team (Late st Contact Info) Description 11/08/2024 Telephone [place] [id number] [address] [address] Nita Rivera RN Social History Tobacco Use Types Packs/Day Years [...] encounter Miscellaneous Notes * Telephone Encounter - Karmen Aggarwal LPN - 11/22/2024 10:23 AM EDT Patient phoned that the [facility] did not receive lab order and was calling to have it re faxed. Re faxed as request to central scheduling at [phone]. * Telephone Encounter - Corie Freeman LPN - 11/10/2024 1:04 PM EDT Lab faxed * Addendum Note - Corie Freeman LPN - 11/09/2024 9:03 AM EDTAddended by: CORIE FREEMAN on: 11/09/2024 09:03 AM Modules accepted: Orders * Addendum Note - Corie Freeman LPN - 11/09/2024 9:02 AM EDTAddended by: CORIE FREEMAN on: 11/09/2024 09:02 AM Modules accepted: Orders * Telephone Encounter - Corie Freeman LPN - 11/09/2024 9:01 AM EDT Patient phoned back, advised, verbalized understanding. Rx prepped. Lab slip needs faxed to the [facility] once signed. Watch for lab results to consider the new potassium rx. * Telephone Encounter - Nita Rivera RN - 11/09/2024 8:56 AM EDT Attempted to phone patient, left detailed message to return call. * Telephone Encounter - Nita Rivera RN - 11/08/2024 11:29 AM EDT Pt states that since her last visit she has been having very bad legs cramps in the middle of the night with both of her legs. Reports her pcp retired and she has not been seen by her new provider yet. Reports her old pcp told her that her bp meds could possibly be contributing to this. Patient seeking Dr. Boom Jacobson, DO recommendations at this time. documented in this encounter Plan of Treatment Upcoming Encounters Date Type Department Care Team (Late st Contact Info) Description 06/27/2025 10:20 AM EDT Office Visit [facility] [address] [facility] [address] [place] [address] Boom Jacobson DO [address] [facility] [address], [address] [place] [address] Scheduled Orders Name Type Priority Associated Diagnoses Orde r Schedule Basic Metabolic Panel Lab Routine Essential hypertension Expected: 11/09/2024 (Approximate), Expires: 11/09/2025 documented as of this encounter Visit Diagnoses Diagnosis Essential hypertension Unspecified essential hypertension documented in this encounter Additional Health Concerns Assessment Noted Time A fall risk assessment has been complete d for the patient 08/30/2024 10:21 AM EDT documented as of this encounter Care Teams Cloth Winder Relationship Specialty Start Date End Date Nilson Ibrahim MD [address] [place] [address], [address] [place] [address] PCP - General Internal Medicine 08/30/24 documented as of this encounter
--- OUTSIDE RECORDS SUMMARY | 2024-11-23 08:45 | XMS_ITS | Clinical Summary ---
Author Organization [facility] Address [address] [place], [place] [address] Care Team Providers Care Reconnaissance Man Name Role Phone Unavailable Primary Care Provider [...]
--- OUTSIDE RECORDS SUMMARY | 2024-11-23 08:45 | XMS_ITS | Encounter Summary ---
Author Organization [facility] Address [facility] [id number] [address] [place] [address] Care Team Providers Care Lapper Name Role Phone Andry Allan MD Primary Care Provider [phone] Reason for Visit * Reason Onset Date Comments Med Refill 10/10/2019 Encounter Details Date Type Department Care Team (Late st Contact Info) Description 10/10/2019 Refill [facility] [address] [place] [phone] Chantel Simeon LPN Anxiety Social History Tobacco [...] EDT Office Visit [facility] [address] [place] [address] ED 1 [place] [phone] Nilson Ibrahim MD [address] [facility], [address] [place], [place] [address] documented as of this encounter Visit Diagnoses [...] documented as of this encounter Care Teams Lapper Relationship Specialty Start Date End Date Andry Allan MD [facility]5 [place], [place] [phone] PCP - General Internal Medicine 06/09/24 documented as of this encounter
--- OUTSIDE RECORDS SUMMARY | 2024-11-23 08:45 | XMS_ITS | Encounter Summary ---
Author Organization [employer] Address [id number] [address] [place] [address] Care Team Providers Care Machine Ceramic Coater Name Role Phone Andry Allan MD Primary Care Provider Encounter Details Date Type Department Care Team (Late st Contact Info) Description 06/07/2020 Refill [facility] [address] [facility] [place] [phone] Jennifer Puente CMA Anxiety Social History Tobacco [...] Office Visit [facility] [address] [place] [address] ED 1 [place] [address] Nilson Ibrahim MD [address] [facility], [address] [place] [address] documented as of this encounter [...] as of this encounter Care Teams Machine Ceramic Coater Relationship Specialty Start Date End Date Andry Allan MD [facility]6 [place] [address] PCP - General Internal Medicine 06/09/24 documented as of this encounter
--- OUTSIDE RECORDS SUMMARY | 2024-11-23 08:45 | XMS_ITS | Encounter Summary ---
Author Organization [facility] Address [facility] [place][id number] [address] [place] [address] Care Team Providers Care Pan Tank Worker Name Role Phone Andry Allan MD Primary Care Provider Reason for Visit * Reason Onset Date Comments Med Refill 07/06/2020 Encounter Details Date Type Department Care Team (Late st Contact Info) Description 07/06/2020 Refill [facility] [address] [place] [phone] Francisco Alas CNA Anxiety Social History Tobacco [...] Office Visit [facility] [address] [facility] ED [address] [place] [address] Nilson Ibrahim MD [address] [facility], [address] [place] [address] documented as of this encounter [...] documented as of this encounter Care Teams Pan Tank Worker Relationship Specialty Start Date End Date Andry Allan MD [address] [place] [address] PCP - General Internal Medicine 06/09/24 documented as of this encounter
--- OUTSIDE RECORDS SUMMARY | 2024-11-23 08:45 | XMS_ITS | Encounter Summary ---
Author Organization [employer] Address [facility][id number] [address] [place] [address] Care Team Providers Care Client Retention Specialist Name Role Phone Andry Allan MD Primary Care Provider [phone] Encounter Details Date Type Department Care Team (Late st Contact Info) Description 10/07/2024 Orders Only [facility] [address] [facility] [address] External, Scanning Provider Social History Tobacco Use [...] [facility] ED 1 [place] [address] Nilson Ibrahim MD [address] [facility], [address] [place], [place] [address] documented as of this encounter Procedures Procedure Name Priority Date/Time Associated Diagnosis Comments MULTIPLE LABS Routine 09/23/2024 documented in this encounter Results * Multiple labs (09/23/2024) 09/23/2024 us Scanning Provider External AL IMAGING Final Result MANUALLY TRANSCRIBED RESULTS documented in this encounter Visit Diagnoses Not on filedocumented in this encounter Additional Health Concerns Assessment Noted Time PHQ-9 Depression Total Score: 0 06/10/19 9:53 AM EDT A Body Mass Index follow-up plan has been documented for the patient 06/09/2024 10:31 AM EDT documented as of this encounter Care Teams Client Retention Specialist Relationship Specialty Start Date End Date Andry Allan MD [address] [place] [address] PCP - General Internal Medicine 06/09/24 documented as of this encounter
--- OUTSIDE RECORDS SUMMARY | 2024-11-23 08:45 | XMS_ITS | Encounter Summary ---
Author Organization [employer] Address [facility] [id number] [address] [place] [address] Care Team Providers Care Cycle Consultant Name Role Phone Andry Allan MD Primary Care Provider [phone] Reason for Visit * Reason Onset Date Comments Med Refill 01/06/2024 Encounter Details Date Type Department Care Team (Late st Contact Info) Description 01/06/2024 Refill [facility] [address] [place] [address] Chantel Simeon LPN Anxiety Social History Tobacco [...] EST Patient requesting refill of Alprazolam to [facility] documented in this encounter Plan of Treatment Upcoming Encounters Date Type Department Care Team (Late st Contact Info) Description 12/05/2024 1:30 PM EDT Office Visit [facility] [address] [place] [address] 1 [place] [address] Nilson Ibrahim MD [address] [place] [address], [address] [place], [place] [address] documented as of this encounter Visit Diagnoses Diagnosis Anxiety Anxiety state, unspecified documented in this encounter Additional Health Concerns Assessment Noted Time PHQ-9 Depression Total Score: 0 12/04/19 24 2:00 PM EDT A Body Mass Index follow-up plan has been documented for the patient 11/08/2019 5:23 PM EDT documented as of this encounter Care Teams Cycle Consultant Relationship Specialty Start Date End Date Andry Allan MD [address] [place] [id number] PCP - General Internal Medicine 06/09/24 documented as of this encounter
--- OUTSIDE RECORDS SUMMARY | 2024-11-23 08:45 | XMS_ITS | Encounter Summary ---
Author Organization [employer] Address [facility] [place]-[id number] [address] [place] [address] Care Team Providers Care Dough Sheeter Name Role Phone Andry Allan MD Primary Care Provider [phone] Reason for Visit * Reason Onset Date Comments Med Refill 05/18/2024 Encounter Details Date Type Department Care Team (Late st Contact Info) Description 05/18/2024 Refill [facility] [address] [facility] [place] [address] Azalia Coles LPN Anxiety Social History Tobacco [...] Office Visit [facility] [address] [place] [address] ED 1 [place] [address] Nilson Ibrahim MD [address] [place] [address], [address] [place], [place] [address] documented as of this encounter Visit Diagnoses Diagnosis Anxiety Anxiety state, unspecified documented in this encounter Additional Health Concerns Assessment Noted Time PHQ-9 Depression Total Score: 0 12/04/19 24 2:00 PM EDT A Body Mass Index follow-up plan has been documented for the patient 11/08/2019 5:23 PM EDT documented as of this encounter Care Teams Dough Sheeter Relationship Specialty Start Date End Date Andry Allan MD [facility]5 [place] [address] PCP - General Internal Medicine 06/09/24 documented as of this encounter
--- OUTSIDE RECORDS SUMMARY | 2024-11-23 08:45 | XMS_ITS | Encounter Summary ---
Author Organization [employer] Address [facility][id number] [address] [place] [address] Care Team Providers Care Director Transition Name Role Phone Andry Allan MD Primary Care Provider [phone] Encounter Details Date Type Department Care Team (Late st Contact Info) Description 06/10/2024 Orders Only [facility] [address] [place] [address] Azalia Coles LPN Diabetes mellitus without complication ([facility]) Social History Tobacco Use Types Packs/Day Years [...] EDT Office Visit [facility] [address] [place] [address] 1 [place] [address] Nilson Ibrahim MD [address] [place] [address], [address] [place] [address] documented as of this encounter Procedures Procedure Name Priority Date/Time Associated Diagnosis Comments CBC WITH AUTO DIFFERENTIAL Routine 05/23/2024 Diabetes mellitus without complication ([facility]) HEMOGLOBIN A1C Routine 05/23/2024 Diabetes mellitus without complication ([facility]) LIPID PROFILE Routine 05/23/2024 Diabetes mellitus without complication ([facility]) COMPREHENSIVE METABOLIC PANEL Routine 05/23/2024 Diabetes mellitus without complication ([facility]) LIPID PROFILE Routine 04/20/2023 documented in this [...] ORDERABLES Final R esult Performing Organization Address [place] de Phone Number SUNQUEST * Comprehensive metabolic panel (05/23/2024) 05/23/2024 Noe Moran MD LAB BLOOD ORDERABLES Final R esult Performing Organization Address [place] de Phone Number SUNQUEST * (ABNORMAL) Hemoglobin A1c (05/23/2024) External Hemoglobin A1C 7.3(A) 4.0 - 7.0 % SUNQUEST 05/23/2024 Noe Moran MD LAB BLOOD ORDERABLES Final R esult Performing Organization Address [facility] de Phone Number SUNQUEST * (ABNORMAL) Lipid [...] BLOOD ORDERABLES Final Result Performing Organization Address [place] de Phone Number MANUALLY TRANSCRIBED RESULTS documented in this encounter Visit Diagnoses Diagnosis Diabetes mellitus without complication ([facility]) Type II or unspecified type diabetes mellitus without mention of complication, not stated as uncontrolled documented in this encounter Additional Health Concerns Assessment Noted Time PHQ-9 Depression Total Score: 0 06/10/19 9:53 AM EDT A Body Mass Index follow-up plan has been documented for the patient 06/09/2024 10:31 AM EDT documented as of this encounter Care Teams Director Transition Relationship Specialty Start Date End Date Andry Allan MD [address] [place] [address] PCP - General Internal Medicine 06/09/24 documented as of this encounter
--- OUTSIDE RECORDS SUMMARY | 2024-11-23 08:45 | XMS_ITS | Encounter Summary ---
Author Organization [employer] Address [facility] [place][id number] [address] [place] [address] Care Team Providers Care Industrial Roof Plumber Name Role Phone Andry Allan MD Primary Care Provider [phone] Encounter Details Date Type Department Care Team (Late st Contact Info) Description 06/10/2024 Telephone [facility] [address] [place] [address] Ree Arambula, BANK PRESIDENT-PAI GOW MANAGER [address] [place], [place] [phone] Social History Tobacco Use Types Packs/Day Years [...] for you to call them back at [phone] * Telephone Encounter - ANA Temple - 06/10/2024 11:04 AM EDT Called and went over questions documented in this encounter Plan of Treatment Upcoming Encounters Date Type Department Care Team (Late st Contact Info) Description 12/05/2024 1:30 PM EDT Office Visit [facility] [address] [place] [address] ED 1 [place] [phone] Nilson Ibrahim MD [address] [place] [address], [address] [place] [address] documented as of this encounter Visit Diagnoses Not on filedocumented in this encounter Additional Health Concerns Assessment Noted Time PHQ-9 Depression Total Score: 0 06/10/19 25 9:53 AM EDT A Body Mass Index follow-up plan has been documented for the patient 06/09/2024 10:31 AM EDT documented as of this encounter Care Teams Industrial Roof Plumber Relationship Specialty Start Date End Date Andry Allan MD [address] [place] [address] PCP - General Internal Medicine 06/09/24 documented as of this encounter
--- OUTSIDE RECORDS SUMMARY | 2024-11-23 08:45 | XMS_ITS | Encounter Summary ---
Author Organization [facility] Address [facility] [id number] [address] [place] [address] Care Team Providers Care Sleeve Setter Safety Stitch Name Role Phone Andry Allan MD Primary Care Provider [phone] Reason for Visit * Reason Comments Med Refill Encounter Details Date Type Department Care Team (Late st Contact Info) Description 04/09/2024 Refill [facility] [address] [place] [phone] Ree Arambula, OCCUPATIONAL HEALTH PHYSICIAN[facility] [address] [place], [place] [phone] Anxiety Social History Tobacco Use Types Packs/Day [...] EDT Office Visit [facility] [address] [place] [address] 1 [place] [address] Nilson Ibrahim MD [facility]5 [facility], [address] [place], [place] [phone] documented as of this encounter Visit Diagnoses Diagnosis Anxiety Anxiety state, unspecified documented in this encounter Additional Health Concerns Assessment Noted Time PHQ-9 Depression Total Score: 0 12/04/19 24 2:00 PM EDT A Body Mass Index follow-up plan has been documented for the patient 11/08/2019 5:23 PM EDT documented as of this encounter Care Teams Sleeve Setter Safety Stitch Relationship Specialty Start Date End Date Andry Allan MD [address] [place] [address] PCP - General Internal Medicine 06/09/24 documented as of this encounter
--- OUTSIDE RECORDS SUMMARY | 2024-11-23 08:45 | XMS_ITS | Encounter Summary ---
Author Organization [employer] [employer] [facility] Address [facility] [id number] [address] [place] [address] Care Team Providers Care Recreation Attendant Name Role Phone Andry Allan MD Primary Care Provider [phone] Reason for Visit * Reason Onset Date Comments Med Refill 03/07/2024 Encounter Details Date Type Department Care Team (Late st Contact Info) Description 03/07/2024 Refill [facility] [address] [place] [phone] Mana Meza CMA Anxiety Social History Tobacco [...] EDT Office Visit [facility] [address] [place] [address] 1 [place] [address] Nilson Ibrahim MD [address] [place] [address], [address] [place], [place] [phone] documented as of this encounter Visit Diagnoses Diagnosis Anxiety Anxiety state, unspecified documented in this encounter Additional Health Concerns Assessment Noted Time PHQ-9 Depression Total Score: 0 12/04/19 24 2:00 PM EDT A Body Mass Index follow-up plan has been documented for the patient 11/08/2019 5:23 PM EDT documented as of this encounter Care Teams Recreation Attendant Relationship Specialty Start Date End Date Andry Allan MD [address] [place] [id number] PCP - General Internal Medicine 06/09/24 documented as of this encounter
--- OUTSIDE RECORDS SUMMARY | 2024-11-23 08:45 | XMS_ITS | Encounter Summary ---
Author Organization [facility] Address [facility] [id number] [address] [place] [address] Care Team Providers Care It Quality Analyst Name Role Phone Andry Allan MD Primary Care Provider [phone] Reason for Visit * Reason Onset Date Comments Med Refill 04/18/2024 Encounter Details Date Type Department Care Team (Late st Contact Info) Description 04/18/2024 Refill [facility] [address] [place] [phone] Liza Salinas CMA Anxiety Social History Tobacco [...] Office Visit [facility] [address] [place] [address] ED 1 [place] [address] Nilson Ibrahim MD [address] [place] [address], [address] [place], [place] [phone] documented as of this encounter Visit Diagnoses Diagnosis Anxiety Anxiety state, unspecified documented in this encounter Additional Health Concerns Assessment Noted Time PHQ-9 Depression Total Score: 0 12/04/19 24 2:00 PM EDT A Body Mass Index follow-up plan has been documented for the patient 11/08/2019 5:23 PM EDT documented as of this encounter Care Teams It Quality Analyst Relationship Specialty Start Date End Date Andry Allan MD [facility] [place] [address] PCP - General Internal Medicine 06/09/24 documented as of this encounter
--- OUTSIDE RECORDS SUMMARY | 2024-11-23 08:45 | XMS_ITS | Encounter Summary ---
Author Organization [employer] [facility] Address [facility] [id number] [address] [place] [address] Care Team Providers Care Hardwood Faller Name Role Phone Andry Allan MD Primary Care Provider [phone] Encounter Details Date Type Department Care Team (Late st Contact Info) Description 02/01/2024 Orders Only [facility] [address] [facility] [place] [phone] External, Scanning Provider Social History Tobacco Use [...] Office Visit [facility] [address] [facility] [address] 1 [place] [phone] Nilson Ibrahim MD [address] [facility], [address] [place], [place] [phone] documented as of this encounter Procedures Procedure [...] documented as of this encounter Care Teams Hardwood Faller Relationship Specialty Start Date End Date Andry Allan MD [address] [place], [place] [phone] PCP - General Internal Medicine 06/09/24 documented as of this encounter
--- OUTSIDE RECORDS SUMMARY | 2024-11-23 08:45 | XMS_ITS | Encounter Summary ---
Author Organization [employer] Address [facility] [id number] [address] [place] [address] Care Team Providers Care Captain Cannery Tender Name Role Phone Andry Allan MD Primary Care Provider [phone] Encounter Details Date Type Department Care Team (Late st Contact Info) Description 12/06/2020 Telephone [facility] [address] [facility] [place] [address] Noe Moran MD [address]. Provider retired 05/24/24 [place], [place] [phone] Social History Tobacco Use Types Packs/Day Years [...] EDT Office Visit [facility] [address] [place] [address] ED 1 [place] [address] Nilson Ibrahim MD [address] [place] [address], [address] [place], [place] [phone] documented as of this encounter Visit Diagnoses [...] documented as of this encounter Care Teams Captain Cannery Tender Relationship Specialty Start Date End Date Andry Allan MD [facility] [place], [place] [phone] PCP - General Internal Medicine 06/09/24 documented as of this encounter
--- OUTSIDE RECORDS SUMMARY | 2024-11-23 08:45 | XMS_ITS | Encounter Summary ---
Author Organization [facility] Address [facility] [place][id number] [address] [place] [address] Care Team Providers Care Vp Revenue Cycle Name Role Phone Andry Allan MD Primary Care Provider [phone] Reason for Visit * Reason Onset Date Comments Med Refill 11/06/2020 Encounter Details Date Type Department Care Team (Late st Contact Info) Description 11/06/2020 Refill [facility] [address] [place] [phone] Chantel Simeon LPN Anxiety Social History Tobacco [...] [address] [facility] [address] 1 [place] [address] Nilson Ibrahim MD [address] [facility], [address] [place] [address] documented as of this encounter [...] documented as of this encounter Care Teams Vp Revenue Cycle Relationship Specialty Start Date End Date Andry Allan MD [address] [place] [address] PCP - General Internal Medicine 06/09/24 documented as of this encounter
--- OUTSIDE RECORDS SUMMARY | 2024-11-23 08:45 | XMS_ITS | Encounter Summary ---
Author Organization [facility] Address [facility] [id number] [address] [place] [address] Care Team Providers Care Campus Receptionist Name Role Phone Andry Allan MD Primary Care Provider [phone] Reason for Visit * Reason Onset Date Comments Med Refill 09/06/2020 Encounter Details Date Type Department Care Team (Late st Contact Info) Description 09/06/2020 Refill [facility] [address] [place] [address] Jennifer Puente CMA Anxiety Social History Tobacco [...] Office Visit [facility] [address] [place] [address] ED 1 [place] [address] Nilson Ibrahim MD [address] [facility], [address] [place], [place] [address] documented as of this encounter Visit Diagnoses [...] documented as of this encounter Care Teams Campus Receptionist Relationship Specialty Start Date End Date Andry Allan MD [facility]5 [place], [place] [phone] PCP - General Internal Medicine 06/09/24 documented as of this encounter
[2024-11-23 10:04] LABS: Anion Gap 13.0; Blood Urea Nitrogen 18.0 mg/dL (7.0-18.0); Calcium 9.2 mg/dL (8.5-10.1); Carbon Dioxide 28.1 mmol/L (21.0-32.0); Chloride 105 mmol/L (98-107); Estimated GFR (African America >60 (>=60 mL/min/1.73m^2); Estimated GFR (Non-African Ame 60 (>=60 mL/min/1.73m^2); Glucose 135 mg/dL (74-106); Potassium 4.1 mmol/L (3.5-5.1); Sodium 142 mmol/L (136-145)
== END 2024-11-23 08:42 | disposition home or self-care (01) ==
LOC: LAB 08:41
PROVIDERS: PCP Internal Medicine; Visit Provider Internal Medicine Cardiovascular Disease
DX: I10 Essential (primary) hypertension (principal)
CPT/HCPCS: 36415; 80048

== ENCOUNTER 2024-12-06 08:46 | Outpatient (OUT) | payer MEDICARE, SELFPAY ==
[2024-12-06 10:10] LABS: Reticulocyte Pct Auto 1.68 % (0.60-3.10)
[2024-12-06 10:19] LABS: Iron 37.0 ug/dL (50.0-170.0); Percent Iron Saturation 10.5 %; Total Iron Binding Capacity 353.0 ug/dL (250.0-450.0)
[2024-12-06 10:38] LABS: Ferritin 5.0 ng/mL (8.0-252.0); Folate 6.30 ng/mL (8.60-58.90)
[2024-12-07 08:09] LABS: Vitamin B12 231 pg/mL (232-1245)
== END 2024-12-06 08:47 | disposition home or self-care (01) ==
LOC: LAB 08:47
PROVIDERS: PCP Internal Medicine; Visit Provider Internal Medicine
DX: D64.9 Anemia, unspecified (principal)
CPT/HCPCS: 36415; 82607; 82728; 82746; 83540; 83550; 85045

== ENCOUNTER 2025-01-13 08:26 | Outpatient (OUT) | payer MEDICARE, SELFPAY ==
--- OUTSIDE RECORDS SUMMARY | 2025-01-13 08:31 | XMS_ITS | Encounter Summary ---
Author Organization [employer] Address [facility] [place][id number] [address] [place] [address] Care Team Providers Care Tank Stave Assembler Name Role Phone Nilson Ibrahim MD Primary Care Provider [phone] Encounter Details DateTypeDepartmentCare Team (Latest Contact Info)Ydxzwagksmx82/20/2025Orders Only [facility] [address] [place] [address] 1 [place] [address] Nilson Ibrahim MD [address] [place] [address], [address] [place], [place] [phone] B12 deficiency (Primary Dx); Iron deficiency Social History Tobacco UseTypesPacks/DayYears UsedDateSmoking Tobacco: NeverSmokeless Tobacco: NeverAlcohol UseStandard Drinks/WeekCommentsNot Currently0 (1 standard drink = 0.6 oz pure alcohol)rarelyAUDIT-CAnswerDate RecordedFrequency of Alcohol ConsumptionMonthly or less12/30/2017Average Number of Drinks1 or Frequency of Binge SuysttinWrigq02/07/2018PHQ-2AnswerDate RecordedTotal Score0 5ChildcareAnswerDate OagwvuhuRhhrtxnniTxvswsw87/12/2019EmploymentAnswer Date BdwfcgrySuyohxzaqoGbuqbhe66/12/2019Hunger ScreeningAnswerDate Recorded Within the past 12 months we worried whether our food would run out before we got money to buy more.Never True06/09/2024Within the past 12 months the food we bought just didn't last and we didn't have money to get more.Never True 06/09/2024Purpose - LifeAnswerDate RecordedPurpose and direction in lifeUnknown 1CommentsNoSex and Gender InformationValueDate RecordedSex Assigned at BwcxxMivbuf58/18/2019 11:41 AM EDTLegal VsxPfjyfh46/21/2017 1:37 PM ESTGender QwrkfyevVqxexw06/18/2019 11:41 AM EDTSexual OrientationDon't know 09/09/2018 11:41 AM EDTdocumented as of this encounter Plan of Treatment NameTypePriorityAssociated DiagnosesOrder ScheduleVitamin O13DpnCnjkzrh B12 deficiency 1 Occurrences starting 01/12/2025 until 01/12/2026FolateLabRoutine B12 deficiency 1 Occurrences starting 01/12/2025 until 01/12/2026Iron and TIBCLabRoutine Iron deficiency 1 Occurrences starting 01/12/2025 until 01/12/2026FerritinLabRoutine Iron deficiency 1 Occurrences starting 01/12/2025 until 01/12/2026documented as of this encounter Visit Diagnoses Diagnosis B12 deficiency- Primary Iron deficiency Disorders of iron metabolism documented in this encounter Additional Health Concerns AssessmentNoted TimePHQ-9 Depression Total Score: 2:00 PM EDTA Body Mass Index follow-up plan has been documented for the wtgfeco8806/09/2024 10:31 AM EDTdocumented as of this encounter Care Teams Team MemberRelationshipSpecialtyStart DateEnd Date Nilson Ibrahim MD [address] [place] [address], 1 [place] [address] PCP - GeneralInternal Bukjtnlr50/13/25documented as of this encounter
--- OUTSIDE RECORDS SUMMARY | 2025-01-13 08:31 | XMS_ITS | Clinical Summary ---
Author Organization [facility] Address [address] [place] [address] Phone Care Team Providers Care Surgical Processor Name Role Phone Nilson Ibrahim MD Primary Care Provider + Allergies No known active allergies Medications MedicationSigDispense QuantityRefillsLast FilledStart DateEnd DateStatus aspirin 81 mg EC tablet Take 1 tablet (81 mg) by mouth once daily.Active omeprazole (PriLOSEC) [address] capsule Take 1 capsule (20 mg) by mouth 2 times a day.02/08/2022ctive levothyroxine (Synthroid, Levoxyl) 100 mcg tablet Take 1 tablet (100 mcg) by mouth once daily in the morning. Take before meals. 10/10/2022ctive ALPRAZolam (Xanax) 1 mg tablet take 2 & 1/2 tablets by mouth at pywxzyu3010/07/2022ctive metFORMIN (Glucophage) 1,000 mg tablet Take 1 tablet (1,000 mg) by mouth 2 times daily (morning and late afternoon). 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 90 tablet 6Active metoprolol tartrate (Lopressor) 25 mg tablet Indications:Inferior WI (Multi)Take 1 tablet (25 mg) by mouth 2 times a day. 180 tablet 10:15 AM EDT5Active losartan (Cozaar) 25 mg tablet Indications:Essential hypertensionTake 1 tablet (25 mg) by mouth once daily. 90 tablet 11:08 AM EDT5011/09/2025ctive Active Problems ProblemNoted DateDiagnosed DateNever smoked qwvdpef2608/30/20247378Jctzcz14/08/2025 Presence of bare metal stent in LAD coronary hcltxk7208/30/2024Mixed ffzjiicuvzqrzf82/08/2024Essential yjyodfmmwiyn34/08/2024oronary artery disease involving enterprise coronary artery of enterprise heart without angina pectoris 06/16/2023MI 27.0-27.9,adult06/16/20234076Joqenmetyrv38/23/2024Inferior WI 12/11/2022S/P right coronary artery (RCA) stent fadnzjfib77/19/2023 Encounters DateTypeDepartmentCare KxhjFhflgjgrwte49/07/2025Telephone [address] [address] Nita Rivera RN 11/23/2024Scanned Document [facility] [address] [place] [address] Scanning, Generic Provider 11/08/2024Telephone [address] [address] Nita Rivera RN from Last 3 Months Immunizations ImmunizationAdministration DatesNext DueFlu vaccine (IIV4), preservative free *Check age/dose*10/28/2019Flu vaccine, quadrivalent, high-dose, preservative free, age 65y+ (FLUZONE)12/05/2021Flu vaccine, trivalent, preservative free, HIGH-DOSE, age 65y+ (Fluzone)12/26/2015Influenza Whole12/16/2010,12/11/2008 Influenza, Seasonal, Quadrivalent, Jrmfkfyful87/16/2023,11/29/2020Influenza, seasonal, fdvdoubupr66/15/2015Influenza, trivalent, croxfqmakm30/02/2019Novel izayyurve-G6I6-85, preservative-free04/02/2009Pfizer COVID-19 vaccine, 12 years and older, (30mcg/0.3mL) (Comirnaty)3Pfizer COVID-19 vaccine, bivalent, age 12 years and older (30 mcg/0.3 mL)08/01/2022,2Pfizer Collins Cap EFUS-QfO-678/31/2022Pneumococcal polysaccharide vaccine, 23-valent, age 2 years and older (PNEUMOVAX 23)10/28/2019RSV, 60 Years And Older (AREXVY)11/07/2022 Zoster vaccine, recombinant, adult (SHINGRIX)04/07/2019,02/01/2019 Family History Medical HistoryRelationNameCommentsPeripheral vascular diseaseBrother degenerative heartFatherBreast cancerSisterRelationNameStatusCommentsBrother FatherSister Social History Tobacco UseTypesPacks/DayYears UsedDateSmoking Tobacco: NeverSmokeless Tobacco: Never Tobacco Cessation:Counseling Given: Not Answered Alcohol UseStandard Drinks/WeekCommentsNever0 (1 standard drink = 0.6 oz pure alcohol)CommentsUnknownSex and Gender InformationValueDate RecordedSex Assigned at GhrujZvabvo81/31/2025 1:34 PM EDTLegal ZsnPafykw85/08/2023 9:36 PM EDTGender HkpeslmbKfzxsb15/31/2025 1:34 PM EDTSexual OrientationStraight 09/22/2024 1:34 PM EDT Last Filed Vital Signs Vital SignReadingTime TakenCommentsBlood Sbpnkpgp732/72008/30/2024 10:25 AM EDT Kkdqq8523/08/2025 10:25 AM EDTTemperature--Respiratory Rate--Oxygen Saturation-- Inhaled Oxygen Concentration--Hkxtum58.5 kg (140 lb)08/30/2024 10:25 AM EDT Dbigur212.4 cm (5')08/30/2024 10:25 AM EDTBody Mass Index27.34008/30/2024 10:25 AM EDT Plan of Treatment DateTypeDepartmentCare Team (Latest Contact Info)Ybalxherbrr2026 10:20 AM EDTOffice Visit [address] [phone] Boom Jacobson S, DO [address] [facility], [address] [place] [address] Health MaintenanceDue DateLast DoneCommentsLipid Panel1947Medicare Annual Wellness Visit (AWV)1947TSH Level1947Diabetes Zsqprqqtb52/12/1966 Hepatitis C Xfvwvgnsq67/12/1966DTaP/Tdap/Td Vaccines (1 - Tdap)11/04/1969Bone Density Scan11/04/2012Influenza Vaccine (#1)510/10/2023, 12/08/2022, 12/05/2021, Additional history existsCOVID-19 Vaccine ( season) 51, 08/01/2022, 11/07/2021, Additional history existsZoster JhdcwpqrWltnephot88/13/2020, 02/01/2019Pneumococcal IivbqjeBfcucjljb21/04/2020, 12/09/2016RSV High Risk: (Elderly (60+) or Population)Completed 08/20/2023, 11/07/2022HIB VaccinesAged OutNo longer eligible based on patient's age to complete this topicHPV VaccinesAged OutNo longer eligible based on patient's age to complete this topicHepatitis A VaccinesAged OutNo longer eligible based on patient's age to complete this topicHepatitis B VaccinesAged OutNo longer eligible based on patient's age to complete this topicIPV Vaccines Aged OutNo longer eligible based on patient's age to complete this topic Meningococcal VaccineAged OutNo longer eligible based on patient's age to complete this topicRotavirus VaccinesAged OutNo longer eligible based on patient's age to complete this topic Procedures Procedure NamePriorityDate/TimeAssociated DiagnosisCommentsOUTSIDE LAB SCAN 11/23/2024 from Last 3 Months Results * OUTSIDE LAB SCAN (11/23/2024) Narrative 11/23/2024 Ordered by an unspecified provider. Authorizing ProviderResult TypeResult StatusGeneric Provider ScanningOUTSIDE SCANFinal Result from Last 3 Months Insurance * Guarantor: Nisha Menchaca TypeRelation to PatientDate of BirthPhone Billing Address[place] [phone] [place] [phone] * Guarantor: Nisha Menchaca TypeRelation to PatientDate of BirthPhone Billing Address[place] [phone] [address] [place] [id number] Care Teams Team MemberRelationshipSpecialtyStart DateEnd Date Nilson Ibrahim MD [address] [place] [address], [address] [place], [place] [phone] PCP - GeneralInternal Medicine08/30/24
--- OUTSIDE RECORDS SUMMARY | 2025-01-13 08:31 | XMS_ITS | Clinical Summary ---
Author Organization [facility] tem Address [id number] [address] [place] [address] Care Team Providers Care Brake Lining Finisher Name Role Phone Nilson Ibrahim MD Primary Care Provider [phone] Allergies No known active allergies Medications MedicationSigDispense QuantityRefillsLast FilledStart DateEnd DateStatus aspirin 81 mg Take 1 tablet (81 mg total) by mouth in the morning.Active ALPRAZolam (XANAX) 1 mg tablet Indications:Anxietytake 2 AND 1/2 tablets by mouth at bedtime 75 tablet 5Active atorvastatin (LIPITOR) 80 mg tablet Indications:Mixed hyperlipidemia,Atherosclerotic heart disease of [place] coronary artery without angina pectorisTake 1 tablet (80 mg total) by mouth every morning. 90 tablet 5Active levothyroxine (SYNTHROID, LEVOTHROID) 100 MCG tablet Take 1 tablet (100 mcg total) by mouth in the morning. 90 tablet 5Active losartan (COZAAR) 25 mg tablet Take 1 tablet (25 mg total) by mouth in the morning. 90 tablet 0/6Active metFORMIN (GLUCOPHAGE) 1000 mg tablet Take 1 tablet (1,000 mg total) by mouth in the morning and 1 tablet (1,000 mg total) in the evening. Take with meals. 180 tablet 5Active metoprolol tartrate (LOPRESSOR) 25 mg tablet Take 1 tablet (25 mg total) by mouth in the morning and 1 tablet (25 mg total) before bedtime. 180 tablet 5Active omeprazole (PriLOSEC) 20 mg capsule Take 2 capsules (40 mg total) by mouth in the morning. 180 capsule 5Active ferrous sulfate 325 (65 FE) MG tablet Take 1 tablet (325 mg total) by mouth in the morning and 1 tablet (325 mg total) in the evening. Take with meals. 60 tablet 5Active folic acid (FOLVITE) 1 mg tablet Take 1 tablet (1 mg total) by mouth in the morning. 30 tablet 5Active cyanocobalamin (vitamin B-12) 1000 MCG tablet Take 1 tablet (1,000 mcg total) by mouth in the morning. 30 tablet 5Active Active Problems ProblemNoted DateDiagnosed IyqgPxmpgmb49/07/2018GERD (gastroesophageal reflux disease)06/24/2017Acquired gaqezsbsakughi75/18/2017Essential hypertension, redlky2012/10/2016 Resolved Problems ProblemNoted DateDiagnosed DateResolved DateSevere obesity (BMI 35.0-39.9) with cufniuiloqc60SBO (small bowel obstruction) Encounters DateTypeDepartmentCare VkwwVmhoeyfhiyj17/20/2025Orders Only [facility] [address] [facility] [address] [place] [phone] Nilson Ibrahim MD B12 deficiency (Primary Dx); Iron zojhxggkwx90/23/2025Telephone [facility] General Surgery [address] [place] [address] Leonora Mckinney, HYDRO STATION SUPERVISOR-PROJECT LEAD 12/07/2024Orders Only [facility] [address] [place] [address] Mindi Demarco RMA Anemia, unspecified type12/06/2024Results Follow-Up [facility] [address] [place] [address] Andry Allan MD Iron and TIBC, Ferritin, Reticulocytes, Ebxyxn6212/06/2024Orders Only [facility] [address] [place] [phone] Mindi Demarco RMA Anemia, unspecified type12/05/2024 1:30 PM EDTOffice Visit [facility] [address] [facility] [address] [place] [phone] Nilson Ibrahim MD Routine general medical examination at a health care facility (Primary Dx); Type 2 diabetes mellitus without complication, without long-term current use of insulin ([facility]); Anemia, unspecified type; Anxiety; Mixed hyperlipidemia; Atherosclerotic heart disease of [place] coronary artery without angina pectoris 12/05/20245244Xjgmdi80/03/2025Results Follow-Up [facility] [address] [place] [address] Andry Allan MD Basic Metabolic Panel11/25/2024Orders Only [facility] [address] [place] [address] External, Scanning Provider from Last 3 Months Immunizations ImmunizationAdministration DatesNext DueCOVID-19, mRNA, LNP-S, PF, 30mcg/0.3mL Dose11/07/2021,04/11/2020,1Covid-19, Mrna, Lnp-s, Bivalent, Pf, 30mcg/0.3 ml08/01/2022,2Covid-19, Mrna, Lnp-s, Pf, 30 Mcg/0.3 Ml Dose, Oswald-ziyuwde5505/23/2021H1N1 All Forms04/02/2009H1N1 Inj Preservative Free 04/02/2009Influenza High Dose Preservative Free IM12/02/2023,12/07/2017, 12/26/2015Influenza Vaccine, Quadrivalent, Tngerjpydj84/16/2023,11/29/2020, 10/28/2019Influenza Whole12/16/2010,12/11/2008Influenza, High-dose, Quadrivalent 12/05/2021Influenza, Im Trivalent Fxsrnlizkbfh16/15/2015Influenza, Injectable, quadrivalent (PF)10/28/2019Influenza, Trivalent, Xvavhqpxcz26/02/2019Influenza, Vywgdvfmqlg81/07/2021,11/04/2019,12/09/2016,11/07/2014Pneumococcal Conjugate 13-Tfhkmp9412/09/2016Pneumococcal Akmhkctkhxensd94/04/2020RSV, recombinant, protein subunit RSVpreF, adjuvant reconstituted, 0.5 mL, PF08/20/2023,11/07/2022 SARS-COV-2 (COVID-19) Vaccine, Iymzgxwsgof71/31/2022Zoster Vaccine Recombinant 04/07/2019,02/01/2019 Family History Medical HistoryRelationNameCommentsHeart diseaseFatherWilliamHypertensionFather WilliamBreast cancerSister 1DebbieBreast cancerSister 2DebbieRelationNameStatus CommentsDaughterAliveFatherWilliamAliveMaternal GrandfatherDeceasedMaternal GrandmotherDeceasedMotherDeceased (Age 82)Sister 1DebbieDeceased (Age 62)Sister 2DebbieAlive Social History Tobacco UseTypesPacks/DayYears UsedDateSmoking Tobacco: NeverSmokeless Tobacco: Never Tobacco Cessation:Counseling Given: Not Answered Alcohol UseStandard Drinks/WeekCommentsNot Currently0 (1 standard drink = 0.6 oz pure alcohol)rarelyAUDIT-CAnswerDate RecordedFrequency of Alcohol Consumption Monthly or less12/30/2017Average Number of Drinks1 or Frequency of Binge YpccgbujRstgd79/07/2018PHQ-2AnswerDate RecordedTotal Yfquc114 ChildcareAnswerDate GlaqaijcImmiyyajhMztuowo15/12/2019EmploymentAnswerDate UpjwelpiWvnhaznaqvSchchly00/12/2019Hunger ScreeningAnswerDate RecordedWithin the past 12 months we worried whether our food would run out before we got money to buy more.Never True06/09/2024Within the past 12 months the food we bought just didn't last and we didn't have money to get more.Never True06/09/2024Purpose - LifeAnswerDate RecordedPurpose and direction in aecoReoextp47/15/2021 CommentsNoSex and Gender InformationValueDate RecordedSex Assigned at Tqhpmv0209/09/2018 11:41 AM EDTLegal JvhRosmut95/21/2017 1:37 PM ESTGender ZmkdokjmZutbyu18/18/2019 11:41 AM EDTSexual OrientationDon't know09/09/2018 11:41 AM EDT Last Filed Vital Signs Vital SignReadingTime TakenCommentsBlood Devfijou974/6612/05/2024 1:42 PM EDT Rtxrb671112/05/2024 1:42 PM SRJPwrsaoqaqqq23.2 ??C (97.1 ??F)12/04/2023 2:28 PM EDTRespiratory Uppw428006/09/2024 9:56 AM EDTOxygen Dftczhvnhj66%06/09/2024 9:56 AM EDTInhaled Oxygen Concentration--Flvjlt45.6 kg (138 lb)12/05/2024 1:42 PM EDT Fbyhsl637.1 cm (4' 11.5 )12/05/2024 1:42 PM EDTBody Mass Index27.411 1:42 PM EDT Plan of Treatment Health MaintenanceDue DateLast DoneCommentsDTaP,Tdap and Td Vaccines (1 - Tdap) 11/04/1966Influenza Szpprpx47/10/2023, 12/08/2022, 12/05/2021, Additional history existsCOVID-19 Vaccine ( season)2025 11/21/2024, 12/28/2023, 12/08/2022, Additional history existsDepression Pchanptut67Fall Risk Hvgajhpnp97Medicare Annual Wellness Visit, 12/04/2023, 10/10/2022, Additional history existsTobacco Uzrvvaelu55Zoster (Shingles) Vaccine Dkfcwxvqa28/13/2020, 02/01/2019RSV ( or age 60+ yrs)Lietvqrgv46/27/2024, 11/07/2022 Medical Devices ImplantedTypeAreaManufacturerDevice IdentifierShelf Expiration DateModel / Serial / LotLen Iol 0 D +16.5 D +1.5 Cyl - [id number] - [id number] Implanted:Qty: 1 on 08/30/2019 by Marilu Badillo MD at [facility]: [employer]01/23/2024SN6AT3 16.5 / [id number] / NALens Iol Ultrasert 16.0d - [id number] - [id number] Implanted:Qty: 1 on 09/13/2019 by Marilu Badillo MD at [facility]: [employer]02/22/2021AU00T0 16.0 / [id number] / NA Procedures Procedure NamePriorityDate/TimeAssociated DiagnosisCommentsVITAMIN O00Ojkcsux 12/06/2024 Anemia, unspecified type ZJNBWMYcetxhy19/14/2025 Anemia, unspecified type ZVALPLDLGIDOFCweksoy24/14/2025 Anemia, unspecified type KZJMAGJOFdhnbke42/14/2025 Anemia, unspecified type IRON AND NMFAHeahgiw92/14/2025 Anemia, unspecified type BASIC METABOLIC OJTMJPlduveg06/01/2025 from Last 3 Months Results * Iron and TIBC (12/06/2024)Specimen (Source)Anatomical Location / Laterality Collection Method / VolumeCollection TimeReceived TimeBloodVenous blood / Wjfrwso6712/06/2024 Narrative Authorizing ProviderResult TypeResult StatusNilson GRANDE BLOOD ORDERABLESFinal ResultPerforming OrganizationAddressCity/State/ZIP CodePhone Number MANUALLY TRANSCRIBED RESULTS * Reticulocytes (12/06/2024)Specimen (Source)Anatomical Location / Laterality Collection Method / VolumeCollection TimeReceived TimeBloodVenous blood / Ggivstg4312/06/2024 Narrative Authorizing ProviderResult TypeResult StatusNilson Valerio [facility] BLOOD ORDERABLESFinal ResultPerforming OrganizationAddressCity/State/ZIP CodePhone Number MANUALLY TRANSCRIBED RESULTS * Folate (12/06/2024)Specimen (Source)Anatomical Location / LateralityCollection Method / VolumeCollection TimeReceived TimeBloodVenous blood / Unknown 12/06/2024 Narrative Authorizing ProviderResult TypeResult StatusNilson Valerio [facility] BLOOD ORDERABLESFinal ResultPerforming OrganizationAddressCity/State/ZIP CodePhone Number MANUALLY TRANSCRIBED RESULTS * Ferritin (12/06/2024)Specimen (Source)Anatomical Location / Laterality Collection Method / VolumeCollection TimeReceived TimeBloodVenous blood / Owzskxt0512/06/2024 Narrative Authorizing ProviderResult TypeResult StatusNilson Valerio [facility]Core[facility] BLOOD ORDERABLESFinal ResultPerforming OrganizationAddressCity/State/ZIP CodePhone Number MANUALLY TRANSCRIBED RESULTS * Vitamin B12 (12/06/2024)Specimen (Source)Anatomical Location / Laterality Collection Method / VolumeCollection TimeReceived TimeBloodVenous blood / Jghcrxj1712/06/2024 Narrative Authorizing ProviderResult TypeResult StatusNilson Valerio [facility]Core[facility] BLOOD ORDERABLESFinal ResultPerforming OrganizationAddressCity/State/ZIP CodePhone Number MANUALLY TRANSCRIBED RESULTS * Basic Metabolic Panel (11/23/2024)Specimen (Source)Anatomical Location / LateralityCollection Method / VolumeCollection TimeReceived TimeBloodVenous blood / Ieduydy1911/23/2024 Narrative Authorizing ProviderResult TypeResult StatusScanning Provider [facility] BLOOD ORDERABLESFinal ResultPerforming OrganizationAddressCity/State/ZIP CodePhone Number MANUALLY TRANSCRIBED RESULTS from Last 3 Months Insurance * Guarantor: Giana Menchaca AAccount TypeRelation to PatientDate of PhoneBilling AddressPersonal/TsllkvGgwl74/12/1946 ([place]) [address] [place] [address] [place] [address] Advance Directives TypeDate RecordedPatient RepresentativeExplanationLiving Will08/08/2019 4:12 PM [facility] Living will 08/01/19 * Full Code (Latest Code Status on File) Date ActivatedDate InactivatedComments07/22/2016 9:16 PM07/23/2016 8:13 PM Care Teams Team MemberRelationshipSpecialtyStart DateEnd Date Nilson Ibrahim MD [address] [place] [address], [address] [place] [address] PCP - GeneralInternal Fxbzotyr63/13/25
--- OUTSIDE RECORDS SUMMARY | 2025-01-13 08:31 | XMS_ITS | Clinical Summary ---
Author Organization [facility] Address [address] [place], [place] [id number] Care Team Providers Care Steel Rule Inspector Name Role Phone Unavailable Primary Care Provider Unavailabl e Social History Tobacco UseTypesPacks/DayYears UsedDateSmoking Tobacco: Never Assessed CommentsUnknownSex and Gender InformationValueDate RecordedSex Assigned at Not on fileLegal AgtBggvnj27/02/2012 9:48 AM ESTGender IdentityNot on fileSexual OrientationNot on file Plan of Treatment Not on file Insurance
--- OUTSIDE RECORDS SUMMARY | 2025-01-13 08:34 | XMS_ITS | CCD ---
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 Federal Name Role Phone Laura Mcmullen Unavailable REQUEST, [...] REQUEST, NONE LISTED Attending Unavaila ble REQUEST, DR VILLARREAL LISTED Consulting Unavaila ble DEFRANCE, DR MCKEON Primary Care Unavailable REQUEST, NONE LISTED Admitting Unavaila ble REQUEST, NONE LISTED Consulting Unavaila ble DEFRANCE, DR MCKEON Primary Care Unavailable REQUEST, NONE LISTED Attending Unavaila ble REQUEST, NONE LISTED Admitting Unavaila ble DO Tone Barba Emergency Provider DO Sam Jacobson Admit Provider DO Sam Jacobson Attending Provider MD Mike Moran Primary Care Provider Sam Jacobson Admitting Unavailable Sam Jacobson Attending Unavailable Mike Moran Primary Care Unavailable Clive, Marie Consulting Unavailable Chaban, Kamal Consulting Unavailable GeraldoJonoer E Consulting Unavaila ble Phani Dai Consulting Unavailable Oswaldo Jay Consulting UnavailMindi Mcmahon Consulting Unavailable Jc Dumont Consulting Unavailable Gen Ricardo Consulting Unavailable Geronimo Reilly Consulting Unavailable Chito Shereen Unavailable Mike Moran MD Primary Care Provider Mike Moran MD Primary Care Provider Mike Moran MD Primary Care Provider Andry Dubon MD Primary Care Provider Jc Jo MD Primary Care Provider BOOM JACOBSON Attending Unavailable BOOM JACOBSON Referring Unavailable JC JO Primary Care UnavailPETROS Taylor Attending Unavailable MIKE MORAN Referring Unavailable ANDRY DUBON Primary Care Unavailable JC JO Attending Unavailable ANDRY DUBON Referring Unavailable JC JO Primary Care Unavailable Jc Jo MD Primary Care Provider Jc Jo MD Primary Care Provider Medications Current Medications MedicationDrug Class(es)DatesSig (Normalized)Sig (Original)ALPRAZolam 1 mg oral tablet (18 sources)BenzodiazepineStart: 05-18-2024 End: 52-87-2336KBWXPRqozz (XANAX) 1 mg tablet Indications: Anxiety take 2 AND 1/2 tablets by mouth at bedtime 75 tablet 2 12/05/2024 ActiveStart: 04-07-2024 ALPRAZolam (XANAX) 1 mg tablet Indications: Anxiety take 2 AND 1/2 tablets by mouth at bedtime 25 tablet 04/07/2024 ActiveStart: 94-92-5681upxe 1.5 mg by mouth at bedtimeAlprazolam (Xanax) 1 mg Tablet Active 1.5 MG PO Bedtime November 30, 2022 12:00amStart: 73-62-9025Gvclwwcvul (Xanax) 1 mg Tablet Active MG TABLET November 30, 2022 12:00amStart: 10-07-2022 End: 81-98-8986JTPAYFvzwz (XANAX) 1 mg tablet Indications: Anxiety take 2 AND 1/2 tablets by mouth at bedtime 75 tablet 03/07/2024 04/07/2024 Discontinued (Reorder)aspirin 81 mg delayed release oral tablet (14 sources)Platelet Aggregation Inhibitor, Nonsteroidal Anti-inflammatory Drug Start: 52-41-0662this 81 mg by mouth once dailyAspirin Active 81 MG PO Daily 90 90 December 03, 2022 12:00amatorvastatin 80 mg oral tablet (17 sources)HMG-CoA Reductase InhibitorStart: 08-31-2024 End: 64-51-3904iqzk 1 tablet by mouth once daily in the morningatorvastatin (LIPITOR) 80 mg tablet Indications: Mixed hyperlipidemia , Atherosclerotic heart disease of ruby coronary artery without angina pectoris Take 1 tablet (80 mg total) by mouth every morning. 90 tablet 3 12/05/2024 ActiveStart: 08-02-2024 take 1 tablet by mouth once dailyatorvastatin (Lipitor) 80 mg tablet Indications: Coronary artery disease involving ruby coronary artery of ruby heart without angina pectoris , Mixed hyperlipidemia , 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 (Multi) Take 1 tablet (80 mg) by mouth once daily. 30 tablet 08/02/2024 ActiveStart: 10-83-5195wemf 1 tablet by mouth once dailyatorvastatin (Lipitor) 80 mg tablet Indications: Coronary artery disease involving ruby coronary artery of ruby heart without angina pectoris , Mixed hyperlipidemia , 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 (Multi) Take 1 tablet (80 mg) by mouth once daily. 90 tablet 3 12/01/2023 ActiveStart: 12-03-2022 End: 72-44-5618pucn 1 tablet by mouth in the morningatorvastatin (LIPITOR) 80 mg tablet Take 1 tablet (80 mg total) by mouth in the morning. 09/20/2023ctive clindamycin 150 mg oral capsule (1 source)Lincosamide AntibacterialStart: 25-67-2771ohqu 3 capsules by mouth every eight hoursClindamycin HCl 150 MG 3 capsules Orally every 8 hrs for 7 day(s) Jan, Activeclopidogrel 75 mg oral tablet (12 sources)P2Y12 Platelet InhibitorStart: 01-05-2023 End: 63-66-9132djrj 1 tablet by mouth once dailyclopidogrel (Plavix) 75 mg tablet Indications: Inferior AR (Multi) , S/P right coronary artery (RCA) stent placement Take 1 tablet (75 mg) by mouth once daily. 90 tablet 1 12/01/2023 08/30/2024 Discontinued (Therapy completed)ferrous sulfate 325 mg oral tablet (3 sources)Start: 95-40-9221mjtk 1 tablet by mouth in the morning, then take 1 tablet by mouth at mealtimeferrous sulfate 325 (65 FE) MG tablet Take 1 tablet (325 mg total) by mouth in the morning and 1 tablet (325 mg total) in the evening. Take with meals. 60 tablet 1 12/08/2024 ActiveStart: 12-06-2024 End: 49-09-9270wsgc 1 tablet by mouth in the morningferrous sulfate 325 (65 FE) MG tablet Indications: Anemia, unspecified type Take 1 tablet (325 mg total) by mouth in the morning. 30 tablet 3 12/06/2024 12/06/2024 Discontinued (Error) folic acid 1 mg oral tablet (3 sources)Start: 42-14-3158hdst 1 tablet by mouth in the morningfolic acid (FOLVITE) 1 mg tablet Take 1 tablet (1 mg total) by mouth in the morning. 30 tablet 12/08/2024 ActiveStart: 12-06-2024 End: 60-13-2677ictq 1 tablet by mouth in the morningfolic acid (FOLVITE) 1 mg tablet Indications: Anemia, unspecified type Take 1 tablet (1 mg total) by mouth in the morning. 90 tablet 2 12/06/2024 12/06/2024 Discontinued (Error) levothyroxine sodium 0.1 mg oral tablet (17 sources)l-ThyroxineStart: 33-32-8463Vctrgodnfqkgz (Synthroid) 75 mcg Tablet Active 100 MCG PO Daily November 30, 2022 12:00amStart: 85-50-4844Gtnvfbbjiscbs (Synthroid) 75 mcg Tablet Active MCG TABLET November 30, 2022 12:00amStart: 10-10-2022 End: 64-82-2889upfd 1 tablet by mouth in the morninglevothyroxine (SYNTHROID, LEVOTHROID) 100 MCG tablet Take 1 tablet (100 mcg total) by mouth in the m orning. 90 tablet 3 12/05/2024 Activelosartan potassium 25 mg oral tablet (6 sources)Angiotensin 2 Receptor BlockerStart: 11-09-2024 End: 77-72-8075zpcr 1 tablet by mouth in the morninglosartan (COZAAR) 25 mg tablet Take 1 tablet (25 mg total) by mouth in the morning. 90 tablet 3 11/2312/05/2025 ActiveStart: 55-02-4457wqgm 50 mg by mouth once dailyLosartan Active 50 MG PO Daily November 30, 2022 12:00amStart: 42-64-0961Bgbuybgc Active MG TABLET November 30, 2022 12:00ammetFORMIN hydrochloride 1000 mg oral tablet (13 sources)BiguanideStart: 01-28-2024 End: 63-20-0814vjpp 1 tablet by mouth in the morning, then take 1 tablet by mouth at mealtimemetFORMIN (GLUCOPHAGE) 1000 mg tablet Take 1 tablet (1,000 mg total) by mouth in the morning and 1 tablet (1,000 mg total) in the evening. Take with meals. 180 tablet 3 12/05/2024 Activemetoprolol tartrate 25 mg oral tablet (16 sources)beta-Adrenergic BlockerStart: 12-03-2022 End: 24-33-6320ckph 1 tablet by mouth in the morning, then take 1 tablet by mouth at bedtimemetoprolol tartrate (LOPRESSOR) 25 mg tablet Take 1 tablet (25 mg total) by mouth in the morning and 1 tablet (25 mg total) before bedtime. 180 tablet 3 12/05/2024 Activeomeprazole 20 mg delayed release oral capsule (17 sources)Proton Pump InhibitorStart: 12-04-2023 End: 04-11-0260mlkp 2 capsules by mouth in the morningomeprazole (PriLOSEC) 20 mg capsule Take 2 capsules (40 mg total) by mouth in the morning. 180 capsule 3 12/05/2024 ActiveStart: 43-91-7872cnah 20 mg by mouth twice dailyOmeprazole Active 20 MG PO 2 times daily November 30, 2022 12:00amStart: 11-30-2022 Omeprazole Active MG November 30, 2022 12:00amStart: 93-87-0427anfr 1 capsule by mouth twice dailyomeprazole (PriLOSEC) [address] capsule Take 1 capsule (20 mg) by mouth 2 times a day. 02/08/2022 Activepotassium chloride 20 meq extended release oral tablet (5 sources)Start: 04-29-2022 End: 54-71-7721bynq 1 tablet by mouth in the morningpotassium chloride 20 mEq tablet extended release Take 20 mEq by mouth in the morning. 90 tablet 3 0 04/29/2022 06/09/2024 Discontinuedticagrelor 90 mg oral tablet (1 source)Start: 70-97-6063waex 1 tablet by mouth twice dailyTicagrelor (Brilinta) 90 mg Tablet Active 90 MG PO Twice daily 180 90 December 03, 2022 12:00amvitamin b12 1 mg oral tablet (2 sources)Vitamin B80Uugvb: 92-74-4611uzpx 1 tablet by mouth in the morning cyanocobalamin (vitamin B-12) 1000 MCG tablet Take 1 tablet (1,000 mcg total) by mouth in the morning. 30 tablet 12/08/2024 Active Completed/Discontinued Medications MedicationDrug Class(es)DatesSig (Normalized)Sig (Original)fluticasone propionate 0.05 mg/actuat metered dose nasal spray (2 sources)CorticosteroidStart: 43-69-7345vdao 1 spray(s) nasal route once daily Fluticasone Propionate 50 MCG/ACT 1 spray in each nostril Nasally Once a day for 30 day(s) Mar, Not-TakinghydroCHLOROthiazide 25 mg / losartan potassium 100 mg oral tablet (12 sources)Thiazide Diuretic, Angiotensin 2 Receptor BlockerStart: 06-09-2024 End: 48-23-6457txiu 1 tablet by mouth once in the morninglosartan- hydroCHLOROthiazide (HYZAAR) 100-25 mg per tablet Take 1 tablet by mouth in the morning. 90 tablet 1 06/09/2024 12/05/2024 DiscontinuedStart: 10-10-2022 End: 06-29-7024yhde 1 tablet by mouth once daily before mealtimelosartan- hydrochlorothiazide (Hyzaar) 100-25 mg tablet Take 1 tablet by mouth once daily in the morning. Take before meals. 10/10/2022 Active Problems Active Problems Problem ClassificationProblemDateDocumented DateEpisodic/ChronicAcute myocardial infarction (15 sources)Acute myocardial infarction of inferolateral wall; Translations: [ST elevation (STEMI) myocardial infarction involving other coronary artery of inferior wall]Onset: 135575-79-3234RlwircgDwrgavs disorders (14 sources)Anxiety; Translations: [Anxiety disorder, unspecified]Onset: 379919-41-2141BrfnclaDwwuvgy kidney disease (2 sources)Chronic kidney disease; Translations: [Chronic kidney disease, unspecified]Onset: 798891-74-0224ZbcpwqrVunnzdif atherosclerosis and other heart disease (12 sources)Coronary arteriosclerosis; Translations: [Atherosclerotic heart disease of ruby coronary artery without angina pectoris]Onset: 06-16-2023 49-02-2239FjbrwigGmjmyqgnvk and other anemia (5 sources)Anemia; Translations: [Anemia, unspecified]Onset: 08-30-2024 54-90-2237FbkjmqsaCocdbtssmt and other anemia (1 source)Microcytic hypochromic anemia; Translations: [Iron deficiency anemia, unspecified]69-09-9900EgbbrkyiHtgxdvvkbv and other anemia (3 sources)Anemia, unspecified; Translations: [Anemia, unspecified]Onset: 73-98-8551JtyjpnnpGgnxdpzq mellitus without complication (4 sources)Diabetes mellitus; Translations: [Type 2 diabetes mellitus without complications]Onset: 566483-84-9120MlgmxovVfgikivae of lipid metabolism (5 sources)Mixed hyperlipidemia; Translations: [Mixed hyperlipidemia]Onset: 601428-28-6207KpyxrmsKgibgoezv of teeth and jaw (1 source)Aggressive periodontitis, localized, unspecified severityEpisodic Esophageal disorders (12 sources)Gastroesophageal reflux disease; Translations: [Gastro-esophageal reflux disease without esophagitis]Onset: 935661-87-7720NvgxskuDwtdnnvop hypertension (16 sources)Essential hypertension; Translations: [Essential (primary) hypertension]Onset: 752020-40-3256NrpcedoOchgj circulatory disease (1 source)Carotid bruit; Translations: [Other specified symptoms and signs involving the circulatory and respiratory systems]58-58-0192NggsgtstUkyra nutritional; endocrine; and metabolic disorders (6 sources)Overweight in adulthood with body mass index of 25 or more but less than 30; Translations: [Body mass index (BMI) 28.0-28.9, adult]Onset: 06-16-2023 96-69-6495HoeuzrcuCjbnnqye codes; unclassified (2 sources)Never smoked tobacco; Translations: [Other specified health status] Onset: 842066-97-6089IkylasqsGcjhdcm disorders (12 sources)Acquired hypothyroidism; Translations: [Hypothyroidism, unspecified] Onset: 787022-55-3665MkctjufMzboetqqxcrq (1 source)Annual ExamOnset: 92-70-3291Kzltrphvuxav (1 source)REVIEW LABSOnset: 06-09-2024 Past or Other Problems Problem ClassificationProblemDateDocumented DateEpisodic/ChronicCardiac dysrhythmias (5 sources)Bradycardia; Translations: [Bradycardia, unspecified]Onset: 690813-69-9259VvrjyhodMhvsexvw atherosclerosis and other heart disease (4 sources)Bare metal stent in anterior descending branch of left coronary artery; Translations: [Presence of coronary angioplasty implant and graft]Onset: 482510-24-3596NutmwyojTecmvthetj obstruction without hernia (10 sources)Small bowel obstruction; Translations: [Unspecified intestinal obstruction, unspecified as to partial versus complete obstruction]Onset: 07-22-2016 Resolved: 691481-41-4254ItgswxosMzge disorders (10 sources)Mood disordersOnset: 12-04-2023 Resolved: Other ear and sense organ disorders (1 source)Impacted cerumen, right earOnset: 04-08-2021 Resolved: 51-88-6577EwezkgzgIaaqi nutritional; endocrine; and metabolic disorders (10 sources)Severe obesity; Translations: [Morbid (severe) obesity due to excess calories]Onset: 02-02-2019 Resolved: 386078-51-6466EtqdyppEcesf nutritional; endocrine; and metabolic disorders (2 sources)Body mass index (BMI) 27.0-27.9, adult; Translations: [Body mass index (BMI) 27.0-27.9, adult]Onset: 47-00-6175SpavihahBnsxbx media and related conditions (1 source)Other acute nonsuppurative otitis media, bilateralOnset: 04-08-2021 Resolved: 83-70-5320DlccuwbqSeanyquw codes; unclassified (2 sources)Other specified health status; Translations: [Other specified health status]Onset: 58-69-3852ZgnqtngzXnucyhhbeikl (13 sources)Onset: 06-16-2023 Resolved: Results Test NameValueInterpretationReference RangeFacilityBasic Metabolic Panelon 30-13-9369Qmpdq gap [Moles/Vol]8.9 mmol/LNormal6.0-15.0[facility] CampusComment on above:Performed By: #### HS TROP #### [facility] [address] [place] [address] USACalcium [Mass/Vol]9.0 mg/dLNormal8.6-10.3FMercy Health Fairfield HospitalComment on above:Performed By: #### HS TROP #### [facility] [address] [place] [address] USAChloride [Moles/Vol]105 mmol/DGfjebo99-120NblknpxetTrinity Health System West CampusComment on above:Performed By: #### HS TROP #### [facility] [address] [place] [address] USACO2 [Moles/Vol]27.5 mmol/GGmjdqz53.0-31.0[facility] CampusComment on above:Performed By: #### HS TROP #### [facility] [address] [place] [id number] USACreatinine [Mass/Vol]0.72 mg/dLNormal0.60-1.20[facility] CampusComment on above:Performed By: #### HS TROP #### [facility] [address] [place] [id number] USACreatinine Clr Calc Kekbrqyh45.01NormalTrinity Health System West CampusComment on above:Result Comment: PERFORMED BY: [place] [address] PATHOLOGIST JOURNALISM PROFESSOR NICOLE RAMIREZ M.D.Performed By: #### HS TROP #### [facility] [address] [place] [address] USAGFR/1.73 sq M.predicted MDRD (S/P/Bld) [Vol rate/Area] mL/min/{1.73_m2}NormalTrinity Health System West CampusComment on above: Performed By: #### HS TROP #### [facility] [address] [place] [address] USAGlucose [Mass/Vol]143 mg/cYPdru35-792QfwneeekqTrinity Health System West CampusComment on above:Result Comment: Random Glucose Reference Range is dependent on time and content of last meal. Glucose of more than 200 mg/dL in a nonstressed, ambulatory subject supports the diagnosis of Diabetes Mellitus. ADA recommended reference rangePerformed By: #### HS TROP #### [place] [address] USAPotassium [Moles/Vol]3.4 mmol/LLow3.5-5.1FMercy Health Fairfield HospitalComment on above:Performed By: #### HS TROP #### [place] [address] USASodium [Moles/Vol]138 mmol/DZjmorl283-410AjvixnozdTrinity Health System West CampusComment on above:Performed By: #### HS TROP #### [place] [address] USAUrea nitrogen [Mass/Vol]16 mg/dLNormal7-25Tr[facility] CampusComment on above:Performed By: #### HS TROP #### [place] [address] USABasophils Auto (Bld) [#/Vol]Ordered By: Sam Jacobson on 38-94-9678Elfnbbgee (Bld) [#/Vol]0.1 10*3/uL0.0-0.2FMercy Health Fairfield HospitalBasophils/100 WBC Auto (Bld)Ordered By: Sam Jacobson on 12-03-2022 Basophils/100 WBC (Bld)0.8 %.[facility] CampusCalcium [Mass/volume] in Serum or PlasmaOrdered By: Sam Jacobson on 32-85-6189Qdzqaoi [Mass/Vol]9.0 mg/dL8.6-10.3FMercy Health Fairfield HospitalCarbon dioxide, total [Moles/volume] in Serum or PlasmaOrdered By: Sam Jacobson on 75-82-8326KJ8 [Moles/Vol]27.5 mmol/L21.0-31.0Tr[facility] West CampusChloride [Moles/volume] in Serum or PlasmaOrdered By: Sam Jacobson on 29-61-3248Hiyebinu [Moles/Vol]105 mmol/E31-649WjxobpiypTrinity Health System West CampusComplete Blood Count Auto Diffon 94-88-6071Vlmtrghur (Bld) [#/Vol]0.1 10*3/uLNormal0.0-0.2FMercy Health Fairfield HospitalComment on above:Result Comment: PERFORMED BY: [place] [address] PATHOLOGIST JOURNALISM PROFESSOR NICOLE RAMIREZ M.D.Performed By: #### HS TROP #### [facility] [address] [place] [address] USABasophils/100 WBC (Bld)0.8 %Normal.[facility] CampusComment on above:Performed By: #### HS TROP #### [facility] [address] [place] [address] USAEosinophils (Bld) [#/Vol]0.1 10*3/uLNormal0.0-0.45 [facility] CampusComment on above:Performed By: #### HS TROP #### [facility] [address] [place] [address] USAEosinophils/100 WBC (Bld)0.9 %Normal.[facility] CampusComment on above:Performed By: #### HS TROP #### [facility] [address] [place] [address] USAErythrocyte distribution width (RBC) [Ratio]12.1 %Normal 11.9-15.3FMercy Health Fairfield HospitalComment on above:Performed By: #### HS TROP #### [facility] [address] [place] [address] USAHematocrit (Bld) [Volume fraction]30.1 %Low34.0-46.4 [facility] CampusComment on above:Performed By: #### HS TROP #### [place] [address] USAHemoglobin (Bld) [Mass/Vol]10.4 g/dLLow11.8-15.4FMercy Health Fairfield HospitalComment on above:Performed By: #### HS TROP #### [place] [address] USALymphocytes (Bld) [#/Vol]1.7 10*3/uLNormal1.00-4.8 [facility] CampusComment on above:Performed By: #### HS TROP #### [place] [address] USALymphocytes/100 WBC (Bld)18.9 %Normal.[facility] CampusComment on above:Performed By: #### HS TROP #### [place] [address] USAMCH (RBC) [Entitic mass]32.4 cdBdtyjx08.7-34.3FMercy Health Fairfield HospitalComment on above:Performed By: #### HS TROP #### [place] [address] USAMCV (RBC) [Entitic vol]93.4 eORlnxcf36-526XtfbigouhTrinity Health System West CampusComment on above:Performed By: #### HS TROP #### [place] [id number] USAMean Corpuscular HGB Conc34.7 g/bYOgayyw98.0-35.0[facility] CampusComselect specialty hospital[facility] on above:Performed By: #### HS TROP #### [place] [address] USAMonocytes (Bld) [#/Vol]0.9 10*3/uLHigh0.0-0.8[facility] CampusComment on above:Performed By: #### HS TROP #### [facility] [address] [place] [address] USAMonocytes/100 WBC (Bld)10.0 %Normal.[facility] CampusComment on above:Performed By: #### HS TROP #### [facility] [address] [place] [address] USANeutrophils (Bld) [#/Vol]6.3 10*3/uLNormal1.8-7.7FMercy Health Fairfield HospitalComment on above:Performed By: #### HS TROP #### [facility] [address] [place] [address] USANeutrophils/100 WBC (Bld)69.4 %Normal.[facility] CampusComment on above:Performed By: #### HS TROP #### [facility] [address] [place] [address] USANRBC%0.1 /100{WBC}Normal0-0.5FMercy Health Fairfield HospitalComment on above:Performed By: #### HS TROP #### [facility] [address] [place] [address] USAPlatelet mean volume (Bld) [Entitic vol]8.5 fLNormal 6.3-10.7FMercy Health Fairfield HospitalComment on above:Performed By: #### HS TROP #### [facility] [address] [place] [address] USAPlatelets (Bld) [#/Vol]120 10*3/rZPkz514-477EufgfgpfkTrinity Health System West CampusComment on above:Performed By: #### HS TROP #### [facility] [address] [place] [address] USARBC (Bld) [#/Vol]3.22 10*6/uLLow3.60-5.00[facility] CampusComment on above:Performed By: #### HS TROP #### [facility] [address] [place] [address] USAWBC (Bld) [#/Vol]9.0 10*3/uLNormal3.8-11.6FMercy Health Fairfield HospitalComment on above:Performed By: #### HS TROP #### [place] [id number] USACreatinine [Mass/volume] in Serum or PlasmaOrdered By: Sam Jacobson on 63-81-1948Yjvxdjasgp [Mass/Vol]0.72 mg/dL0.60-1.20[facility] West CampusECG 12 lead ECGon 17-87-4335JOG 12 lead ECGACMC HEALTHC[facility] [place] [address] [place], [place] [id number] Electrocardiograph Report Signed Patient: Giana Menchaca MR#: [id number] : 1945 Acct:[id number] Age/Sex: 77 / F ADM Date: 11/30/22 Loc: Room: [address] [place] [address] Type: DIS IN Attending Dr: Sam Jacobson DO Ordering Provider: Sam Jacobson DO Date of Service: 12/03/2201/15/500 ECG/ECG 12 [...] infarct (cited on or before 01-DEC-2022) ACUTE AR Consider right ventricular involvement in acute inferior infarct Abnormal ECG When compared with ECG of 02-DEC-2022 07:38, Inverted T waves have replaced nonspecific T wave abnormality in Lateral leads Confirmed by DAVID HERNÁNDEZ DO ([id number]) on 12/03/2022 2:18:28 PM Referred By: Electronically Signed By:DAVID HERNÁNDEZ DO Transcribed By: MUS Signed By David Hernández DO 12/03 1418NormUniversity Hospitals Health SystemEosinophils Auto (Bld) [#/Vol] Ordered By: Sam Jacobson on 98-61-6093Gkgpjxcwalb (Bld) [#/Vol]0.1 10*3/uL0.0-0.45 [facility] CampusEosinophils/100 WBC Auto (Bld)Ordered By: Sam Jacobson on 85-97-0875Vgjmtlpbdvb/100 WBC (Bld)0.9 %.[facility] CampusErythrocyte distribution width Auto (RBC) [Ratio]Ordered By: Sam Jacobson on 31-31-5290Jpmgqrlydwj distribution width (RBC) [Ratio]12.1 %11.9-15.3FMercy Health Fairfield HospitalGlucose [Mass/volume] in Serum or PlasmaOrdered By: Sam Jacobson on 26-22-7209Zjjxacy [Mass/Vol]143 mg/yV45-680YvgpeiftzTrinity Health System West CampusComment on above:ADA recommended reference rangeRandom Glucose Reference Range is dependent on time and content of last meal. Glucose of more than 200 mg/dL in a nonstressed, ambulatory subject supports the diagnosisof Diabetes Mellitus.Hematocrit Auto (Bld) [Volume fraction]Ordered By: Sam Jacobson on 03-75-8526Jdvqbbdyld (Bld) [Volume fraction]30.1 %34.0-46.4FMercy Health Fairfield HospitalHemoglobin [Mass/volume] in BloodOrdered By: Sam Jacobson on 55-08-3203Vgdbkiinmm (Bld) [Mass/Vol]10.4 g/dL11.8-15.4FMercy Health Fairfield HospitalLeukocytes [#/volume] corrected for nucleated erythrocytes in Blood by Automated counOrdered By: Sam Jacobson on 68-33-9448ULD corrected for nucl RBC Auto (Bld) [#/Vol]9.0 10*3/uL3.8-11.6FMercy Health Fairfield Hospital Lymphocytes Auto (Bld) [#/Vol]Ordered By: Sam Jacobson on 96-69-0356Jpiikzrpoab (Bld) [#/Vol]1.7 10*3/uL1.00-4.8[facility] West CampusLymphocytes/100 WBC Auto (Bld)Ordered By: Sam Jacobson on 57-60-5556Ucgjtjlzjfk/100 WBC (Bld)18.9 %.[facility] Auto (RBC) [Entitic mass]Ordered By: Sam Jacobson on 19-27-9575BHI (RBC) [Entitic mass]32.4 pg24.7-34.3FSCCI Hospital LimaHC Auto (RBC) [Mass/Vol]Ordered By: Sam Jacobson on 89-85-6035WXFG (RBC) [Mass/Vol]34.7 g/dL32.0-35.0[facility] CampusMCV Auto (RBC) [Entitic vol]Ordered By: Sam Jacobson on 63-76-2969EOJ (RBC) [Entitic vol] 93.4 uZ97-208UfrrhgufpTrinity Health System West CampusMonocytes Auto (Bld) [#/Vol] Ordered By: Sam Jacobson on 42-76-8729Nvjtlkgwj (Bld) [#/Vol]0.9 10*3/uL0.0-0.8 [facility] CampusMonocytes/100 WBC Auto (Bld)Ordered By: Sam Jacobson on 71-38-3816Fkbewwynf/100 WBC (Bld)10.0 %.[facility] CampusNeutrophils Auto (Bld) [#/Vol]Ordered By: Sam Jacobson on 12-03-2022 Neutrophils (Bld) [#/Vol]6.3 10*3/uL1.8-7.7FMercy Health Fairfield Hospital Neutrophils/100 WBC Auto (Bld)Ordered By: Sam Jacobson on 63-34-8236Lkacenufezd/100 WBC (Bld)69.4 %.[facility] CampusNo Panel InformationOrdered By: Sam Jacobson on 36-56-4472Gsfcxmfle GFR (CKD-EPI)> 60.0 mL/MinTrinity Health System West CampusPharmacy Creatinine Clearance (Chem52.01[facility] System West CampusNucleated erythrocytes [Presence] in Blood by Automated countOrdered By: Sam Jacobson on 05-27-2443Hcpyjfvny RBC Auto Ql (Bld)0.1 /100{WBC} 0-0.5FMercy Health Fairfield HospitalPlatelet mean volume Auto (Bld) [Entitic vol]Ordered By: Sam Jacobson on 38-50-0605Weddrkcv mean volume (Bld) [Entitic vol] 8.5 fL6.3-10.7FMercy Health Fairfield HospitalPlatelets Auto (Bld) [#/Vol] Ordered By: Sam Jacobson on 00-57-6803Eprbbnnjz (Bld) [#/Vol]120 10*3/fW995-488 [facility] CampusPotassium [Moles/volume] in Serum or Plasma Ordered By: Sam Jacobson on 72-79-4679Inlcgfwpc [Moles/Vol]3.4 mmol/L3.5-5.1 [facility] CampusRBC Auto (Bld) [#/Vol]Ordered By: Sam Jacobson on 83-73-0686ASO (Bld) [#/Vol]3.22 10*6/uL3.60-5.00[facility] Hospitalerum or plasma anion gap determinationOrdered By: Sam Jacobson on 12-03-2022 Anion gap [Moles/Vol]8.9 mmol/L6.0-15.0[facility] Hospitalodium [Moles/volume] in Serum or PlasmaOrdered By: Sam Jacobson on 12-76-1221Gshegn [Moles/Vol]138 mmol/H928-626QwzogakchTrinity Health System West CampusUrea nitrogen [Mass/volume] in Serum or PlasmaOrdered By: Sam Jacobson on 45-26-0409Czok nitrogen [Mass/Vol]16 mg/dL7-25[facility] CampusWBC Auto (Bld) [#/Vol] Ordered By: Sam Jacobson on 18-72-1664BXC (Bld) [#/Vol]9.0 10*3/uL3.8-11.6FMercy Health Fairfield HospitalBasic Metabolic Panelon 08-59-4235Xnpqi gap [Moles/Vol] 7.0 mmol/LNormal6.0-15.0[facility] CampusComment on above: Performed By: #### CBC, BMP #### [facility] [address] [place] [address] USACalcium [Mass/Vol]8.9 mg/dLNormal8.6-10.3FMercy Health Fairfield HospitalComment on above:Performed By: #### CBC, BMP #### [facility] [address] [place] [address] USAChloride [Moles/Vol]108 mmol/KQhng60-870JiguarwqoTrinity Health System West CampusComment on above:Performed By: #### CBC, BMP #### [facility] [address] [place] [address] USACO2 [Moles/Vol]28.2 mmol/VOmytvz13.0-31.0[facility] West CampusComment on above:Performed By: #### CBC, BMP #### [facility] [address] [place] [address] USACreatinine [Mass/Vol]0.65 mg/dLNormal0.60-1.20[facility] CampusComment on above:Performed By: #### CBC, BMP #### [place] [address] USACreatinine Clr Calc Nbolpaqg32.66NormalTrinity Health System West CampusComment on above:Result Comment: PERFORMED BY: [place] [address] PATHOLOGIST JOURNALISM PROFESSOR NICOLE RAMIREZ M.D.Performed By: #### CBC, BMP #### [place] [address] USAGFR/1.73 sq M.predicted MDRD (S/P/Bld) [Vol rate/Area] mL/min/{1.73_m2}Corey HospitalComment on above: Performed By: #### CBC, BMP #### [place] [address] USAGlucose [Mass/Vol]130 mg/hJWbfs66-251QmxglcjxyTrinity Health System West CampusComment on above:Result Comment: Random Glucose Reference Range is dependent on time and content of last meal. Glucose of more than 200 mg/dL in a nonstressed, ambulatory subject supports the diagnosis of Diabetes Mellitus. ADA recommended reference rangePerformed By: #### CBC, BMP #### [facility] [address] [place] [address] USAPotassium [Moles/Vol]3.2 mmol/LLow3.5-5.1FMercy Health Fairfield HospitalComment on above:Performed By: #### CBC, BMP #### [facility] [address] [place] [address] USASodium [Moles/Vol]140 mmol/ALulvaf890-196AewwiocmwTrinity Health System West CampusComment on above:Performed By: #### CBC, BMP #### [facility] [address] [place] [address] USAUrea nitrogen [Mass/Vol]14 mg/dLNormal7-25Tr[facility] CampusComment on above:Performed By: #### CBC, BMP #### [facility] [address] [place] [address] USAComplete Blood Count Auto Diffon 96-56-9897Ctxexngnc (Bld) [#/Vol]0.0 10*3/uLNormal0.0-0.2FMercy Health Fairfield HospitalComment on above:Result Comment: PERFORMED BY: [place] [address] PATHOLOGIST JOURNALISM PROFESSOR NICOLE RAMIREZ M.D.Performed By: #### CBC, BMP #### [place] [address] USABasophils/100 WBC (Bld)0.2 %Normal.[facility] CampusComment on above:Performed By: #### CBC, BMP #### [place] [address] USAEosinophils (Bld) [#/Vol]0.0 10*3/uLNormal0.0-0.45 [facility] CampusComselect specialty [facility] on above:Performed By: #### CBC, BMP #### [place] [address] USAEosinophils/100 WBC (Bld)0.5 %Normal.[facility] CampusComment on above:Performed By: #### CBC, BMP #### [place] [address] USAErythrocyte distribution width (RBC) [Ratio]12.1 %Normal 11.9-15.3FMercy Health Fairfield HospitalComment on above:Performed By: #### CBC, BMP #### [facility] [address] [place] [address] USAHematocrit (Bld) [Volume fraction]30.9 %Low34.0-46.4 [facility] CampusComment on above:Performed By: #### CBC, BMP #### [place] [address] USAHemoglobin (Bld) [Mass/Vol]10.7 g/dLLow11.8-15.4FMercy Health Fairfield HospitalComment on above:Performed By: #### CBC, BMP #### [place] [address] USALymphocytes (Bld) [#/Vol]1.7 10*3/uLNormal1.00-4.8 [facility] CampusComment on above:Performed By: #### CBC, BMP #### [place] [address] USALymphocytes/100 WBC (Bld)19.7 %Normal.[facility] CampusComment on above:Performed By: #### CBC, BMP #### [place] [address] USAMCH (RBC) [Entitic mass]32.3 wjSvzhwt95.7-34.3FMercy Health Fairfield HospitalComment on above:Performed By: #### CBC, BMP #### [place] [address] USAMCV (RBC) [Entitic vol]93.5 qDIwsqge43-065RafipsgleTrinity Health System West CampusComment on above:Performed By: #### CBC, BMP #### [place] [address] USAMean Corpuscular HGB Conc34.6 g/dXThpnip72.0-35.0[facility] CampusComment on above:Performed By: #### CBC, BMP #### [place] [address] USAMonocytes (Bld) [#/Vol]0.7 10*3/uLNormal0.0-0.8Tr[facility] CampusComment on above:Performed By: #### CBC, BMP #### [facility] [address] [place] [address] USAMonocytes/100 WBC (Bld)8.6 %Normal.[facility] CampusComment on above:Performed By: #### CBC, BMP #### [facility] [address] [place] [address] USANeutrophils (Bld) [#/Vol]6.0 10*3/uLNormal1.8-7.7FMercy Health Fairfield HospitalComment on above:Performed By: #### CBC, BMP #### [facility] [address] [place] [address] USANeutrophils/100 WBC (Bld)71.0 %Normal.[facility] CampusComment on above:Performed By: #### CBC, BMP #### [facility] [address] [place] [address] USANRBC%0.1 /100{WBC}Normal0-0.5FMercy Health Fairfield HospitalComment on above:Performed By: #### CBC, BMP #### [facility] [address] [place] [address] USAPlatelet mean volume (Bld) [Entitic vol]8.4 fLNormal 6.3-10.7FMercy Health Fairfield HospitalComment on above:Performed By: #### CBC, BMP #### [facility] [address] [place] [address] USAPlatelets (Bld) [#/Vol]116 10*3/uLSignificant change down 150-450Tr[facility] West CampusComment on above:Performed By: #### CBC, BMP #### [facility] [address] [place] [address] USARBC (Bld) [#/Vol]3.31 10*6/uLLow3.60-5.00Tr[facility] CampusComment on above:Performed By: #### CBC, BMP #### [place] [address] USAWBC (Bld) [#/Vol]8.5 10*3/uLNormal3.8-11.6FMercy Health Fairfield HospitalComment on above:Performed By: #### CBC, BMP #### [facility] [address] [place] [id number] USAECG 12 lead ECGon 74-49-3469IFH 12 lead ECGAC[facility] [place] [address] [place] [address] Electrocardiograph Report Signed Patient: Giana Menchaca MR#: [id number] : 1945 Acct:[id number] Age/Sex: 77 / F ADM Date: 11/30/22 Loc: Room: [address] [place] [address] Type: ADM IN Attending Dr: Sam Jacobson DO Ordering Provider: Sam Jacobson DO Date of Service: 12/02/2212/15/499 ECG/ECG 12 [...] infarct (cited on or before 30-NOV-2022) ACUTE AR Consider right ventricular involvement in acute inferior [...] MUS Signed By David Hernández DO 12/02 1655Corey HospitalActivated partial thromboplastin time (aPTT) in platelet poor plasma by coagulation aOrdered By: Sam Jacobson on 82-40-9067dCYN Coag (PPP) [Time]58.4 s25.1-36.5FMercy Health Fairfield Hospital Comment on above:A hematocrit value greater than 55% may lead to inaccurate results in coagulation testing. Patientshaving hematocrit values >55% require a special collection tube for coagulation studies. Please contact the laboratory at [phone] for redraw instructions.Basic Metabolic Panelon 63-69-8955Dimwd gap [Moles/Vol]10.5 mmol/LNormal6.0-15.0[facility] CampusComment on above:Performed By: #### HS TROP, LIPID, CBC, BMP #### [facility] [address] [place] [address] USACalcium [Mass/Vol]8.7 mg/dLNormal8.6-10.3FMercy Health Fairfield HospitalComment on above:Performed By: #### HS TROP, LIPID, CBC, BMP #### [facility] [address] [place] [address] USAChloride [Moles/Vol]107 mmol/KNlfzxo60-854IifkgvizsTrinity Health System West CampusComment on above:Performed By: #### HS TROP, LIPID, CBC, BMP #### [facility] [address] [place] [address] USACO2 [Moles/Vol]25.2 mmol/SYwfrus98.0-31.0[facility] CampusComment on above:Performed By: #### HS TROP, LIPID, CBC, BMP #### [facility] [address] [place] [address] USACreatinine [Mass/Vol]0.79 mg/dLNormal0.60-1.20[facility] CampusComment on above:Performed By: #### HS TROP, LIPID, CBC, BMP #### [facility] [address] [place] [address] USACreatinine Clr Calc Nkdxibhr34.93NormUniversity Hospitals Health SystemComment on above:Performed By: #### HS TROP, LIPID, CBC, BMP #### [facility] [address] [place] [address] USAGFR/1.73 sq M.predicted MDRD (S/P/Bld) [Vol rate/Area] mL/min/{1.73_m2}NormalTrinity Health System West CampusComment on above: Performed By: #### HS TROP, LIPID, CBC, BMP #### [facility] [address] [place] [address] USAGlucose [Mass/Vol]206 mg/vLWzxf25-823EsomflslpTrinity Health System West CampusComment on above:Result Comment: Random Glucose Reference Range is dependent on time and content of last meal. Glucose of more than 200 mg/dL in a nonstressed, ambulatory subject supports the diagnosis of Diabetes Mellitus. ADA recommended reference rangePerformed By: #### HS TROP, LIPID, CBC, BMP #### [facility] [address] [place] [address] USAPotassium [Moles/Vol]3.7 mmol/LNormal3.5-5.1FMercy Health Fairfield HospitalComment on above:Performed By: #### HS TROP, LIPID, CBC, BMP #### [facility] [address] [place] [address] USASodium [Moles/Vol]139 mmol/EJejwfs295-315FtfqreihpTrinity Health System West CampusComment on above:Performed By: #### HS TROP, LIPID, CBC, BMP #### [facility] [address] [place] [address] USAUrea nitrogen [Mass/Vol]17 mg/dLNormal7-25Tr[facility] CampusComment on above:Performed By: #### HS TROP, LIPID, CBC, BMP #### [facility] [address] [place] [address] USACholesterol [Mass/volume] in Serum or PlasmaOrdered By: Sam Jacobson on 12-18-0133Etiahzpzxjb [Mass/Vol]120 mg/uG238-691QuqftzcrrTrinity Health System West CampusComment on above:Chol less than 200 mg/dl low riskChol 201-239 mg/dl borderline riskChol 240 mg/dl and greater high riskCholesterol in LDL Calc [Mass/Vol]Ordered By: Sam Jacobson on 58-49-9048Eploicwhtzs in LDL [Mass/Vol]65 mg/dL0-100Tr[facility] CampusComment on above:LDL ATP III CLASSIFICATIONLDL less than 100 mg/dL OptimalLDL 100-129 mg/dL Near or above iybokxdTHV936-203 mg/dL Borderline highLDL 160-189 mg/dL HighLDL greater than 189 mg/dL Very highCholesterol in VLDL Calc [Mass/Vol]Ordered By: Sam Jacobson on 73-53-5921Xzjeczxtnyi in VLDL [Mass/Vol]13 mg/dLTrinity Health System West CampusComplete Blood Count Auto Diffon 03-05-8791Rqfhlgzpg (Bld) [#/Vol]0.0 10*3/uLNormal0.0-0.2FMercy Health Fairfield HospitalComment on above:Result Comment: PERFORMED BY: [place] [address] PATHOLOGIST JOURNALISM PROFESSOR NICOLE RAMIREZ M.D.Performed By: #### HS TROP, LIPID, CBC, BMP #### [place] [address] USABasophils/100 WBC (Bld)0.2 %Normal.[facility] CampusComment on above:Performed By: #### HS TROP, LIPID, CBC, BMP #### [place] [address] USAEosinophils (Bld) [#/Vol]0.0 10*3/uLNormal0.0-0.45 [facility] CampusComment on above:Performed By: #### HS TROP, LIPID, CBC, BMP #### [place] [address] USAEosinophils/100 WBC (Bld)0.0 %Normal.[facility] CampusComment on above:Performed By: #### HS TROP, LIPID, CBC, BMP #### [place] [address] USAErythrocyte distribution width (RBC) [Ratio]11.7 %Low 11.9-15.3FMercy Health Fairfield HospitalComment on above:Performed By: #### HS TROP, LIPID, CBC, BMP #### [address] [address] USAHematocrit (Bld) [Volume fraction]34.4 %Yltass60.0-46.4 [facility] CampusComment on above:Performed By: #### HS TROP, LIPID, CBC, BMP #### [place] [address] USAHemoglobin (Bld) [Mass/Vol]12.0 g/rCJltutf79.8-15.4 [facility] CampusComment on above:Performed By: #### HS TROP, LIPID, CBC, BMP #### [place] [address] USALymphocytes (Bld) [#/Vol]0.7 10*3/uLLow1.00-4.8Tr[facility] CampusComment on above:Performed By: #### HS TROP, LIPID, CBC, BMP #### [place] [address] USALymphocytes/100 WBC (Bld)8.4 %Normal.[facility] CampusComment on above:Performed By: #### HS TROP, LIPID, CBC, BMP #### [place] [address] USAMCH (RBC) [Entitic mass]32.7 hsJjeeha33.7-34.3FMercy Health Fairfield HospitalComment on above:Performed By: #### HS TROP, LIPID, CBC, BMP #### [address] (RBC) [Entitic vol]94.3 eDPazozk69-713LugklzlazTrinity Health System West CampusComment on above:Performed By: #### HS TROP, LIPID, CBC, BMP #### [place] [address] USAMean Corpuscular HGB Conc34.7 g/pKAqnmtj05.0-35.0Tr[facility] CampusComment on above:Performed By: #### HS TROP, LIPID, CBC, BMP #### [place] [address] USAMonocytes (Bld) [#/Vol]0.8 10*3/uLNormal0.0-0.8[facility] CampusComment on above:Performed By: #### HS TROP, LIPID, CBC, BMP #### [facility] [address] [place] [address] USAMonocytes/100 WBC (Bld)9.7 %Normal.[facility] CampusComment on above:Performed By: #### HS TROP, LIPID, CBC, BMP #### [facility] [address] [place] [address] USANeutrophils (Bld) [#/Vol]6.7 10*3/uLNormal1.8-7.7FMercy Health Fairfield HospitalComment on above:Performed By: #### HS TROP, LIPID, CBC, BMP #### [facility] [address] [place] [address] USANeutrophils/100 WBC (Bld)81.7 %Normal.[facility] CampusComment on above:Performed By: #### HS TROP, LIPID, CBC, BMP #### [facility] [address] [place] [address] USANRBC%0.1 /100{WBC}Normal0-0.5FMercy Health Fairfield HospitalComment on above:Performed By: #### HS TROP, LIPID, CBC, BMP #### [facility] [address] [place] [address] USAPlatelet mean volume (Bld) [Entitic vol]8.6 fLNormal 6.3-10.7FMercy Health Fairfield HospitalComselect specialty hospital-[facility]inte on above:Performed By: #### HS TROP, LIPID, CBC, BMP #### [facility] [address] [place] [address] USAPlatelets (Bld) [#/Vol]153 10*3/rIVugcqi908-990GafthxkagTrinity Health System West CampusComment on above:Performed By: #### HS TROP, LIPID, CBC, BMP #### [facility] [address] [place] [address] USARBC (Bld) [#/Vol]3.65 10*6/uLNormal3.60-5.00[facility] CampusComment on above:Performed By: #### HS TROP, LIPID, CBC, BMP #### [facility] [address] [place] [address] USAWBC (Bld) [#/Vol]8.2 10*3/uLNormal3.8-11.6FMercy Health Fairfield HospitalComment on above:Performed By: #### HS TROP, LIPID, CBC, BMP #### [facility] [address] [place] [address] USAECG 12 lead ECGon 31-21-1123VDO 12 lead ECGACMC [place] [address] Electrocardiograph Report Signed Patient: Giana Menchaca MR#: [id number] : 1945 Acct:[id number] Age/Sex: 77 / F ADM Date: 11/30/22 Loc: Room: [address] [place] [address] Type: ADM IN Attending Dr: Sam Jacobson DO Ordering Provider: Sam Jacobson DO Date of Service: 12/01/2211/15/499 ECG/ECG 12 [...] MUS Signed By David Hernández DO 12/01 1308NormalTrinity Health System West CampusECH echo transthoracicon 70-87-0244WFD echo transthoracicFIRELANDS REGIONAL [place] [address] Echocardiogram Signed Patient: Giana Menchaca MR#: [id number] : 1945 Acct:[id number] Age/Sex: 77 / F ADM Date: 11/30/22 Loc: Room: 8J0845-4 Type: ADM IN Attending Dr: Sam Jacobson DO Ordering Provider: Sam Jacobson DO Date of Service: 12/01/2211/15/499 ECH/ECH echo transthoracic: Inferolateral STEMI Copies to: DO [...] MV dec slope: 752.5 cm/sec2 Transcribed By: ELA Performed At: 12/01/22936 Signed By: Boom Patel MD 12/01/22 [facility]3Corey HospitalLipid Panelon 09-80-7235Iwkzpdcjosj [Mass/Vol]120 mg/zXBai816-748 [facility] CampusComment on above:Result Comment: Chol less than 200 mg/dl low risk Chol 201-239 mg/dl borderline risk Chol 240 mg/dl and greater high riskPerformed By: #### HS TROP, LIPID, CBC, BMP #### [facility] [address] [place] [address] USACholesterol in HDL [Mass/Vol]41 mg/kRTbxaqz38-69PfxuclbecTrinity Health System West CampusComment on above:Result Comment: HDL CHOL ATP-III CLASSIFICATION Cardiovascular Risk HDL > or equal to 60 mg/dL LOW HDL < 40 mg/dL HIGHPerformed By: #### HS TROP, LIPID, CBC, BMP #### [facility] [address] [place] [address] USACholesterol.total/Cholesterol in HDL [Mass ratio]2.9 {ratio}Normal<5.0Tr[facility] West CampusComment on above:Result Comment: PERFORMED BY: [place] [address] PATHOLOGIST JOURNALISM PROFESSOR NICOLE RAMIREZ M.D.Performed By: #### HS TROP, LIPID, CBC, BMP #### [facility] [address] [place] [address] USALDL Cholesterol,Iskqujzbdo49 mg/dLNormme0-100[facility] CampusComment on above:Result Comment: LDL ATP III CLASSIFICATION LDL less than 100 mg/dL Optimal LDL 100-129 mg/dL Near or above optimal LDL 130-159 mg/dL Borderline high LDL 160-189 mg/dL High LDL greater than 189 mg/dL Very highPerformed By: #### HS TROP, LIPID, CBC, BMP #### [facility] [address] [place] [address] USATriglyceride w/Jwbfso70 mg/dLNormal0-149Tr[facility] CampusComment on above:Result Comment: TRIG ATP III CLASSIFICATION TRIG less than 150 mg/dL Normal TRIG 150-199 mg/dL Borderline high TRIG 200-500 mg/dL High TRIG greater than 500 mg/dL Very high Standard traceable to the Center for Disease Conrtrol and Prevention (CDC) test method.Performed By: #### HS TROP, LIPID, CBC, BMP #### [place] [id number] USAVLDL KLWLRQZVYMC44 mg/dLNormalTrinity Health System West CampusComment on above:Performed By: #### HS TROP, LIPID, CBC, BMP #### [place] [id number] USAPartial Thromboplastin Timeon 90-79-1204yUVG Coag (Bld) [Time]58.4 sHigh25.1-36.5FMercy Health Fairfield HospitalComment on above:Order Comment: List the anticoagulant: HEPARIN, UNFRACTIONATEDResult Comment: A hematocrit value greater than 55% may lead to inaccurate results in coagulation testing. Patients having hematocrit values >55% require a special collection tube for coagulation studies. Please contact the laboratory at [phone] for redraw instructions. PERFORMED BY: [place] [id number] PATHOLOGIST JOURNALISM PROFESSOR NICOLE RAMIREZ M.D.Performed By: #### PTT #### [address] [address] USAaPTT Coag (Bld) [Time]95.6 sOff scale high25.1-36.5 [facility] CampusComment on above:Order Comment: List the anticoagulant: HEPARIN, UNFRACTIONATEDResult Comment: Critical value result called at 0258 on 12/01/22 --- 12/01/22 0259 --- PTT previously reported as: 95.6 *H Seconds A hematocrit value greater than 55% may lead to inaccurate results in coagulation testing. Patients having hematocrit values >55% require a special collection tube for coagulation studies. Please contact the laboratory at [phone] for redraw instructions. PERFORMED BY: [address] [address] PATHOLOGIST JOURNALISM PROFESSOR NICOLE RAMIREZ M.D.Performed By: #### PTT #### [facility] [address] [place] [address] USASerum or plasma high density lipoprotein (HDL) cholesterol measurementOrdered By: Sam Jacobson on 25-88-5500Zkysvldiuwg in HDL [Mass/Vol]41 mg/vP54-45PljigkewdTrinity Health System West CampusComment on above:HDL CHOL ATP-III CLASSIFICATION Cardiovascular RiskHDL > or equal to 60 mg/dL LOWHDL < 40 mg/dL HIGHSerum or plasma total cholesterol/high density lipoprotein (HDL) cholesterol mass ratOrdered By: Sam Jacobson on 02-35-1210Bwmqmdyncsj.total/Cholesterol in HDL [Mass ratio]2.9 {ratio}<5.0Tr[facility] System West CampusTriglyceride [Mass/volume] in Serum or PlasmaOrdered By: Sam Jacobson on 70-83-4733Aryarbxdhvox [Mass/Vol]69 mg/dL0-149Tr[facility] CampusComment on above:TRIG ATP III CLASSIFICATIONTRIG less than 150 mg/dL NormalTRIG 150-199 mg/dL Borderline highTRIG 200-500 mg/dL High TRIG greater than 500 mg/dL Very highStandard traceable to the Center for Disease Conrtrol and Prevention (CDC) test method.Troponin I High Sensitivityon 16-44-1055Obllyuht I High Sensitivity 74672.3 pg/mLOff scale high0.0-15.0[facility] West CampusComment on above:Result Comment: Critical Result : Called to and read back by: MICHAEL PAN at: 12/01/2022 05:40:25 by:[id number] PERFORMED BY: [address] [address] PATHOLOGIST JOURNALISM PROFESSOR NICOLE RAMIREZ M.D.Performed By: #### HS TROP, LIPID, CBC, BMP #### [facility] [address] [place] [address] USATroponin I High Hpdddhgcoee4704.2 pg/mLOff scale high 0.0-15.0Tr[facility] West CampusComment on above:Result Comment: Critical Result : Called to and read back by: FERNANDO PAN at: 12/01/2022 03:00:30 by:[id number] PERFORMED BY: [place] [id number] PATHOLOGIST JOURNALISM PROFESSOR NICOLE RAMIREZ M.D.Performed By: #### HS TROP #### [place] [id number] USATroponin I High Jvkpnheqgad4142.0 pg/mLOff scale high 0.0-15.0[facility] West CampusComment on above:Result Comment: Critical Result : Called to and read back by: FERNANDO PAN at: 12/01/2022 01:01:37 by:[id number] PERFORMED BY: [place] [address] PATHOLOGIST JOURNALISM PROFESSOR NICOLE RAMIREZ M.D.Performed By: #### HS TROP #### [place] [id number] USATroponin I.cardiac [Mass/volume] in Serum or Plasma by Detection limit <= 0.01 ng/Ordered By: Sam Jacobson on 79-00-1625Oftlnoju I.cardiac DL <= 0.01 ng/mL [Mass/Vol]94679.3 pg/mL0.0-15.0[facility] West CampusComment on above:Critical Result : Called to and read back by: MICHAEL PAN at: 12/01/2022 05:40:25 by:[id number] Natriuretic Peptideon 08-58-5746Hpsxzpeszml peptide B (Bld) [Mass/Vol]31.0 pg/mLNormal5-100[facility] CampusComment on above:Result Comment: PERFORMED BY: [place] [phone] PATHOLOGIST JOURNALISM PROFESSOR NICOLE RAMIREZ M.D.Performed By: #### CBC, BMP #### [facility] [address] [place], [place] [id number] USABasic Metabolic Panelon 05-16-9184Phmgy gap [Moles/Vol] 13.5 mmol/LNormal6.0-15.0[facility] CampusComment on above: Performed By: #### CBC, BMP #### [place] [address] USACalcium [Mass/Vol]9.2 mg/dLNormal8.6-10.3FMercy Health Fairfield HospitalComment on above:Performed By: #### CBC, BMP #### [facility] [address] [place] [address] USAChloride [Moles/Vol]107 mmol/VTkihjg18-145SmnrkvhitTrinity Health System West CampusComment on above:Performed By: #### CBC, BMP #### [place] [address] USACO2 [Moles/Vol]22.9 mmol/ELoreum35.0-31.0[facility] CampusComment on above:Performed By: #### CBC, BMP #### [place] [address] USACreatinine [Mass/Vol]0.89 mg/dLNormal0.60-1.20[facility] CampusComment on above:Performed By: #### CBC, BMP #### [place] [address] USACreatinine Clr Calc Riqiuotg55.16NormalTrinity Health System West CampusComment on above:Result Comment: PERFORMED BY: [place] [address] PATHOLOGIST JOURNALISM PROFESSOR NICOLE RAMIREZ M.D.Performed By: #### CBC, BMP #### [place] [address] USAGFR/1.73 sq M.predicted MDRD (S/P/Bld) [Vol rate/Area] mL/min/{1.73_m2}NormalTrinity Health System West CampusComment on above: Performed By: #### CBC, BMP #### [place] [address] USAGlucose [Mass/Vol]203 mg/bOExll61-775HuftlilkhTrinity Health System West CampusComment on above:Result Comment: Random Glucose Reference Range is dependent on time and content of last meal. Glucose of more than 200 mg/dL in a nonstressed, ambulatory subject supports the diagnosis of Diabetes Mellitus. ADA recommended reference rangePerformed By: #### CBC, BMP #### [facility] [address] [place] [address] USAPotassium [Moles/Vol]3.4 mmol/LLow3.5-5.1FMercy Health Fairfield HospitalComment on above:Result Comment: Hemolysis is present at a level that could interfere with the result.Performed By: #### CBC, BMP #### [facility] [address] [place] [address] USASodium [Moles/Vol]140 mmol/DBpuial480-508UeasnjafhTrinity Health System West CampusComment on above:Performed By: #### CBC, BMP #### [facility] [address] [place] [id number] USAUrea nitrogen [Mass/Vol]22 mg/dLNormal7-25Tr[facility] System West CampusComment on above:Performed By: #### CBC, BMP #### [facility] [address] [place] [address] USABasophils Auto (Bld) [#/Vol]Ordered By: Tone Barba on 29-33-4371Qxtxjljwz (Bld) [#/Vol]0.1 10*3/uL0.0-0.2FMercy Health Fairfield HospitalBasophils/100 WBC Auto (Bld)Ordered By: Tone Barba on 11-30-2022 Basophils/100 WBC (Bld)0.9 %.[facility] West CampusCalcium [Mass/volume] in Serum or PlasmaOrdered By: Tone Barba on 81-36-2006Bskuaty [Mass/Vol]9.2 mg/dL8.6-10.3FMercy Health Fairfield HospitalCarbon dioxide, total [Moles/volume] in Serum or PlasmaOrdered By: Tone Barba on 11-30-2022 CO2 [Moles/Vol]22.9 mmol/L21.0-31.0Tr[facility] System West CampusChloride [Moles/volume] in Serum or PlasmaOrdered By: Tone Barba on 59-61-6768Hqcywvtd [Moles/Vol]107 mmol/J03-639UdgtdjafjTrinity Health System West CampusComplete Blood Count Auto Diffon 15-60-0639Pnydtpakd (Bld) [#/Vol]0.1 10*3/uLNormal0.0-0.2 [facility] CampusComment on above:Result Comment: PERFORMED BY: [place] [address] PATHOLOGIST JOURNALISM PROFESSOR NICOLE RAMIREZ M.D.Performed By: #### CBC, BMP #### [place] [address] USABasophils/100 WBC (Bld)0.9 %Normal.Tr[facility] System West CampusComment on above:Performed By: #### CBC, BMP #### [facility] [address] [place] [address] USAEosinophils (Bld) [#/Vol]0.2 10*3/uLNormal0.0-0.45 [facility] CampusComment on above:Performed By: #### CBC, BMP #### [place] [address] USAEosinophils/100 WBC (Bld)1.9 %Normal.[facility] West CampusComment on above:Performed By: #### CBC, BMP #### [place] [address] USAErythrocyte distribution width (RBC) [Ratio]11.7 %Low 11.9-15.3FMercy Health Fairfield HospitalComment on above:Performed By: #### CBC, BMP #### [place] [address] USAHematocrit (Bld) [Volume fraction]38.4 %Wumzmq21.0-46.4 [facility] CampusComment on above:Performed By: #### CBC, BMP #### [place] [address] USAHemoglobin (Bld) [Mass/Vol]13.1 g/yUNqlwlx63.8-15.4 [facility] CampusComment on above:Performed By: #### CBC, BMP #### [facility] [address] [place] [address] USALymphocytes (Bld) [#/Vol]3.4 10*3/uLNormal1.00-4.8 [facility] CampusComment on above:Performed By: #### CBC, BMP #### [place] [address] USALymphocytes/100 WBC (Bld)37.5 %Normal.[facility] West CampusComment on above:Performed By: #### CBC, BMP #### [place] [address] USAH (RBC) [Entitic mass]32.5 fcKymoek80.7-34.3FMercy Health Fairfield HospitalComment on above:Performed By: #### CBC, BMP #### [place] [address] USAV (RBC) [Entitic vol]95.1 yPClksiz06-995EfdnpcdiwTrinity Health System West CampusComment on above:Performed By: #### CBC, BMP #### [place] [address] USAMean Corpuscular HGB Conc34.2 g/fMLqzskl20.0-35.0[facility] West CampusComment on above:Performed By: #### CBC, BMP #### [place] [address] USAMonocytes (Bld) [#/Vol]0.6 10*3/uLNormal0.0-0.8Tr[facility] West CampusComment on above:Performed By: #### CBC, BMP #### [place] [address] USAMonocytes/100 WBC (Bld)17.58 %Normal0.00-20.00Tr[facility] West CampusComment on above:Performed By: #### CBC, BMP #### [place] [address] [place] [address] USAMonocytes/100 WBC (Bld)6.9 %Normal.[facility] West CampusComment on above:Performed By: #### CBC, BMP #### [facility] [address] [place] [address] USANeutrophils (Bld) [#/Vol]4.8 10*3/uLNormal1.8-7.7FMercy Health Fairfield HospitalComment on above:Performed By: #### CBC, BMP #### [facility] [address] [place] [address] USANeutrophils/100 WBC (Bld)52.8 %Normal.[facility] West CampusComment on above:Performed By: #### CBC, BMP #### [facility] [address] [place] [address] USANRBC%0.1 /100{WBC}Normal0-0.5FMercy Health Fairfield HospitalComment on above:Performed By: #### CBC, BMP #### [facility] [address] [place] [address] USAPlatelet mean volume (Bld) [Entitic vol]8.7 fLNormal 6.3-10.7FMercy Health Fairfield HospitalComment on above:Performed By: #### CBC, BMP #### [facility] [address] [place] [address] USAPlatelets (Bld) [#/Vol]190 10*3/bIYradru743-148DvlseeyvpTrinity Health System West CampusComment on above:Performed By: #### CBC, BMP #### [facility] [address] [place] [address] USARBC (Bld) [#/Vol]4.04 10*6/uLNormal3.60-5.00Tr[facility] West CampusComment on above:Performed By: #### CBC, BMP #### [facility] [address] [place] [address] USAWBC (Bld) [#/Vol]9.0 10*3/uLNormal3.8-11.6FMercy Health Fairfield HospitalComment on above:Performed By: #### CBC, BMP #### [facility] [address] [place] [address] USACreatine Kinaseon 67-65-6483XT [Catalytic activity/Vol]74 U/OUrtqdw95-873JjxevnbcpTrinity Health System West CampusComment on above:Performed By: #### CBC, BMP #### [facility] [address] [place] [address] USACreatine kinase [Enzymatic activity/volume] in Serum or PlasmaOrdered By: Tone Barba on 22-29-7627HU [Catalytic activity/Vol]74 U/L [facility] CampusCreatinine [Mass/volume] in Serum or PlasmaOrdered By: Tone Barba on 82-97-8958Rzkovfkfap [Mass/Vol]0.89 mg/dL 0.60-1.20[facility] West CampusECG 12 lead ECGon 75-08-1570GCR 12 lead ECGAC[facility] [address] [place] [address] Electrocardiograph Report Signed Patient: Giana Menchaca MR#: [id number] : 1945 Acct:[id number] Age/Sex: 77 / F ADM Date: 11/30/22 Loc: Room: [address] [place] [address] Type: ADM IN Attending Dr: Sam Jacobson DO Ordering Provider: Tone Barba DO Date [...] , possibly acute Anterolateral injury pattern ACUTE AR / STEMI Consider right ventricular involvement in acute inferior infarct Abnormal ECG No previous ECGs available Confirmed by TONE BARBA DO ([id number]) on 12/01/2022 2:04:10 AM Referred By: Electronically Signed By:TONE BARBA DO Transcribed By: MUS Signed By Tone Barba DO 12/01 0204NormalTrinity Health System West CampusEosinophils Auto (Bld) [#/Vol] Ordered By: Tone Barba on 12-72-3548Llluixciujl (Bld) [#/Vol]0.2 10*3/uL 0.0-0.45[facility] West CampusEosinophils/100 WBC Auto (Bld)Ordered By: Tone Barba on 14-65-2344Hoseblzhjou/100 WBC (Bld)1.9 %.[facility] West CampusErythrocyte distribution width Auto (RBC) [Ratio]Ordered By: Tone Barba on 90-12-9591Svdsbovhtwt distribution width (RBC) [Ratio]11.7 % 11.9-15.3FMercy Health Fairfield HospitalGlucose [Mass/volume] in Serum or PlasmaOrdered By: Tone Barba on 40-19-2095Rskjfts [Mass/Vol]203 mg/fL63-105 [facility] CampusComment on above:ADA recommended reference rangeRandom Glucose Reference Range is dependent on time and content of last meal. Glucose of more than 200 mg/dL in a nonstressed, ambulatory subject supports the diagnosisof Diabetes Mellitus.Hematocrit Auto (Bld) [Volume fraction]Ordered By: Tone Barba on 63-40-7763Yzzfmucnbj (Bld) [Volume fraction]38.4 %34.0-46.4FMercy Health Fairfield HospitalHemoglobin [Mass/volume] in BloodOrdered By: Tone Barba on 78-14-2264Qvdgsnaaqg (Bld) [Mass/Vol]13.1 g/dL11.8-15.4FMercy Health Fairfield HospitalLeukocytes [#/volume] corrected for nucleated erythrocytes in Blood by Automated coun Ordered By: Tone Barba on 52-55-5402TUU corrected for nucl RBC Auto (Bld) [#/Vol]9.0 10*3/uL3.8-11.6FMercy Health Fairfield HospitalLymphocytes Auto (Bld) [#/Vol]Ordered By: Tone Barba on 02-41-5462Cazrujesxkp (Bld) [#/Vol]3.4 10*3/uL1.00-4.8Tr[facility] System West CampusLymphocytes/100 WBC Auto (Bld) Ordered By: Tone Barba on 09-33-7195Mlnghcdjobx/100 WBC (Bld)37.5 %.[facility] HospitalH Auto (RBC) [Entitic mass]Ordered By: Tone Barba on 05-52-3624UGM (RBC) [Entitic mass]32.5 pg24.7-34.3FSCCI Hospital LimaHC Auto (RBC) [Mass/Vol]Ordered By: Tone Barba on 60-02-0955FSSD (RBC) [Mass/Vol]34.2 g/dL32.0-35.0[facility] West CampusMCV Auto (RBC) [Entitic vol]Ordered By: Tone Barba on 92-30-6821BLK (RBC) [Entitic vol]95.1 oE32-609PmtrucawjTrinity Health System West CampusMonocyte distribution width [Entitic volume] in Blood by AutomatedOrdered By: Tone Barba on 11-30-2022 Monocyte distribution width Auto (Bld) [Entitic vol]17.58 %0.00-20.00[facility] West CampusMonocytes Auto (Bld) [#/Vol]Ordered By: Tone Barba on 54-07-9045Lmduozvcq (Bld) [#/Vol]0.6 10*3/uL0.0-0.8[facility] West CampusMonocytes/100 WBC Auto (Bld)Ordered By: Tone Barba on 11-30-2022 Monocytes/100 WBC (Bld)6.9 %.[facility] CampusNatriuretic peptide B [Mass/Vol]Ordered By: Tone Barba on 72-60-2362Kicuyapdjik peptide B (Bld) [Mass/Vol]31.0 pg/mL5-100[facility] West CampusNeutrophils Auto (Bld) [#/Vol]Ordered By: Tone Barba on 79-97-3525Zrcsvlvrxul (Bld) [#/Vol]4.8 10*3/uL1.8-7.7FMercy Health Fairfield HospitalNeutrophils/100 WBC Auto (Bld)Ordered By: Tone Barba on 88-61-4750Zxfmnihygiq/100 WBC (Bld)52.8 % .[facility] CampusNo Panel InformationOrdered By: Tone Barba on 19-45-9567Ifwrkxncq GFR (CKD-EPI)> 60.0 mL/MinTrinity Health System West CampusPharmacy Creatinine Clearance (Chem48.16[facility] Nucleated erythrocytes [Presence] in Blood by Automated countOrdered By: Tone Barba on 92-78-8463Ekrududwk RBC Auto Ql (Bld)0.1 /100{WBC}0-0.5FMercy Health Fairfield HospitalPlatelet mean volume Auto (Bld) [Entitic vol]Ordered By: Tone Braba on 08-43-2936Eayklfsc mean volume (Bld) [Entitic vol]8.7 fL 6.3-10.7FMercy Health Fairfield HospitalPlatelets Auto (Bld) [#/Vol]Ordered By: Tone Barba on 96-50-3818Dncqobzud (Bld) [#/Vol]190 10*3/rW041-369GyczznfaoTrinity Health System West CampusPotassium [Moles/volume] in Serum or PlasmaOrdered By: Tone Barba on 81-71-6057Rlhnvpalq [Moles/Vol]3.4 mmol/L3.5-5.1FMercy Health Fairfield HospitalComment on above:Hemolysis is present at a level that could interfere with the result.RBC Auto (Bld) [#/Vol]Ordered By: Tone Barba on 45-16-5784FEI (Bld) [#/Vol]4.04 10*6/uL3.60-5.00[facility] Community Hospitalerum or plasma anion gap determinationOrdered By: Tone Barba on 63-90-7371Shrhb gap [Moles/Vol]13.5 mmol/L6.0-15.0H[facility] Community Hospitalodium [Moles/volume] in Serum or PlasmaOrdered By: Tone Barba on 77-75-1637Avppxy [Moles/Vol]140 mmol/X064-700SfczmwzodTrinity Health System West Campus Troponin I High Sensitivityon 75-52-7192Duojltzy I High Cmjmfgitzbi132.7 pg/mL Off scale high0.0-15.0[facility] CampusComment on above:Result Comment: Critical Result : Called to and read back by: Fan PAN at: 11/30/2022 22:01:41 by:LFM QNS FOR A REPEAT LFM --- 11/30/222200 --- Trop HS previously reported as: 289.7 *H pg/mL Critical Result : Called to and read back by: Fan PAN at: 11/30/2022 22:01:41 by:LFM PERFORMED BY: [place] [address] PATHOLOGIST JOURNALISM PROFESSOR NICOLE RAMIREZ M.D.Performed By: #### CBC, BMP #### [place] [address] USATroponin I High Sensitivity8.7 pg/mLNormal0.0-15.0 [facility] CampusComment on above:Result Comment: PERFORMED BY: [place] [address] PATHOLOGIST JOURNALISM PROFESSOR NICOLE RAMIREZ M.D.Performed By: #### HS TROP #### [facility] [address] [place] [address] USATroponin I.cardiac [Mass/volume] in Serum or Plasma by Detection limit <= 0.01 ng/Ordered By: Tone Barba on 89-70-1043Douubexb I.cardiac DL <= 0.01 ng/mL [Mass/Vol]8.7 pg/mL0.0-15.0[facility] West CampusUrea nitrogen [Mass/volume] in Serum or PlasmaOrdered By: Tone Barba on 13-51-2180Ceio nitrogen [Mass/Vol]22 mg/dL7-25Tr[facility] West CampusWBC Auto (Bld) [#/Vol]Ordered By: Tone Barba on 19-35-6756OCP (Bld) [#/Vol]9.0 10*3/uL3.8-11.6FMercy Health Fairfield HospitalXR chest 1V portable on 34-30-2016FT chest 1V portableACMC HEALTHC[facility] [address] [place] [address] XRay Report Signed Patient: Giana Menchaca MR#: [id number] : 1945 Acct:[id number] Age/Sex: 77 / F ADM Date: 11/30/22 Loc: CL Room: Type: [facility] Attending Dr: Sam Jacobson DO Copies to: DO Sam Jerome DO [...] Tish Pearce M.D.11/30/2022 6:47 PM Dictation Location: [place] [address] Transcribed By: GENNA 11/30/221846 Dictated By: Tish Pearce MD 11/30/221845 Signed By: 11/30/221846Corey HospitalCBC AUTO DIFFon 06-25-2022 BASO #0.1 103/ulNormal0.0-0.1Select [facility]ty Hospital - AkronComment on above:Performed By: #### DATCBC #### [facility] [address] [place] [address] [address] Leah DixonBasophils/100 WBC (Bld)1.1 %Normal0.2-2.0The [facility] Comment on above:Performed By: #### DATCBC #### [facility] [address] [place] [address] [address] Leah Mims #0.1 103/ulNormal0.0-0.7The [facility] Children'S HospitalComment on above: Performed By: #### DATCBC #### [facility] [address] [address] [address] Leah Gonsalesosinophils/100 WBC (Bld)2.7 %Normal0.9-7.0The [facility] Comment on above:Performed By: #### DATCBC #### [facility] [address] [place] [address] Dr. Leah Gonsalesrythrocyte distribution width (RBC) [Ratio]11.5 %Vfykfr02.0-15.0 The [facility]'S HospitalComment on above:Performed By: #### DATCBC #### [facility] [address] [place] [address] Dr. Leah DixonHematocrit (Bld) [Volume fraction]40.9 %Emxvbl27.0-48.0The [facility]'S HospitalComment on above:Performed By: #### DATCBC #### [facility] [address] [place] [address] Dr. Leah DixonHemoglobin (Bld) [Mass/Vol]13.8 g/xSIvaomb17.0-16.0The [facility]'S HospitalComment on above:Performed By: #### DATCBC #### [facility] [address] [place] [address] Dr. Leah Mcdaniel #0.01 10e3/ulNormal0.00-0.03The [facility]'S HospitalComment on above:Performed By: #### DATCBC #### [facility] [address] [place] [address] Dr. Leah Mcdaniel %0.2 %Normal0.0-0.5The [facility]'S HospitalComment on above: Performed By: #### DATCBC #### [facility] [address] [place] [address] Dr. Leah LordH #1.6 103/ulNormal1.2-3.8The [facility]'S HospitalComment on above:Performed By: #### DATCBC #### [facility] [address] [place] [address] Dr. Leah Moralesmphocytes/100 WBC (Bld)34.5 %Yybfia74.5-60.0The [facility]'S HospitalComment on above:Performed By: #### DATCBC #### [facility] [address] [place] [address] Dr. Leah Brown (RBC) [Entitic mass]31.5 bnOpgakv17.7-34.0The [facility]'S HospitalComment on above:Performed By: #### DATCBC #### [facility] [address] [place] [address] Dr. Leah Brown (RBC) [Mass/Vol]33.7 g/vWKtveyf39.9-35.2The [facility] HospitalComment on above:Performed By: #### DATCBC #### [facility] [address] [place] [address] Dr. Leah BrownV (RBC) [Entitic vol]93.4 qROblrsk74.0-99.0The [facility]'S HospitalComment on above:Performed By: #### DATCBC #### [facility] [address] [place] [address] Dr. Leah Nix #0.3 103/ulNormal0.3-0.8The [facility]'S HospitalComment on above:Performed By: #### DATCBC #### [facility] [address] [place] [address] Dr. Leah Gaffneyocytes/100 WBC (Bld)6.1 %Normal1.7-12.0[facility] Comment on above:Performed By: #### DATCBC #### [facility] [address] [place] [address] Dr. Leah Banks #2.6 103/ulNormal1.4-6.5The [facility]'S HospitalComment on above:Performed By: #### DATCBC #### [facility] [address] [place] [address] Dr. Leah Castilloutrophils/100 WBC (Bld)55.4 %Dfvdgs28.0-75.0The [facility]'S HospitalComment on above:Performed By: #### DATCBC #### [facility] [address] [place] [address] Dr. Leah Rodriguezlet mean volume (Bld) [Entitic vol]10.6 fLNormal9.5-13.5The [facility] Children'S HospitalComment on above:Performed By: #### DATCBC #### [facility] [address] [place] [address] Dr. Leah DixonPLT182 103/ncUtfytx228-744Eed [facility]'S HospitalComment on above: Performed By: #### DATCBC #### [facility] [address] [place] [address] Dr. Leah DixonRBC4.38 106/ulNormal4.20-5.40The [facility]'S HospitalComment on above:Performed By: #### DATCBC #### [facility] [address] [place] [address] Dr. Leah DixonWBC4.8 103/ulNormal4.0-11.0The [facility]'S HospitalComment on above: Performed By: #### DATCBC #### [facility] [address] [place] [address] Dr. Leah Thomas- BMP WITH LIPIDon 83-81-4247Anhnb gap [Moles/Vol]12.2 mmol/L NormalSelect Medical Specialty Hospital - AkronComment on above:Performed By: #### DATBMP #### [facility] [address] [place] [address] Dr. Leah DixonCalcium [Mass/Vol]9.8 mg/dLNormal8.5-10.1[facility] Comment on above:Performed By: #### DATBMP #### [facility] [address] [place] [address] Dr. Leah DixonChloride [Moles/Vol]103 mmol/ANvtanc59-762GtkSelect Medical Specialty Hospital - [facility]ron Comment on above:Performed By: #### DATBMP #### [facility] [address] [place] [address] Dr. Leah Santanaesterol [Mass/Vol]157 mg/dLNormal<=200The [facility] Comment on above:Performed By: #### DATBMP #### [facility] [address] [place] [address] Dr. Leah Santanaesterol in HDL [Mass/Vol]44 mg/jAKbaqdf81-82Vvd [place] [facility] Medical Centerment on above:Performed By: #### DATBMP #### [facility] [address] [address] [address] Leah DixonCholesterol in LDL [Mass/Vol]94.4 mg/dLNormCincinnati Children's Hospital Medical CenterComment on above:Performed By: #### DATBMP #### [facility] [address] [address] [address] Leah DixonCO2 [Moles/Vol]29.0 mmol/HMvpofg06.0-32.0The [facility] Comment on above:Performed By: #### DATBMP #### [facility] [address] [place] [address] Dr. Leah DixonCreatinine [Mass/Vol]0.84 mg/dLNormal0.55-1.02The [facility] Children'S HospitalComment on above:Performed By: #### DATBMP #### [facility] [address] [place] [address] Dr. Leah GonsalesGFR-AF BENINESE>60Normal>=60The [facility] Children'S HospitalComment on above:Performed By: #### DATBMP #### [facility] [address] [place] [address] Dr. Leah GonsalesGFR-NON AF BENINESE>60Normal>=60The [place] [facility] Medical Centerment on above:Performed By: #### DATBMP #### [facility] [address] [address] [address] Leah DixonGlucose [Mass/Vol]140 mg/dLCritically qxma70-250Sof [facility]'S HospitalComment on above:Performed By: #### DATBMP #### [facility] [address] [place] [address] Dr. Leah MunroeL NORMAL> or = 60 mg/dl - LOW CARDIOVASCULAR RISK <40 mg/dl - HIGH CARDIOVASCULAR RISKNoSelect Medical Cleveland Clinic Rehabilitation Hospital, Edwin ShawComment on above:Performed By: #### DATBMP #### [facility] [address] [place] [address] Dr. Leah Verma CALC NORMALSEE BELOWKing's Daughters Medical Center OhioComment on above:Result Comment: <100 mg/dl OPTIMAL 100 - 129 mg/dl NEAR OR ABOVE OPTIMAL 130 - 159 mg/dl BORDERLINE HIGH 160 - 189 mg/dl HIGH >190 mg/dl VERY HIGH Performed By: #### DATBMP #### [facility] [address] [place] [address] Dr. Leah DixonPotassium [Moles/Vol]3.2 mmol/LCritically low3.5-5.1The [facility] Children'S HospitalComment on above:Performed By: #### DATBMP #### [facility] [address] [place] [address] Dr. Leah DixonSodium [Moles/Vol]141 mmol/RJqzezz409-895WddSelect Medical Specialty Hospital - Akron Comment on above:Performed By: #### DATBMP #### [facility] [address] [place] [address] Dr. Leah DixonTriglyceride [Mass/Vol]93 mg/dLNormal<=150The [facility] Comment on above:Performed By: #### DATBMP #### [facility] [address] [place] [address] Dr. Leah DixonUrea nitrogen [Mass/Vol]20.0 mg/dLCritically high7.0-18.0The [facility] Children'S HospitalComment on above:Performed By: #### DATBMP #### [facility] [address] [place] [address] Dr. Leah Thorpe nitrogen/Creatinine [Mass ratio]23.8 mg/mgNoSelect Medical Cleveland Clinic Rehabilitation Hospital, Edwin ShawComment on above:Performed By: #### DATBMP #### [facility] [address] [place] [address] Dr. Leah DixonVLDL CALC18.6 mg/dLKing's Daughters Medical Center OhioComment on above: Performed By: #### DATBMP #### [facility] [address] [place] [address] Dr. Leah DixonGLYCOHEMOGLOBIN A1Con 73-09-0232IPU RECOMMENDATIONSEE BELOWUniversity Hospitals Parma Medical Center on above:Result Comment: ADA RECOMMENDED LIMIT 4.0 - 6.0 ADA THERAPEUTIC TARGET < 7.0 ACTION SUGGESTED > 7.0Performed By: #### DATA1C #### [facility] [address] [place] [address] Dr. Leah DixonGlucose [Mass/Vol]148 mg/dLNoSelect Medical Cleveland Clinic Rehabilitation Hospital, Edwin ShawComment on above:Performed By: #### DATA1C #### [facility] [address] [place] [address] Dr. Leah DixonHbA1c (Bld) [Mass fraction]6.8 %Critically high4.5-6.2The [place] Children'S HospitalComselect specialty hospital-[facility] on above:Performed By: #### DATA1C #### [facility] [address] [place] [address] Dr. Leah DixonGLYCOHEMOGLOBIN A1Con [id number] RECOMMENDATIONSEE BELOWWilson Memorial HospitalComselect specialty hospital-grosse pointe on above:Result Comment: ADA RECOMMENDED LIMIT 4.0 - 6.0 ADA THERAPEUTIC TARGET < 7.0 ACTION SUGGESTED > 7.0Performed By: #### DATA1C #### [facility] [address] [place] [address] Dr. Leah DixonGlucose [Mass/Vol]143 mg/dLFisher-Titus Medical Center on above:Performed By: #### DATA1C #### [facility] [address] [place] [address] Dr. Leah MahoneyA1c (Bld) [Mass fraction]6.6 %Critically high4.5-6.2The [facility] on above:Performed By: #### DATA1C #### [facility] [address] [place] [address] Dr. Leah DixonGLYCOHEMOGLOBIN A1Con [id number] RECOMMENDATIONSEE BELOWUniversity Hospitals Parma Medical Center on above:Result Comment: ADA RECOMMENDED LIMIT 4.0 - 6.0 ADA THERAPEUTIC TARGET < 7.0 ACTION SUGGESTED > 7.0Performed By: #### DATA1C #### [facility] [address] [address] [address] Leah DixonGlucose [Mass/Vol]140 mg/dLNoSelect Medical Cleveland Clinic Rehabilitation Hospital, Edwin ShawComment on above:Performed By: #### DATA1C #### [facility] [address] [place] [address] Dr. Leah MahoneyA1c (Bld) [Mass fraction]6.5 %Critically high4.5-6.2The [facility] Children'S HospitalComment on above:Performed By: #### DATA1C #### [facility] [address] [place] [address] Dr. Leah DixonGLYCOHEMOGLOBIN A1Con [id number] RECOMMENDATIONSEE BELOWNoUniversity Hospitals Portage Medical CenterComselect specialty hospital-grosse pointe on above:Result Comment: ADA RECOMMENDED LIMIT 4.0 - 6.0 ADA THERAPEUTIC TARGET < 7.0 ACTION SUGGESTED > 7.0Performed By: #### DATA1C #### [facility] [address] [place] [address] Dr. Leah DixonGlucose [Mass/Vol]143 mg/dLKing's Daughters Medical Center OhioComment on above:Performed By: #### DATA1C #### [facility] [address] [place] [address] Dr. Leah Alas (Bld) [Mass fraction]6.6 %Critically high4.5-6.2The [facility]'S HospitalComment on above:Performed By: #### DATA1C #### [facility] [address] [place] [address] Dr. Leah DixonGLYCOHEMOGLOBIN A1Con [id number] RECOMMENDATIONSEE BELOWWilson Memorial HospitalComselect specialty hospital[facility] on above:Result Comment: ADA RECOMMENDED LIMIT 4.0 - 6.0 ADA THERAPEUTIC TARGET < 7.0 ACTION SUGGESTED > 7.0Performed By: #### DATA1C #### [facility] [address] [place] [address] Dr. Leah DixonGlucose [Mass/Vol]151 mg/dLKing's Daughters Medical Center OhioComment on above:Performed By: #### DATA1C #### [facility] [address] [place] [address] Dr. Leah DixonHbA1c (Bld) [Mass fraction]6.9 %Critically high4.5-6.2The [facility]'S HospitalComment on above:Performed By: #### DATA1C #### [facility] [address] [place] [address] Dr. Leah Donis AUTO DIFFon [id number] #0.0 103/ulNormal0.0-0.1The [facility]'S HospitalComment on above:Performed By: #### DATCBC #### [facility] [address] [place] [address] Dr. Leah DixonBasophils/100 WBC (Bld)0.7 %Normal0.2-2.0The [facility] Comment on above:Performed By: #### DATCBC #### [facility] [address] [place] [address] Dr. Lynn ChangEO #0.1 103/ulNormal0.0-0.7The [facility]'S HospitalComment on above: Performed By: #### DATCBC #### [facility] [address] [place] [address] Dr. Leah Gonsalesosinophils/100 WBC (Bld)2.5 %Normal0.9-7.0The [facility] Comment on above:Performed By: #### DATCBC #### [facility] [address] [place] [address] Dr. Leah Gonsalesrythrocyte distribution width (RBC) [Ratio]11.6 %Wkqxuc04.0-15.0 The [facility]'S HospitalComment on above:Performed By: #### DATCBC #### [facility] [address] [place] [address] Dr. Leah DixonHematocrit (Bld) [Volume fraction]39.5 %Epxfrh92.0-48.0The [facility]'S HospitalComment on above:Performed By: #### DATCBC #### [facility] [address] [place] [address] Dr. Leah DixonHemoglobin (Bld) [Mass/Vol]13.0 g/rWBjgmuz22.0-16.0The [facility]'S HospitalComment on above:Performed By: #### DATCBC #### [facility] [address] [place] [address] Dr. Leah Mcdaniel #0.01 10e3/ulNormal0.00-0.03The [facility]'S HospitalComment on above:Performed By: #### DATCBC #### [facility] [address] [place] [address] Dr. Leah Mcdaniel %0.2 %Normal0.0-0.5The [facility]'S HospitalComment on above: Performed By: #### DATCBC #### [facility] [address] [place] [address] Dr. Leah Rivera #1.8 103/ulNormal1.2-3.8The [facility]'S HospitalComment on above:Performed By: #### DATCBC #### [facility] [address] [place] [address] Dr. Leah Lordhocytes/100 WBC (Bld)40.1 %Cclmcq88.5-60.0The [facility]'S HospitalComment on above:Performed By: #### DATCBC #### [facility] [address] [place] [address] Dr. Leah Zhao (RBC) [Entitic mass]30.6 usIqdtqm66.7-34.0The [facility]'S HospitalComment on above:Performed By: #### DATCBC #### [facility] [address] [place] [address] Dr. Leah Brown (RBC) [Mass/Vol]32.9 g/jEElilyl36.9-35.2The [facility]'S HospitalComment on above:Performed By: #### DATCBC #### [facility] [address] [place] [address] Dr. Leah Brown (RBC) [Entitic vol]92.9 sPGmfsww07.0-99.0The [facility]'S HospitalComment on above:Performed By: #### DATCBC #### [facility] [address] [place] [address] Dr. Leah Nix #0.3 103/ulNormal0.3-0.8The [facility]'S HospitalComment on above:Performed By: #### DATCBC #### [facility] [address] [place] [address] Dr. Leah Gaffneyocytes/100 WBC (Bld)7.7 %Normal1.7-12.0The [facility] Comment on above:Performed By: #### DATCBC #### [facility] [address] [place] [address] Dr. Leah Banks #2.2 103/ulNormal1.4-6.5The [facility]'S HospitalComment on above:Performed By: #### DATCBC #### [facility] [address] [place] [address] Dr. Leah Castilloutrophils/100 WBC (Bld)48.8 %Aufxqg44.0-75.0The [facility]'S HospitalComment on above:Performed By: #### DATCBC #### [facility] [address] [place] [address] Dr. Leah Carolina mean volume (Bld) [Entitic vol]9.8 fLNormal9.5-13.5The [facility]'S HospitalComment on above:Performed By: #### DATCBC #### [facility] [address] [place] [address] Dr. Leah DixonPLT174 103/siKygakp531-040Nek [facility]S HospitalComment on above: Performed By: #### DATCBC #### [facility] [address] [place] [address] Dr. Leah DixonRBC4.25 106/ulNormal4.20-5.40The [facility]'S HospitalComment on above:Performed By: #### DATCBC #### [facility] [address] [place] [address] Dr. Leah DixonWBC4.4 103/ulNormal4.0-11.0The [facility]'S HospitalComment on above: Performed By: #### DATCBC #### [facility] [address] [address] [address] Leah TREJO WITH LIPIDon 20-00-4976Rhuph gap [Moles/Vol]11.0 mmol/L NormalSelect Medical Specialty Hospital - AkronComment on above:Performed By: #### DATBMP #### [facility] [address] [address] [address] Leah DixonCalcium [Mass/Vol]9.4 mg/dLNormal8.5-10.1The [facility] Comment on above:Performed By: #### DATBMP #### [facility] [address] [address] [address] Leah DixonChloride [Moles/Vol]101 mmol/BSfzlpx30-909Eig [facility] Comment on above:Performed By: #### DATBMP #### [facility] [address] [address] [address] Leah DixonCholesterol [Mass/Vol]154 mg/dLNormal<=200The [facility] Comment on above:Performed By: #### DATBMP #### [facility] [address] [address] [address] Leah DixonCholesterol in HDL [Mass/Vol]47 mg/aAJvbuwq16-26Tpv [facility]S HospitalComment on above:Performed By: #### DATBMP #### [facility] [address] [address] [address] Leah DixonCholesterol in LDL [Mass/Vol]88.0 mg/dLNormalThe [facility]'S HospitalComment on above:Performed By: #### DATBMP #### [facility] [address] [address] [address] Leah DixonCO2 [Moles/Vol]29.8 mmol/WMcswql19.0-32.0The [facility] Comment on above:Performed By: #### DATBMP #### [facility] [address] [address] [address] Leah DixonCreatinine [Mass/Vol]1.02 mg/dLNormal0.55-1.02Select [facility] Special[facility] Hospital - AkronComment on above:Performed By: #### DATBMP #### [facility] [address] [place] [address] Dr. Leah GonsalesGFR-AF BENINESE>60Normal>=60The [facility]'S HospitalComment on above:Performed By: #### DATBMP #### [facility] [address] [place] [address] Dr. Leah GonsalesGFR-NON AF XAXFSLTT21 mL/min/1.95z1Jpboqrrbbi low>=60The [facility]'S HospitalComment on above:Performed By: #### DATBMP #### [facility] [address] [place] [address] Dr. Leah DixonGlucose [Mass/Vol]143 mg/dLCritically kjyw19-729VdhSelect Medical Specialty Hospital - AkronComment on above:Performed By: #### DATBMP #### [facility] [address] [place] [address] Dr. Leah Vences NORMAL> or = 60 mg/dl - LOW CARDIOVASCULAR RISK <40 mg/dl - HIGH CARDIOVASCULAR RISKKing's Daughters Medical Center OhioComment on above:Performed By: #### DATBMP #### [facility] [address] [place] [address] Dr. Leah DixonLDL CALC NORMALSEE BELOWKing's Daughters Medical Center OhioComment on above:Result Comment: <100 mg/dl OPTIMAL 100 - 129 mg/dl NEAR OR ABOVE OPTIMAL 130 - 159 mg/dl BORDERLINE HIGH 160 - 189 mg/dl HIGH >190 mg/dl VERY HIGH Performed By: #### DATBMP #### [facility] [address] [place] [address] Dr. Leah DixonPotassium [Moles/Vol]3.8 mmol/LNormal3.5-5.1[facility] Comment on above:Performed By: #### DATBMP #### [facility] [address] [place] [address] Dr. Leah DioxnSodium [Moles/Vol]138 mmol/GLncmaz622-339Tje [facility] Comment on above:Performed By: #### DATBMP #### [facility] [address] [address] [address] Leah DixonTriglyceride [Mass/Vol]95 mg/dLNormal<=150The [facility] Comment on above:Performed By: #### DATBMP #### [facility] [address] [address] [address] Leah DixonUrea nitrogen [Mass/Vol]18.0 mg/dLNormal7.0-18.0The [facility]'S HospitalComment on above:Performed By: #### DATBMP #### [facility] [address] [address] [address] Leah DixonUrea nitrogen/Creatinine [Mass ratio]17.6 mg/mgNoSelect Medical Cleveland Clinic Rehabilitation Hospital, Edwin ShawComment on above:Performed By: #### DATBMP #### [facility] [address] [place] [address] Dr. Leah DixonVLDL CALC19.0 mg/dLNoSelect Medical [facility] Clinic Rehabilitation Hospital, Edwin ShawComment on above: Performed By: #### DATBMP #### [facility] [address] [place] [address] Dr. Leah DixonGLYCOHEMOGLOBIN A1Con 52-15-8578GYG RECOMMENDATIONSEE BELOWNormal The [facility] Children'S HospitalComment on above:Result Comment: ADA RECOMMENDED LIMIT 4.0 - 6.0 ADA THERAPEUTIC TARGET < 7.0 ACTION SUGGESTED > 7.0Performed By: #### DATA1C #### [facility] [address] [place] [address] Dr. Leah DixonGlucose [Mass/Vol]151 mg/dLNoSelect Medical Cleveland Clinic Rehabilitation Hospital, Edwin ShawComment on above:Performed By: #### DATA1C #### [facility] [address] [place] [address] Dr. Leah DixonHbA1c (Bld) [Mass fraction]6.9 %Critically high4.5-6.2The [facility]'S HospitalComment on above:Performed By: #### DATA1C #### [facility] [address] [place] [address] Dr. Leah Dixon Vital Signs Date TimeVital SignValuePerforming UbwgdfehkIdintcnb07-88-3507 13:42-0400Body onzaqw948.1 cmJc Jo MD Work Phone: [phone])[address]10-13-2025 13:42-0400Body mass index (BMI) [Ratio]27.41 kg/m2Jc Jo MD Work Phone: 1(081)734-[address] [place], [place] 8800810-13-2025 13:42-0400Body .6 kgJc Jo MD Work Phone: 1(665)[address]10-13-2025 13:42-0400Diastolic blood zfwuczdh06 mm[Hg]Jc Jo MD Work Phone: 1(444)[address]10-13-2025 13:42-0400Heart rate 61 /minJc Jo MD Work Phone: 1(310)[address]49 [address]10-13-2025 13:42-0400Systolic blood bmiwwqqu440 mm[Hg]Jc Jo MD Work Phone: 1(693)[address]07-08-2025 10:25-0400Body clfshu764.4 cmBoom Jacobson DO Work Phone: 4(902)735-[address] [place], [place] 7883007-08-2025 10:25-0400 Body mass index (BMI) [Ratio]27.34 kg/t8Hiruprc Kavon DO Work Phone: 8(039)245-[address] [place], [place] 7883007-08-2025 10:25-0400 Body gaybtw37.5 kgWirodykylah Kavon DO Work Phone: 6(272)727-[address] [place], [place] 7883007-08-2025 10:25-0400 Diastolic blood mm[Hg]Boom Jacobson DO Work Phone: 9(975)598-[address] [place], [place] 7883007-08-2025 10:25-0400 Heart rate62 /minBoom Jacobson DO Work Phone: 1(648)117-[address] [place], [place] 7883007-08-2025 10:25-0400 Systolic blood rlyopgdw313 mm[Hg]Boom Jacobson DO Work Phone: [facility]04-17-2025 09:56-0400 Body mass index (BMI) [Ratio]27.93 kg/v4ZieehyPetros Martinezer POCKETED SPRING MACHINE OPERATOR-REPORTS ANALYSIS MANAGER Work Phone: [facility]04-17-2025 09:56-0400Body .86 kgPetros Martinezer POCKETED SPRING MACHINE OPERATOR-REPORTS ANALYSIS MANAGER Work Phone: [facility]04-17-2025 09:56-0400Diastolic blood hijuawts72 mm[Hg]Petros Ottchtjohn POCKETED SPRING MACHINE OPERATOR-REPORTS ANALYSIS MANAGER Work Phone: [facility]04-17-2025 09:56-0400Heart rate 73 /minLja Schlachter POCKETED SPRING MACHINE OPERATOR-REPORTS ANALYSIS MANAGER Work Phone: [facility]04-17-2025 09:56-0400 Respiratory rate16 /minLja Schlachter POCKETED SPRING MACHINE OPERATOR-REPORTS ANALYSIS MANAGER Work Phone: [facility]04-17-2025 09:56-4431ZvW9% (BldA) [Mass fraction]97 %Petros Arambula POCKETED SPRING MACHINE OPERATOR-REPORTS ANALYSIS MANAGER Work Phone: [facility]04-17-2025 09:56-0400Systolic blood yygodcnq888 mm[Hg]Petros Ricardoelizabeth POCKETED SPRING MACHINE OPERATOR-REPORTS ANALYSIS MANAGER Work Phone: [facility]10-08-2024 09:38-0400Body owduzm512.4 cmWirodykylah Jacobson DO Work Phone: [facility]10-08-2024 09:38-0400 Body mass index (BMI) [Ratio]28.12 kg/t3Ftntlir Sheldon DO Work Phone: [facility]10-08-2024 09:38-0400 Body .32 kgWiagustina Kavon DO Work Phone: [facility]10-08-2024 09:38-0400 Diastolic blood mm[Hg]Boom Jacobson DO Work Phone: 1(610)768-[address] [place], [place] 7883010-08-2024 09:38-0400 Heart rate54 /minBoom Ellisdon DO Work Phone: [phone])225-[address] [place], [place] 7883010-08-2024 09:38-0400 Systolic blood jmuzdswi853 mm[Hg]Boom Jacobson DO Work Phone: 1(124)103-[address] [place], [place] 7883004-23-2024 09:45-0400 Body .4 cmWiagustina Ellisdon DO Work Phone: 1(728)672-[address] [place], [place] 7883004-23-2024 09:45-0400 Body mass index (BMI) [Ratio]28.51 kg/c9YmbwyceBoom Ellisdon DO Work Phone: [phone])[address]04-23-2024 09:45-0400 Body wqkxwu03.22 kgWiagustina Ellisdon DO Work Phone: 1(909)252-[address] [place], [place] 7883004-23-2024 09:45-0400 Diastolic blood cpnkukwj29 mm[Hg]Boom Jacobson DO Work Phone: 1(729)031-[address] [place], [place] 7883004-23-2024 09:45-0400 Heart rate56 /minBoom Jacobson DO Work Phone: 6(702)310-[address] [place], [place] 7883004-23-2024 09:45-0400 Systolic blood uqljudpv594 mm[Hg]Boom Jacobson DO Work Phone: 9(609)889-[address] [place], [place] 7883012-01-2023 12:00-0500 Body iqhten040.4 cmAnu Dale Other [employer] Other 12-01-2023 12:00-0500Body mass index (BMI) [Ratio] 27.34 kg/q9MdafrShereen Dale Other [employer] Other 12-01-2023 12:00-0500Body gipisyrwqxg08.3 [degF]Shereen Dale Other [employer] Other 12-01-2023 12:00-0500Body egjpbf67.5 kgAmbjohn Dale Other [place] [employer] Other 12-01-2023 12:00-0500Diastolic blood mnxiucoh34 mm[Hg] Shereen [facility] [employer] Other 12-01-2023 12:00-0500Respiratory rate18 /minShereen Dale Other [place] [employer] Other 12-01-2023 12:00-4529PuJ0% (BldA) [Mass fraction]96 % Shereen Dale Other [facility] [employer] Other 12-01-2023 12:00-0500Systolic blood mm[Hg] Shereen Dale Other [place] [employer] Other 10-11-2023 12:50-0400Body gvfflxuhylf62.4 [degF]DO Tone Barba Work Phone: [facility]10-11-2023 12:50-0400 Diastolic blood uvcwveku46 mm[Hg]DO Tone Barba Work Phone: [facility]10-11-2023 12:50-0400 Heart rate88 /minDO Tone Barba Work Phone: [facility]10-11-2023 12:50-0400 Respiratory rate18 /minDO Tone Barba Work Phone: [facility]10-11-2023 12:50-0400 SaO2% (BldA) [Mass fraction]97 %DO Tone Barba Work Phone: 1(419)557-[address] [place], [place] 4534210-11-2023 12:50-0400 Systolic blood xevdqycm782 mm[Hg]DO Tone Barba Work Phone: 1(808)607-[address] [place], [place] 4534210-11-2023 06:00-0400 Body kmzqyj33.3 kgDO Tone Barba Work Phone: [phone])[address]10-09-2023 15:30-0400 Inhaled oxygen flow rate1 L/minDO Tone Barba Work Phone: [phone] [address]10-09-2023 14:45-0400 Body qaihmt945.4 cmDO Tone Barba Work Phone: [phone])[address]10-08-2023 19:43-0400 Body qcomjy200.4 cmDO Tone Barba Work Phone: 1(960)[address]398 [address]10-08-2023 19:43-0400 Body oqkdekrhccn67.8 [degF]DO Tone Barba Work Phone: 1(053)365-[address] [place], [place] 4534210-08-2023 19:43-0400 Body ggydnx12.7 kgDO Tone Barba Work Phone: 1(863)223-[address] [place], [place] 4534210-08-2023 19:43-0400 Diastolic blood dvjubqpq08 mm[Hg]DO Tone Barba Work Phone: 1(432)840-[address] [place], [place] 4534210-08-2023 19:43-0400 Heart rate72 /minDO Tone Barba Work Phone: 1(437)066-[address] [place], [place] 4534210-08-2023 19:43-0400 Inhaled oxygen flow rate3 L/minDO Tone Barba Work Phone: 1(755)815-[address] [place], [place] 4534210-08-2023 19:43-0400 Respiratory rate16 /minDO Tone Barba Work Phone: 6(798)678-[address] [place], [place] 4534210-08-2023 19:43-0400 SaO2% (BldA) [Mass fraction]94 %DO Tone Barba Work Phone: 1(116)131-[address] [place], [place] 4534210-08-2023 19:43-0400 Systolic blood ezcqehri623 mm[Hg]DO Tone Barba Work Phone: [facility]02-14-2022 10:35-0500 Body nvhsptospqr52.6 [degF]Laura Mcmullen Other [employer] Other [id number] 10:35-0500Body .5 kgStgeorgette Mcmullen Other [employer] Other Encounters Encounter DateEncounter TypeCare ProviderFacilityStart: 12-15-2024 End: 66-14-4330Hfjiaexxo encounterJerio Mckinney APRN-REPORTS ANALYSIS MANAGER Work Phone: [facility] General SurgeryStart: 12-06-2024 End: 19-76-9473Chswxr-up encounterAndry Dubon MD Work Phone: [facility] Comment on above:Iron and TIBC, Ferritin, Reticulocytes, FolateStart: 12-05-2024 End: 67-80-6365omuuniponnEGTJ J [facility] Ambulatory PPGStart: 57-41-3224Fjapqlbvq for general adult medical examination without abnormal findingsJC Valerio 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 Phys[facility] Family MedicineComment on above: Basic Metabolic PanelStart: 10-07-2024 End: 63-16-8183Uexfzilyz encounterMana Meza CMASt. John of God Hospitalca Physicians Family MedicineStart: 10-06-2024 End: 56-87-3238Fdueke Mindy Dubon MD Work Phone: [facility] Physicians Family MedicineComment on above: Microcytic hypochromic anemia (Primary Dx)Start: 08-30-2024 End: 13-31-8942Dtiojn outpatient visit [facility] Work Phone: [facility] AlabamaComment on above:Coronary artery disease involving ruby coronary artery of ruby heart without angina pectoris; Presence of bare metal stent in LAD coronary artery; Anemia, unspecified type; Inferior AR (Multi); BMI 27.0-27.9,adult; Never smoked tobaccoStart: 08-30-2024 End: 17-99-7064gmcbihixbbRRWAFOCP[facility] AmbulatoryStart: 06-10-2024 End: 63-69-6311Ihwdgxqvg encounterCatClinton [facility] - [facility] Medication ManagementStart: 06-09-2024 End: 34-16-7813Udufus outpatient visit 25 [facility] Ralf POCKETED SPRING MACHINE OPERATOR-REPORTS ANALYSIS MANAGER Work Phone: [facility] Physicians Family MedicineComment on above: Acquired hypothyroidism (Primary Dx); Essential hypertension, benign; Diabetes mellitus without complication (CMS-HCC); Coronary artery disease involving ruby coronary artery of ruby heart without angina pectoris; Gastroesophageal reflux disease without esophagitis; Chronic kidney disease, unspecified CKD stage; AnxietyStart: 06-09-2024 End: 63-18-3900nhwfbkqawaLCFWOYHarrison [facility] Hospital Ambulatory PPG Start: 04-07-2024 End: 52-10-9315Zkwjhv Catrachito Arambula POCKETED SPRING MACHINE OPERATOR-REPORTS ANALYSIS MANAGER Work Phone: [facility] Physicians Family MedicineComment on above: AnxietyStart: 12-01-2023 End: 85-75-3409Htzysr outpatient visit 25 minutesBoom Jacobson DO Work Phone: uh [facility] HospitalComment on above:Coronary artery disease involving ruby coronary artery of ruby heart without angina pectoris; Inferior AR (Multi); S/P right coronary artery (RCA) stent placement; Bradycardia; Essential hypertension; Mixed hyperlipidemia; BMI 28.0-28.9,adult; 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 (Multi)Start: 06-16-2023 End: 31-28-5877Rtpsli outpatient visit 25 minutesBoom Jacobson DO Work Phone: uh [facility] HospitalComment on above:Coronary artery disease involving ruby coronary artery of ruby heart without angina pectoris; 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 (Multi); Inferior AR (Multi); S/P right coronary artery (RCA) stent placement; Mixed hyperlipidemia; Bradycardia; BMI 28.0-28.9,adult; Carotid bruit, unspecified lateralityStart: 01-23-2023 End: 47-51-8927nlwwirqvqfKataq Keller Other [place] [employer] Other Start: 95-73-8823Hbcqio outpatient visit 15 minutes [facility]reen [facility] ClydeStart: 11-30-2022 End: 73-70-5640Yiqpxrugbm and management of inpatientW Gonzalez Jacobson [facility] 11-30-2022 End: 51-73-3386Tqlagtkwex and management of inpatientDO Tone Barba Work Phone: [facility] Work Phone: Start: 06-25-2022 End: 02-52-4310vtfxvcdktcXY NONE LISTED REQUESTFacility:D3Lwcqp: 05-28-2022 End: 85-74-8646wcmlhqnsnzND NONE LISTED REQUESTFacility:O7Hnxus: 04-23-2022 End: 01-93-4623dqxvavpxrzCJ NONE LISTED REQUESTFacility:T9Rhabt: 03-26-2022 End: 00-28-2200tayigzpudcFR NONE LISTED REQUESTFacility:H5Ogbnr: 02-26-2022 End: 51-17-8205gtvceldrnaRN NONE LISTED REQUESTFacility:F6Illza: 07-09-2021 End: 41-65-3266qichtbubymUE NONE LISTED REQUESTFacility:C5Mklrp: 04-08-2021 End: 76-97-3425rycyexijrlLuowhgtil Breault Other [employer] Other Start: 72-69-8732Snnbcg outpatient new 30 minutes Laura BenedictFPG [facility] Procedures DateProcedureProcedure DetailPerforming ClinicianStart: 93-90-7656Vkgnk depression screening assessmentJc Jo MD Work Phone: start: 44-52-2635Uvnds depression screening assessment Petros Arambula POCKETED SPRING MACHINE OPERATOR-REPORTS ANALYSIS MANAGER Work Phone: Start: 65-61-6204Uehyr depression screening assessment Petros Arambula APRN-REPORTS ANALYSIS MANAGER Work Phone: Start: 33-36-2190Abwxlrp of placement of stent for coronary artery diseaseS/P right coronary artery (RCA) stent placementWiagustina Jacobson DO Work Phone: Start: 65-21-0902GZ Coronary ThrombectomyDO Tone Barba Work Phone: Start: 43-34-3928SF Coronary Thrombolysis ICDO Tone Barba Work Phone: Start: 43-89-1735HK Coronary Thrombolysis IVDO Tone Barba Work Phone: Start: 12-98-1426KC CPR/DefibDO Tone Barba Work Phone: Start: 21-10-4429EW Insert IABPDO Tone Barba Work Phone: Start: 65-04-5815TR Ivus Initial VesselDO Tnoe Barba Work Phone: Start: 53-31-2514BH LHC & COR AngioDO Tone Barba Work Phone: Start: 26-39-6081ON PCI AMI 1st Vessel RCA DESDO Tone Barba Work Phone: Start: 20-91-5986PE Stent Ea Add RCA DESDO Tone Barba Work Phone: Start: 10-57-6388QY Tone Barba Work Phone: Start: 61-79-7711Tpgyi chest X-rayDO Tone Barba Work Phone: History of placement of stent for coronary artery diseaseS/P right coronary artery (RCA) stent placementWiagustina Jacobson DO Work Phone: History of placement of stent for coronary artery diseaseS/P right coronary artery (RCA) stent placementWiagustina Jacobson DO Work Phone: Plan of Treatment DateCare ActivityDetailAuthorStart: 19-44-2722Cfeqpcpxws ScreeningDepression ScreeningProHenry County Hospital SystemStart: 48-11-6156Pfvj Risk ScreeningFall Risk ScreeningProPromedica Bay Park Hospitalca Health SystemStart: 10-13-2026Medicare Annual Wellness Visit Medicare Annual Wellness VisitProNortheast [facility] Health SystemStart: 45-49-5619Lmduyey ScreeningTobacco ScreeningProPromedica Bay Park Hospitalca Health SystemStart: 06-27-2025 End: 80-76-1041Oqodjel encounter icbhyubbk36/05/2026 10:20 AM EDT Office Visit [facility] [address] [facility] [address] [place] [phone] Boom Jacobson DO [address] [facility] [address] [place] [address] [facility] AlabamaStart: 11-08-3028Ajkvxjugus Screening Depression ScreeningProPromedica Bay Park Hospitalca Health SystemStart: 69-28-8718Vfztnuo Screening Tobacco ScreeningProHenry County Hospital SystemStart: 12-05-2024 End: 94-40-8779Bavduqn encounter zgfeptyte73/13/2025 1:30 PM EDT Office Visit [facility] [address] [place], [place] [address] [place] [address] Jc Jo MD [facility] [facility], [address] [place], [place] [id number] [facility]/PediatricsStart: 42-77-0433Ayxnvfgmwg ScreeningDepression Screening [facility] SystemStart: 17-82-6102Vymz Risk ScreeningFall Risk Screening [facility] SystemStart: 10-11-2025Medicare Annual Wellness VisitMedicare Annual Wellness VisitSumma Health [facility] Campus SystemStart: 68-89-2934Jvjgcju Screening Tobacco ScreeningUNC Health Rextart: 32-90-6723KYPKV-19 Vaccine ( season)COVID-19 Vaccine ()[facility] Start: 78-29-7586Hsccwizif vaccinationProTrinity Health System West Campustart: 08-30-2024 End: 44-62-9614Zudxz metabolic 2000 panel - Serum or PlasmaBasic Metabolic Panel Lab Routine Coronary artery disease involving ruby coronary artery of ruby heart without angina pectoris Anemia, unspecified type Expected: 08/30/2024, Expires: 08/30/2025[facility] Service Area Work Phone: Comment on above:Expected: 08/30/2024, Expires: 08/30/2025Start: 08-30-2024 End: 57-00-6328NIZ panel - Blood by Automated countCBC Lab Routine Coronary artery disease involving ruby coronary artery of ruby heart without angina pectoris Anemia, unspecified type Expected: 08/30/2024, Expires: 08/30/2025 [facility] Work Phone: Comment on above:Expected: 08/30/2024, Expires: 08/30/2025Start: 08-03-2024 End: 69-33-8759Qrxvwlw encounter vavhtkcym16/11/2025 2:30 PM EDT Office Visit [facility] YOANNA OSVALDOChante [place], [phone] Andry Dubon MD [address] [place] [address] [facility] MedicineStart: 06-27-2024 End: 84-31-9182Aqosqit encounter zymghhvnr54/05/2025 10:30 AM EDT Office Visit [facility] [address] [place] [phone] Andry Dubon MD [address] [place] [address] [facility] MedicineStart: 20-91-7076UVGJY-19 Vaccine ( season)COVID-19 Vaccine ()[facility] SystemStart: 12-16-2023 End: 06-19-6531ZM.doppler Carotid arteries - bilateralVascular US Carotid Artery Duplex Bilateral Vascular Ultrasound Routine Carotid bruit, unspecified l aterality Expected: 12/16/2023, Expires: 06/15/2025[facility] Service Area Work Phone: Comment on above:Expected: 12/16/2023, Expires: 06/15/2025Start: 12-01-2023 End: 95-91-5623Lmhfnsn encounter ksvfxpxer45/08/2024 2:40 PM EDT Office Visit [address] [place] [address] Boom Jacobson DO [address] [facility] [address] [place] [address] [facility] AlabamaStart: 11-17-2023 End: 70-70-3716Efdligc encounter rupsxegrz50/24/2024 1:30 PM EDT Appointment [address] [place] [phone] [facility]Start: 19-05-0985DTXOZ-19 Vaccine ( season)COVID-19 Vaccine ( season)[facility] SystemStart: 00-46-8807YWCZP-19 Vaccine ( season)COVID-19 Vaccine ( season)[facility]: 34-35-8024DQSVL-19 Vaccine ( season) COVID-19 Vaccine ( season)[facility]: 85-42-3906Jbuxqstum vaccinationInfluenza Vaccine (#1)[facility]: 80-55-0388Nxckw [facility] CenterStart: 78-85-6702TgnttwcmjCenterville CenterStart: 14-47-3395Kwmcs [facility] CenterStart: 65-15-3144MdmkwwpqxCenterville CenterStart: 80-78-4089AtflxGrand Lake Joint [facility] CenterStart: 12-03-2022 End: 22-68-5046EpvolqlqmCenterville CenterStart: 80-46-0623Kwhfq [facility] CenterStart: 16-15-3711FvedercyhCenterville CenterStart: 99-30-3486Hqfdo [facility] CenterStart: 42-19-7686Vzaxj panelCenterville CenterStart: 12-01-2022 End: 47-73-6420CemrinszbCenterville CenterStart: 11-30-2022 End: 45-26-3879UzjpeohcwCenterville CenterStart: 87-80-7482Xwylhxyxkdtr [place] CenterStart: 72-02-7887Sgpihndl admissionCenterville CenterStart: 05-70-7470Fxrijvea to cardiac rehabilitation programCenterville CenterStart: 50-45-2798LgnwfhwajCenterville CenterStart: 70-99-6073WDC patients and/or patients aged 60+ years (1 - 1-dose 60+ series)RSV patients and/or patients aged 60+ years (1 - 1-dose 60+ series)[facility]: 11-04-1967 DTaP/Tdap/Td Vaccines (1 - Tdap)DTaP/Tdap/Td Vaccines (1 - Tdap)[facility]: 22-92-8946RFwP,Tdap and Td Vaccines (1 - Tdap) DTaP,Tdap and Td Vaccines (1 - Tdap)[facility] SystemStart: 11-04-1965 Diabetes mellitus screeningDiabetes ScreeningUniversity Hospitals [facility] Start: 76-09-8132Hnqledyzw C screeningHepatitis C ScreeningSelect [facility]: 35-88-9405Udsqw panelLipid PanelSelect Medical Specialty Hospital [facility]: 09-12-1946Medicare Annual Wellness VisitMedicare Annual Wellness Visit (AWV)[facility]: 70-66-5160Ppnfucshw for malignant neoplasm of colonSelect [facility]ty [facility]: 1945 Screening for osteoporosisBone Density ScanUniversity Hospitals Conneaut Medical Center Start: 04-57-0380Pqxjymd stimulating hormone measurementTSOU Medical Center – EdmondaPTT in Platelet poor plasma by Coagulation assayTrinity Health System [facility] End: 96-66-0882Rwpvyvunajcpnn vitamin b-12Vitamin B12 Lab Routine Anemia, unspecified type 1 Occurrences starting 12/05/2024 until 12/05/2025ProN[facility] SystemComment on above:1 Occurrences starting 12/05/2024 until 12/05/2025 End: 40-67-9663Xynpuljh [Mass/volume] in Serum or PlasmaFerritin Lab Routine Microcytic hypochromic anemia 1 Occurrences starting 10/06/2024 until 10/06/2025 [facility] SystemComment on above:1 Occurrences starting 10/06/2024 until 10/06/2025 End: 42-05-6498Nztxsbeg [Mass/volume] in Serum or PlasmaFerritin Lab Routine Anemia, unspecified type 1 Occurrences starting 12/05/2024 until 12/05/2025 [facility] HospitalVideolicious SystemComment on above:1 Occurrences starting 12/05/2024 until 12/05/2025 End: 93-31-6634TkqwtaDlijoi Lab Routine Anemia, unspecified type 1 Occurrences starting 12/05/2024 until 12/05/2025[facility]Wood[facility] SystemComment on above:1 Occurrences starting 12/05/2024 until 12/05/2025 End: 62-09-7939Dcssig Fecal OB - FITImmune Fecal OB - FIT Lab Routine Microcytic hypochromic anemia 1 Occurrences starting 10/06/2024 until 10/06/2025[facility] HospitalWoodall [facility] SystemComment on above:1 Occurrences starting 10/06/2024 until 10/06/2025 INR in Platelet poor plasma by Coagulation assayTrinity Health System [facility] Campus End: 00-20-9033Vlyv and TIBCIron and TIBC Lab Routine Microcytic hypochromic anemia 1 Occurrences starting 10/06/2024 until 10/06/2025ProPromedica Bay Park HospitalA [place] Work Phone: comment on above:1 Occurrences starting 10/06/2024 until 10/06/2025 End: 59-49-1549Dnto and TIBCIron and TIBC Lab Routine Anemia, unspecified type 1 Occurrences starting 12/05/2024 until 12/05/2025ProPromedica Bay Park HospitalA [place] Work Phone: comment on above:1 Occurrences starting 12/05/2024 until 12/05/2025Patient EducationCoronary Angioplasty (DC) Coronary Stenting (DC) Angina (DC) Chest Pain (DC) Drug Eluting StentsCenterville Ctr Work Phone: Patient referralCenterville Ctr Work Phone: Prothrombin time (PT)[facility] End: 69-83-9128FnvyrrckzgybaIfbfutukluvgq Lab Routine Anemia, unspecified type 1 Occurrences starting 12/05/2024 until 12/05/2025[facility] SystemComment on above:1 Occurrences starting 12/05/2024 until 12/05/2025 Immunizations Immunization DateImmunizationNotesCare YssewxooVfrgswdw51-49-1139aedhdeeii, high dose seasonal, preservative-freePetros Arambula POCKETED SPRING MACHINE OPERATOR-REPORTS ANALYSIS MANAGER Work Phone: [facility]A [place] [facility] HospitalUedohb62-30-1876venlqiqnn virus vaccine, unspecified formulationPetros Arambula POCKETED SPRING MACHINE OPERATOR-REPORTS ANALYSIS MANAGER Work Phone: [facility] [place] [facility] HospitalPukarx79-61-4522VLP, recombinant, protein subunit RSVpreF, adjuvant reconstituted, 0.5 mL, PFKendra Arambula POCKETED SPRING MACHINE OPERATOR-REPORTS ANALYSIS MANAGER Work Phone: [facility] HospitalRiqrkx60-94-7604Trlzmsdyx, Seasonal, Quadrivalent, AdjuvantedWillleny Kavon DO Work Phone: [facility]10-16-2023Pfizer COVID-19 vaccine, Fall 2022, 12 years and older, (30mcg/0.3mL)Boom Jacobson DO Work Phone: [facility]10-16-2023influenza virus vaccine, unspecified formulationWilliam Kavon DO Work Phone: [facility] Work Phone: [phone], 60 Years And Older (AREXVY)Boom Jacobson DO Work Phone: [facility]06-09-2023Pfizer COVID-19 vaccine, bivalent, age 12 years and older (30 mcg/0.3 mL)Boom Jacobson DO Work Phone: [facility]10-13-2022Flu vaccine, quadrivalent, high-dose, preservative free, age 65y+ (FLUZONE)Boom Jacobson DO Work Phone: [facility]09-15-2022COVID-19, mRNA, LNP-S, PF, 30mcg/0.3mL DoseKendra Truchter POCKETED SPRING MACHINE OPERATOR-REPORTS ANALYSIS MANAGER Work Phone: [facility]09-15-2022Pfizer COVID-19 vaccine, bivalent, age 12 years and older (30 mcg/0.3 mL)Boom Jacobson DO Work Phone: [facility]03-31-2022Pfizer Collins Cap MYJZ-EiC-8Eacilbs Sheldon DO Work Phone: [facility]03-31-2022SARS-COV-2 (COVID-19) Vaccine, UnspecifiedKendra Schlachter POCKETED SPRING MACHINE OPERATOR-REPORTS ANALYSIS MANAGER Work Phone: [facility] HospitalQlyijh80-43-0769zcvenbzxz virus vaccine, unspecified formulationKendra Schlachter POCKETED SPRING MACHINE OPERATOR-REPORTS ANALYSIS MANAGER Work Phone: [facility] HospitalKyevbx52-90-8508Kdhfkzuat, Seasonal, Quadrivalent, AdjuvantedWilliam Kavon DO Work Phone: [facility]02-17-2021COVID-19, mRNA, LNP-S, PF, 30mcg/0.3mL DoseKendra Schlachter POCKETED SPRING MACHINE OPERATOR-REPORTS ANALYSIS MANAGER Work Phone: [facility] HospitalGlvska29-59-2252CPAZI-64, mRNA, LNP- S, PF, 30mcg/0.3mL DoseKendra Schlachter POCKETED SPRING MACHINE OPERATOR-REPORTS ANALYSIS MANAGER Work Phone: [facility] HospitalCyvnun21-41-3709eckaghgsx virus vaccine, unspecified formulationKendra Schlachter POCKETED SPRING MACHINE OPERATOR-REPORTS ANALYSIS MANAGER Work Phone: [facility] HospitalSpcvzb87-29-6412Ncybxljas Vaccine, Quadrivalent, AdjuvantedKendra Schlachter POCKETED SPRING MACHINE OPERATOR-REPORTS ANALYSIS MANAGER Work Phone: [facility] HospitalNvuoum48-42-8837dhborffpe, injectable, quadrivalent, preservative freeWilliam Kavon DO Work Phone: [facility]09-04-2020 pneumococcal polysaccharide vaccine, 23 valentWilliam Kavon DO Work Phone: [facility]02-13-2020zoster vaccine recombinantWilliam Kavon DO Work Phone: [facility] Work Phone: [phone] 383-282612609725-15-0247dkpynt vaccine recombinantWilliam Kavon DO Work Phone: [facility] Work Phone: [phone] 160-387710050631-11-1574Lkwvheam trivalent influenza vaccine, adjuvanted, preservative freeWilliam Kavon DO Work Phone: [facility] Work Phone: [phone]iujwe, high dose seasonal, preservative-freeKendra Schlachter POCKETED SPRING MACHINE OPERATOR-REPORTS ANALYSIS MANAGER Work Phone: [facility] Xhizva36-68-3442qxuybmznc virus vaccine, unspecified formulationKendra Schlachter POCKETED SPRING MACHINE OPERATOR-REPORTS ANALYSIS MANAGER Work Phone: [facility] Kuutou89-45-5000jahkwhauvuuj conjugate vaccine, 13 valentKendra Schlachter POCKETED SPRING MACHINE OPERATOR-REPORTS ANALYSIS MANAGER Work Phone: [facility] Tcjtzf37-07-1217vhdtwcmui, high dose seasonal, preservative-freeWilliam Kavon DO Work Phone: [facility] Work Phone: [phone]wjdrk virus vaccine, unspecified formulationKendra Schlachter POCKETED SPRING MACHINE OPERATOR-REPORTS ANALYSIS MANAGER Work Phone: [facility] Vpelux11-68-5210uunltklvb, seasonal, injectableWilliam Kavon DO Work Phone: [facility] Work Phone: [phone]pbwdv virus vaccine, whole virusWilliam Kavon DO Work Phone: [facility] Work Phone: [phone]c xnmjtlovq-Q3F9-99, all formulations Petros Schlachter POCKETED SPRING MACHINE OPERATOR-REPORTS ANALYSIS MANAGER Work Phone: [facility] Repiko57-70-0400rrpsr alzmfgqsi-N7V2-25, preservative-free, injectableWilliam Kavon DO Work Phone: [facility] Work Phone: [phone]ftquh virus vaccine, whole virusWilliam Kavon DO Work Phone: [facility] Work Phone: Payers DatePayer CategoryPayerPolicy [id number] [place] [id number] 2023Medicare supplemental policy (as second payer)[employer] SENIOR SUPPLEMENT [id number] Health InsuranceAETNA SUPPLEMENTAL AETNA SENIOR SUPPLEMENT [id number] 2022- [address] [place] [id number] 32-97-2446Fyqgvkd Health [id number] [id number] [id number] [id number]-[id number] 2.16.840.1.367113.3.57[id number] 2.16.840.1.623074.3.57[id number] 2.16.840.1.986[id number] 2.16.840.1.192951.19Medicare Medicare [id number] 2.16.840.1.3[id number] 2.16.840.1.286776.3.579.2.593 [id number] 2.16.840.1.4[id number] 2.16.840.1.2[id number] 2.16.840.1.287857.3.579.2.593Unknown [id number] 2.16.840.1.7[id number] 2.16.840.1.524114.3.579.2.593UnknownInsUNC Health Caldwell [id number] 2.16.840.1.561854.3.579.2.531 Social History DateTypeDetailFacilityStart: 09-09-2018 End: 31-02-9366Lel Assigned At [facility] [employer] Other Start: 02-07-2022 End: 72-62-3300Eizzxvu smoking status NHISNever smoked tobacco (finding) [facility]: 34-54-3460Shg Assigned At BirthFemale [facility] Hospitaltart: 02-07-2022 End: 25-84-5132Qbwonxp use and exposureSmokeless tobacco non-userUniversity Hospitals Conneaut Medical Center Work Phone: Start: 06-16-2023 End: 34-00-1433Rocenxcyy beverage intakeLifetime non-drinker (finding)[facility] Work Phone: Start: 03-09-2020 End: 15-56-3640Lztzzkn of Social functionUnParkview Health [facility] Hospital Work Phone: Start: 77-83-3394Tfm assigned at birthNot on file [facility] Work Phone: Start: 06-06-2023 End: 34-05-3236Ylwfolee to SARS-CoV-2 (event)Not sureUnParkview Health Montpelier HospitalStart: 12-04-2023 End: 01-40-1927Ljjhimzbx beverage intakeEx-drinker (finding)[facility] Health SystemFrequency of Alcohol ConsumptionMonthly or [facility] Start: 02-57-5884Phxmagn CommentrarelyPShriners Hospital Health SystemStart: 04-15-2016 SexFemale (finding)[facility] SystemStart: 77-48-1788Gwlwzk identity Identifies as female gender (finding)[facility] Health SystemHow often do you have a drink containing alcohol?Monthly or lessProNortheast [facility] Health SystemHow many standard drinks containing alcohol do you have on a typical day?1 or 2PShriners Hospital Health SystemHow often do you have 6 or more drinks on 1 occasion?NeverProMedica Health System Medical Equipment Procedure CodeEquipment CodeEquipment Original TextEquipment IdentifierDatesCL STENT STEVEN FRONTIER 3.0 X 22FDAStart: 86-09-9788KR STENT STEVEN FRONTIER 3.5 X 38 FDAStart: 86-21-5336Hbn Iol 0 D +16.5 D +1.5 [facility] - [id number] - [id number]: 45-72-3126Qoho Iol Ultrasert 16.0d - [id number] - [id number]: 09-13-2019 Goals DatePatient GoalDesired Activity/State Functional Status KkueVuudnqsuinBleksiFndagdvr80-14-1493Wfcylokvrm [facility] Work Phone: Mental Status SyksUvupvkajisPbgvrlQhohfzsy21-23-5992Omdputckl functionCognitive Status [facility] Work Phone: Clinical Notes 04-08-2021 to 12-15-2024 Note Date & ZiabBogtLuhmyxvc55-06-2119 Miscellaneous Notes* Telephone Encounter - Dona Palomo - 12/15/2024 10:34 AM EDT Called Lor regarding the anemia referral that our office received from Dr Jo, left a message on voicemail to call the office back to schedule an appointment. Also called on: 12/13 LM TRC 12/09 LM SE documented in this encounterPro[facility]10-23-2025 Telephone encounter Note* Telephone Encounter - Dona Palomo - 12/15/2024 10:34 AM EDT Called Lor regarding the anemia referral that our office received from Dr Jo, left a message on voicemail to call the office back to schedule an appointment. Also called on: 12/13 WILLIAM TRC 12/09 LM SE [facility]10-13-2025 History of Present illness Narrative* Jc Jo MD - 12/05/2024 1:30 PM EDT Subjective SUBJECTIVE: Patient ID: Giana Menchaca is a 79 y.o. female who presents for a Medicare Annual Wellness exam. Comes in for wellness. Her HbA1c has been at target. She has not major concerns. She was noted earlier this summer to have anemia and subsequent CBC also demonstrated the normocytic anemia. Normal WBC and platelets. No history of anemia. No blood in the stools. Some follow up lab was ordered but has not yet been accomplished. She recalls having a colonoscopy in 2019 but I cannot find a record that it was completed. The following portions of the patient's history were reviewed and updated as appropriate: allergies, current medications, past family history, past medical history, past social history, past surgicalhistory and problem list. AWV FLOWSHEET : Lifestyle Assessment Do you smoke or use smokeless tobacco?: No If you smoke or use smokeless tobacco, are you ready to quit?: NA Are you exposed to secondhand smoke?: No On average, how many drinks of alcohol do you consume in a week?: 1 or less Do you exercise for 30 or more minutes on average at least 3 days a week?: Often Do you have any tooth, denture, or oral problems?: No Do you snore or has anyone told you that you snore?: No Do you try to eat a balanced diet?: Yes Do you experience leakage of urine, also known as urinary incontinence?: Never Do you have difficulty bathing?: No Do you have difficulty dressing?: No Do you have difficulty grooming?: No Do you have difficulty eating?: No Do you have difficulty getting out of a chair?: No Do you have difficulty walking?: No Do you have difficulty using the toilet?: No Do you have difficulty doing laundry?: No Do you have difficulty with housekeeping?: No Do you have difficulty preparing a meal?: No Do you have difficulty shopping?: No Do you have difficulty using transportation?: No Do you have difficulty paying bills?: No Do you have difficulty managing finances?: No Fall Risk Fall Risk Assessment Completed?: Yes Have you fallen in the past year?: No Are you worried about falling?: No Do you feel unsteady when standing or walking?: No Risk Stratification: Low Risk Depression Screening Little interest or pleasure in doing things: Not at all Feeling down, depressed, or hopeless: Not at all Trouble falling or staying asleep, or sleeping too much: Not at all Feeling tired or having little energy: Not at all Poor appetite or overeating: Not at all Feeling bad about yourself - or that you are a failure or have let yourself or your family down: Not at all Trouble concentrating on things, such as reading the newspaper or watching television: Not at all Moving or speaking so slowly that other people could have noticed. Or the opposite - being so fidgety or restless that you have been moving around a lot more than usual: Not at all Thoughts that you would be better off , or of hurting yourself in some way: Not at all PEG Scale What number best describes your pain on average in the past week?: 0 - No pain What number best describes how, during the past week, pain has interfered with your enjoyment of life?: 0 - Does not interfere What number best describes how, during the past week, pain has interfered with your general activity?: 0 - Does not interfere PEG Pain Total Score: 0 Safety Assessment Do you have throw rugs on the floor?: No Do you feel safe at your home?: Yes Do you feel unsteady when walking?: No Are you having difficulty with driving?: No Do you have trouble seeing?: No Do you use a bath bar/seat?: No Do you use a raised toilet seat?: No Do you use a cane?: No Do you use a walker?: No Do you use a wheelchair?: No Hearing Assessment Do you strain or struggle to hear/understand conversations?: No Do you have trouble hearing the television or radio when others do not?: No Does your family ever voice concerns about your hearing?: No Do you wear hearing aid/s?: No Personal Health During the past 4 weeks, how would you rate your overall health?: Excellent Do you understand how to take all of your medications?: Yes How confident are you that you can control and manage most of your health problems?: Very confident In the past 12 months, how many times have you been hospitalized?: None End of Life Planning Do you have a living will?: Yes Do you have a durable power of trial attorney?: Yes Cognitive Screening Do you have trouble remembering or recalling facts or events?: No Do family members or caregivers report that you have difficulty remembering things?: No Clock Drawing Test: Normal REVIEW OF SYSTEMS: Review of Systems Constitutional: Negative for activity change and unexpected weight change. HENT: Negative for trouble swallowing and voice change. Eyes: Negative for visual disturbance. Respiratory: Negative for cough and shortness of breath. Cardiovascular: Negative for chest pain and leg swelling. Gastrointestinal: Negative for abdominal pain and blood in stool. Genitourinary: Negative for dysuria. Neurological: Negative for numbness and headaches. Psychiatric/Behavioral: Uses Xanax at night because her mind will not shut down. Objective PHYSICAL EXAMINATION: Vitals: 12/05/24 1342 BP: 149/66 Pulse: 61 Weight: 62.6 kg (138 lb) Height: 151.1 cm (4' 11.5 ) Physical Exam Constitutional: Comments: She appears well. BP borderline. HENT: Right Ear: Tympanic membrane normal. Left Ear: Tympanic membrane normal. Mouth/Throat: Pharynx: Oropharynx is clear. Eyes: General: No scleral icterus. Pupils: Pupils are equal, round, and reactive to light. Neck: Vascular: No carotid bruit. Comments: No thyroid enlargement or neck mass Cardiovascular: Rate and Rhythm: Normal rate and regular rhythm. Heart sounds: No murmur heard. No gallop. Pulmonary: Effort: Pulmonary effort is normal. Breath sounds: Normal breath sounds. Abdominal: General: There is no distension. Palpations: Abdomen is soft. Tenderness: There is no abdominal tenderness. Musculoskeletal: Right lower leg: No edema. Left lower leg: No edema. Neurological: General: No focal deficit present. Assessment/Plan ASSESSMENT/PLAN Health history and medications reviewed. Recent labs reviewed. She no longer gets mammograms. The main issue is her anemia. Reviewed with her the importance of obtaining the follow up labs. Further from there. Diagnoses and all orders for this visit: Routine general medical examination at a health care facility Type 2 diabetes mellitus without complication, without long-term current use of insulin ([facility]) Anemia, unspecified type - Iron and TIBC; Future - Ferritin; Future - Reticulocytes; Future - Vitamin B12; Future - Folate; Future Anxiety - ALPRAZolam (XANAX) 1 mg tablet; take 2 AND 1/2 tablets by mouth at bedtime Mixed hyperlipidemia - atorvastatin (LIPITOR) 80 mg tablet; Take 1 tablet (80 mg total) by mouth every morning. 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 documented [facility] Miscellaneous Notes* Telephone Encounter - Christina Cuba CMA - 11/25/2024 11:06 AM EDT ----- Message from Andry Dubon MD sent at 11/25/2024 11:06 AM EDT ----- Normal labs ----- Message ----- From: Mana Meza CMA Sent: 11/25/2024 9:59 AM EDT To: Andry Dubon MD * Telephone Encounter - Christina Cuba CMA - 11/25/2024 11:06 AM EDT Patient informed by leaving message. documented in this encounterProtest[facility]10-03-2025 Telephone encounter Note* Telephone Encounter - Christina Cuba CMA - 11/25/2024 11:06 AM EDT ----- Message from Andry Dubon MD sent at 11/25/2024 11:06 AM EDT ----- Normal labs ----- Message ----- From: Mana Meza CMA Sent: 11/25/2024 9:59 AM EDT To: Andry Dubon MD [facility]10-03-[facility] Telephone encounter Note* Telephone Encounter - Christina Cuba CMA - 11/25/2024 11:06 AM EDT Patient informed by leaving message. [facility]08-15-[facility]25 Miscellaneous Notes* Telephone Encounter - Mana Meza CMA - 10/07/2024 9:17 AM EDT Patient needs additional labs due to recent labs drawn at [facility]. Need to know if she has ever had a cscope, and if so where? documented in this encounterProtest[facility]08-15-2025 Telephone encounter Note* Telephone Encounter - Mana Meza CMA - 10/07/2024 9:17 AM EDT Patient needs additional labs due to recent labs drawn at [facility]. Need to know if she has ever had a cscope, and if so where? [facility]08-14[facility] History of Present illness Narrative* Andry Dubon MD - 10/06/2024 4:18 PM EDT Outside labs from 09/23/24 shoed Hb 8.8 when the pt went to see her box lining machine feeder. Will check iron studies and also stool for occult blood. She will may need a colonoscopy documented in this encounterProtest[facility]07-08-2025 History of Present illness Narrative* Boom Jacobson DO - 08/30/2024 10:20 AM EDT Chief Complaint Patient presents with Follow-up 8 [...] 38. Labs performed July 24; discontinue Plavix , she denies any melena, hematochezia or overt [...] day. Assessment/Plan 1. Coronary artery disease involving ruby coronary artery of ruby heart without angina pectorisFollow Up In Cardiology 2. Presence of bare metal stent in LAD coronary artery 3. Anemia, unspecified type 4. Inferior AR (Multi) 5. BMI 27.0-27.9,adult 6. Never smoked tobacco Scribe Attestation By signing my name below, I, Sherin Haney LPN attest that this documentation has been prepared under the direction and in the presence of Quinn Jacobson DO. Provider Attestation - Scribe documentation All medical record entries made by the Scribe were at my direction and personally dictated by me. Ihave reviewed the chart and agree that the record accurately reflects my personal performance of the history, physical exam, discussion and plan. documented in this encounterUnPark[facility] Work Phone: 1(527) 332-884007-08-2025 Instructions* Patient Instructions* Carlita Tripp LPN - 08/30/2024 10:20 AM [...] -13.3 Lbs Provided instructions on dietary changes. * Attachments The following attachments cannot be sent through Care Everywhere. * Heart Healthy Diet (Romansh) documented in this encounterUniversity [facility]als [facility] Work Phone: 1(847) 306-894604-18-2025 Miscellaneous Notes* Telephone Encounter - Annmarie Franco MA - 06/10/2024 9:05 AM EDT [facility] [address] [place] [facility] [id number] New referral received by [facility]ication Management for diabetes and hypertension. Patient was contacted to schedule appointment at [facility] Medication [facility] ([facility]). This was my first attempt to reach the patient and a message was left on their voicemail requesting a call back. Patient will be asked to bring [facility] [place] Additional Info: Medication List, Blood Glucose Meter, Blood Sugar Log, Blood Pressure Cuff, and Blood Pressure Log. Referring provider: ANA Temple documented in this encounterProtestant [facility]acon[facility]04-18-2025 Telephone encounter Note* Telephone Encounter - Annmarie Franco MA - 06/10/2024 9:05 AM EDT [facility] [address] [place] [facility] [phone] New referral received by [facility] Medication Management for diabetes and hypertension. Patient was contacted to schedule appointment at [facility] Medication [facility] ([facility]). This was my first attempt to reach the patient and a message was left on their voicemail requesting a call back. Patient will be asked to bring [facility] [place] Additional Info: Medication List, Blood Glucose Meter, Blood Sugar Log, Blood Pressure Cuff, and Blood Pressure Log. Referring provider: ANA Temple [facility]04-17-[facility] History of Present illness Narrative* ANA Temple - 06/09/2024 10:00 AM EDT Images from the original note were not included. [address] [facility] [id number] SUBJECTIVE: Patient ID: Giana Menchaca is a [...] 7. She is only taking metformin- suggested diabetesmanagement would benefit from jardiance or farxiga. She does not want to change HCTZ at this time-does not drink any water during the day. She is going to start hydrating. We also discussed we will not prescribe fci xanax. She has an appointment with our office in July-we will discuss titrating off and starting new medications. She understood reasoning and is willing to discuss this at next appointment. The following portions of the patient's history were reviewed and updated as appropriate: allergies, current medications, past family history, past medical history, past social history, past surgicalhistory and problem list. 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 Take with meals. Follow-up: Referral jobs Refilled medications Ada diet Keep appointments with specialist Did discuss weaning xanax Keep July appointment with our office Patient noted to have elevated BMI and the following intervention(s) were applied: encouragement toexercise. ANA Temple 06/09/24 1031 documented in this encounterSt. [facility]10-08-[facility]24 History of Present illness Narrative* Boom Jacobson, - 12/01/2023 9:40 AM EDT Subjective Giana Menchaca is a 78 y.o. [...] of office visit with Dr. Chan her primarycare physician who I suspect will be performing labs. Will continue current therapies follow-up in 8 months. She can discontinue her clopidogrel June 23 ofnext year (18 months from her original AR) Review of Systems All other systems reviewed [...] Rfl: Assessment/Plan 1. Coronary artery disease involving ruby coronary artery of ruby heart without angina pectorisFollow Up In Cardiology 2. Inferior AR (Multi) 3. S/P right coronary artery (RCA) stent placement 4. Bradycardia 5. Essential hypertension 6. Mixed hyperlipidemia 7. BMI 28.0-28.9,adult Scribe Attestation By signing my name below, I, Sherin Escalante LPN attest that this documentation has been prepared under the direction and in the presence of Quinn Jacobson DO. Provider Attestation - Scribe documentation All medical record entries made by the Scribe were at my direction and personally dictated by me. Ihave reviewed the chart and agree that the record accurately reflects my personal performance of the history, physical exam, discussion and plan. documented in this [facility] Work Phone: 1(482) 861-565310-08-2024 Instructions* Patient Instructions* Corie Zamudio LPN - 12/01/2023 9:40 AM [...] dietary changes. May stop plavix june 2024 * Attachments The following attachments cannot be sent through Care Everywhere. * Heart Healthy Diet (Romansh) documented in this [facility] Work Phone: 1([phone]) 735-697504-23-2024 History of Present illness Narrative* Boom Jacobson, DO - 06/16/2023 10:00 AM EDT Subjective Giana Menchaca is a 77 y.o. female Chief [...] patient. Assessment/Plan 1. Coronary artery disease involving ruby coronary artery of ruby heart without angina pectoris 2. 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 (Multi) Follow Up In Cardiology 3. Inferior AR (Multi) Follow Up In Cardiology 4. S/P right coronary artery (RCA) stent placement 5. Mixed hyperlipidemia 6. Bradycardia 7. BMI 28.0-28.9,adult 8. Carotid bruit, unspecified laterality Scribe Attestation By signing my name below, Corie Bradley LPN, Scribe attest that this documentation has been prepared under the direction and in the presence of Quinn Jacobson DO. Provider Attestation - Scribe documentation All medical record entries made by the Scribe were at my direction and personally dictated by me. Jreardo reviewed the chart and agree that the record accurately reflects my personal performance of the history, physical exam, discussion and plan. documented in this encounterUniversity [facility]als [facility] Work Phone: 1(204) 356-365604-23-2024 Instructions* Patient Instructions* Corie Zamudio LPN - 06/16/2023 10:00 AM [...] to Increase physical activity. 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 Jan,OtherTooth abscess home care material was printed [employer] Other 10-10-2023 Progress note Author Sam Jacobson [facility] December 02, 2022 4:48pmNote Date/TimeOct2022 4:49pm[address] [address] Cardiology Progress Note Signed Patient: Giana Menchaca MR#: [id number] : 1945 Acct:[id number] Age/Sex: 77 / F Adm Date: 3 Loc: Room: 1U2139-7 Type: ADM IN Attending Dr: Sam Jacobson DO Copies to: ~ Date of Service: 12/02/2022 Subjective Principal diagnosis: Inferolateral STEMI Interval history: Day 1 status post inferolateral STEMI with complex extensive thrombotic RCA and prolonged no reflowlast evening with successful revascularization of the mid [...] later this afternoon, initiate GDMT for post AR therapies starting with beta-lorri and JENNIFER inhibitor tomorrow Interim evaluation 12/02/2022: Patient is doing well, asymptomatic without arrhythmia, heart failure or recurrent angina. Heart rate is now in the mid 90sand blood pressure 132/70. Echocardiogram report and imaging reviewed discussedwith patient, also the need for continued secondary preventive ther apies. We will initiate metoprolol and lisinopril this [...] % (Auto) 71.0 Lymph % (Auto) 19.7 Karnes % (Auto) 8.6 Eos % (Auto) 0.5 Baso % (Auto) 0.2 Nucleat RBC Rel Count 0.1 Neut # (Auto) 6.0 Lymph # (Auto) 1.7 Karnes # (Auto) 0.7 Eos # (Auto) 0.0 [...] inferior wall Status: Acute Documented By: Sam Jacobson DO 12/02/221646 Signed By: <Electronically signed by Sam Jacobson DO> 12/02/[address] [facility] Work Phone: 1(762) 874-442410-09-2023 Progress note Author Davi Chow [facility] December 01, 2022 2:50pmNote Date/TimeOct2022 2:50pm[address] [address] Progress Note Signed Patient: Giana Menchaca MR#: [id number] : 1945 Acct:[id number] Age/Sex: 77 / F Adm Date: 3 Loc: Room: [address] [place] [address] Type: ADM IN Attending Dr: Sam Jacobson DO Copies to: ~ Date of Service: [...] <Electronically signed by MD Davi Chow> 12/01/[address] [facility] Work Phone: 1([phone]) 477-545010-09-2023 Progress note Author Sam Jacobson [facility] December 01, 2022 11:11amNote Date/TimeOct2022 11:[place] [address] Cardiology Progress Note Signed Patient: Giana Menchaca MR#: [id number] : 1945 Acct:[id number] Age/Sex: 77 / F Adm Date: 3 Loc: Room: [address] [place] [address] Type: ADM IN Attending Dr: Sam Jacobson DO Copies to: ~ Date of Service: 12/01/2022 Subjective Principal diagnosis: Inferolateral STEMI Interval history: Day 1 status post inferolateral STEMI with complex extensive thrombotic RCA and prolonged no reflowlast evening with successful revascularization of the mid [...] later this afternoon, initiate GDMT for post AR therapies starting with beta-lorri and JENNIFER inhibitor [...] % (Auto) 52.8 Lymph % (Auto) 37.5 Karnes % (Auto) 6.9 Eos % (Auto) 1.9 Baso % (Auto) 0.9 Nucleat RBC Rel Count 0.1 Neut # (Auto) 4.8 Lymph # (Auto) 3.4 Karnes # (Auto) 0.6 Eos # (Auto) 0.2 [...] MPV Neut % (Auto) Lymph % (Auto) Karnes % (Auto) Eos % (Auto) Baso % (Auto) Nucleat RBC Rel Count Neut # (Auto) Lymph # (Auto) Karnes # (Auto) Eos # (Auto) Baso # [...] % (Auto) 81.7 Lymph % (Auto) 8.4 Karnes % (Auto) 9.7 Eos % (Auto) 0.0 Baso % (Auto) 0.2 Nucleat RBC Rel Count 0.1 Neut # (Auto) 6.7 Lymph # (Auto) 0.7 L Karnes # (Auto) 0.8 Eos # (Auto) 0.0 [...] MPV Neut % (Auto) Lymph % (Auto) Karnes % (Auto) Eos % (Auto) Baso % (Auto) Nucleat RBC Rel Count Neut # (Auto) Lymph # (Auto) Karnes # (Auto) Eos # (Auto) Baso # (Auto) Monocyte Dist Width APTT 58.4 H PHA Creatinine Clear 52.93 Sodium 139 Potassium 3.7 Chloride 107 Carbon Dioxide 25.2 Anion Gap 10.5 BUN 17 Creatinine 0.79 Est GFR (CKD-EPI) > 60.0 Glucose 206 H Calcium 8.7 Total Creatine Kinase Troponin I High Sens 71044.3 H* B-Natriuretic Peptide Triglycerides 69 Cholesterol 120 L LDL Cholesterol, Calc 65 VLDL Cholesterol 13 HDL Cholesterol 41 Cholesterol/HDL Ratio 2.9 A&P - Cardiology (1) ST elevation myocardial infarction (STEMI) of inferolateral wall: Code(s): I21.19 - ST elevation (STEMI) myocardial infarction involving other coronary artery of inferior wall Status: Acute Time spent with patient Time Spent With Patient (min): 30 Documented By: Sam Jacobson DO 12/01/22 1107 Signed By: <Electronically signed by Sam Jacobson DO> 12/01/[address] [facility] Work Phone: 1([phone]) 145-363210-08-2023 History and physical note Author Sam Kavon [facility] November 30, 2022 7:25pmNote Date/TimeOct2022 5:32pm[place] [address] Cardiology H&P Signed Patient: Giana Menchaca MR#: [id number] : 1945 Acct:[id number] Age/Sex: 77 / F Adm Date: 3 Loc: Room: Type: [facility] Attending Dr: Sam Jacobson DO Copies to: MD Sam Del Rio DO~ Date of Service: 11/30/2022 Cardiology HPI History of Present Illness Chief complaint: Acute inferolateral STEMI HPI: Ms. Menchaca is a 77 year old female admitted in transfer from [facility] via [facility], through our emergency room with acute inferolateral STEMI. Initial ECG from [facility] at 1628 reviewed, patient arrived at 1707 to the ER was administered appropriate upstream antiplatelet and Antithrombin therapies along with chest x-ray, [employer] team is already been called on ahead of time upon review of initial outside ECG; arrived in [employer] [facility] at 1726; PCI of infarct vessel performed 1741; door to device time 34 minutes. Additionally, patient had severe prolonged no reflow in the entire RCA for approximately 60 minutesrequiring multiple aspiration and mechanical thrombectomies, infusion of [...] the ER staff, reviewed electronic transmitted media, [employer] staff, nursing staff, patient and family both pre and post procedurally. Review of Systems Constitutional Constitutional: Reports as per HPI Cardiovascular Cardiovascular: Reports as per HPI and Reports chest pain at rest [facility] Medical History (Updated 11/30/22 @ 17:32 by Sam Jacobson DO) GERD (gastroesophageal reflux disease) Hypertension Hypothyroid [...] Interpretations EKG EKG results cardiology: sinus rhythm AR, pacemaker, normal Myocardial infarction: inferior AR (acute or recent) and lateral AR (acute or recent) A&P - Cardiology (1) ST elevation myocardial infarction (STEMI) of inferolateral wall: Code(s): I21.19 - ST elevation (STEMI) myocardial infarction involving other coronary artery of inferior wall Documented By: Sam Jacobson DO 11/30/221726 Signed By: <Electronically signed by Sam Jacobson DO> 11/30/2219[address] [facility] Work Phone: 1(287) 744-776810-08-2023 [facility]-20[facility]10-08-2023 Procedure note [facility]10-08-2023 [facility]10-08-2023 [facility] 11-30-2022 History and physical note Author Sam Jacobson [facility] November 30, 2022 7:25pmNote Date/TimeOct2022 5:[place] [id number] Cardiology H&P Signed Patient: Giana Menchaca MR#: [id number] : 1945 Acct:[id number] Age/Sex: 77 / F Adm Date: 3 Loc: Room: Type: [facility] Attending Dr: Sam Jacobson DO Copies to: MD Sam Del Rio DO~ Date of Service: 11/30/2022 Cardiology HPI History of Present Illness Chief complaint: Acute inferolateral STEMI HPI: Ms. Menchaca is a 77 year old female admitted in transfer from [facility] via [facility], through our emergency room with acute inferolateral STEMI. Initial ECG from [facility] at 1628 reviewed, patient arrived at 1707 to the ER was administered appropriate upstream antiplatelet and Antithrombin therapies along with chest x-ray, [employer] team is already been called on ahead of time upon review of initial outside ECG; arrived in [employer] [facility] at 1726; PCI of infarct vessel performed 1741; door to device time 34 minutes. Additionally, patient had severe prolonged no reflow in the entire RCA for approximately 60 minutesrequiring multiple aspiration and mechanical thrombectomies, infusion of [...] the ER staff, reviewed electronic transmitted media, [employer] staff, nursing staff, patient and family both pre and post procedurally. Review of Systems Constitutional Constitutional: Reports as per HPI Cardiovascular Cardiovascular: Reports as per HPI and Reports chest pain at rest [facility] Medical History (Updated 11/30/22 @ 17:32 by Sam Jacobson DO) GERD (gastroesophageal reflux disease) Hypertension Hypothyroid [...] Interpretations EKG EKG results cardiology: sinus rhythm AR, pacemaker, normal Myocardial infarction: inferior AR (acute or recent) and lateral AR (acute or recent) A&P - Cardiology (1) ST elevation myocardial infarction (STEMI) of inferolateral wall: Code(s): I21.19 - ST elevation (STEMI) myocardial infarction involving other coronary artery of inferior wall Documented By: Sam Jacobson DO 11/30/221726 Signed By: <Electronically signed by Sam Jacobson DO> 11/30/2219[address] [facility] Work Phone: 1(135) 920-189102-14-2022 Evaluation note* Encounter Date Diagnosis Assessment Notes Treatment Notes Treatment Clinical Notes Mar, Acute otitis media with effusion of both ears (ICD-10 - H65.193) Education printed. Mar,erumen debris on tympanic membrane of right ear (ICD-10 - H61.21) Ear wax removal completed in office today. Recommend Debrox ear drops as directed in box to preventfuture impaction as well as refraining from using Q- tips or other objects to clear out ears. Followup with PCP or ENT if no improvement of symptoms or symptom return Mar,therCerumen impaction home care material was printed, Ear fluid (middle ear effusion) material was printed [employer] Other Evaluation note* Diagnosis Onset Date Resolution Status ST elevation myocardial infarction (STEM I) of inferolateral wall acute [facility] Work Phone: Evaluation note* Diagnosis Coronary artery disease involving ruby coronary artery of ruby heart without angina pectoris 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 (Multi) Inferior AR (Multi) Acute myocardial infarction of other inferior wall, episode of care unspecified S/P right coronary artery (RCA) stent placement Mixed hyperlipidemia Bradycardia Other specified cardiac dysrhythmias BMI 28.0-28.9,adult Carotid bruit, unspecified laterality documented in this encounter [facility] Work Phone: Evaluation note* Diagnosis Coronary artery disease involving ruby coronary artery of ruby heart without angina pectoris Inferior AR (Multi) Acute myocardial infarction of other inferior wall, episode of care unspecified S/P right coronary artery (RCA) stent placement Bradycardia Other specified cardiac dysrhythmias Essential hypertension Unspecified essential hypertension Mixed hyperlipidemia BMI 28.0-28.9,adult 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 (Multi) documented in this encounter [facility] Work Phone: Evaluation note* Diagnosis Anxiety Anxiety state, unspecified [facility] Diagnosis Acquired hypothyroidism- Primary Unspecified hypothyroidism Essential hypertension, benign Diabetes mellitus without complication ([facility]) Type II or unspecified type diabetes mellitus without mention of complication, not stated as uncontrolled Coronary artery disease involving ruby coronary artery of ruby heart without angina pectoris Gastroesophageal reflux disease without esophagitis Esophageal reflux Chronic kidney disease, unspecified CKD stage Anxiety Anxiety state, unspecified documented in this encounter [facility]* Diagnosis Coronary artery disease involving ruby coronary artery of ruby heart without angina pectoris Presence of bare metal stent in LAD coronary artery Anemia, unspecified type Inferior AR (Multi) Acute myocardial infarction of other inferior wall, episode of care unspecified BMI 27.0-27.9,adult Never smoked tobacco documented in this encounter [facility] Work Phone: Evaluation note* Diagnosis Microcytic hypochromic anemia- Primary Unspecified iron deficiency anemia documented in this encounter [facility] System[facility]* Diagnosis Routine general medical examination at a health care facility- Primary Type 2 diabetes mellitus without complication, without long-term current use of insulin ([facility]) Anemia, unspecified type Anxiety Anxiety state, unspecified Mixed hyperlipidemia Atherosclerotic heart disease of ruby coronary artery without angina pectoris [facility] Anemia, unspecified type- Primary [facility] Additional Instructions DISCHARGE INSTRUCTIONS FOR [...] doctor or pharmacist, without first calling the box lining machine feeder who implanted the stent. If you require [...] weight lifting, stair steppers, etc. until the box lining machine feeder approves these activities. Check with the box lining machine feeder on your first follow-up visit. CALL YOUR PHYSICIAN at [phone]: -If bleeding should occur from the catheter insertion site- apply pressure to the site then immediately call us. -Report any fever, redness, drainage, increased swelling, or firmness at the catheter insertion site. Some bruising or slight swelling may be present at the time of discharge. -Should arm or leg become cold, numb, white, or blue, contact the box lining machine feeder immediately. -IF you should experience episodes of [...] is recommended. Please call Central Scheduling at [phone] to schedule your appointment.] The attending box lining machine feeder or [facility] nurse clinician should provide you with specific instructions regarding activity, diet, medications, and further follow up for you. Follow the medication instructions provided on your discharge. If the dosages and instructions on this sheet differ from the dosage and instructions on the bottle, follow the instructions on the bottle. [facility] is not responsible for incorrect prescription information provided by the patient during their visit. Do not stop your medications without consulting your health care provider. Please take the list with you to your next doctor's appointment.[facility] Work Phone: InstructionsNot on filedocumented in this encounter [facility] SystemInstructionsNot on filedocumented in this encounter [facility] SystemInstructions* Attachments The following attachments cannot be sent through Care Everywhere. * Coronary artery disease (Romansh) [facility] SystemInstructionsNot on file documented in this encounterPro[facility] SystemInstructionsNot on file documented in this encounterPro[facility] SystemInstructionsNot on file documented in this encounterPro[facility] SystemInstructionsNot on file documented in this encounterPro[facility] SystemInstructionsNot on file documented in this encounterSum[facility] SystemReason for referral (narrative)* Consultation (Routine) - AuthorizedSpecialtyDiagnoses / Procedures Referred By ContactReferred To ContactCardiology Diagnoses Coronary artery disease involving ruby coronary artery of ruby heart without angina pectoris Procedures Follow Up In Cardiology Boom Jacobson DO [address] [place] [address] 2, [facility] [address] [id number] Boom Jacobson, [address] [facility] [address], [address] [place] [address] Referral IDStatusReasonStart DateExpiration DateVisits RequestedVisits [id number]/8/202410/8/202511 [facility] Work Phone: Summary Purpose Family History Relationship Condition Age at Onset Recorded Date/T hilton father Malignant neoplasm Unknown sisterMalignant neoplasmUnknown Advance Directives Advance Directive Response Recorded Date/ Time Advance Directives No November 30, 2022 5:27pm TypeDate RecordedPatient RepresentativeExplanationLiving Will08/08/2019 4:12 PM State [facility] Living will 20Date ActivatedDate InactivatedComments07/22/2016 9:16 PM07/23/2016 8:13 PMTypeDate RecordedPatient RepresentativeExplanationLiving Will08/08/2019 4:12 [place] Living [place] 20Date ActivatedDate InactivatedComments07/22/2016 9:16 PM07/23/2016 8:13 PM Chief Complaint and Reason for Visit Chief Complaint chest pain Reason for Visit ST elevation myocard ial infarction (STEMI) of inferolateral wall Reason for Referral SpecialtyDiagnoses / ProceduresReferred By ContactReferred To ContactCardiology Diagnoses Carotid bruit, unspecified laterality Procedures Vascular US Carotid Artery Duplex Bilateral Boom Jacobson, DO [address], [address] [place], [place] [id number] Referral IDStatusReasonStart DateExpiration DateVisits RequestedVisits [id number] Review Perform Procedure /[id number] / ProceduresReferred By ContactReferred To ContactCardiology Diagnoses Coronary artery disease involving ruby coronary artery of ruby heart without angina pectoris Procedures Follow Up In Cardiology Boom Jacobson, DO [address] [facility], [place] [id number] Boom Jacobson, [address], [place] [id number] Referral IDStatusReasonStart DateExpiration DateVisits RequestedVisits [id number]/23/20244/23/202511 Additional Source Comments REASON FOR VISIT (unrecogniz ed section and content) ReasonCommentsFollow-up6 monthsSpecialtyDiagnoses / ProceduresReferred By ContactReferred To ContactCardiology Diagnoses 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 (Multi) Inferior AR (Multi) Procedures Follow Up In Cardiology Boom Jacobson, [address], [place] [id number] Boom Jacobson, DO [address], [address] [place], [place] [phone] Referral IDStatusReasonStart DateExpiration DateVisits RequestedVisits [id number]/19/202310/18/094350KwhwduKkcfpylsVqveqf-db2 months SpecialtyDiagnoses / ProceduresReferred By ContactReferred To ContactCardiology Diagnoses Coronary artery disease involving ruby coronary artery of ruby heart without angina pectoris Procedures Follow Up In Cardiology Boom Jacobson, [address] [facility] [address], [place] [id number] Boom Jacobson, [address] [facility] [address], [place] [address] Referral IDStatusReasonStart DateExpiration DateVisits RequestedVisits [id number]/23/20244/23/844264KtgubcPlwmo DateCommentsMed Nkbzeh8104/07/2024ReasonCommentsREVIEW LABSReasonCommentsFollow-up8 month Follow up for Coronary Artery DiseaseSpecialtyDiagnoses / ProceduresReferred By Contact Referred To ContactCardiology Diagnoses Coronary artery disease involving ruby coronary artery of ruby heart without angina pectoris Procedures Follow Up In Cardiology Boom Jacobson, [address] [facility] [address], [place] [id number] Phone: tel: fax: Boom Jacobson, [address] [facility] [address], [place] [phone] Phone: tel: fax: Referral IDStatusReasonStart DateExpiration DateVisits RequestedVisits [id number]/8/202410/8/800645KbrjokPtvlembdDabilm Exam INFORMATION SOURCE (unrecogn ized section and content) DATE CREATED AUTHOR 06/26/2022 [facility] DATE CREATED AUTHOR AUTHOR'S ORGANIZ ATION 12/04/2022 [facility] DATE CREATED AUTHOR AUTHOR'S ORGANIZ ATION 12/02/[address] [facility] DATE CREATED AUTHOR AUTHOR'S ORGANIZ ATION 12/06/2024 [facility] Care Teams (unrecognized sec tion and content) Team Status: Active Member Role Status Dates Mike Moran MD Primary Care Provider Active Team Status: Inactive Member Role Status Dates Tone Barba DO Emergency Provider Active W Gonzalez Jacobson DOAdmit Provider, Attending ProviderActiveMike Moran MD Primary Care ProviderActive Team Status: Active Member Role Status Dates Tone Barba DO Emergency Provider Active W Gonzalez Jacobson DOAdmit Provider, Attending ProviderActiveMike Moran MD Primary Care ProviderActiveTeam MemberRelationshipSpecialtyStart DateEnd Date Mike Moran MD [address] [place] [address] PCP - Generalmily Medicine02/23/99Team MemberRelationshipSpecialtyStart DateEnd Date Mike Moran MD [address] [place] [address] PCP - Generalmily Jipcerxe06/8/24Team MemberRelationshipSpecialtyStart DateEnd Date iMke Moran MD [address] [place] [address] PCP - GeneralFamily Medicine07/22/16Team MemberRelationshipSpecialtyStart DateEnd Date Mike Moran MD [address] [place] [address] PCP - GeneralFamily Medicine07/22/16Team MemberRelationshipSpecialtyStart DateEnd Date Andry Dubon MD [address] [place] [address] PCP - GeneralInternal Medicine06/09/24Team MemberRelationshipSpecialtyStart Date End Date Andry Dubon MD [address] [place] [address] PCP - GeneralInternal Medicine06/09/24Team MemberRelationshipSpecialtyStart Date End Date Jc Jo MD [address] [place] [address], [address] [place] [address] PCP - GeneralInternal Medicine08/30/24Team MemberRelationshipSpecialtyStart Date End Date Andry Dubon MD [address] [place] [address] PCP - GeneralInternal Medicine06/09/24Team MemberRelationshipSpecialtyStart Date End Date Andry Dubon MD [address] [place] [address] PCP - GeneralInternal Medicine06/09/24Team MemberRelationshipSpecialtyStart Date End Date Andry Dubon MD [address] [place] [address] PCP - GeneralInternal Medicine06/09/24Team MemberRelationshipSpecialtyStart Date End Date Jc Jo MD [address] [place] [address], [address] [place] [address] PCP - GeneralInternal Gwsrugdr12/13/25Team MemberRelationshipSpecialtyStart Date End Date Jc Jo MD [address] [place] [address], [address] [place] [address] PCP - GeneralInternal Ompipzqf55/13/25Team MemberRelationshipSpecialtyStart Date End Date Jc Jo MD [address] [place] [address], [address] [place] [address] PCP - GeneralInternal Mvxevbji91/13/25 FOR RECORDS PERTAINING TO PATIENTS WHO ARE [...] BE BASED ON THE PRIMARY CLINICAL RECORDS. [facility] [employer] [facility]. provides no warranty or guarantee of the accuracy or completeness of information in this document.
[2025-01-13 10:23] LABS: Iron 30.0 ug/dL (50.0-170.0); Percent Iron Saturation 7.7 %; Total Iron Binding Capacity 391.0 ug/dL (250.0-450.0)
[2025-01-13 10:58] LABS: Ferritin 5.0 ng/mL (8.0-252.0); Folate 21.80 ng/mL (8.60-58.90)
[2025-01-14 04:07] LABS: Vitamin B12 198 pg/mL (232-1245)
== END 2025-01-13 08:27 | disposition home or self-care (01) ==
LOC: LAB 08:28
PROVIDERS: PCP Internal Medicine; Visit Provider Internal Medicine
DX: E53.8 Deficiency of other specified B group vitamins (principal); E61.1 Iron deficiency
CPT/HCPCS: 36415; 82607; 82728; 82746; 83540; 83550